=== PATIENT | male | born 1950 | race Caucasian/White ===

== ENCOUNTER → 2020-04-29 09:33 | Outpatient (CLI) | payer OTHER, SELFPAY ==
[2015-05-25 10:42] VITALS: BMI 36.4
[2020-04-29 09:56] LABS: Hematocrit 48.1 % (40-54); Hemoglobin 16.6 g/dL (13.0-16.5); Mean Corp Hgb Conc 34.5 g/dL (32-36); Mean Corpuscular Hgb 30.2 pg (27.0-32.0); Mean Corpuscular Volume 87.5 fL (80-94); Mean Platelet Vol. 10.2 fl (6.2-12.0); Platelet Count 197 K/mm3 (150-450); RBC Distribution Width CV 12.5 % (11.6-14.6); RBC Distribution Width SD 39.5 fl (35.1-43.9); White Blood Count 6.7 K/mm3 (4.4-11.0)
== END ==
DX: C85.90 Non-Hodgkin lymphoma, unspecified, unspecified site (principal)
CPT/HCPCS: 36415; 85027

== ENCOUNTER 2021-12-30 14:32 | Inpatient (IN) | payer OTHER, SELFPAY ==
[2021-12-30] VITALS (18 sets, daily range): BP systolic 106–159; BP diastolic 62–102; PULSE 81–175; RESP 14–24; TEMP 36.6–36.9; O2SAT 80–93; BMI 38.0; BMI 42.3; BMI 41.0
--- NOTE | 2021-12-30 14:37 | ED.RN ---
HR NOTED IN TRIAGE TO RANGE FROM 39-168. 4L O2 APPLIED TO REACH 93% O2
--- NOTE | 2021-12-30 14:41 | EKG12_ITS ---
Test Reason : CP/SOB Blood Pressure : / mmHG Vent. Rate : 153 BPM Atrial Rate : 086 BPM P-R Int : 000 ms QRS Dur : 154 ms QT Int : 322 ms P-R-T Axes : 000 010 184 degrees QTc Int : 514 ms Atrial fibrillation Left bundle branch block Abnormal ECG Confirmed by HERNÁN KAUFFMAN, VALERIANO ([id number]), editor school photograph LOUIS GILMAN ([id number]) on 01/01/2022 10:08:36 AM Referred By: Confirmed By:VALERIANO JIM MD
--- NOTE | 2021-12-30 14:41 | RAD_ITS ---
INDICATION: chest pain EXAMINATION/TECHNIQUE: X-RAY - XR Chest 1 View COMPARISON: None. FINDINGS: LINES/DEVICES: None. LUNGS: Prominence of the bronchovascular interstitial lung markings is visualized bilaterally with subtle scattered areas of patchy airspace opacification seen. Fluid levels visualized in bilateral lower lung kulkarni more prominent in the right lower lung field with obscuration of the hemidiaphragms consistent with bilateral pleural effusions right more than left. No consolidation, edema or effusion. No pneumothorax. MEDIASTINUM AND CARDIOVASCULAR STRUCTURES: Cardiac silhouette is moderately enlarged. BONES AND SOFT TISSUES: Degenerative bone changes unremarkable for the patient''s age. RAD/Chest 1 View (Portable) IMPRESSION: Congestive heart failure with bilateral pleural effusions right more than left. Electronically Signed: Teofilo Godinez MD at 15:30 EDT ,
--- NOTE | 2021-12-30 15:00 | EKG12_ITS ---
Test Reason : Blood Pressure : / mmHG Vent. Rate : 080 BPM Atrial Rate : 000 BPM P-R Int : 000 ms QRS Dur : 150 ms QT Int : 428 ms P-R-T Axes : 000 007 194 degrees QTc Int : 493 ms Atrial fibrillation Left bundle branch block Abnormal ECG Confirmed by DORINDA KAUFFMAN, HEIDI ([id number]), brands editor LOUIS GILMAN ([id number]) on 01/05/2022 9:05:27 AM Referred By: Forrest Confirmed By:HEIDI SETH MD
--- NOTE | 2021-12-30 15:07 | EDS_ITS ---
HPI History of Present Illness Chief Complaint: Shortness of Breath Informant: patient Narrative Narrative: Patient is a 71-year-old male with history of colon cancer, hypertension and hyperlipidemia presenting from home for chest discomfort and shortness of breat h. Patient states he started feeling some symptoms last night but became significantly worse this morning. Patient has pain in the center of his chest. Denies radiation of the pain. He has cough that is nonproductive and mild associated with his symptoms. Denies any sick contacts. Does feel associated palpitations. Denies any history of cardiac arrhythmia. Patient does not wear home oxygen. Does have some chronic swelling of his legs, right worse than left ever since he broke his ankle 2 years ago. Does not feel that this is changed or different than his baseline. Denies any sick contacts. No other complaints at this time. [facility] Medical History (Updated 12/31/21 @ 00:[address] Betty Hurtado, DO) BPH (benign prostatic hyperplasia) Colon cancer Former smoker Gout Hypertension Morbid obesity Osteoarthritis Sleep apnea Urinary incontinence Home Medications acetaminophen 325 mg tablet (Tylenol) 650 mg PO TID PRN HIP PAIN 12/30/21 [History Last Taken 12/29/21] allopurinol 100 mg tablet 100 mg PO DAILY GOUT 12/30/21 [History Last Taken 12/30/21] amlodipine 10 mg tablet 10 mg PO DAILY BP 12/30/21 [History Last Taken 12/30/21] cholecalciferol (vitamin D3) 50 mcg (2,000 unit) tablet 100 mcg PO DAILY SUPPLEMENT 12/30/21 [History Last Taken 12/30/21] finasteride 5 mg tablet 5 mg PO DAILY PROSTATE 12/30/21 [History Last Taken 12/30/21] hydrochlorothiazide 25 mg tablet 25 mg PO DAILY FLUID 12/30/21 [History Last Taken 12/30/21] lisinopril 30 mg tablet 30 mg PO BID BP 12/30/21 [History Last Taken 12/30/21] metoprolol succinate 200 mg tablet,extended release 24 hr 200 mg PO DAILY HEART 12/30/21 [History Last Taken 12/30/21] potassium chloride 20 mEq tablet,extended release(part/cryst) (Klor-Con M) 20 meq PO DAILY SUPPLEMENT 12/30/21 [History Last Taken 12/30/21] salsalate 750 mg tablet 750 mg PO BID PRN Pain 12/30/21 [History Last Taken 12/29/21] terazosin 5 mg capsule 5 mg PO QHS PROSTATE 12/30/21 [History Last Taken 12/29/21] trospium 20 mg tablet 20 mg PO QHS OAB 12/30/21 [History Last Taken 12/29/21] Allergy/AdvReac Type Severity Reaction Status Date / Time codeine Allergy Itching Verified 12/30/21 14:38 Family History (Updated 12/30/21 @ 21:[address] Susy Clayton DO) Other Diabetes Heart disease Hypertension Social History (Updated 12/30/21 @ 21:[address] Susy Clayton DO) Smoking Status: Former smoker alcohol intake: current alcohol intake frequency: a few times a month substance use type: does not use ROS ROS ED Constitutional Constitutional ED: Denies chills, fever(s) or sweats Eyes Eyes: Denies change in vision or diplopia ENT ENT ED: Denies rhinorrhea or sore throat Cardiovascular Cardiovascular: Reports chest pain, palpitations and racing heartbeat Respiratory/Chest Respiratory/Chest: Reports cough, dyspnea and dyspnea on exertion Gastrointestinal Gastrointestinal: Denies abdominal pain, melena, nausea or vomiting Genitourinary Genitourinary ED: Denies dysuria Musculoskeletal Musculoskeletal: Denies arthralgias or myalgias Integumentary Denies rash Neurologic Neurologic: Denies headache(s) or weakness Psychiatric Psychiatric: Denies anxiety Hematologic/Lymphatic Hematologic/Lymphatic: Denies easy bleeding or easy bruising EXAM Physical Exam Const Vital Signs: 12/30/21 14:33 12/30/21 14:51 12/30/21 14:54 Temperature 98.4 F Temperature Source Temporal Pulse Rate 175 H 106 H Respiratory Rate 16 20 H Respiratory Effort Respiratory Depth Respiratory Pattern Blood Pressure 159/98 H 132/95 H Blood Pressure Mean 118 107 Blood Pressure Source Blood Pressure Position Blood Pressure Location Pulse Ox 80 92 Oxygen Delivery Method Room Air Nasal Cannula Nasal Cannula Oxygen Flow Rate (L/min) 4 4 12/30/21 14:55 12/30/21 14:57 12/30/21 15:04 Temperature Temperature Source Pulse Rate Respiratory Rate Respiratory Effort Short of Breath Short of Breath Respiratory Depth Shallow Respiratory Pattern Tachypnea Blood Pressure Blood Pressure Mean Blood Pressure Source Blood Pressure Position Blood Pressure Location Pulse Ox 92 Oxygen Delivery Method Nasal Cannula Nasal Cannula Oxygen Flow Rate (L/min) 4 4 12/30/21 15:17 12/30/21 15:45 12/30/21 15:48 Temperature Temperature Source Pulse Rate 147 H 89 101 H Respiratory Rate 22 H 14 24 H Respiratory Effort Respiratory Depth Respiratory Pattern Blood Pressure 133/102 H 132/70 H 130/80 H Blood Pressure Mean 112 90 96 Blood Pressure Source Blood Pressure Position Semi-Fowlers Blood Pressure Location Left Arm Pulse Ox 92 91 93 Oxygen Delivery Method Nasal Cannula Oxygen Flow Rate (L/min) 4 4 4 12/30/21 16:57 12/30/21 16:58 Temperature Temperature Source Pulse Rate 114 H 116 H Respiratory Rate 16 22 H Respiratory Effort Respiratory Depth Respiratory Pattern Blood Pressure 138/83 H 138/83 H Blood Pressure Mean 101 101 Blood Pressure Source Monitor Blood Pressure Position Semi-Fowlers Blood Pressure Location Left Arm Pulse Ox 92 92 Oxygen Delivery Method Nasal Cannula Oxygen Flow Rate (L/min) 4 4 Positive well nourished, well developed and obese General Appearance ED: well developed Nutritional Appearance: obese HEENT Reports moist mucous membranes Negative for trauma Eyes PERRL and EOMs intact bilaterally Neck supple and no JVD Chest Wall inspection of chest normal and palpation of chest normal Resp Resp Narrative: Normal respiratory effort. Rhonchorous breath sounds, more pronounced at the right lung base. No crackles appreciated. Auscultation: Negative for wheezes Cardio Rate: tachycardic Rhythm: abnormal rhythm irregularly irregular GI non-tender and no masses GI Narrative: Protuberant abdomen Palpation: soft; Negative for tender or guarding Extremity General Extremety ED: Yes edema; Negative for tenderness General Extremity: edema Neuro oriented x3 Motor Exam: general weakness Psych mental status grossly normal Skin no rashes or lesions noted and no wounds MDM MDM MDM Narrative Medical decision making narrative: Patient arrives for over 12 hours of chest discomfort and shortness of breath. Patient is tachycardic and hypoxic upon arrival. He is placed on 4 L of oxygen to maintain his O2 saturation above 90%. Patient appears to be in atrial fibrillation which is new onset. I will start on diltiazem and evaluate for further causes of the atrial fibrillation including PE with a D-dimer and ACS. Patient has adequate rate control with diltiazem bolus and then drip. Chest x- ray shows pulmonary edema and pleural effusion on the right interpreted by myself as well as radiology. D-dimer is elevated as well as BNP. High since he troponin is normal x2. CTA shows pleural effusions as well as dependent atelectasis but no infiltrate or pulmonary emboli. I suspect the pleural effusions are causing his hypoxia. Its not clear the pleural effusions triggered the atrial fibrillation with RVR or are a result of it. Patient started on IV Lasix and started to have good urine output with it. He will be admitted on a heparin drip for further evaluation of his new atrial fibrillation, as well as further rate control patient evaluation for cute onset of heart failure. He is agreeable this plan of care. He stabilized in the e mergency room. Lab Data Labs: Laboratory Results - last 24 hr 12/30/21 12/30/21 12/30/21 14:47 14:47 14:47 WBC 7.6 RBC 4.63 Hgb 14.3 Hct 41.8 MCV 90.3 MCH 30.9 MCHC 34.2 RDW Std Deviation 43.8 RDW Coeff of Maci 13.4 Plt Count 250 MPV 10.3 Immature Gran % (Auto) 0.300 Neut % (Auto) 70.3 H Lymph % (Auto) 14.8 L [place] % (Auto) 11.8 H Eos % (Auto) 2.3 Baso % (Auto) 0.5 Absolute Neuts (auto) 5.3 Absolute Lymphs (auto) 1.12 Nucleated RBC % 0 PT 13.9 INR 1.1 APTT 27.8 D-Dimer Quant (PE/DVT) 1.70 H* Sodium 138 Potassium 4.0 Chloride 102 Carbon Dioxide 30.0 Anion Gap 6 BUN 23 H Creatinine 1.26 Estim Creat Clear Calc 54.72 Est GFR (MDRD) Af Amer 72 Est GFR (MDRD) Non-Af 60 BUN/Creatinine Ratio 18.3 Glucose 115 H Calcium 9.2 Magnesium 2.3 Troponin I High Sens 6 B-Natriuretic Peptide TSH 1.64 12/30/21 12/30/21 14:47 17:25 WBC RBC Hgb Hct MCV MCH MCHC RDW Std Deviation RDW Coeff of Maci Plt Count MPV Immature Gran % (Auto) Neut % (Auto) Lymph % (Auto) [place] % (Auto) Eos % (Auto) Baso % (Auto) Absolute Neuts (auto) Absolute Lymphs (auto) Nucleated RBC % PT INR APTT D-Dimer Quant (PE/DVT) Sodium Potassium Chloride Carbon Dioxide Anion Gap BUN Creatinine Estim Creat Clear Calc Est GFR (MDRD) Af Amer Est GFR (MDRD) Non-Af BUN/Creatinine Ratio Glucose Calcium Magnesium Troponin I High Sens 6 B-Natriuretic Peptide 719.0 H TSH Radiography Diagnostic Testing: Clinical Impression(s) from Imaging Studies Chest X-Ray 12/30/21 14:41 IMPRESSION: Congestive heart failure with bilateral pleural effusions right more than left. Electronically Signed: Teofilo Godinez MD at 15:30 EDT , Chest CTA 12/30/21 16:19 IMPRESSION: 1. No CT evidence of pulmonary embolism. 2. Large bilateral pleural effusions with bibasilar atelectasis. Electronically Signed: Castro Rosales MD at 17:26 EDT , Rhythm Strip Rhythm Strip: A-fib Rate: 153 Ectopy: None EKG Initial EKG: Attestation: I personally reviewed and interpreted this EKG as follows: Interpretation: Atrial Fibrillation Comments: Atrial fibrillation with a Florez C at a rate of 153 Normal axis Left bundle branch block QRS [address] segments changes Prior EKG tracings: available for review Prior: Changed Critical Care Time Critical Care Time: Yes Critical care time (excluding procedures): 30-74 minutes (35), Discussing w/Patient &/or Family/Physical Therapy Aide, Arranging Admission or Transfer and Performing Direct Patient Care at Bedside Discharge Plan Dx/Rx/DC Orders Clinical Impression: Atrial fibrillation with RVR, Bilateral pleural effusion, Acute heart failure, Elevated brain natriuretic peptide (BNP) level, Acute respiratory failure with hypoxia Disposition Disposition: [facility] Discharge Date/Time: 12/30/21 18:59
[2021-12-30] MEDS: Aspirin 81 MG TAB.CHEW 324 MG PO (15:16)
[2021-12-30] MEDS: dilTIAZem 25 MG/5 ML Vial IV BOLUS (15:17)
[2021-12-30] MEDS: 0.9% Normal Saline 1,000 ML 15 ML IV (15:17)
[2021-12-30 15:24] LABS: Absolute Lymphocyte Count 1.12 X10^3/uL (0.83-4.51); Absolute Neutrophil Count 5.3 X10^3/uL (2.0-7.7); Basophil# 0.04 X10^3/uL; Basophil% 0.5 % (0-1); Eosinophil# 0.17 X10^3/uL; Eosinophils% 2.3 % (0-5); Hematocrit 41.8 % (40-54); Hemoglobin 14.3 g/dL (13.0-16.5); Lymphocyte # 1.12 X10^3/ul (0.83-4.51); Lymphocyte % 14.8 % (19-41); Mean Corp Hgb Conc 34.2 g/dL (32-36); Mean Corpuscular Hgb 30.9 pg (27.0-32.0); Mean Corpuscular Volume 90.3 fL (80-94); Mean Platelet Vol. 10.3 fl (6.2-12.0); Monocyte# 0.89 X10^3/uL; Monocyte% 11.8 % (0-10); NRBC Flagged by Analyzer 0 % (0-5); Neutrophil # 5.31 X10^3/uL (2.7-7.7); Neutrophil % 70.3 % (47-70); Platelet Count 250 K/mm3 (150-450); RBC Distribution Width CV 13.4 % (11.6-14.6); RBC Distribution Width SD 43.8 fl (35.1-43.9); Red Blood Count 4.63 M/mm3 (4.6-6.2); White Blood Count 7.6 K/mm3 (4.4-11.0)
[2021-12-30 15:49] LABS: Anion Gap 6 (5-15); BUN 23 mg/dL (7-18); BUN/Creat Ratio 18.3 RATIO (10-20); Calcium,Total 9.2 mg/dL (8.5-10.1); Chloride 102 mmol/L (98-107); Creatinine, Serum 1.26 mg/dL (0.70-1.30); EST Glomerular Filtration Rate 60 mL/min (>60); Est Glom Filt Rate - Afr Amer 72 mL/min (>60); Estimated Creatinine Clearance 54.72 ml/min; Glucose 115 mg/dL (74-106); Magnesium 2.3 mg/dL (1.6-2.6); Sodium Level 138 mmol/L (136-145); Thyroid Stim Hormone (TSH) 1.64 uIU/mL (0.358-3.74); Troponin-I HS (w/2H Reflex) 6 pg/mL (3.0-78.0)
[2021-12-30 16:00] LABS: International Normalized Ratio 1.1; Prothrombin Time (Protime)PT. 13.9 SECONDS (11.7-14.9)
[2021-12-30 16:01] LABS: Partial Thromboplast Time 27.8 Seconds (24.1-36.2)
--- NOTE | 2021-12-30 16:11 | ED.RN ---
asked pharmacy services representative Justin to get [facility].
[2021-12-30] MEDS: Furosemide 40 MG/4 ML Vial IV (16:14)
--- NOTE | 2021-12-30 16:19 | CT_ITS ---
STUDY: CTA CHEST REASON FOR EXAM: Male, 71 years old. SOB, hypoxia, elevated dimer RADIATION DOSAGE (If Supplied By Facility): CTDIvol = ( 15.04 ) mGy, DLP = ( 535.9 ) mGycm TECHNIQUE: The examination was performed with the intravenous administration of IV 100mL Isovue-370. Post-processing of the angiographic images was performed, with multiplanar reformation and 3D reconstruction. Individualized dose optimization techniques were used for this CT. COMPARISON: Chest x-ray earlier today FINDINGS: Normal enhancement of the main pulmonary artery and right and left pulmonary arteries. Normal enhancement of the bilateral peripheral pulmonary arteries. There is no demonstrated pulmonary embolism. Normal thoracic aorta and visualized great vessels. There is no demonstrated aortic dissection. Normal heart and pericardium. Normal mediastinum. Normal hilar regions. Normal visualized trachea and bronchi. The lungs are well expanded. Normal pulmonary parenchyma. Large bilateral pleural effusions with bibasilar atelectasis. Normal chest wall structures. Normal osseous structures. Normal visualized upper abdomen. CT/CTA Chest W/WO Contrast IMPRESSION: 1. No CT evidence of pulmonary embolism. 2. Large bilateral pleural effusions with bibasilar atelectasis. Electronically Signed: Castro Rosales MD at 17:26 EDT ,
[2021-12-30 17:19] LABS: Reflex Troponin-HS? (from REC) Y
[2021-12-30 18:14] LABS: Troponin-I HS 6 pg/mL (3.0-78.0)
--- NOTE | 2021-12-30 18:15 | NURSING ---
PCU MICHAEL [facility] [place] AFIB, ACUTE HYPOXIA
[2021-12-30] MEDS: Heparin Injection (Vial) 5,000 UNIT/ML VIAL 10500 UNIT IV (18:48)
[2021-12-30] MEDS: HEPARIN/D5w 25,000 UNITS 25,000 UNITS/250 ML IV.SOLN. 17 UNITS CONT INF (18:49)
--- NOTE | 2021-12-30 19:19 | ECHOCS_ITS ---
Reason For Study: CHF Procedure This was a 2D Doppler, Color Flow transthoracic echocardiogram. The study was technically difficult. due to patient body habitus & lung interference. Contrast injection was performed. Exam performed portable in patient room. Left Ventricle Based upon the 2D echocardiographic and contrast enhanced images obtained there appears to be grossly normal left ventricular size, wall motion, and systolic function. The estimated ejection fraction is 55 %. Unable to assess diastolic dysfunction. Right Ventricle Normal RV size. Normal systolic function. Atria Normal left atrium. Normal right atrium. No doppler evidence for ASD. Mitral Valve There is no mitral annular calcification. Normal mitral valve. Trivial mitral valve insufficiency. Tricuspid Valve Normal tricuspid valve. Aortic Valve The aortic valve is not well visualized. Pulmonic Valve The pulmonic valve is not well visualized. Great Vessels The aortic root is not well visualized. Pericardium/Pleural No pericardial effusion. Medication Diluted definity 2ml given slow IV push to enhance endocardial definition. Doppler Measurements & Calculations MV E max colin: 71.0 cm/sec Ao V2 max: 145.8 cm/sec LV V1 max: 113.6 cm/sec Ao max P.8 mmHg LV V1 max P.2 mmHg ECHO/Echo Complete W/ Contrast Interpretation Summary The study was technically difficult. Contrast injection was performed. The study was technically difficult.Based upon the 2D echocardiographic and con trast enhanced images obtained there appears to be grossly normal left ventricular size, wall motion, and systolic function. The estimated ejection fraction is 55 %. Trivial mitral valve insufficiency. Unable to assess diastolic dysfunction. Ordering Physician: Susy Clayton Performed By: Rosaura Roy RCS
[2021-12-30] MEDS: Furosemide 500 MG in Empty Viaflex 50 mL 1 EACH CONT INF (20:07)
--- NOTE | 2021-12-30 20:34 | PCM.PN.BLA ---
Progress Note Afib with RVR; uncontrolled on cardizem drip. Digoxin IV ordered.
[2021-12-30] MEDS: Digoxin 250 MCG/ML Ampul 500 MCG IV (20:45)
[2021-12-30] MEDS: Tolterodine Tartrate 2 MG CAP.SA PO (20:49)
[2021-12-30] MEDS: Doxazosin 4 MG Tablet PO (20:49)
[2021-12-30] MEDS: Lisinopril 10 MG Tablet 30 MG PO (20:49)
[2021-12-30] MEDS: 0.9% Saline Lock 10 ML Syringe IV (20:53)
--- NOTE | 2021-12-30 21:05 | PCM.HP.STD ---
HPI - General General Date of Admission: 12/30/21 Date of Service: 12/30/21 Chief Complaint: Shortness of breath HPI Narrative STEFANY BOND, is a 71 M who presented to the emergency department [facility] on 12/30/2021 with shortness of breath. The patient states that he really noticed it started yesterday. He has had no associated cough, fever, chills, nausea, vomiting, chest pain, sputum production, tingling, numbness, or weakness. He reports chronic lower extremity edema that is not any worse than his baseline. He states he noticed today that his heart rate was a little bit faster than normal and he had few palpitations. He has no known history of any cardiac arrhythmias and does not wear oxygen at baseline. [facility] follows [facility] the [facility] for most of his medical care and does not recall if he does or has had an echocardiogram. He denies any cardiac issues previously. He does have known hyperlipidemia and hypertension. The patient did admit to baseline obstructive sleep apnea but is not compliant with his mask as he states he is unable to sleep with it on. Upon presentation emergency department he was found to have temperature of 98.4, heart rate of 147, blood pressure of 133/102, respiratory rate is 22 and his oxygen saturations were anywhere from 90 to 93% on 4 L nasal cannula. There is no documented oxygen saturation on room air. His CBC was unremarkable. Coags are normal. His D-dimer was mildly elevated at 1.7 and therefore a CTA of his chest was performed and while it did not show any PE or dissection it did show bilateral pleural effusions with compressive atelectasis. His chemistry panel was unremarkable. A TSH was obtained and found to be 1.64. His initial troponin was 6 and a repeat in the emergency department was 6 as well. His BNP was markedly elevated greater than 700 on presentation. His EKG showed atrial fibrillation with RVR. There were no signs of acute ischemia. The emergency department he was placed on a Cardizem drip which improved his heart rates from the 140s to 150s down to 100-120 and he was given 40 mg of Lasix to which he thus far has had a good response. [facility] Medical History (Updated 12/30/21 @ 21:[address] Susy Clayton DO) BPH (benign prostatic hyperplasia) Colon cancer Former smoker Gout Hypertension Morbid obesity Osteoarthritis Sleep apnea Urinary incontinence Home Medications acetaminophen 325 mg tablet (Tylenol) 650 mg PO TID PRN HIP PAIN 12/30/21 [History Last Taken 12/29/21] allopurinol 100 mg tablet 100 mg PO DAILY GOUT 12/30/21 [History Last Taken 12/30/21] amlodipine 10 mg tablet 10 mg PO DAILY BP 12/30/21 [History Last Taken 12/30/21] cholecalciferol (vitamin D3) 50 mcg (2,000 unit) tablet 100 mcg PO DAILY SUPPLEMENT 12/30/21 [History Last Taken 12/30/21] finasteride 5 mg tablet 5 mg PO DAILY PROSTATE 12/30/21 [History Last Taken 12/30/21] hydrochlorothiazide 25 mg tablet 25 mg PO DAILY FLUID 12/30/21 [History Last Taken 12/30/21] lisinopril 30 mg tablet 30 mg PO BID BP 12/30/21 [History Last Taken 12/30/21] metoprolol succinate 200 mg tablet,extended release 24 hr 200 mg PO DAILY HEART 12/30/21 [History Last Taken 12/30/21] potassium chloride 20 mEq tablet,extended release(part/cryst) (Klor-Con M) 20 meq PO DAILY SUPPLEMENT 12/30/21 [History Last Taken 12/30/21] salsalate 750 mg tablet 750 mg PO BID PRN Pain 12/30/21 [History Last Taken 12/29/21] terazosin 5 mg capsule 5 mg PO QHS PROSTATE 12/30/21 [History Last Taken 12/29/21] trospium 20 mg tablet 20 mg PO QHS OAB 12/30/21 [History Last Taken 12/29/21] Allergy/AdvReac Type Severity Reaction Status Date / Time codeine Allergy Itching Verified 12/30/21 14:38 Family History (Updated 12/30/21 @ 21:[address] Susy Clayton DO) Other Diabetes Heart disease Hypertension no surgical history Social History (Updated 12/30/21 @ 21:[address] Susy Clayton DO) Smoking Status: Former smoker alcohol intake: current alcohol intake frequency: a few times a month substance use type: does not use ROS Constitutional Constitutional: Denies anorexia, change in weight, chills, fatigue, fever(s), malaise, night sweats, weakness or other Eyes Eyes: Denies blurry vision, change in eye color, change in vision, discharge from eye(s), double vision, erythema, eye pain, loss of vision or other ENT HEENT: Denies abnormal hearing, dysphagia, ear pain, epistaxis, headache(s), hearing loss, nasal congestion, nasal discharge, post nasal drip, sinus pressure, sore throat or other Cardiovascular Cardiovascular: Reports dyspnea on exertion, palpitations and rapid heart rate; Denies chest pain, claudication, edema, lightheadedness, orthopnea, paroxysmal nocturnal dyspnea, syncope or other Respiratory/Chest Respiratory/Chest: Reports shortness of breath at rest and shortness of breath with exertion; Denies cough, dyspnea, excessive phlegm production, hemoptysis, productive cough, wheezing or other Gastrointestinal Gastrointestinal: Denies abdominal pain, coffee ground emesis, constipation, diarrhea, dyspepsia, hematemesis, hematochezia, loose stools, melena, nausea, vomiting or other Genitourinary Genitourinary: Reports difficulty urinating, nocturia, urinary frequency, urinary hesitancy and urinary incontinence; Denies burning urination, dysuria, hematuria, urinary urgency or other Musculoskeletal Musculoskeletal: Reports joint pain and joint stiffness; Denies arthralgias, back pain, joint swelling, myalgias, neck pain or other Neurologic Neurologic: Denies abnormal gait, abnormal speech, confusion, disequilibrium, dizziness, focal weakness, headache(s), numbness, paresthesias, seizure-like activity, seizures, syncope, tingling, tremor(s) or other Psychiatric Psychiatric: Denies anxiety, depression, homicidal ideation, suicidal ideation or other Endocrine Endocrinology: Denies change in body appearance, cold intolerance, excessive sweating, heat intolerance, polydipsia, polyuria or other Hematologic/Lymphatic Hematologic/Lymphatic: Denies anemia, easy bleeding, easy bruising, lymphadenopathy or other Allergic/Immunologic Allergic/Immunologic: Denies rhinitis, hives, eczemia, asthma or other Vital Signs Vital Signs Vital Signs: 12/30/21 14:33 12/30/21 14:51 12/30/21 14:54 Temperature 98.4 F Temperature Source Temporal Pulse Rate 175 H 106 H Pulse Strength Respiratory Rate 16 20 H Respiratory Effort Respiratory Depth Respiratory Pattern Blood Pressure 159/98 H 132/95 H Blood Pressure Mean 118 107 Blood Pressure Source Blood Pressure Position Blood Pressure Location Pulse Ox 80 92 Oxygen Delivery Method Room Air Nasal Cannula Nasal Cannula Oxygen Flow Rate (L/min) 4 4 12/30/21 14:55 12/30/21 14:57 12/30/21 15:04 Temperature Temperature Source Pulse Rate Pulse Strength Respiratory Rate Respiratory Effort Short of Breath Short of Breath Respiratory Depth Shallow Respiratory Pattern Tachypnea Blood Pressure Blood Pressure Mean Blood Pressure Source Blood Pressure Position Blood Pressure Location Pulse Ox 92 Oxygen Delivery Method Nasal Cannula Nasal Cannula Oxygen Flow Rate (L/min) 4 4 12/30/21 15:17 12/30/21 15:45 12/30/21 15:48 Temperature Temperature Source Pulse Rate 147 H 89 101 H Pulse Strength Respiratory Rate 22 H 14 24 H Respiratory Effort Respiratory Depth Respiratory Pattern Blood Pressure 133/102 H 132/70 H 130/80 H Blood Pressure Mean 112 90 96 Blood Pressure Source Blood Pressure Position Semi-Fowlers Blood Pressure Location Left Arm Pulse Ox 92 91 93 Oxygen Delivery Method Nasal Cannula Oxygen Flow Rate (L/min) 4 4 4 12/30/21 16:57 12/30/21 16:58 12/30/21 18:20 Temperature 98.4 F Temperature Source Temporal Pulse Rate 114 H 116 H 104 H Pulse Strength Respiratory Rate 16 22 H 24 H Respiratory Effort Respiratory Depth Respiratory Pattern Blood Pressure 138/83 H 138/83 H 106/72 Blood Pressure Mean 101 101 83 Blood Pressure Source Monitor Blood Pressure Position Semi-Fowlers Blood Pressure Location Left Arm Pulse Ox 92 92 90 Oxygen Delivery Method Nasal Cannula Nasal Cannula Oxygen Flow Rate (L/min) 4 4 4 12/30/21 19:29 12/30/21 19:46 12/30/21 19:20 Temperature Temperature Source Pulse Rate 147 H 133 H Pulse Strength Weak (1+) Respiratory Rate 24 H Respiratory Effort Respiratory Depth Respiratory Pattern Blood Pressure 120/63 Blood Pressure Mean 82 Blood Pressure Source Monitor Blood Pressure Position Semi-Fowlers Blood Pressure Location Left Arm Pulse Ox 88 Oxygen Delivery Method Nasal Cannula Oxygen Flow Rate (L/min) 4 12/30/21 19:30 12/30/21 20:18 12/30/21 20:45 Temperature Temperature Source Pulse Rate 128 H 137 H Pulse Strength Respiratory Rate 22 H Respiratory Effort Short of Breath Labored Respiratory Depth Normal Respiratory Pattern Tachypnea Blood Pressure 138/62 H Blood Pressure Mean 87 Blood Pressure Source Monitor Blood Pressure Position Semi-Fowlers Blood Pressure Location Left Arm Pulse Ox 93 Oxygen Delivery Method Nasal Cannula Nasal Cannula Oxygen Flow Rate (L/min) 5 5 Weight Weight: 129.6 kg Body Mass Index (BMI) 41.0 Results Lab / Micro Data Attestation: I reviewed the patient's lab results. Result Diagrams: 12/30/21 14:47 12/30/21 14:47 Labs: Laboratory Results - last 24 hr 12/30/21 14:47: WBC 7.6, RBC 4.63, Hgb 14.3, Hct 41.8, MCV 90.3, MCH 30.9, MCHC 34.2, RDW Std Deviation 43.8, RDW Coeff of Maci 13.4, Plt Count 250, MPV 10.3, Immature Gran % (Auto) 0.300, Neut % (Auto) 70.3 H, Lymph % (Auto) 14.8 L, [place] % (Auto) 11.8 H, Eos % (Auto) 2.3, Baso % (Auto) 0.5, Absolute Neuts (auto) 5.3, Absolute Lymphs (auto) 1.12, Nucleated RBC % 0 12/30/21 14:47: Sodium 138, Potassium 4.0, Chloride 102, Carbon Dioxide 30.0, Anion Gap 6, BUN 23 H, Creatinine 1.26, Estim Creat Clear Calc 54.72, Est GFR (MDRD) Af Amer 72, Est GFR (MDRD) Non-Af 60, BUN/Creatinine Ratio 18.3, Glucose 115 H, Calcium 9.2, Magnesium 2.3, Troponin I High Sens 6, TSH 1.64 12/30/21 14:47: PT 13.9, INR 1.1, APTT 27.8, D-Dimer Quant (PE/DVT) 1.70 H* 12/30/21 14:47: B-Natriuretic Peptide 719.0 H 12/30/21 17:25: Troponin I High Sens 6 Micro: Microbiology 12/30/21 15:06 Nasal Secretion SARS-CoV-2 Antigen (Rapid) - Final Rhythm Strip Rhythm Strip: A-fib Rate: 153 Ectopy: None Radiology Impression Chest X-Ray 12/30/21 14:41 IMPRESSION: Congestive heart failure with bilateral pleural effusions right more than left. Electronically Signed: Teofilo Godinez MD at 15:30 EDT , Chest CTA 12/30/21 16:[address]: 1[address] evidence of pulmonary embolism. 2. Large bilateral pleural effusions with bibasilar atelectasis. Electronically Signed: Castro Rosaels MD at 17:26 EDT , Assessment & Plan Assessment/Plan (1) Hyperglycemia: (2) Bilateral pleural effusion: (3) Elevated brain natriuretic peptide (BNP) level: (4) Acute heart failure: (5) Atrial fibrillation with RVR: PLAN: Plan Acute decompensated heart failure -Type unknown -May be related to atrial fibrillation or the atrial fibrillation may be related to heart failure caused by reduced ejection fraction or valvular abnormalities -Check echocardiogram -Lasix drip -Cycle cardiac enzymes -Strict I's and O's -1500 cc fluid restriction -Low-salt diet -Daily weights -No signs of acute ischemia on EKG A. fib with RVR -New onset -Continue home metoprolol -Continue Cardizem drip initiated the emergency department -Heparin drip for now in case patient needs thoracentesis -We will likely be able to transition to Eliquis prior to discharge -Check TSH -Check echocardiogram Bilateral pleural effusions -Hoping that we will able to diurese these -May need thoracentesis -Repeat chest x-ray in a.m. and monitor for need of thoracentesis -We will anticoagulate with heparin in case fluid removal via thoracentesis is necessary Hyperglycemia -Check A1c -Patient is not diagnosed with diabetes at baseline Hypertension -Continue home metoprolol -Continue home lisinopril -Hold hydrochlorothiazide while patient is on Lasix drip -Continue home amlodipine History of gout -Monitor closely with diuresis -Continue home allopurinol Urinary incontinence/BPH -Continue home trospium -Continue home terazosin -Continue home finasteride ZAHIDA -Patient is noncompliant at home -States he is unable to sleep with CPAP in place -Recommend repeat study as an outpatient and strongly encouraged compliance -We will utilize oxygen and less respiratory issues become more of a problem History of colon cancer -Currently in remission -Counts appear stable -No current issues Morbid obesity -BMI 41 -Recommend weight loss -Complicates treatment, prognosis, outcomes DVT prophylaxis -Currently on a heparin drip CODE STATUS -Full code as per discussion prior to admission emergency department Charges/Coding Visit Charges Inpatient E&M: 38676 Init Hosp L3
[2021-12-30 21:35] LABS: Troponin-I HS 8 pg/mL (3.0-78.0)
[2021-12-31] VITALS (29 sets, daily range): BP systolic 104–159; BP diastolic 61–94; PULSE 67–111; RESP 14–22; TEMP 36.1–36.6; O2SAT 89–95
[2021-12-31] MEDS: Acetaminophen 325 MG Tablet 650 MG PO (00:03)
[2021-12-31] MEDS: Heparin Injection (Vial) 5,000 UNIT/ML VIAL IV ×2 (00:59→08:48)
[2021-12-31] MEDS: 0.9% Saline Lock 10 ML Syringe IV ×3 (00:59→13:18)
[2021-12-31] MEDS: Digoxin 250 MCG/ML Ampul IV ×2 (01:27→08:51)
[2021-12-31 07:05] LABS: Absolute Lymphocyte Count 0.86 X10^3/uL (0.83-4.51); Absolute Neutrophil Count 4.2 X10^3/uL (2.0-7.7); Basophil# 0.03 X10^3/uL; Basophil% 0.5 % (0-1); Eosinophil# 0.24 X10^3/uL; Hematocrit 40.6 % (40-54); Hemoglobin 14.1 g/dL (13.0-16.5); Lymphocyte # 0.86 X10^3/ul (0.83-4.51); Lymphocyte % 14.4 % (19-41); Mean Corp Hgb Conc 34.7 g/dL (32-36); Mean Corpuscular Hgb 30.7 pg (27.0-32.0); Mean Corpuscular Volume 88.3 fL (80-94); Monocyte# 0.61 X10^3/uL; Monocyte% 10.2 % (0-10); NRBC Flagged by Analyzer 0 % (0-5); Neutrophil # 4.22 X10^3/uL (2.7-7.7); Neutrophil % 70.4 % (47-70); Platelet Count 225 K/mm3 (150-450); RBC Distribution Width CV 13.4 % (11.6-14.6); RBC Distribution Width SD 42.7 fl (35.1-43.9)
[2021-12-31 07:43] LABS: ALB/GLOB Ratio 0.7 RATIO (0.9-2.4); AST(SGOT) 13 U/L (15-37); Alanine Aminotransfer ALT/SGPT 37 U/L (16-61); Albumin, Serum 2.6 g/dL (3.2-5.0); Alkaline Phosphatase 71 U/L (45-117); Anion Gap 7 (5-15); BUN 22 mg/dL (7-18); BUN/Creat Ratio 18.6 RATIO (10-20); Calcium,Total 8.8 mg/dL (8.5-10.1); Chloride 100 mmol/L (98-107); Cholesterol 149 mg/dL (200); Creatinine, Serum 1.18 mg/dL (0.70-1.30); EST Glomerular Filtration Rate 64 mL/min (>60); Est Glom Filt Rate - Afr Amer 78 mL/min (>60); Estimated Creatinine Clearance 58.43 ml/min; Globulin 3.9 g/dL (2.2-4.2); Glucose 127 mg/dL (74-106); High Density Lipoprotein 36 mg/dL; Phosphorus 4.3 mg/dL (2.5-4.9); Potassium 3.4 mmol/L (3.5-5.1); Protein, Total 6.5 g/dL (6.4-8.2); Sodium Level 140 mmol/L (136-145); Triglycerides 124 mg/dL; Very Low Density Lipoprotein 25 mg/dL (5-40)
[2021-12-31] MEDS: Aspirin 81 MG TAB.CHEW PO (08:09)
[2021-12-31] MEDS: amLODIPine 10 MG Tablet PO (08:09)
[2021-12-31] MEDS: Allopurinol 100 MG Tablet PO (08:09)
[2021-12-31] MEDS: Lisinopril 10 MG Tablet 30 MG PO ×2 (08:09→21:24)
[2021-12-31] MEDS: Metoprolol(XL)Succ 200 MG Tablet PO (08:09)
[2021-12-31] MEDS: Potassium Chloride Oral Tablet 20 MEQ PO (08:09)
[2021-12-31] MEDS: Finasteride 5 MG Tablet PO (08:10)
[2021-12-31 08:14] LABS: Partial Thromboplast Time 42.5 Seconds (24.1-36.2)
--- NOTE | 2021-12-31 08:25 | RAD_ITS ---
INDICATION: CHF EXAMINATION/TECHNIQUE: X-RAY - XR Chest 2 Views COMPARISON: 12/30/2021.. FINDINGS: LINES/DEVICES: None. LUNGS: Prominence of the bronchovascular interstitial lung markings is visualized bilaterally with hazy opacification visualized in bilateral lower lung kulkarni. Improved aeration of the lower lung kulkarni is visualized in comparison to the prior study with decrease of the previously visualized pleural fluid, residual haziness overlying the costophrenic angles consistent with residual small bilateral pleural effusions. No evidence of pneumothorax is seen. MEDIASTINUM AND CARDIOVASCULAR STRUCTURES: Cardiac silhouette is moderately enlarged, mild tortuosity of the thoracic aorta is seen. BONES AND SOFT TISSUES: Degenerative bone changes are seen. RAD/Chest PA and Lateral IMPRESSION: Congestive heart failure however improved aeration and decreased pleural fluid is seen in comparison to the prior study. Electronically Signed: Teofilo Godinez MD at 8:48 EDT ,
[2021-12-31 08:33] LABS: Hemoglobin A1c 6.1 % (3.8-5.6)
[2021-12-31] MEDS: HEPARIN/D5w 25,000 UNITS 25,000 UNITS/250 ML IV.SOLN. 19 UNITS CONT INF (08:58)
--- NOTE | 2021-12-31 09:50 | CASEMGMT ---
ARCADIO GARCIA Face to Face with patient for initial transition planning/care coordination assessment. RN RADHA introduced self and role at [facility]. Patient lying in bed, alert and oriented. Patient willing to participate in assessment and is able to answer all questions appropriately. Care providers, pharmacy, and demographics verified. Patient wishes to discharge home, denies need for home health at this time. Patient states he has no further needs or concerns at this time. CM to follow for discharge planning needs that may arise. PCP: Dr. Rendon Jal [place] Specialists: [facility] Preferred Pharmacy: [place] [facility] [place]: [place] Prescription [place] Living Will/HPOA: none LNOK: sister Living Arrangements: Patient lives with significant other in a 2 story home with bed and bath on first floor. No steps to enter the home. Patient states he is independent at home. Transportation: self, significant other DME/HHC: Patient states he has shower chair, raised toilet, cane, walker, grab bars, cpap that he doesn't wear. Patient denies previous HHC. Patient has been to [facility] in the past. Disposition Plan: Patient to discharge home with family support and follow-up plans in place. Will monitor for home oxygen at discharge. Lacey RESENDIZ, RN, CM
--- NOTE | 2021-12-31 12:13 | PN.HOSP_ITS ---
Documented by User: Chyna Hawkins NP-C 12/31/21 14:36 Subjective Subjective Patient seen and examined. Patient lying in bed no distress noted. Patient currently on 8 L nasal cannula oxygen. Patient states that he feels improved from admission but still feels short of breath with any exertion. Objective Data Objective Data Vital Signs: Vital Signs Temp Pulse Resp BP Pulse Ox O2 Del Method O2 Flow Rate 97 F L 81 14 152/67 H 92 Nasal Cannula 8 12/31/21 08:02 12/31/21 08:51 12/31/21 08:02 12/31/21 08:51 12/31/21 08:02 12/31/21 08:05 12/31/21 08:05 Oxygen Flow Rate (L/min) 8 Oxygen Delivery Method Nasal Cannula Weight: 285 lb 11.505 oz Body Mass Index (BMI) 41.0 Intake & Output: Intake and Output for Last 24 Hours 12/29/21 12/30/21 12/31/21 23:59 23:59 23:59 Intake Total 479.00 / 479.25 489.61 / 489.61 Output Total 1300 / 1300 1500 / 1500 Balance -821.00 / -820.75 -1010.39 / -1010.39 Lab / Micro Data Result Diagrams: 12/31/21 06:43 12/31/21 06:43 Labs: Laboratory Results - last 24 hr 12/30/21 14:47: WBC 7.6, RBC 4.63, Hgb 14.3, Hct 41.8, MCV 90.3, MCH 30.9, MCHC 34.2, RDW Std Deviation 43.8, RDW Coeff of Maci 13.4, Plt Count 250, MPV 10.3, Immature Gran % (Auto) 0.300, Neut % (Auto) 70.3 H, Lymph % (Auto) 14.8 L, [place] % (Auto) 11.8 H, Eos % (Auto) 2.3, Baso % (Auto) 0.5, Absolute Neuts (auto) 5.3, Absolute Lymphs (auto) 1.12, Nucleated RBC % 0 12/30/21 14:47: Sodium 138, Potassium 4.0, Chloride 102, Carbon Dioxide 30.0, Anion Gap 6, BUN 23 H, Creatinine 1.26, Estim Creat Clear Calc 54.72, Est GFR (MDRD) Af Amer 72, Est GFR (MDRD) Non-Af 60, BUN/Creatinine Ratio 18.3, Glucose 115 H, Calcium 9.2, Magnesium 2.3, Troponin I High Sens 6, TSH 1.64 12/30/21 14:47: PT 13.9, INR 1.1, APTT 27.8, D-Dimer Quant (PE/DVT) 1.70 H* 12/30/21 14:47: B-Natriuretic Peptide 719.0 H 12/30/21 17:25: Troponin I High Sens 6 12/30/21 20:52: Troponin I High Sens 8 12/31/21 00:36: APTT 44.0 H 12/31/21 06:43: WBC 6.0, RBC 4.60, Hgb 14.1, Hct 40.6, MCV 88.3, MCH 30.7, MCHC 34.7, RDW Std Deviation 42.7, RDW Coeff of Maci 13.4, Plt Count 225, MPV 10.0, Immature Gran % (Auto) 0.500, Neut % (Auto) 70.4 H, Lymph % (Auto) 14.4 L, [place] % (Auto) 10.2 H, Eos % (Auto) 4.0, Baso % (Auto) 0.5, Absolute Neuts (auto) 4.2, Absolute Lymphs (auto) 0.86, Nucleated RBC % 0 12/31/21 06:43: Sodium 140, Potassium 3.4 L, Chloride 100, Carbon Dioxide 33.0 H , Anion Gap 7, BUN 22 H, Creatinine 1.18, Estim Creat Clear Calc 58.43, Est GFR (MDRD) Af Amer 78, Est GFR (MDRD) Non-Af 64, BUN/Creatinine Ratio 18.6, Glucose 127 H, Calcium 8.8, Phosphorus 4.3, Magnesium 2.0, Total Bilirubin 0.40, AST 13 L, ALT 37, Alkaline Phosphatase 71, Total Protein 6.5, Albumin 2.6 L, Globulin 3.9, Albumin/Globulin Ratio 0.7 L, Triglycerides 124, Cholesterol 149, LDL Cholesterol 88, VLDL Cholesterol 25, HDL Cholesterol 36 L 12/31/21 06:43: Hemoglobin A1c 6.1 H 12/31/21 06:43: APTT 42.5 H Micro: Microbiology 12/30/21 15:06 Nasal Secretion SARS-CoV-2 Antigen (Rapid) - Final Radiography Diagnostic Testing: Radiology Impression Chest X-Ray 12/30/21 14:41 IMPRESSION: Congestive heart failure with bilateral pleural effusions right more than left. Electronically Signed: Teofilo Godinez MD at 15:30 EDT , Chest CTA 12/30/21 16:19 IMPRESSION: 1. No CT evidence of pulmonary embolism. 2. Large bilateral pleural effusions with bibasilar atelectasis. Electronically Signed: Castro Rosales MD at 17:26 EDT , Chest X-Ray 12/31/21 08:25 IMPRESSION: Congestive heart failure however improved aeration and decreased pleural fluid is seen in comparison to the prior study. Electronically Signed: Teofilo Godinez MD at 8:48 EDT , Rhythm Strip Rhythm Strip: A-fib Rate: 153 Ectopy: None Physical Exam Const alert, oriented x3 and no apparent distress HEENT head/scalp atraumatic and moist oral mucous membranes Head and Scalp: normocephalic Eyes conjunctivae normal and no scleral icterus Neck supple Resp normal respiratory effort Effort and Inspection: able to speak in complete sentences and symmetric chest movement Auscultation: crackles bilateral throughout and diffuse Cardio regular rate, regular rhythm, S1 normal heart sound, S2 normal heart sound and peripheral pulses 2+ throughout GI normal to inspection, nondistended, normoactive bowel sounds, soft to palpation and non-tender Extremity normal to inspection and full ROM General Extremity: edema bilateral lower extremity Details: mild Neuro oriented x3, moves all extremities, no focal motor deficits and no sensory deficits noted Speech: speech normal Psych affect normal Assessment & Plan Assessment/Plan (1) Acute respiratory failure with hypoxia: (2) Atrial fibrillation with RVR: (3) Bilateral pleural effusion: (4) Acute heart failure: PLAN: Plan 1. Acute respiratory failure with hypoxia secondary to acute heart failure and atrial fibrillation with RVR -Echocardiogram pending -Continue Lasix drip -Continue strict I&O with 1500 mL fluid restriction -Daily weights -Cardiac enzymes negative x3 -Continue Cardizem drip, wean as tolerated -TSH normal -Chest x-ray improved from previous day, pleural effusions improved -Continue p.o. metoprolol -Consult cardiology 2. Hyperglycemia -Hgb A1c 6.1 -No history of DM 3. Hypertension -Continue home metoprolol, amlodipine and lisinopril -Hydrochlorothiazide on hold while patient on Lasix drip -Vital signs per protocol, currently stable 4. BPH -Continue trospium, terazosin, finasteride 5. ZAHIDA -Noncompliant with CPAP at home -Currently on 8 L nasal cannula oxygen 6. History of gout -Continue allopurinol DVT prophylaxis-D/c Heparin gtt, SC lovenox this patient was seen by Chyna Hawkins, JULIANA-C under the supervision of Dr. Hollis. 14 minutes spent in clinical coordination of patient's plan of care. Documented by User: Dr. Angel Hollis, 12/31/21 15:50 Objective Data Lab / Micro Data Result Diagrams: 12/31/21 06:43 12/31/21 06:43 Assessment & Plan Assessment/Plan (1) Acute respiratory failure with hypoxia: (2) Atrial fibrillation with RVR: (3) Bilateral pleural effusion: (4) Acute heart failure: Charges/Coding Addendum Addendum: Patient was seen and examined today independently of Makeda Hawkins, he was admitted for hypoxic respiratory failure secondary to congestive heart failure, he currently is on 7 L of oxygen. Patient is noted to be in atrial fibrillation at this time. According to the patient he has had no history of any cardiac issues or lung problems. He has had no history of atrial fibrillation. On examination he appeared in no distress. Vital signs as documented. Skin warm and dry and without overt rashes. Neck without JVD, neck was supple, trachea midline, thyroid was normal. Lungs clear bilaterally, normal air movement was noted. Heart exam notable for irregular rhythm, normal sounds and absence of murmurs, rubs or gallops. Abdomen unremarkable and without evidence of orga nomegaly, masses, or abdominal aortic enlargement. Patient is morbidly obese. Bowel sounds are present, abdomen is not distended. Extremities nonedematous, no cyanosis was noted, no clubbing was noted. Neuro: Cranial nerves II through XII are grossly intact, no focal motor deficits were noted, sensation to light touch and pinprick intact, motor exam 5/5 throughout. Psych: Patient is alert and oriented x3, he does not appear anxious or depressed, he does not appear agitated. Impression: #1 acute hypoxic respiratory failure secondary to new onset diastolic congestive heart failure-continue to monitor pulse ox and wean oxygen if possible #2 acute diastolic congestive heart failure-patient will remain on IV Lasix at this time, labs will be monitored #3 new onset atrial fibrillation with rapid ventricular response-cardiology saw the patient today and placed him on amiodarone, patient will remain on Cardizem and metoprolol at this time. #4 essential hypertension-blood pressure will be monitored, patient is on several medications for blood pressures #5 bilateral pleural effusion secondary to diastolic congestive heart failure- these appear to be improving on today's chest x-ray, I do not anticipate any need for thoracentesis at this time. #6 morbid obesity-complicates care, management, recovery, and prognosis. I have reviewed Makeda Hawkins's progress note including her medical assessment and plan of care and endorse it with the above additions. Total clinical time spent by myself addressing the patient's medical issues, reviewing data, and collaborating with patient's care team: 25 minutes Visit Charges Inpatient E&M: 06734 Subs Hosp L3
--- NOTE | 2021-12-31 12:57 | CON.PCM.CA_ITS ---
Assessment & Plan Assessment/Plan (1) Atrial fibrillation with RVR: PLAN: He presents with atrial fibrillation with a rapid ventricular response rate. He is already on a beta-matt and my recommendation is to continue the same and anticoagulate him. His echocardiogram which was performed today does demonstrate evidence of preserved left ventricular systolic function. Due to his markedly elevated blood pressure I would recommend at this time that we use amiodarone for rate control. (2) Acute heart failure: PLAN: He does have evidence of diastolic heart failure with an elevated natruretic peptide, bilateral pleural effusions and preserved left ventricular systolic function. I would suggest that we diurese him with intravenous Lasix (3) Hypertension: PLAN: His blood pressure is uncontrolled at this time. We will continue him on the beta-matt, calcium channel matt, alpha-matt and the LM inhibitor. We will continue to monitor his renal profile carefully. We may need to increase the ML inhibitor further. Thank you for allowing me to participate in the care of your patient. Please don't hesitate to call if any issues arise. HPI Consult Data Date of Consult: 12/31/21 HPI Narrative HPI Narrative: STEFANY BOND, is a 71 M who presents to the emergency room with shortness of breath and pedal edema and some palpitations. He was noted to be in atrial fibrillation with a rapid ventricular response rate and was admitted to the telemetry care unit and treated with intravenous diltiazem as well as heparin. He says that he is feeling better this morning. He denies any neck arm or jaw discomfort to suggest angina. He has been compliant with his medications. His EKG when he presented to the emergency room was noted to demonstrate atrial fibrillation with a left bundle branch block. Cardiology was called for further evaluation and management. [facility] Medical History (Updated 12/31/21 @ 13:[address] Miguel Zaman MD) BPH (benign prostatic hyperplasia) Colon cancer Former smoker Gout Hypertension Morbid obesity Osteoarthritis Sleep apnea Urinary incontinence Home Medications acetaminophen 325 mg tablet (Tylenol) 650 mg PO TID PRN HIP PAIN 12/30/21 [History Last Taken 12/29/21] allopurinol 100 mg tablet 100 mg PO DAILY GOUT 12/30/21 [History Last Taken 12/30/21] amlodipine 10 mg tablet 10 mg PO DAILY BP 12/30/21 [History Last Taken 12/30/21] cholecalciferol (vitamin D3) 50 mcg (2,000 unit) tablet 100 mcg PO DAILY SUPPLEMENT 12/30/21 [History Last Taken 12/30/21] finasteride 5 mg tablet 5 mg PO DAILY PROSTATE 12/30/21 [History Last Taken 12/30/21] hydrochlorothiazide 25 mg tablet 25 mg PO DAILY FLUID 12/30/21 [History Last Taken 12/30/21] lisinopril 30 mg tablet 30 mg PO BID BP 12/30/21 [History Last Taken 12/30/21] metoprolol succinate 200 mg tablet,extended release 24 hr 200 mg PO DAILY HEART 12/30/21 [History Last Taken 12/30/21] potassium chloride 20 mEq tablet,extended release(part/cryst) (Klor-Con M) 20 meq PO DAILY SUPPLEMENT 12/30/21 [History Last Taken 12/30/21] salsalate 750 mg tablet 750 mg PO BID PRN Pain 12/30/21 [History Last Taken 12/29/21] terazosin 5 mg capsule 5 mg PO QHS PROSTATE 12/30/21 [History Last Taken 12/29/21] trospium 20 mg tablet 20 mg PO QHS OAB 12/30/21 [History Last Taken 12/29/21] Allergy/AdvReac Type Severity Reaction Status Date / Time codeine Allergy Itching Verified 12/30/21 14:38 Family History (Updated 12/30/21 @ 21:[address] Susy Clayton DO) Other Diabetes Heart disease Hypertension Surgical History no surgical history Social History (Updated 12/30/21 @ 21:[address] Susy Clayton DO) Smoking Status: Former smoker alcohol intake: current alcohol intake frequency: a few times a month substance use type: does not use ROS Constitutional Constitutional: Denies anorexia, change in weight, chills, fatigue, fever(s), malaise, night sweats, weakness or other Eyes Eyes: Denies blurry vision, change in eye color, change in vision, discharge from eye(s), double vision, erythema, eye pain, loss of vision or other ENT HEENT: Denies abnormal hearing, dysphagia, ear pain, epistaxis, headache(s), hearing loss, nasal congestion, nasal discharge, post nasal drip, sinus pressure, sore throat or other Cardiovascular Cardiovascular: Reports dyspnea on exertion, palpitations and rapid heart rate; Denies chest pain, claudication, edema, lightheadedness, orthopnea, paroxysmal nocturnal dyspnea, syncope or other Respiratory/Chest Respiratory/Chest: Reports shortness of breath at rest and shortness of breath with exertion; Denies cough, dyspnea, excessive phlegm production, hemoptysis, productive cough, wheezing or other Gastrointestinal Gastrointestinal: Denies abdominal pain, coffee ground emesis, constipation, diarrhea, dyspepsia, hematemesis, hematochezia, loose stools, melena, nausea, vomiting or other Genitourinary Genitourinary: Reports difficulty urinating, nocturia, urinary frequency, urinary hesitancy and urinary incontinence; Denies burning urination, dysuria, hematuria, urinary urgency or other Musculoskeletal Musculoskeletal: Reports joint pain and joint stiffness; Denies arthralgias, back pain, joint swelling, myalgias, neck pain or other Neurologic Neurologic: Denies abnormal gait, abnormal speech, confusion, disequilibrium, dizziness, focal weakness, headache(s), numbness, paresthesias, seizure-like activity, seizures, syncope, tingling, tremor(s) or other Psychiatric Psychiatric: Denies anxiety, depression, homicidal ideation, suicidal ideation or other Endocrine Endocrinology: Denies change in body appearance, cold intolerance, excessive sweating, heat intolerance, polydipsia, polyuria or other Hematologic/Lymphatic Hematologic/Lymphatic: Denies anemia, easy bleeding, easy bruising, lymphadenopathy or other Allergic/Immunologic Allergic/Immunologic: Denies rhinitis, hives, eczemia, asthma or other Physical Exam Const alert, oriented x3 and no apparent distress General Appearance: cooperative HEENT hearing grossly normal bilaterally Head and Scalp: atraumatic Eyes EOMs intact bilaterally Neck General: normal visual inspection Chest inspection of chest normal and palpation of chest normal Resp normal respiratory effort Auscultation: clear to auscultation bilaterally Cardio S1 normal heart sound and S2 normal heart sound Cardio Narrative: irregular Jugular Venous Distention: JVD Rhythm: abnormal rhythm GI normal to inspection, nondistended, normoactive bowel sounds Extremity normal capillary refill and no pedal edema Peripheral Pulses: Yes pulses 2+ throughout and femoral pulses present Skin no rashes or lesions noted Neuro oriented x3 and CN's II-XII intact bilaterally Psych Appearance: grossly normal and appropriate Risk Stratification Risk Stratification Applicable: No Objective Data Vital Signs: Vital Signs Temp Pulse Resp BP Pulse Ox O2 Del Method O2 Flow Rate 97 F L 81 14 152/67 H 92 Nasal Cannula 8 12/31/21 08:02 12/31/21 08:51 12/31/21 08:02 12/31/21 08:51 12/31/21 08:02 12/31/21 08:05 12/31/21 08:05 Oxygen Flow Rate (L/min) 8 Oxygen Delivery Method Nasal Cannula Weight: 285 lb 11.505 oz Body Mass Index (BMI) 41.0 Intake & Output: Intake and Output for Last 24 Hours 12/29/21 12/30/21 12/31/21 23:59 23:59 23:59 Intake Total 479.00 / 479.25 489.61 / 489.61 Output Total 1300 / 1300 1500 / 1500 Balance -821.00 / -820.75 -1010.39 / -1010.39 Lab / Micro Data Result Diagrams: 12/31/21 06:43 12/31/21 06:43 Labs: Laboratory Results - last 24 hr 12/30/21 14:47: WBC 7.6, RBC 4.63, Hgb 14.3, Hct 41.8, MCV 90.3, MCH 30.9, MCHC 34.2, RDW Std Deviation 43.8, RDW Coeff of Maci 13.4, Plt Count 250, MPV 10.3, Immature Gran % (Auto) 0.300, Neut % (Auto) 70.3 H, Lymph % (Auto) 14.8 L, [place] % (Auto) 11.8 H, Eos % (Auto) 2.3, Baso % (Auto) 0.5, Absolute Neuts (auto) 5.3, Absolute Lymphs (auto) 1.12, Nucleated RBC % 0 12/30/21 14:47: Sodium 138, Potassium 4.0, Chloride 102, Carbon Dioxide 30.0, Anion Gap 6, BUN 23 H, Creatinine 1.26, Estim Creat Clear Calc 54.72, Est GFR (MDRD) Af Amer 72, Est GFR (MDRD) Non-Af 60, BUN/Creatinine Ratio 18.3, Glucose 115 H, Calcium 9.2, Magnesium 2.3, Troponin I High Sens 6, TSH 1.64 12/30/21 14:47: PT 13.9, INR 1.1, APTT 27.8, D-Dimer Quant (PE/DVT) 1.70 H* 12/30/21 14:47: B-Natriuretic Peptide 719.0 H 12/30/21 17:25: Troponin I High Sens 6 12/30/21 20:52: Troponin I High Sens 8 12/31/21 00:36: APTT 44.0 H 12/31/21 06:43: WBC 6.0, RBC 4.60, Hgb 14.1, Hct 40.6, MCV 88.3, MCH 30.7, MCHC 34.7, RDW Std Deviation 42.7, RDW Coeff of Maci 13.4, Plt Count 225, MPV 10.0, Immature Gran % (Auto) 0.500, Neut % (Auto) 70.4 H, Lymph % (Auto) 14.4 L, [place] % (Auto) 10.2 H, Eos % (Auto) 4.0, Baso % (Auto) 0.5, Absolute Neuts (auto) 4.2, Absolute Lymphs (auto) 0.86, Nucleated RBC % 0 12/31/21 06:43: Sodium 140, Potassium 3.4 L, Chloride 100, Carbon Dioxide 33.0 H , Anion Gap 7, BUN 22 H, Creatinine 1.18, Estim Creat Clear Calc 58.43, Est GFR (MDRD) Af Amer 78, Est GFR (MDRD) Non-Af 64, BUN/Creatinine Ratio 18.6, Glucose 127 H, Calcium 8.8, Phosphorus 4.3, Magnesium 2.0, Total Bilirubin 0.40, AST 13 L, ALT 37, Alkaline Phosphatase 71, Total Protein 6.5, Albumin 2.6 L, Globulin 3.9, Albumin/Globulin Ratio 0.7 L, Triglycerides 124, Cholesterol 149, LDL Cholesterol 88, VLDL Cholesterol 25, HDL Cholesterol 36 L 12/31/21 06:43: Hemoglobin A1c 6.1 H 12/31/21 06:43: APTT 42.5 H Micro: Microbiology 12/30/21 15:06 Nasal Secretion SARS-CoV-2 Antigen (Rapid) - Final Rhythm Strip Rhythm Strip: A-fib Rate: 153 Ectopy: None Cardiology Labs/Tests 12/30/21 14:47: WBC 7.6, RBC 4.63, Hgb 14.3, Hct 41.8, MCV 90.3, MCH 30.9, MCHC 34.2, Plt Count 250, MPV 10.3, Immature Gran % (Auto) 0.300, Neut % (Auto) 70.3 H, Lymph % (Auto) 14.8 L, [place] % (Auto) 11.8 H, Eos % (Auto) 2.3, Baso % (Auto) 0.5, Absolute Neuts (auto) 5.3, Nucleated RBC % 0 12/30/21 14:47: Sodium 138, Potassium 4.0, Chloride 102, Carbon Dioxide 30.0, Anion Gap 6, BUN 23 H, Creatinine 1.26, Est GFR (MDRD) Af Amer 72, Est GFR (MDRD) Non-Af 60, BUN/Creatinine Ratio 18.3, Glucose 115 H, Calcium 9.2, Magnesium 2.3 12/30/21 14:47: PT 13.9, INR 1.1, APTT 27.8, D-Dimer Quant (PE/DVT) 1.70 H* 12/30/21 14:47: B-Natriuretic Peptide 719.0 H 12/31/21 00:36: APTT 44.0 H 12/31/21 06:43: WBC 6.0, RBC 4.60, Hgb 14.1, Hct 40.6, MCV 88.3, MCH 30.7, MCHC 34.7, Plt Count 225, MPV 10.0, Immature Gran % (Auto) 0.500, Neut % (Auto) 70.4 H, Lymph % (Auto) 14.4 L, [place] % (Auto) 10.2 H, Eos % (Auto) 4.0, Baso % (Auto) 0.5, Absolute Neuts (auto) 4.2, Nucleated RBC % 0 12/31/21 06:43: Sodium 140, Potassium 3.4 L, Chloride 100, Carbon Dioxide 33.0 H , Anion Gap 7, BUN 22 H, Creatinine 1.18, Est GFR (MDRD) Af Amer 78, Est GFR (MDRD) Non-Af 64, BUN/Creatinine Ratio 18.6, Glucose 127 H, Calcium 8.8, [place] sphorus 4.3, Magnesium 2.0, Total Bilirubin 0.40, Triglycerides 124, Cholesterol 149, LDL Cholesterol 88, VLDL Cholesterol 25, HDL Cholesterol 36 L 12/31/21 06:43: Hemoglobin A1c 6.1 H 12/31/21 06:43: APTT 42.5 H Rhythm: EKG: ECHO: Stress Test: Cardiac Cath: PCI: CT Surgery: Holter monitor: EPS: PPM: CXR: Chest CT Scan: Radiography Diagnostic Testing: Radiology Impression Chest X-Ray 12/30/21 14:41 IMPRESSION: Congestive heart failure with bilateral pleural effusions right more than left. Electronically Signed: Teofilo Godinez MD at 15:30 EDT , Chest CTA 12/30/21 16:[address]: [address] evidence of pulmonary embolism. 2. Large bilateral pleural effusions with bibasilar atelectasis. Electronically Signed: Castro Rosales MD at 17:26 EDT , Echocardiogram 12/30/21 19:19 Interpretation Summary The study was technically difficult. Contrast injection was performed. The study was technically difficult.Based upon the 2D echocardiographic and contrast enhanced images obtained there appears to be grossly normal left ventricular size, wall motion, and systolic function. The estimated ejection fraction is 55 %. Trivial mitral valve insufficiency. Unable to assess diastolic dysfunction. Ordering Physician: Susy Clayton Performed By: Rosaura Roy RCS Chest X-Ray 12/31/21 08:25 IMPRESSION: Congestive heart failure however improved aeration and decreased pleural fluid is seen in comparison to the prior study. Electronically Signed: Teofilo Godinez MD at 8:48 EDT ,
[2021-12-31] MEDS: Amiodarone 200 MG Tablet PO ×2 (13:18→21:23)
[2021-12-31 15:00] LABS: Partial Thromboplast Time 27.5 Seconds (24.1-36.2)
[2021-12-31] MEDS: APIXABAN 5 MG TABLET PO (18:57)
[2021-12-31] MEDS: Doxazosin 4 MG Tablet PO (21:23)
[2021-12-31] MEDS: Tolterodine Tartrate 2 MG CAP.SA PO (21:23)
[2022-01-01] VITALS (18 sets, daily range): BP systolic 96–138; BP diastolic 54–78; PULSE 73–134; RESP 16–19; TEMP 36.1–36.7; O2SAT 85–98
[2022-01-01] MEDS: Potassium Chloride Oral Tablet 20 MEQ 40 MEQ PO (02:23)
[2022-01-01 05:37] LABS: Absolute Neutrophil Count 5.1 X10^3/uL (2.0-7.7); Basophil# 0.03 X10^3/uL; Basophil% 0.4 % (0-1); Eosinophil# 0.33 X10^3/uL; Eosinophils% 4.6 % (0-5); Hematocrit 42.3 % (40-54); Hemoglobin 14.2 g/dL (13.0-16.5); Mean Corp Hgb Conc 33.6 g/dL (32-36); Mean Corpuscular Hgb 29.8 pg (27.0-32.0); Mean Corpuscular Volume 88.7 fL (80-94); Monocyte# 0.71 X10^3/uL; Monocyte% 9.9 % (0-10); NRBC Flagged by Analyzer 0 % (0-5); Neutrophil # 5.06 X10^3/uL (2.7-7.7); Neutrophil % 70.8 % (47-70); Platelet Count 228 K/mm3 (150-450); RBC Distribution Width CV 13.2 % (11.6-14.6); RBC Distribution Width SD 42.5 fl (35.1-43.9); Red Blood Count 4.77 M/mm3 (4.6-6.2); White Blood Count 7.2 K/mm3 (4.4-11.0)
[2022-01-01] MEDS: Amiodarone 200 MG Tablet PO ×3 (05:45→21:57)
[2022-01-01 06:14] LABS: ALB/GLOB Ratio 0.7 RATIO (0.9-2.4); AST(SGOT) 11 U/L (15-37); Alanine Aminotransfer ALT/SGPT 32 U/L (16-61); Albumin, Serum 2.7 g/dL (3.2-5.0); Alkaline Phosphatase 70 U/L (45-117); Anion Gap 3 (5-15); BUN 24 mg/dL (7-18); BUN/Creat Ratio 18.3 RATIO (10-20); Chloride 99 mmol/L (98-107); Creatinine, Serum 1.31 mg/dL (0.70-1.30); EST Glomerular Filtration Rate 57 mL/min (>60); Est Glom Filt Rate - Afr Amer 69 mL/min (>60); Estimated Creatinine Clearance 52.63 ml/min; Globulin 3.8 g/dL (2.2-4.2); Glucose 117 mg/dL (74-106); Potassium 3.9 mmol/L (3.5-5.1); Protein, Total 6.5 g/dL (6.4-8.2); Sodium Level 140 mmol/L (136-145)
[2022-01-01] MEDS: Aspirin 81 MG TAB.CHEW PO (08:01)
[2022-01-01] MEDS: Potassium Chloride Oral Tablet 20 MEQ PO (08:01)
[2022-01-01] MEDS: APIXABAN 5 MG TABLET PO ×2 (08:02→21:57)
[2022-01-01] MEDS: Metoprolol(XL)Succ 200 MG Tablet PO (08:02)
[2022-01-01] MEDS: Allopurinol 100 MG Tablet PO (08:03)
[2022-01-01] MEDS: amLODIPine 10 MG Tablet PO (08:03)
[2022-01-01] MEDS: Lisinopril 10 MG Tablet 30 MG PO ×2 (08:03→21:57)
[2022-01-01] MEDS: Finasteride 5 MG Tablet PO (08:03)
--- NOTE | 2022-01-01 08:11 | NURSING ---
Patient on 8L NC, satting 97%. Weaned to 6L NC, sats remained above 92%.
--- NOTE | 2022-01-01 08:16 | NURSING ---
Heart rate elevated, a-fib RVR, all AM medications given early.
[2022-01-01] MEDS: Furosemide 500 MG in Empty Viaflex 50 mL 1 EACH CONT INF (08:42)
[2022-01-01] MEDS: Digoxin 250 MCG/ML Ampul 500 MCG IV (10:05)
[2022-01-01] MEDS: dilTIAZem 25 MG/5 ML Vial 10 MG IV BOLUS (10:07)
[2022-01-01] MEDS: 0.9% Saline Lock 10 ML Syringe IV (10:08)
--- NOTE | 2022-01-01 11:45 | CASEMGMT ---
Call from Neptali at [place] transfer center requesting update on pt. Update provided and Neptali states pt is 20% service connected and has MCR A only also. Neptali's contact info [phone] ext [phone]. CM to follow. Afsaneh ERVIN CM
[2022-01-01] MEDS: dilTIAZem CD 120 MG Capsule PO ×2 (12:09→21:57)
--- NOTE | 2022-01-01 12:09 | NURSING ---
Pt O2 level 94% on 5L, weaned to 4L NC
--- NOTE | 2022-01-01 16:27 | PN.HOSP_ITS ---
Subjective Subjective Patient was seen and examined today, he is currently on 4 L of oxygen via nasal cannula, he appears comfortable at rest. Patient's heart rate elevated this morning, I gave him IV digoxin and 1 dose of IV Cardizem. Patient was then placed on time-released Cardizem by cardiology. Objective Data Objective Data Vital Signs: Vital Signs Temp Pulse Resp BP Pulse Ox O2 Del Method O2 Flow Rate 97.0 F L 73 18 115/58 L 94 Nasal Cannula 4 01/01/22 11:00 01/01/22 15:00 01/01/22 11:00 01/01/22 11:00 01/01/22 14:30 01/01/22 14:30 01/01/22 14:30 Oxygen Flow Rate (L/min) 4 Oxygen Delivery Method Nasal Cannula Weight: 124.8 kg Body Mass Index (BMI) 41.0 Intake & Output: Intake and Output for Last 24 Hours 12/30/21 12/31/21 01/01/22 23:59 23:59 23:59 Intake Total 479.00 / 479.25 1661.19 / 1661.19 276.58 / 276.58 Output Total 1300 / 1300 3400 / 3400 2375 / 2375 Balance -821.00 / -820.75 -1738.81 / -1738.81 -2098.42 / -2098.42 Lab / Micro Data Result Diagrams: 01/01/22 05:03 01/01/22 05:03 Labs: Laboratory Results - last 24 hr 01/01/22 05:03: WBC 7.2, RBC 4.77, Hgb 14.2, Hct 42.3, MCV 88.7, MCH 29.8, MCHC 33.6, RDW Std Deviation 42.5, RDW Coeff of Maci 13.2, Plt Count 228, MPV 10.0, I mmature Gran % (Auto) 0.300, Neut % (Auto) 70.8 H, Lymph % (Auto) 14.0 L, [place] % (Auto) 9.9, Eos % (Auto) 4.6, Baso % (Auto) 0.4, Absolute Neuts (auto) 5.1, Absolute Lymphs (auto) 1.00, Nucleated RBC % 0 01/01/22 05:03: Sodium 140, Potassium 3.9, Chloride 99, Carbon Dioxide 38.0 H, Anion Gap 3 L, BUN 24 H, Creatinine 1.31 H, Estim Creat Clear Calc 52.63, Est GFR (MDRD) Af Amer 69, Est GFR (MDRD) Non-Af 57 L, BUN/Creatinine Ratio 18.3, Glucose 117 H, Calcium 9.0, Total Bilirubin 0.50, AST 11 L, ALT 32, Alkaline Phosphatase 70, Total Protein 6.5, Albumin 2.7 L, Globulin 3.8, Albumin/Globulin Ratio 0.7 L Micro: Microbiology 12/30/21 15:06 Nasal Secretion SARS-CoV-2 Antigen (Rapid) - Final Rhythm Strip Rhythm Strip: A-fib Rate: 153 Ectopy: None Physical Exam Const alert, oriented x3 and no apparent distress General Appearance: cooperative, well kempt and well developed Orientation / Consciousness: awake, oriented to person, oriented to place and oriented to time HEENT normocephalic, head/scalp atraumatic and moist oral mucous membranes Eyes PERRL, EOMs intact bilaterally and conjunctivae normal Neck supple, no JVD and thyroid normal General: trachea midline Resp normal respiratory effort, no retractions and no use of accessory muscles Resp Narrative: Decreased breath sounds were noted at the bases bilaterally Auscultation: Negative for rales, rhonchi or wheezes Cardio S1 normal heart sound, S2 normal heart sound, no murmurs, no rub and no gallops Cardio Narrative: Heart rate and rhythm is irregular GI normal to inspection, nondistended, normoactive bowel sounds, soft to palpation, non-tender and non-distended Extremity no clubbing, cyanosis or edema Skin no rashes or lesions noted General Skin Exam: no breakdown Neuro oriented x3, CN's II-XII intact bilaterally, no focal motor deficits and no sensory deficits noted Sensorium / Orientation: awake, alert, oriented to person, oriented to place and oriented to time Speech: speech normal Psych affect normal Assessment & Plan Assessment/Plan (1) Acute respiratory failure with hypoxia: PLAN: Plan #1 acute hypoxic respiratory failure secondary to new onset diastolic congestive heart failure-continue to monitor pulse ox and wean oxygen if possible #2 acute diastolic congestive heart failure-patient will remain on IV Lasix at this time, labs will be monitored #3 new onset atrial fibrillation with rapid ventricular response-cardiology is adjusting the patient's medication, he is currently on Cardizem, amiodarone, and a beta-matt. #4 essential hypertension-blood pressure will be monitored, patient is on several medications for blood pressures #5 bilateral pleural effusion secondary to diastolic congestive heart failure- chest x-ray yesterday showed improvement of the pleural effusions, we will mo nitor the patient's pulse ox and oxygen requirement, it may be necessary to repeat the patient's chest x-ray in the next few days. #6 morbid obesity-complicates care, management, recovery, and prognosis. #7 elevated creatinine-I will repeat the patient's CMP tomorrow Charges/Coding Visit Charges Inpatient E&M: 87241 Subs Hosp L2
--- NOTE | 2022-01-01 18:00 | NURSING ---
Pulse ox 94% on 3L, weaned to 2L NC.
[2022-01-01] MEDS: Doxazosin 4 MG Tablet PO (21:57)
[2022-01-01] MEDS: Tolterodine Tartrate 2 MG CAP.SA PO (21:57)
[2022-01-02] VITALS (15 sets, daily range): BP systolic 87–143; BP diastolic 47–79; PULSE 64–85; RESP 16–18; TEMP 36.3–36.7; O2SAT 92–94
[2022-01-02] MEDS: Amiodarone 200 MG Tablet PO ×3 (05:31→20:35)
[2022-01-02 06:42] LABS: Absolute Neutrophil Count 6.8 X10^3/uL (2.0-7.7); Basophil# 0.04 X10^3/uL; Basophil% 0.4 % (0-1); Eosinophil# 0.36 X10^3/uL; Eosinophils% 3.9 % (0-5); Hematocrit 45.6 % (40-54); Hemoglobin 15.3 g/dL (13.0-16.5); Lymphocyte % 10.9 % (19-41); Mean Corp Hgb Conc 33.6 g/dL (32-36); Mean Corpuscular Hgb 30.3 pg (27.0-32.0); Mean Corpuscular Volume 90.3 fL (80-94); Mean Platelet Vol. 9.7 fl (6.2-12.0); Monocyte% 9.8 % (0-10); NRBC Flagged by Analyzer 0 % (0-5); Neutrophil # 6.81 X10^3/uL (2.7-7.7); Neutrophil % 74.6 % (47-70); Platelet Count 258 K/mm3 (150-450); RBC Distribution Width CV 13.2 % (11.6-14.6); RBC Distribution Width SD 42.9 fl (35.1-43.9); Red Blood Count 5.05 M/mm3 (4.6-6.2); White Blood Count 9.2 K/mm3 (4.4-11.0)
[2022-01-02 07:20] LABS: ALB/GLOB Ratio 0.7 RATIO (0.9-2.4); AST(SGOT) 17 U/L (15-37); Alanine Aminotransfer ALT/SGPT 36 U/L (16-61); Albumin, Serum 2.9 g/dL (3.2-5.0); Alkaline Phosphatase 76 U/L (45-117); Anion Gap 5 (5-15); BUN 30 mg/dL (7-18); BUN/Creat Ratio 21.3 RATIO (10-20); Calcium,Total 9.3 mg/dL (8.5-10.1); Chloride 98 mmol/L (98-107); Creatinine, Serum 1.41 mg/dL (0.70-1.30); EST Glomerular Filtration Rate 53 mL/min (>60); Est Glom Filt Rate - Afr Amer 64 mL/min (>60); Glucose 116 mg/dL (74-106); Protein, Total 6.9 g/dL (6.4-8.2); Sodium Level 138 mmol/L (136-145)
[2022-01-02] MEDS: Metoprolol(XL)Succ 200 MG Tablet PO (08:53)
[2022-01-02] MEDS: Lisinopril 10 MG Tablet 30 MG PO (08:53)
[2022-01-02] MEDS: Finasteride 5 MG Tablet PO (08:54)
[2022-01-02] MEDS: Potassium Chloride Oral Tablet 20 MEQ PO (08:55)
[2022-01-02] MEDS: dilTIAZem CD 120 MG Capsule PO ×2 (08:55→20:35)
[2022-01-02] MEDS: APIXABAN 5 MG TABLET PO ×2 (08:55→20:34)
[2022-01-02] MEDS: Aspirin 81 MG TAB.CHEW PO (08:55)
[2022-01-02] MEDS: Allopurinol 100 MG Tablet PO (08:56)
--- NOTE | 2022-01-02 08:59 | RAD_ITS ---
STUDY: X-RAY CHEST REASON FOR EXAM: Male, 71 years old. chf TECHNIQUE: AP and lateral views of the chest. COMPARISON: Comparison is made with prior study dated 12/31/2021. FINDINGS: EKG electrodes are seen. Mild bibasilar atelectasis. Small bilateral pleural effusions. Normal size heart. Normal mediastinum and niki. Normal visualized pulmonary arteries. There is atherosclerotic tortuosity of the aortic arch and descending thoracic aorta. Normal visualized thoracic spine. Normal visualized ribs, clavicles, and shoulders. There is no demonstrated abnormality of the visualized soft tissue structures of the upper abdomen. RAD/Chest PA and Lateral IMPRESSION: Small residual bilateral pleural effusions with bibasilar atelectasis. Electronically Signed: Jerry Morrow MD at 11:11 EDT ,
--- NOTE | 2022-01-02 14:45 | PN.HOSP_ITS ---
Subjective Subjective Seen and examined today, he remains in atrial fibrillation, his rate is better controlled today. Patient's chest x-ray showed residual bilateral pleural effusions with atelectasis. Patient remains on supplemental oxygen via nasal cannula at this time. Because of his insurance coverage, the [place] will need to set up oxygen for the patient, if the patient is able to go home this weekend without oxygen he could probably be discharged. Objective Data Objective Data Vital Signs: Vital Signs Temp Pulse Resp BP Pulse Ox O2 Del Method O2 Flow Rate 97.9 F 82 18 135/66 H 92 Nasal Cannula 4 01/02/22 08:50 01/02/22 11:00 01/02/22 08:50 01/02/22 08:53 01/02/22 13:04 01/02/22 14:29 01/02/22 14:29 Oxygen Flow Rate (L/min) 4 Oxygen Delivery Method Nasal Cannula Weight: 123.4 kg Body Mass Index (BMI) 41.0 Intake & Output: Intake and Output for Last 24 Hours 12/31/21 01/01/22 01/02/22 23:59 23:59 23:59 Intake Total 1661.19 / 1661.19 541.58 / 541.58 480 / 480 Output Total 3400 / 3400 3175 / 3175 1999 / 1999 Balance -1738.81 / -1738.81 -2633.42 / -2633.42 -1520 / -1520 Lab / Micro Data Result Diagrams: 01/02/22 05:40 01/02/22 05:40 Labs: Laboratory Results - last 24 hr 01/02/22 05:40: WBC 9.2, RBC 5.05, Hgb 15.3, Hct 45.6, MCV 90.3, MCH 30.3, MCHC 33.6, RDW Std Deviation 42.9, RDW Coeff of Maci 13.2, Plt Count 258, MPV 9.7, Immature Gran % (Auto) 0.400, Neut % (Auto) 74.6 H, Lymph % (Auto) 10.9 L, [place] % (Auto) 9.8, Eos % (Auto) 3.9, Baso % (Auto) 0.4, Absolute Neuts (auto) 6.8, Absolute Lymphs (auto) 1.00, Nucleated RBC % 0 01/02/22 05:40: Sodium 138, Potassium 4.0, Chloride 98, Carbon Dioxide 35.0 H, Anion Gap 5, BUN 30 H, Creatinine 1.41 H, Estim Creat Clear Calc 48.90, Est GFR (MDRD) Af Amer 64, Est GFR (MDRD) Non-Af 53 L, BUN/Creatinine Ratio 21.3 H, Glucose 116 H, Calcium 9.3, Total Bilirubin 0.70, AST 17, ALT 36, Alkaline Phosphatase 76, Total Protein 6.9, Albumin 2.9 L, Globulin 4.0, Albumin/Globulin Ratio 0.7 L Micro: Microbiology 12/30/21 15:06 Nasal Secretion SARS-CoV-2 Antigen (Rapid) - Final Radiography Diagnostic Testing: Radiology Impression Chest X-Ray 01/02/22 08:59 IMPRESSION: Small residual bilateral pleural effusions with bibasilar atelectasis. Electronically Signed: Jerry Morrow MD at 11:11 EDT , Rhythm Strip Rhythm Strip: A-fib Rate: 153 Ectopy: None Physical Exam Narrative On examination he appeared in no distress. Vital signs as documented. Skin warm and dry and without overt rashes. Neck without JVD, neck was supple, trachea midline, thyroid was normal. Lungs clear bilaterally, decreased breath sounds were noted at the bases bilaterally. Heart exam notable for irregular rhythm, normal sounds and absence of murmurs, rubs or gallops. Abdomen unremarkable and without evidence of organomegaly, masses, or abdominal aortic enlargement.? Patient is morbidly obese.? Bowel sounds are present, abdomen is not distended.? Extremities nonedematous, no cyanosis was noted, no clubbing was noted.? Neuro: Cranial nerves II through XII are grossly intact, no focal motor deficits were noted, sensation to light touch and pinprick intact, motor exam 5/5 throughout.? Psych: Patient is alert and oriented x3, he does not appear anxious or depressed, he does not appear agitated. Assessment & Plan Assessment/Plan (1) Atrial fibrillation with RVR: PLAN: Plan #1 acute hypoxic respiratory failure secondary to new onset diastolic congestive heart failure-continue to monitor pulse ox and wean oxygen if possible, patient is currently on 4 L via nasal cannula, [facility] so if he is going to be requiring oxygen, this will have to be [facility]05[facility]22 [facility] #2 acute diastolic congestive heart failure-patient will be transitioned today over to IV Lasix rather than a Lasix drip at this time #3 new onset atrial fibrillation with rapid ventricular response-cardiology is participating in his care, he is now on a beta-matt, calcium channel matt, and amiodarone. #4 essential hypertension-blood pressure will be monitored, patient is on several medications for blood pressures #5 bilateral pleural effusion secondary to diastolic congestive heart failure- these appear to be improving on today's chest x-ray #6 morbid obesity-complicates care, management, recovery, and prognosis. Charges/Coding Visit Charges Inpatient E&M: 36000 Subs Hosp L2
[2022-01-02] MEDS: Doxazosin 4 MG Tablet PO (20:35)
[2022-01-02] MEDS: Furosemide 20 MG/2 ML VIAL IV (20:35)
[2022-01-02] MEDS: Tolterodine Tartrate 2 MG CAP.SA PO (20:35)
[2022-01-03] VITALS (8 sets, daily range): BP systolic 97–119; BP diastolic 61–84; PULSE 67–77; RESP 16–18; TEMP 36.5–36.9; O2SAT 90–98
[2022-01-03] MEDS: Furosemide 20 MG/2 ML VIAL IV (06:16)
[2022-01-03] MEDS: Amiodarone 200 MG Tablet PO (06:16)
[2022-01-03 06:34] LABS: Anion Gap 6 (5-15); BUN 39 mg/dL (7-18); BUN/Creat Ratio 27.3 RATIO (10-20); Calcium,Total 8.9 mg/dL (8.5-10.1); Chloride 98 mmol/L (98-107); Creatinine, Serum 1.43 mg/dL (0.70-1.30); EST Glomerular Filtration Rate 52 mL/min (>60); Est Glom Filt Rate - Afr Amer 62 mL/min (>60); Estimated Creatinine Clearance 48.21 ml/min; Glucose 122 mg/dL (74-106); Sodium Level 138 mmol/L (136-145)
[2022-01-03] MEDS: Finasteride 5 MG Tablet PO (10:15)
[2022-01-03] MEDS: dilTIAZem CD 120 MG Capsule PO (10:16)
[2022-01-03] MEDS: Potassium Chloride Oral Tablet 20 MEQ PO (10:16)
[2022-01-03] MEDS: Allopurinol 100 MG Tablet PO (10:16)
[2022-01-03] MEDS: APIXABAN 5 MG TABLET PO (10:17)
[2022-01-03] MEDS: Aspirin 81 MG TAB.CHEW PO (10:17)
[2022-01-03] MEDS: Metoprolol(XL)Succ 200 MG Tablet PO (10:22)
--- NOTE | 2022-01-03 12:08 | PCM.DC.SUM ---
Providers Date of Admission: 12/30/21 Date of Discharge: 01/03/22 Primary Care Physician: [facility] Consultations 12/31/21 11:19 Consult: Cardiology Routine Consulting Provider: Miguel Zaman Reason for Consult: Afib with RVR, CHF EMERGENT Consult: No MD Notified: Yes Date Notified: 12/31/21 Time Notified: 11:19 Method of Notification: Verbal Reason For Visit: ACUTE EXACERBATION OF CHF Diagnosis Discharge Diagnosis (1) Atrial fibrillation with RVR: Status: Acute Code(s): I48.91 - Unspecified atrial fibrillation Plan Acute decompensated heart failure -Type unknown -May be related to atrial fibrillation or the atrial fibrillation may be related to heart failure caused by reduced ejection fraction or valvular abnormalities -Check echocardiogram -Lasix drip -Cycle cardiac enzymes -Strict I's and O's -1500 cc fluid restriction -Low-salt diet -Daily weights -No signs of acute ischemia on EKG A. fib with RVR -New onset -Continue home metoprolol -Continue Cardizem drip initiated the emergency department -Heparin drip for now in case patient needs thoracentesis -We will likely be able to transition to Eliquis prior to discharge -Check TSH -Check echocardiogram Bilateral pleural effusions -Hoping that we will able to diurese these -May need thoracentesis -Repeat chest x-ray in a.m. and monitor for need of thoracentesis -We will anticoagulate with heparin in case fluid removal via thoracentesis is necessary Hyperglycemia -Check A1c -Patient is not diagnosed with diabetes at baseline Hypertension -Continue home metoprolol -Continue home lisinopril -Hold hydrochlorothiazide while patient is on Lasix drip -Continue home amlodipine History of gout -Monitor closely with diuresis -Continue home allopurinol Urinary incontinence/BPH -Continue home trospium -Continue home terazosin -Continue home finasteride ZAHIDA -Patient is noncompliant at home -States he is unable to sleep with CPAP in place -Recommend repeat study as an outpatient and strongly encouraged compliance -We will utilize oxygen and less respiratory issues become more of a problem History of colon cancer -Currently in remission -Counts appear stable -No current issues Morbid obesity -BMI 41 -Recommend weight loss -Complicates treatment, prognosis, outcomes DVT prophylaxis -Currently on a heparin drip CODE STATUS -Full code as per discussion prior to admission emergency department Medications at Discharge Home Medications acetaminophen 325 mg tablet (Tylenol) 650 mg PO TID PRN HIP PAIN 12/30/21 allopurinol 100 mg tablet 100 mg PO DAILY GOUT 12/30/21 cholecalciferol (vitamin D3) 50 mcg (2,000 unit) tablet 100 mcg PO DAILY SUPPLEMENT 12/30/21 finasteride 5 mg tablet 5 mg PO DAILY PROSTATE 12/30/21 lisinopril 30 mg tablet 30 mg PO BID BP 12/30/21 metoprolol succinate 200 mg tablet,extended release 24 hr 200 mg PO DAILY HEART 12/30/21 potassium chloride 20 mEq tablet,extended release(part/cryst) (Klor-Con M) 20 meq PO DAILY SUPPLEMENT 12/30/21 salsalate 750 mg tablet 750 mg PO BID PRN Pain 12/30/21 terazosin 5 mg capsule 5 mg PO QHS PROSTATE 12/30/21 trospium 20 mg tablet 20 mg PO QHS OAB 12/30/21 amiodarone 200 mg tablet 200 mg PO BID #14 tabs 01/03/22 amiodarone 200 mg tablet 200 mg PO DAILY #30 tabs 01/03/22 apixaban 5 mg tablet (Eliquis) 5 mg PO BID #60 tabs 01/03/22 aspirin 81 mg chewable tablet 81 mg PO BREAKFAST #0 tabs 01/03/22 diltiazem HCl 120 mg capsule,extended release 24 hr 120 mg PO Q12 #60 caps 01/03/22 furosemide 40 mg tablet (Lasix) 40 mg PO DAILY #30 tabs 01/03/22 Hospital Course Procedures 2-D Echocardiogram, EKG and - (CTA chest) Summary of Care Provided Minutes Spent on Discharge: 38 Hospital Course: Mr. Hogan is a 71-year-old male who presented to the emergency department at [facility] on 12/30/2021 with shortness of breath. The patient reported that it started the day previous and it had no associated cough, fever, chills, nausea, vomiting, chest pain, sputum production, tingling, numbness, or weakness. He reported chronic lower extremity edema that had not been any worse than baseline. He reported that he noticed that his heart rate was a little faster than normally and he had a few palpitations on the day of admission. He denied any previous cardiac issues but was noted to have hyperlipidemia and hypertension. He reported baseline obstructive sleep apnea for which she was not compliant with his mask as he stated he was unable to sleep with it on. Upon presentation emergency department he was found to have temperature of 98.4, heart rate of 147, blood pressure of 133/102, respiratory rate is 22 and his oxygen saturations were anywhere from 90 to 93% on 4 L nasal cannula.? There is no documented oxygen saturation on room air.? His CBC was unremarkable.? Coags are normal.? His D-dimer was mildly elevated at 1.7 and therefore a CTA of his chest was performed and while it did not show any PE or dissection it did show bilateral pleural effusions with compressive atelectasis.? His chemistry panel was unremarkable.? A TSH was obtained and found to be 1.64.? His initial troponin was 6 and a repeat in the emergency department was 6 as well.? His BNP was markedly elevated greater than 700 on presentation.? His EKG showed atrial fibrillation with RVR.? There were no signs of acute ischemia. In the emergency department he was placed on a Cardizem drip which improved his heart rates from the 140s to 150s down to 100-120 and he was given 40 mg of Lasix to which he had a good response. He was admitted to the PCU and started on a Lasix drip. An echocardiogram was obtained and showed an EF of 55% with trivial mitral valve insufficiency and diastolic function was unable to be determined secondary to atrial fibrillation. He was maintained on his baseline beta-matt as well on admission. Cardiology was consulted on 12/31/2021 and recommended continuation of his beta-matt as well as transition from his Cardizem drip to oral Cardizem and the addition of amiodarone. He was initially maintained on a heparin drip for the atrial fibrillation as there was some concern that he may need a thoracentesis however his pleural effusions resolved quite nicely with diuretic therapy. During his hospitalization he was -6.6 L and his weight decreased from a max of 129.6kg to 124.6 kg on discharge. He was also salt and fluid restricted during his hospital course. He was initially placed on 200 mg of amiodarone 3 times daily. He was maintained in atrial fibrillation however his rate was much improved and in the 60 to 70s prior to discharge. His blood pressures actually ended up on the low side with the additional medications and we were able to discontinue his amlodipine, hydrochlorothiazide and his lisinopril was held at discharge. He was continued on his metoprolol and Cardizem and amiodarone were continued upon discharge. Given that he did not need any intervention with regards to thoracentesis for his pleural effusions he was transition from heparin to apixaban 5 mg p.o. twice daily at the time of discharge. We did continue Lasix 40 mg daily and he is supposed to restart this on 01/05/2022. His renal function did bump slightly during his hospital course and was 1.43 on discharge. We are able to wean him from initially being on 4 L nasal cannula down to 2 L nasal cannula and on the day of discharge we did an ambulatory pulse ox resting oxygen saturation on room air was 94% and with ambulation was 90% and he therefore did not qualify for home oxygen. We were able to discharge him in stable condition on 01/11/2022 with the above medication changes. He is to continue amiodarone 200 mg p.o. twice daily for another 7 days and then transition to 200 mg daily following. [facility] basic [facility] profile given his slight reaction month prior to discharge to reevaluate with his medication changes and for follow-up for his heart failure as well as his atrial fibrillation. I would strongly encourage him to be reevaluated for his sleep apnea and to treat this more aggressively as this may help reduce some some of the stress on the RV and help his heart failure some. Discharge diagnoses: Acute decompensated HFpEF-resolved Hypoxia-resolved New onset atrial fibrillation with RVR-rate controlled KENYA-mild serum creatinine 1.43 on discharge Hypertension-adjustments made as above Bilateral pleural effusions-resolved New onset [id number] A1c 6.1-diet controlled History of gout Urine incontinence BPH ZAHIDA History of colon cancer Morbid obesity Physical Exam Const alert, oriented x3 and no apparent distress Constitutional Narrative: Obese white male sitting up in a chair at the bedside, appears comfortable nontoxic, currently on 2 L nasal cannula with oxygen saturations at 98%, nursing is at bedside, patient anxious to go home if possible General Appearance: cooperative, comfortable, well kempt and well developed Orientation / Consciousness: awake, oriented to person, oriented to place and oriented to time Exam Limitations: no limitations Nutritional Appearance: obese HEENT normocephalic, head/scalp atraumatic and moist oral mucous membranes HEENT Narrative: Moderate hearing loss, Mallampati 3, no thrush, dentition is fair Eyes PERRL, EOMs intact bilaterally, conjunctivae normal and no scleral icterus Neck no lymphadenopathy, supple, no JVD and thyroid normal General: trachea midline Resp normal respiratory effort, no retractions, no use of accessory muscles and clear to auscultation bilaterally Effort and Inspection: able to speak in complete sentences and symmetric chest movement Auscultation: Negative for crackles, rales, rhonchi or wheezes Cardio regular rate, S1 normal heart sound, S2 normal heart sound, no murmurs, no rub, no gallops, no clicks and peripheral pulses 2+ throughout Cardio Narrative: Irregularly irregular heart rhythm GI normal to inspection, nondistended, normoactive bowel sounds, soft to palpation, non-tender and non-distended Extremity no clubbing, cyanosis or edema Skin no rashes or lesions noted, no wounds, skin turgor normal and no jaundice General Skin Exam: no breakdown Neuro oriented x3, CN's II-XII intact bilaterally, moves all extremities, no focal motor deficits and no sensory deficits noted Sensorium / Orientation: awake, alert, oriented to person, oriented to place and oriented to time Speech: speech normal Psych affect normal Psych Narrative: Very pleasant and appropriate Weight / BMI Weight Weight: 124.6 kg Body Mass Index (BMI) 41.0 ABG / Lab / Microbiology Data Result Diagrams: 01/02/22 05:40 01/03/22 05:49 Laboratory: Laboratory Results - last 24 hr 01/03/22 05:49: Sodium 138, Potassium 4.0, Chloride 98, Carbon Dioxide 34.0 H, Anion Gap 6, BUN 39 H, Creatinine 1.43 H, Estim Creat Clear Calc 48.21, Est GFR (MDRD) Af Amer 62, Est GFR (MDRD) Non-Af 52 L, BUN/Creatinine Ratio 27.3 H, Glucose 122 H, Calcium 8.9 Microbiology: Microbiology 12/30/21 15:06 Nasal Secretion SARS-CoV-2 Antigen (Rapid) - Final D/C Instructions Discharge Diet: Low fat / Low cholesterol, 1800 Calorie Control Diet, 8 Cup Fluid Restriction and 2000 mg Sodium Diet Discharge Activity: Return to Normal Activity Meaningful Use Info Meaningful Use Diagnoses (Choose all that apply): CHF CHF LM/ARB ordered at discharge?: No Reason LM/ARB not ordered?: Worsening renal function Documented LVEF (%): 55 Discharge Plan Admission Admit Date/Time: 12/30/21 18:01 Primary Reason for Your Visit: Shortness of Breath Attending Provider: Susy Clayton [facility]: [facility] Consulting Providers: Susy Clayton ; Miguel Zaman ; Angel Hollis Instructions Additional Instructions / Restrictions: 1. Please obtain a basic metabolic profile from your primary care physician at the [facility] within the next 5 days to review renal function and potassium. Discharge Orders/Prescriptions Prescriptions: New amiodarone 200 mg Tablet 200 mg PO BID Qty: 14 0RF Eliquis 5 mg Tablet 5 mg PO BID Qty: 60 0RF aspirin 81 mg Tablet,Chewable 81 mg PO BREAKFAST Qty: 0 0RF diltiazem HCl 120 mg Capsule,Extended Release 24hr 120 mg PO Q12 Qty: 60 0RF amiodarone 200 mg tablet 200 mg PO DAILY Qty: 30 0RF Rx Instructions: start on 01/10/2022 furosemide [Lasix] 40 mg tablet 40 mg PO DAILY Qty: 30 0RF Rx Instructions: start on 01/05/2022 Continued terazosin 5 mg Capsule 5 mg PO QHS acetaminophen [Tylenol] 325 mg Tablet 650 mg PO TID PRN (Reason: HIP PAIN) metoprolol succinate 200 mg Tablet Extended Release 24 Hr 200 mg PO DAILY allopurinol 100 mg Tablet 100 mg PO DAILY potassium chloride [Klor-Con M20] 20 mEq Tablet,Er Particles/Crystals 20 meq PO DAILY salsalate 750 mg Tablet 750 mg PO BID PRN (Reason: Pain) finasteride 5 mg Tablet 5 mg PO DAILY trospium 20 mg Tablet 20 mg PO QHS Rx Instructions: administer on an empty stomach cholecalciferol (vitamin D3) 50 mcg (2,000 unit) Tablet 100 mcg PO DAILY Held lisinopril 30 mg Tablet 30 mg PO BID Hold Instructions: Resume on 01/03/22. Until BP can be re-evaluated as outpt with additional rate controlling medication Discontinued amlodipine 10 mg Tablet 10 mg PO DAILY hydrochlorothiazide 25 mg Tablet 25 mg PO DAILY Referrals / Follow [facility]: [facility] - In 1 Week (Hospital follow-up) Disposition Disposition (needs filled in before D/C Order can be placed): Home, Self Care Charges/Coding Visit Charges Inpatient E&M: 36254 Disch Hosp
== END 2022-01-03 14:41 | disposition home or self-care (01) | DRG 291 ==
LOC: ED 15:12 → PCU 18:24
PROVIDERS: Internal Medicine; Nurse Practitioner Family; Admitting Provider Internal Medicine; Emergency Provider Emergency Medicine; Visit Provider Internal Medicine
DX: I11.0 Hypertensive heart disease with heart failure (principal); J96.01 Acute respiratory failure with hypoxia; I50.21 Acute systolic (congestive) heart failure; Z68.41 Body mass index [BMI] 40.0-44.9, adult; I48.91 Unspecified atrial fibrillation; E66.01 Morbid (severe) obesity due to excess calories; M10.9 Gout, unspecified; G47.33 Obstructive sleep apnea (adult) (pediatric); E78.5 Hyperlipidemia, unspecified; R73.9 Hyperglycemia, unspecified; N40.1 Benign prostatic hyperplasia with lower urinary tract symptoms; R32 Unspecified urinary incontinence; Z20.822 Contact with and (suspected) exposure to COVID-19; Z91.19 Patient's noncompliance with other medical treatment and regimen; Z79.1 Long term (current) use of non-steroidal anti-inflammatories (NSAID); Z87.891 Personal history of nicotine dependence; Z85.038 Personal history of other malignant neoplasm of large intestine
CPT/HCPCS: 36415; 71045; 71046; 71275; 80048; 80053; 80061; 83036; 83735; 83880; 84100; 84443; 84484; 85025; 85379; 85610; 85730; 87811; 93005; 93306; 94762; 97162; 97166; 97530; 99251; 99285; J7030; Q9957; Q9967; A4216; C8929; G0463; J1940

== ENCOUNTER 2022-02-08 19:36 | Inpatient (IN) | payer OTHER, SELFPAY ==
[2022-02-08] VITALS (9 sets, daily range): BP systolic 129–156; BP diastolic 73–101; PULSE 140–144; RESP 20–25; TEMP 35.9–36.8; O2SAT 76–94; BMI 44.1; BMI 43.5
--- NOTE | 2022-02-08 19:54 | EKG12_ITS ---
Test Reason : DYSRYTHMIA Blood Pressure : / mmHG Vent. Rate : 142 BPM Atrial Rate : 144 BPM P-R Int : 096 ms QRS Dur : 150 ms QT Int : 352 ms P-R-T Axes : 000 012 189 degrees QTc Int : 541 ms Atrial flutter with 2 to 1 block with short AR Left bundle branch block Abnormal ECG Confirmed by HERNÁN KAUFFMAN, VALERIANO ([id number]), video tape editor LOUIS GILMAN ([id number]) on 02/10/2022 1:05:04 PM Referred By: JARAD Confirmed By:VALERIANO JIM MD
--- NOTE | 2022-02-08 19:55 | EDS_ITS ---
HPI History of Present Illness Chief Complaint: Shortness of Breath Narrative Narrative: Patient presents with shortness of breath this was an ongoing for the past few days, he drove from [place] and was just too short of breath to stay home tonight. He has orthopnea weight gain, he has a history of CHF. No fevers or chills, no cough or congestion. He has no back pain or tearing sensation no pleuritic component. He has lower extremity edema but this is symmetric. He was found to be quite hypoxic in the waiting room with a pulse ox of 76% on room air. He is also tachycardic and tachypneic and hypertensive [facility] Medical History (Updated 02/08/22 @ 20:[address] Christophe Gasca MD) Atrial fibrillation with RVR BPH (benign prostatic hyperplasia) Colon cancer Former smoker Gout Hyperglycemia Hypertension Morbid obesity Osteoarthritis Sleep apnea Urinary incontinence Home Medications acetaminophen 325 mg tablet (Tylenol) 650 mg PO TID PRN HIP PAIN 12/30/21 [History Last Taken 12/29/21] allopurinol 100 mg tablet 100 mg PO DAILY GOUT 12/30/21 [History Last Taken 12/30/21] cholecalciferol (vitamin D3) 50 mcg (2,000 unit) tablet 100 mcg PO DAILY SUPPLEMENT 12/30/21 [History Last Taken 12/30/21] finasteride 5 mg tablet 5 mg PO DAILY PROSTATE 12/30/21 [History Last Taken 12/30/21] lisinopril 30 mg tablet 30 mg PO BID BP 12/30/21 [History Last Taken 12/30/21] metoprolol succinate 200 mg tablet,extended release 24 hr 200 mg PO DAILY HEART 12/30/21 [History Last Taken 12/30/21] potassium chloride 20 mEq tablet,extended release(part/cryst) (Klor-Con M) 20 meq PO DAILY SUPPLEMENT 12/30/21 [History Last Taken 12/30/21] salsalate 750 mg tablet 750 mg PO BID PRN Pain 12/30/21 [History Last Taken 12/29/21] terazosin 5 mg capsule 5 mg PO QHS PROSTATE 12/30/21 [History Last Taken 12/29/21] trospium 20 mg tablet 20 mg PO QHS OAB 12/30/21 [History Last Taken 12/29/21] amiodarone 200 mg tablet 200 mg PO BID #14 tabs 01/03/22 [Rx Last Taken Unknown] amiodarone 200 mg tablet 200 mg PO DAILY #30 tabs 01/03/22 [Rx Last Taken Unknown] apixaban 5 mg tablet (Eliquis) 5 mg PO BID #60 tabs 01/03/22 [Rx Last Taken Unknown] aspirin 81 mg chewable tablet 81 mg PO BREAKFAST #0 tabs 01/03/22 [Rx Last Taken Unknown] diltiazem HCl 120 mg capsule,extended release 24 hr 120 mg PO Q12 #60 caps 01/03/22 [Rx Last Taken Unknown] furosemide 40 mg tablet (Lasix) 40 mg PO DAILY #30 tabs 01/03/22 [Rx Last Taken Unknown] Allergy/AdvReac Type Severity Reaction Status Date / Time codeine Allergy Itching Verified 02/08/22 20:11 Family History (Updated 12/30/21 @ 21:[address] Susy Clayton DO) Other Diabetes Heart disease Hypertension Social History (Updated 12/30/21 @ 21:[address] Susy Clayton DO) Smoking Status: Former smoker alcohol intake: current alcohol intake frequency: a few times a month substance use type: does not use ROS ROS ED ROS Narrative Past medical history: Reviewed, includes hypertension, hypercholesterolemia, BPH, CHF Medications: Reviewed it does include Lasix, diazepam and Eliquis. Social history: Noncontributory Review of systems: All systems negative except as indicated General: No fever Eyes: No visual changes ENT: No upper airway congestion, normal voice Neck: No neck pain Cardiovascular: No chest pain Respiratory: Shortness of breath with orthopnea Gastrointestinal: No abdominal pain, nausea vomiting or diarrhea Genitourinary: No dysuria Musculoskeletal: Lower extremity edema. Skin: No rash Neurological: No memory loss, confusion or any focal weakness Psych: No recent behavioral changes Hematologic: No easy bleeding or easy bruising EXAM Physical Exam Narrative Exam Narrative: Physical exam General: Patient appears uncomfortable. He is morbidly obese. He appears in some respiratory distress Head: Normocephalic, Atraumatic Eyes: Conjunctiva not pale ENT: Moist mucous membranes Neck: Supple, Nontender, No lymphadenopathy Cardiovascular: Mostly regular, no obvious murmur. I do not hear an S3 or S4, he cannot tolerate laying down to do a JVD. Respiratory: Coarse bilateral breath sounds, some rhonchi and rales both and diminished breath sounds. Abdomen: Soft, Nontender, Nondistended Back: Nontender, Normal Inspection. Negative for: CVA tenderness Extremities: Bilateral lower extremity edema Skin: Normal color, No rash Neurological: Alert, Normal Strength, Normal Sensation Psychological: Normal affect Const Vital Signs: 02/08/22 19:38 02/08/22 19:40 02/08/22 20:04 Temperature 96.6 F L 96.6 F L Temperature Source Temporal Temporal Pulse Rate 142 H 143 H Respiratory Rate 24 H 24 H Respiratory Effort Short of Breath Respiratory Depth Deep Respiratory Pattern Tachypnea Blood Pressure 156/101 H 156/101 H Blood Pressure Mean 119 119 Pulse Ox 76 94 Oxygen Delivery Method Room Air Nasal Cannula Nasal Cannula Oxygen Flow Rate (L/min) 6 5 MDM MDM MDM Narrative Medical decision making narrative: Patient is hypoxic, he has pleural effusion and I what I think is CHF. He was treated for this. He appears well but he is hypoxic likely will need admission. Lab Data Labs: Laboratory Results - last 24 hr 02/08/22 02/08/22 02/08/22 20:07 20:07 20:07 WBC 10.9 RBC 5.38 Hgb 16.4 Hct 51.2 MCV 95.2 H MCH 30.5 MCHC 32.0 RDW Std Deviation 52.9 H RDW Coeff of Maci 15.6 H Plt Count 444 MPV 9.6 Immature Gran % (Auto) 0.300 Neut % (Auto) 74.6 H Lymph % (Auto) 12.8 L Stanton % (Auto) 10.1 H Eos % (Auto) 1.7 Baso % (Auto) 0.5 Absolute Neuts (auto) 8.1 H Absolute Lymphs (auto) 1.40 Nucleated RBC % 0 Sodium 142 Potassium 4.8 Chloride 105 Carbon Dioxide 31.0 Anion Gap 6 BUN 25 H Creatinine 1.41 H Estim Creat Clear Calc 45.82 Est GFR (MDRD) Af Amer 64 Est GFR (MDRD) Non-Af 52 L BUN/Creatinine Ratio 17.7 Glucose 110 H Calcium 9.1 Total Bilirubin 0.40 AST 27 ALT 74 H Alkaline Phosphatase 100 Troponin I High Sens 21 B-Natriuretic Peptide 608.6 H Total Protein 7.3 Albumin 2.9 L Globulin 4.4 H Albumin/Globulin Ratio 0.7 L Radiography Diagnostic Testing: Clinical Impression(s) from Imaging Studies Chest X-Ray 02/08/22 20:06 IMPRESSION: Worsening pleural effusions and atelectasis/infiltrate Electronically Signed: Yovnay Pate DO at 20:41 EDT Reading Location ID and State: [address] [place] [address] Tel [phone], Service support , X-ray read by me shows pleural effusions bilaterally, there is also CHF and pulmonary edema I do not believe there is an infiltrate. Discharge Plan Triage Chief Complaint: Shortness of Breath ED Provider: Christophe Gasca Dx/Rx/DC Orders Clinical Impression: CHF (congestive heart failure), Pleural effusion, Hypoxia Prescriptions: No Action terazosin 5 mg Capsule 5 mg PO QHS acetaminophen [Tylenol] 325 mg Tablet 650 mg PO TID PRN (Reason: HIP PAIN) metoprolol succinate 200 mg Tablet Extended Release 24 Hr 200 mg PO DAILY allopurinol 100 mg Tablet 100 mg PO DAILY potassium chloride [Klor-Con M20] 20 mEq Tablet,Er Particles/Crystals 20 meq PO DAILY lisinopril 30 mg Tablet 30 mg PO BID Hold Instructions: Resume on 01/03/22. Until BP can be re-evaluated as outpt with additional rate controlling medication salsalate 750 mg Tablet 750 mg PO BID PRN (Reason: Pain) finasteride 5 mg Tablet 5 mg PO DAILY trospium 20 mg Tablet 20 mg PO QHS Rx Instructions: administer on an empty stomach cholecalciferol (vitamin D3) 50 mcg (2,000 unit) Tablet 100 mcg PO DAILY amiodarone 200 mg Tablet 200 mg PO BID Qty: 14 0RF Eliquis 5 mg Tablet 5 mg PO BID Qty: 60 0RF aspirin 81 mg Tablet,Chewable 81 mg PO BREAKFAST Qty: 0 0RF diltiazem HCl 120 mg Capsule,Extended Release 24hr 120 mg PO Q12 Qty: 60 0RF amiodarone 200 mg tablet 200 mg PO DAILY Qty: 30 0RF Rx Instructions: start on 01/10/2022 furosemide [Lasix] 40 mg tablet 40 mg PO DAILY Qty: 30 0RF Rx Instructions: start on 01/05/2022 Primary Care Provider: [facility]errals[facility] [[facility] Provider] - Disposition Disposition: Acute Care Hospital [facility]
--- NOTE | 2022-02-08 20:06 | RAD_ITS ---
STUDY: X-RAY CHEST REASON FOR EXAM: Male, 71 years old. Shortness of breath. History of CHF. Pulse oxygenation of 76 degrees on room air. TECHNIQUE: Single AP portable view of the chest. COMPARISON: 01/02/2022. FINDINGS: Bilateral pleural effusions with bibasilar infiltrates/atelectasis mildly increased from previous study. No new infiltrate or mass. Normal size heart. Normal mediastinum and niki. Normal visualized pulmonary arteries. Normal visualized aortic arch and descending thoracic aorta. There are diffuse degenerative changes of the visualized thoracic spine. Normal visualized ribs, clavicles, and shoulders. There is no demonstrated abnormality of the visualized soft tissue structures of the upper abdomen. RAD/Chest 1 View (Portable) IMPRESSION: Worsening pleural effusions and atelectasis/infiltrate Electronically Signed: Yovany Pate DO at 20:41 EDT ,
[2022-02-08 20:16] LABS: Absolute Neutrophil Count 8.1 X10^3/uL (2.0-7.7); Basophil# 0.05 X10^3/uL; Basophil% 0.5 % (0-1); Eosinophil# 0.19 X10^3/uL; Eosinophils% 1.7 % (0-5); Hematocrit 51.2 % (40-54); Hemoglobin 16.4 g/dL (13.0-16.5); Lymphocyte % 12.8 % (19-41); Mean Corpuscular Hgb 30.5 pg (27.0-32.0); Mean Corpuscular Volume 95.2 fL (80-94); Mean Platelet Vol. 9.6 fl (6.2-12.0); Monocyte% 10.1 % (0-10); NRBC Flagged by Analyzer 0 % (0-5); Neutrophil # 8.14 X10^3/uL (2.7-7.7); Neutrophil % 74.6 % (47-70); Platelet Count 444 K/mm3 (150-450); RBC Distribution Width CV 15.6 % (11.6-14.6); RBC Distribution Width SD 52.9 fl (35.1-43.9); Red Blood Count 5.38 M/mm3 (4.6-6.2); White Blood Count 10.9 K/mm3 (4.4-11.0)
[2022-02-08] MEDS: Furosemide 100 MG/10 ML Vial 80 MG IV (20:31)
[2022-02-08 20:34] LABS: ALB/GLOB Ratio 0.7 RATIO (0.9-2.4); AST(SGOT) 27 U/L (15-37); Alanine Aminotransfer ALT/SGPT 74 U/L (16-61); Albumin, Serum 2.9 g/dL (3.2-5.0); Alkaline Phosphatase 100 U/L (45-117); Anion Gap 6 (5-15); BUN 25 mg/dL (7-18); BUN/Creat Ratio 17.7 RATIO (10-20); Calcium,Total 9.1 mg/dL (8.5-10.1); Chloride 105 mmol/L (98-107); Creatinine, Serum 1.41 mg/dL (0.70-1.30); EST Glomerular Filtration Rate 52 mL/min (>60); Est Glom Filt Rate - Afr Amer 64 mL/min (>60); Estimated Creatinine Clearance 45.82 ml/min; Globulin 4.4 g/dL (2.2-4.2); Glucose 110 mg/dL (74-106); Potassium 4.8 mmol/L (3.5-5.1); Protein, Total 7.3 g/dL (6.4-8.2); Sodium Level 142 mmol/L (136-145); Troponin-I HS 21 pg/mL (3.0-78.0)
[2022-02-08 20:37] LABS: BNP,B-Type NATRIURETIC PEPTIDE 608.6 pg/mL (0-100)
--- NOTE | 2022-02-08 20:47 | HP.PCM.HOS_ITS ---
HPI - General General Date of Admission: 02/08/22 Date of Service: 02/08/22 Chief Complaint: Dyspnea, orthopnea. HPI Narrative The patient is a 71 y/o M w/ PMHx: CKD stage III unclear subtype, ZAHIDA noncompliant with CPAP, HTN, HLD, Hx Colon CA in remission, Former tobacco use, BPH, PAF, Morbid Obesity, recent admission 12/30/21-01/03/22 following admission for PAF with RVR with associated presumed acute decompensated diastolic heart failure with BL effusions who presents to the [facility] ED on 02/08/22 with history of recently being out of state, admitting notably poor diet high in salt and questionable medication compliance with onset over the last week dyspnea, worse with exertion with associated orthopnea, increased BL LE edema notably worse on evening of day of ED presentation prompting evaluation. He denies any recent illnesses including any upper respiratory type infections and no fevers or chills nor productive cough. He denies any associated chest pain with the current presentation. Work-up in the ED included T96.6, heart rate 142, BP 156/101, respiratory rate 24, initially 76% on room air with improvement to 94% on 6 L nasal cannula, CBC with WC 10.9, hemoglobin 16.4, platelet 444 with left shift, CMP with BUN/creat 25/1.41, glucose 110, total bilirubin 0.4, AST/ALT 27/74, alk phos 100, troponin 21, BNP 608.6, chest x-ray with worsening pleural effusions and atelectasis/infiltrate versus overload, EKG with tachycardia suspected sinus tachycardia however difficult to assess as no visible P waves. In the ED patient administered Lasix 80 mg IV x1. [facility] Medical History (Updated 02/08/22 @ 23:[address] Meme Valerio MD) BPH (benign prostatic hyperplasia) Colon cancer Former smoker Gout Hyperglycemia Hypertension Morbid obesity Osteoarthritis PAF (paroxysmal atrial fibrillation) Sleep apnea Urinary incontinence Home Medications acetaminophen 325 mg tablet (Tylenol) 650 mg PO TID PRN HIP PAIN 12/30/21 [H istory Last Taken 12/29/21] allopurinol 100 mg tablet 100 mg PO DAILY GOUT 12/30/21 [History Last Taken 12/30/21] cholecalciferol (vitamin D3) 50 mcg (2,000 unit) tablet 100 mcg PO DAILY SUPPLEMENT 12/30/21 [History Last Taken 12/30/21] finasteride 5 mg tablet 5 mg PO DAILY PROSTATE 12/30/21 [History Last Taken 12/30/21] lisinopril 30 mg tablet 30 mg PO BID BP 12/30/21 [History Last Taken 12/30/21] metoprolol succinate 200 mg tablet,extended release 24 hr 200 mg PO DAILY HEART 12/30/21 [History Last Taken 12/30/21] potassium chloride 20 mEq tablet,extended release(part/cryst) (Klor-Con M) 20 m eq PO DAILY SUPPLEMENT 12/30/21 [History Last Taken 12/30/21] salsalate 750 mg tablet 750 mg PO BID PRN Pain 12/30/21 [History Last Taken 12/29/21] terazosin 5 mg capsule 5 mg PO QHS PROSTATE 12/30/21 [History Last Taken 12/29/21] trospium 20 mg tablet 20 mg PO QHS OAB 12/30/21 [History Last Taken 12/29/21] amiodarone 200 mg tablet 200 mg PO BID #14 tabs 01/03/22 [Rx Last Taken Unknown] apixaban 5 mg tablet (Eliquis) 5 mg PO BID #60 tabs 01/03/22 [Rx Last Taken Unknown] diltiazem HCl 120 mg capsule,extended release 24 hr 120 mg PO Q12 #60 caps 01/03/22 [Rx Last Taken Unknown] furosemide 40 mg tablet (Lasix) 40 mg PO DAILY #30 tabs 01/03/22 [Rx Last Taken Unknown] Allergy/AdvReac Type Severity Reaction Status Date / Time codeine Allergy Itching Verified 02/08/22 20:11 Family History (Updated 02/08/22 @ 22:[address] Meme Valerio MD) Mother CVA (cerebral vascular accident) Diabetes Heart disease Hypertension Father CVA (cerebral vascular accident) Diabetes Heart disease Hypertension Surgical History (Updated 02/08/22 @ 22:[address] Meme Valerio MD) History of ankle surgery History of partial colectomy History of tonsillectomy and adenoidectomy Hx of appendectomy S/P ear surgery Social History (Updated 02/08/22 @ 22:[address] Meme Valerio MD) household members: significant other Smoking Status: Former smoker alcohol intake: current alcohol intake frequency: a few times a month substance use type: does not use ROS ROS Narrative Physical Examination: General: Awake, alert, oriented x 3 and cooperative, seated upright in the ED bed, fatigued, mildly increased respiratory rate but no distress. Skin: Normal color, normal turgor, no icterus, no cyanosis except occasional staged ecchymoses and bilateral lower extremity chronic venous stasis skin changes. HEENT: AT/NC, EOMI, PERRLA, MMM, no carotid bruits, difficult assess JVD given significantly thickened neck. Lungs: Significantly diminished, greater bases, mildly increased respiratory rate but no distress, mild rales bases, no significant rhonchi or wheezing. Heart: Tachycardic, regular; no gallop, rub audible. Abdomen: Soft, morbidly obese, NTTP, difficult assess distention given habitus but denies sensation, distant normal BS, no obvious evidence of HSM; however, habitus makes evaluation difficult. Extremities: No cyanosis, no clubbing, see skin, bilateral lower extremity pedal to mid bradley 1+ pitting edema. Neurological: Patient awake, alert, oriented as noted, cognitive function intact; pupils equally reactive to light and accommodation, cranial nerves II- XII grossly normal, moving all 4 extremities, no focal deficits, strength moderately to severely globally decreased secondary to acute presentation. Psychiatric: Affect appears fatigued, no acute evidence of depressive or anxiety feelings. Vital Signs Vital Signs Vital Signs: 02/08/22 19:38 02/08/22 19:40 02/08/22 20:04 Temperature 96.6 F L 96.6 F L Temperature Source Temporal Temporal Pulse Rate 142 H 143 H Respiratory Rate 24 H 24 H Respiratory Effort Short of Breath Respiratory Depth Deep Respiratory Pattern Tachypnea Blood Pressure 156/101 H 156/101 H Blood Pressure Mean 119 119 Pulse Ox 76 94 Oxygen Delivery Method Room Air Nasal Cannula Nasal Cannula Oxygen Flow Rate (L/min) 6 5 Weight Weight: 290 lb 2.053 oz Body Mass Index (BMI) 44.1 Results Lab / Micro Data Result Diagrams: 02/08/22 20:07 02/08/22 20:07 Labs: Laboratory Results - last 24 hr 02/08/22 20:07: WBC 10.9, RBC 5.38, Hgb 16.4, Hct 51.2, MCV 95.2 H, MCH 30.5, MCHC 32.0, RDW Std Deviation 52.9 H, RDW Coeff of Maci 15.6 H, Plt Count 444, MPV 9.6, Immature Gran % (Auto) 0.300, Neut % (Auto) 74.6 H, Lymph % (Auto) 12.8 L, [place] % (Auto) 10.1 H, Eos % (Auto) 1.7, Baso % (Auto) 0.5, Absolute Neuts (auto) 8.1 H, Absolute Lymphs (auto) 1.40, Nucleated RBC % 0 02/08/22 20:07: Sodium 142, Potassium 4.8, Chloride 105, Carbon Dioxide 31.0, Anion Gap 6, BUN 25 H, Creatinine 1.41 H, Estim Creat Clear Calc 45.82, Est GFR (MDRD) Af Amer 64, Est GFR (MDRD) Non-Af 52 L, BUN/Creatinine Ratio 17.7, Glucose 110 H, Calcium 9.1, Total Bilirubin 0.40, AST 27, ALT 74 H, Alkaline Phosphatase 100, Troponin I High Sens 21, Total Protein 7.3, Albumin 2.9 L, Globulin 4.4 H, Albumin/Globulin Ratio 0.7 L 02/08/22 20:07: B-Natriuretic Peptide 608.6 H Radiology Impression Chest X-Ray 02/08/22 20:06 IMPRESSION: Worsening pleural effusions and atelectasis/infiltrate Electronically Signed: Yovany Pate DO at 20:41 EDT Reading Location ID and State: [facility] / [place] Tel [phone], Service support , Assessment & Plan Assessment/Plan (1) CHF (congestive heart failure): (2) Hypoxia: (3) Pleural effusion: PLAN: Plan The patient is a 71 y/o M w/ PMHx: CKD stage III unclear subtype, ZAHIDA noncompliant with CPAP, HTN, HLD, Hx Colon CA in remission, Former tobacco use, BPH, PAF, Morbid Obesity, recent admission 12/30/21-01/03/22 following admission for PAF with RVR with associated presumed acute decompensated diastolic heart failure with BL effusions who presents to the [facility] ED on 02/08/22 with history of recently being out of state, admitting notably poor diet high in salt and questionable medication compliance with onset over the last week dyspnea, worse with exertion with associated orthopnea, increased BL LE edema notably worse on evening of day of ED presentation prompting evaluation. #1. Acute Hypoxia suspected secondary to Acute Decompensated Diastolic CHF: Patient administered IV lasix in the ED, will admit to PCU, maintain on cardiac telemetry, obtain cardiac enzyme series, obtain serial EKGs, continue IV lasix diuresis, monitor I/Os, continue medical therapy, obtain TSH and magnesium l evel. 12/30/21 ECHO w/ grossly normal LV size, wall motion and systolic function, EF 55%, trivial MVI, unable to assess diastolic dysfunction. Procalcitonin requested to be cautious but denies any recent productive cough, fever, chills, URI type symptoms and clinical history more consistent with CHF exacerbation. #2. PAF: Patient with notable tachycardia however significantly regular but unable to visualize P waves, will dose with diltiazem and Lopressor with reassessment, continue home amiodarone in addition as well as home Eliquis regimen. #3. Hypertension: Continue home regimen including amiodarone, diltiazem and metoprolol in addition to lisinopril with hold parameters or alterations as needed, IV Lasix as noted above #1, PRN hydralazine. #4. Hyperlipidemia: Not on statin therapy, no allergy listed. AM FLP. #5. History of colon cancer: Status post partial colectomy, considered in remission. #6. Former tobacco use: Encourage continued tobacco cessation. #7. Chronic Kidney Disease Stage III, unclear subtype: Admission BUN/Cr 25/1.4, baseline renal function 1.2-1.4, repeat BMP in AM. #8. Morbid Obesity: Weight loss and lifestyle changes encouraged, nutrition consulted. #9. ZAHIDA: Patient is noncompliant with CPAP, discussed importance of potentially trying BiPAP at length and he noted amenability to assist with acute presentation. #10. BPH: We will continue patient home finasteride home regimen. #11. DVT prophylaxis: SCDs, continue patient home Eliquis regimen. #12. CODE status: Patient does not have healthcare power of electrical designer nor living will in place. Discussed CODE status at length including difference between FULL code, DNR-CCA and DNR-CC status. Following discussions about the differences in these status, requested Full Code status. Discussed usage of BIPAP temporarily for acute presentation #1 and he was amenable although historically with ZAHIDA noncompliant with CPAP. Advanced Care Planning Face to Face Time: 16 minutes. Charges/Coding Visit Charges Inpatient E&M: 81042 Init Hosp L3 Procedures Hospitalists Procedures: 11877 Advncd Care Plan 30 Min
[2022-02-08 21:03] LABS: Magnesium 2.3 mg/dL (1.6-2.6)
[2022-02-08] MEDS: Metoprolol Tartrate 5 MG/5 ML Vial IV (22:24)
[2022-02-08] MEDS: dilTIAZem CD 120 MG Capsule PO (22:24)
[2022-02-08] MEDS: 0.9% Saline Lock 10 ML Syringe IV (23:35)
[2022-02-08] MEDS: dilTIAZem 25 MG/5 ML Vial 10 MG IV BOLUS (23:36)
[2022-02-08] MEDS: Doxazosin 4 MG Tablet PO (23:39)
[2022-02-08] MEDS: APIXABAN 5 MG TABLET PO (23:39)
[2022-02-08] MEDS: Tolterodine Tartrate 2 MG CAP.SA PO (23:40)
[2022-02-08] MEDS: Lisinopril 20 MG Tablet PO (23:40)
[2022-02-08 23:57] LABS: Troponin-I HS 24 pg/mL (3.0-78.0)
[2022-02-09] VITALS (44 sets, daily range): BP systolic 76–141; BP diastolic 51–90; PULSE 14–143; RESP 12–24; TEMP 35.6–37.1; O2SAT 15–98
[2022-02-09 00:02] LABS: Procalcitonin 16.37 ng/mL (0.00-0.09)
--- NOTE | 2022-02-09 00:30 | PCM.HOSP.N ---
Hospitalist Note Dosed with his home cardizem with concurrent IV lopressor x 1. No marked improvement, still unclear if ST. Will dose with his home metoprolol regimen as from discussions suspect missed these medications on day of presentation.
--- NOTE | 2022-02-09 01:04 | CT_ITS ---
EXAM: CT ANGIOGRAPHY CHEST WITHOUT AND WITH INTRAVENOUS CONTRAST CLINICAL INDICATION: suspected PE suspected PE. Shortness of breath. History of CHF. TECHNIQUE: Helically acquired angiography images were obtained of the chest without and with intravenous contrast. This CT exam was performed using one or more of the following dose reduction techniques: automated exposure control, adjustment of the mA and/or kV according to patient size, and/or use of iterative reconstruction technique. This report was created using [employer] report generation technology. MIP reconstructed images were created and reviewed. CONTRAST: IV 100mL [id number] RADIATION DOSE: CTDIvol = 15.04 mGy, DLP = 547.77 mGy-cm COMPARISON: Chest x-ray 02/08/2022. CTA chest 12/31/2019. FINDINGS: PULMONARY ARTERIES: Unremarkable. Normal in caliber. No evidence of pulmonary embolism. AORTA: There is mild atherosclerotic calcification of the thoracic aorta. Normal in caliber. No evidence of dissection. GREAT VESSELS OF AORTIC ARCH: Unremarkable. Normal in caliber. No evidence of dissection. LUNGS AND PLEURAL SPACES: There are moderately large bilateral pleural effusions with interval worsening from the December exam. There is overlying atelectasis in the posterior lungs and lung bases. Overlying lower lobe infiltration cannot be excluded. No mass. No pneumothorax. HEART: There are coronary artery calcifications. No pericardial effusion. No signs of right heart strain, ratio of right ventricle to left ventricle measures less than 1. MEDIASTINUM: There are enlarged pretracheal and subcarinal mediastinal lymph nodes with short axis diameters ranging up to 2 cm. This is not significantly different from previous exam. Esophagus is unremarkable. No hiatal hernia. THYROID: Unremarkable. No thyroid lesions. BONES/JOINTS: There are bridging osteophytes at multiple contiguous levels of the spine, consistent with DISH (diffuse idiopathic skeletal hyperostosis). No suspicious lytic or blastic abnormality. CT/CTA Chest W/WO Contrast IMPRESSION: 1. No evidence for pulmonary embolism, aortic aneurysm, or aortic dissection. 2. Moderately large bilateral pleural effusions with bilateral lower lobe atelectasis, worsened from the December study. Cannot exclude overlying pneumonia. 3. Enlarged mediastinal lymph nodes, not definitely changed from last month''s exam. Suggest 6 month follow-up to assess stability. 4. Atherosclerosis. Electronically Signed: Prem Godfrey MD at 2:51 EDT ,
[2022-02-09 02:23] LABS: Absolute Lymphocyte Count 1.22 X10^3/uL (0.83-4.51); Absolute Neutrophil Count 6.7 X10^3/uL (2.0-7.7); Basophil# 0.05 X10^3/uL; Basophil% 0.6 % (0-1); Eosinophil# 0.13 X10^3/uL; Eosinophils% 1.4 % (0-5); Hematocrit 43.7 % (40-54); Hemoglobin 13.9 g/dL (13.0-16.5); Lymphocyte # 1.22 X10^3/ul (0.83-4.51); Lymphocyte % 13.4 % (19-41); Mean Corp Hgb Conc 31.8 g/dL (32-36); Mean Corpuscular Hgb 29.6 pg (27.0-32.0); Mean Corpuscular Volume 93.2 fL (80-94); Mean Platelet Vol. 9.7 fl (6.2-12.0); Monocyte# 0.99 X10^3/uL; Monocyte% 10.9 % (0-10); NRBC Flagged by Analyzer 0 % (0-5); Neutrophil # 6.66 X10^3/uL (2.7-7.7); Neutrophil % 73.3 % (47-70); Platelet Count 307 K/mm3 (150-450); RBC Distribution Width CV 15.6 % (11.6-14.6); RBC Distribution Width SD 51.8 fl (35.1-43.9); Red Blood Count 4.69 M/mm3 (4.6-6.2); White Blood Count 9.1 K/mm3 (4.4-11.0)
[2022-02-09 02:49] LABS: Troponin-I HS 22 pg/mL (3.0-78.0)
[2022-02-09 02:59] LABS: ALB/GLOB Ratio 0.7 RATIO (0.9-2.4); AST(SGOT) 17 U/L (15-37); Alanine Aminotransfer ALT/SGPT 54 U/L (16-61); Albumin, Serum 2.4 g/dL (3.2-5.0); Alkaline Phosphatase 73 U/L (45-117); Anion Gap 6 (5-15); BUN 24 mg/dL (7-18); BUN/Creat Ratio 18.5 RATIO (10-20); Calcium,Total 8.3 mg/dL (8.5-10.1); Chloride 107 mmol/L (98-107); Cholesterol 127 mg/dL (200); EST Glomerular Filtration Rate 58 mL/min (>60); Est Glom Filt Rate - Afr Amer 70 mL/min (>60); Estimated Creatinine Clearance 49.69 ml/min; Globulin 3.4 g/dL (2.2-4.2); Glucose 121 mg/dL (74-106); High Density Lipoprotein 28 mg/dL; Potassium 4.4 mmol/L (3.5-5.1); Protein, Total 5.8 g/dL (6.4-8.2); Sodium Level 140 mmol/L (136-145); Thyroid Stim Hormone (TSH) 2.61 uIU/mL (0.358-3.74); Triglycerides 132 mg/dL; Very Low Density Lipoprotein 26 mg/dL (5-40)
--- NOTE | 2022-02-09 03:15 | PN.HOSP_ITS ---
Hospitalist Note CTPA with no evidence of pulmonary emboli, aortic aneurysm or dissection, moderately large bilateral pleural effusions with bilateral lower lobe a telectasis worsening from December study with inability to exclude overlying pneumonia, enlarged mediastinal lymph nodes with no definitive change from last imaging. Given patient recent admission will initiate to be cautious IV Zosyn as well as vancomycin with MRSA screen with de-escalation as able, obtain respiratory full viral panel as well as sputum culture and urine antigens. We will also transition off of his anticoagulant oral therapy to heparin drip at next dose due for potential future thoracentesis.
[2022-02-09] MEDS: Contrast Allergy Safety Check IV (04:59)
[2022-02-09] MEDS: 0.9% Saline Lock 10 ML Syringe IV (05:14)
--- NOTE | 2022-02-09 05:20 | NURSING ---
pt was increased to 10l nc because when he sleeps he desats to low 80's%. pt refuses to wear bipap, resp and dr allen notified
[2022-02-09 05:31] LABS: International Normalized Ratio 1.4; Partial Thromboplast Time 31.8 Seconds (24.1-36.2)
[2022-02-09] MEDS: Heparin Injection (Vial) 5,000 UNIT/ML VIAL 10500 UNIT IV (05:35)
[2022-02-09] MEDS: HEPARIN/D5w 25,000 UNITS 25,000 UNITS/250 ML IV.SOLN. 17 UNITS CONT INF (05:35)
--- NOTE | 2022-02-09 05:38 | PHA.PHARE_ITS ---
Consult Pharmacy has been consulted to manage selected antiobiotic: Vancomycin Type of Consult: New start Labs: Sodium 140 mmol/L (136-145) 02/09/22 02:13 Potassium 4.4 mmol/L (3.5-5.1) 02/09/22 02:13 Chloride 107 mmol/L (98-107) 02/09/22 02:13 Carbon Dioxide 27.0 mmol/L (21.0-32.0) 02/09/22 02:13 Anion Gap 6 (5-15) 02/09/22 02:13 BUN 24 mg/dL (7-18) H 02/09/22 02:13 Creatinine 1.30 mg/dL (0.70-1.30) 02/09/22 02:13 Est GFR (MDRD) Af Amer 70 mL/min (>60) 02/09/22 02:13 Est GFR (MDRD) Non-Af 58 mL/min (>60) L 02/09/22 02:13 BUN/Creatinine Ratio 18.5 RATIO (10-20) 02/09/22 02:13 Glucose 121 mg/dL (74-106) H 02/09/22 02:13 Goal Trough: 15-20 mcg/mL Pharmacy Plan for Drug Dosing: Pharmacy Service will continue to monitor and adjust dosing as required. Medications Vancomycin HCl 2,000 mg/ (Sodium Chloride) 540 mls @ 250 mls/hr IV X1 ONE Stop: 02/09/22 06:39 Last Admin: 02/09/22 05:26 Dose: 250 mls/hr Vancomycin HCl 1,500 mg/ (Sodium Chloride) 530 mls @ 250 mls/hr IV Q12H [facility] Follow-Up Labs: Trough Vancomycin Labs to be done on [date and time ordered]: 02/09 @ 1700
--- NOTE | 2022-02-09 06:36 | EKG12_ITS ---
Test Reason : QT EVAL Blood Pressure : / mmHG Vent. Rate : 138 BPM Atrial Rate : 131 BPM P-R Int : 000 ms QRS Dur : 152 ms QT Int : 382 ms P-R-T Axes : 000 -13 177 degrees QTc Int : 578 ms Atrial Flutter with block Left bundle branch block Abnormal ECG When compared with ECG of 08-FEB-2022 20:11, MANUAL COMPARISON REQUIRED, DATA IS UNCONFIRMED Confirmed by HERNÁN KAUFFMAN, VALERIANO ([id number]), graphics editor LOUIS GILMAN ([id number]) on 02/10/2022 1:09:45 PM Referred By: DORIE Confirmed By:VALERIANO JIM MD
--- NOTE | 2022-02-09 07:01 | EX.PCM.CONCC ---
Assessment & Plan Assessment/Plan (1) Acute respiratory failure with hypoxia: (2) Pleural effusion: (3) CHF (congestive heart failure): PLAN: Plan RECOMMENDATIONS: 1. Hold on amiodarone pending cardiology evaluation 2. Possible thoracentesis with labs needed 3. Aggressive diuresis 4. Transition to Airvo. Encourage BiPAP with sleep 5. Await cardiology recommendations IMPRESSIONS: 1. Acute hypoxic respiratory failure secondary to acute decompensated diastolic CHF with bilateral pleural effusions Patient with significantly elevated rate. Attempts at rate control have not been successful. Patient has been ordered amiodarone by the hospitalist, but concerned given prolonged QTC of over 550. Will attempt to discuss with cardiology about possible beta-matt as an option. Patient has received IV Lasix. Clinical concern patient will need a thoracentesis to control oxygenation status. Labs should be sent on 1 side, but transudate pattern is suspected. Patient does have a history of tobacco use, but does not appear to have predominant emphysematous changes on CT scan. 2. CKD stage III/morbid obesity/ZAHIDA/hyperlipidemia/history of colon cancer/hypertensive urgency Complicates care, management, recovery and prognosis. Patient is refusing positive pressure at this time, but will attempt Airvo. History of cancer does increase the Ramadan, but CT of the chest did not show any PE. Patient has a history of paroxysmal A. fib, but rate appears to be regular without P waves given left bundle branch and rapid rate. Await cardiology input. Did verify full CODE STATUS. Patient is aware that refusal of BiPAP does increase the risk that intubation will be required. Addendum 7:52 AM: Spoke with Dr. Zaman about patient's condition. Dr. Zaman was suggesting that he believes the patient is in a flutter with 2-1 block. Did clarify that the patient has been taking Eliquis twice daily without any missed doses. He has agreed to continue with amiodarone, but feels that ultimately the best course of action given hypotension would be a cardioversion. Patient has asked me to provide conscious sedation independent of my ICU component. This will be documented separately. HPI Consult Data Date of Consult: 02/09/22 HPI Narrative Reason for Consultation: Hypoxia HPI Narrative: STEFANY BOND is a 71 M, with past medical history listed below, who presents to [facility] 02/08/2022 secondary to progressive shortness of breath. Patient reports onset of symptoms approximately 4 days prior to presentation. Patient denied any chest pain or palpitations, but did have worsening lower extremity edema. Patient is a relatively poor historian. Patient does take Eliquis at baseline along with diltiazem. Patient reports he has been compliant with his medications. Patient states he does not follow with cardiology like I should but does report that he is seen Dr. Zaamn in the past. Patient did report that he recently traveled to [place] On arrival to the emergency department, patient was noted to be 76% on room air with a heart rate of 142 bpm and a blood pressure of 156/101. Laboratory work-up showed a white blood cell count of 10.9, hemoglobin of 16.4 and a platelet count of 444. Creatinine was slightly elevated at 1.4 and bicarbonate at 31. BNP was elevated at 608.6, but remaining chemistries were unremarkable. Chest x-ray showed worsening bilateral pleural effusions with atelectasis. Patient initially was sent to the PCU for further evaluation. However, overnight, patient became more hypoxic and hypotensive following Cardizem. Patient was transferred to the intensive care unit on a heparin drip. CTA of the chest showed no pulmonary embolism, but mediastinal lymphadenopathy and large bilateral pleural effusions. Since being in the intensive care unit, patient has refused BiPAP therapy. Patient has gone up to 9 L/min nasal cannula to maintain saturations marginally at 88%. Patient was subsequently transitioned to Airvo. An amiodarone drip was ordered, but repeat EKG shows a QTC over 550. Cardiology reportedly is aware of the patient. Patient overall feels subjectively slightly improved. Patient felt the BiPAP worsened his overall condition. Patient has been given Lasix with little output. Patient is currently not reporting any dyspnea at rest or palpitations. Patient does report a history of obstructive sleep apnea at baseline on CPAP. Patient states that he does not like to wear his mask and compliance is unclear. Patient is on anticoagulation at baseline secondary to history of paroxysmal A. fib. Patient does have a history of smoking, but does not carry a formal diagnosis of COPD. Review of systems otherwise negative from a constitutional, HEENT, respiratory, cardiovascular, GI, genitourinary, musculoskeletal, skin, neurologic, psychiatric and hematologic system unless stated above. [facility] Medical History (Updated 02/09/22 @ 07:[address] Migule Zaman MD) BPH (benign prostatic hyperplasia) Colon cancer Former smoker Gout Hyperglycemia Hypertension Morbid obesity Osteoarthritis PAF (paroxysmal atrial fibrillation) Sleep apnea Urinary incontinence Home Medications acetaminophen 325 mg tablet (Tylenol) 650 mg PO TID PRN HIP PAIN 12/30/21 [History Last Taken 12/29/21] allopurinol 100 mg tablet 100 mg PO DAILY GOUT 12/30/21 [History Last Taken 12/30/21] cholecalciferol (vitamin D3) 50 mcg (2,000 unit) tablet 100 mcg PO DAILY SUPPLEMENT 12/30/21 [History Last Taken 12/30/21] finasteride 5 mg tablet 5 mg PO DAILY PROSTATE 12/30/21 [History Last Taken 12/30/21] lisinopril 30 mg tablet 30 mg PO BID BP 12/30/21 [History Last Taken 12/30/21] metoprolol succinate 200 mg tablet,extended release 24 hr 200 mg PO DAILY HEART 12/30/21 [History Last Taken 12/30/21] potassium chloride 20 mEq tablet,extended release(part/cryst) (Klor-Con M) 20 meq PO DAILY SUPPLEMENT 12/30/21 [History Last Taken 12/30/21] salsalate 750 mg tablet 750 mg PO BID PRN Pain 12/30/21 [History Last Taken 12/29/21] terazosin 5 mg capsule 5 mg PO QHS PROSTATE 12/30/21 [History Last Taken 12/29/21] trospium 20 mg tablet 20 mg PO QHS OAB 12/30/21 [History Last Taken 12/29/21] amiodarone 200 mg tablet 200 mg PO BID #14 tabs 01/03/22 [Rx Last Taken Unknown] apixaban 5 mg tablet (Eliquis) 5 mg PO BID #60 tabs 01/03/22 [Rx Last Taken Unknown] diltiazem HCl 120 mg capsule,extended release 24 hr 120 mg PO Q12 #60 caps 01/03/22 [Rx Last Taken Unknown] furosemide 40 mg tablet (Lasix) 40 mg PO DAILY #30 tabs 01/03/22 [Rx Last Taken Unknown] Allergy/AdvReac Type Severity Reaction Status Date / Time codeine Allergy Itching Verified 02/08/22 20:11 Family History Mother CVA (cerebral vascular accident) Diabetes Heart disease Hypertension Father CVA (cerebral vascular accident) Diabetes Heart disease Hypertension Surgical History History of ankle surgery History of partial colectomy History of tonsillectomy and adenoidectomy Hx of appendectomy S/P ear surgery Social History household members: significant other Smoking Status: Former smoker alcohol intake: current alcohol intake frequency: a few times a month substance use type: does not use ROS ROS Narrative See HPI Physical Exam Const alert, oriented x3 and no apparent distress General Appearance: cooperative, comfortable, well kempt and well developed Orientation / Consciousness: awake Exam Limitations: no limitations Nutritional Appearance: obese morbidly obese HEENT normocephalic, head/scalp atraumatic and moist oral mucous membranes HEENT Narrative: Mallampati 3, no thrush, dentition is fair. Darden present. General Ear: hearing grossly impaired Eyes PERRL, EOMs intact bilaterally, conjunctivae normal and no scleral icterus Neck no lymphadenopathy, supple, no JVD and thyroid normal General: trachea midline Resp no retractions and no use of accessory muscles Resp Narrative: On Airvo Effort and Inspection: symmetric chest movement Auscultation: rales and diminished lung sounds; Negative for crackles, rhonchi or wheezes Percussion: dullness Lower: bilateral (Longterm up chest) Cardio regular rate, S1 normal heart sound, S2 normal heart sound, no murmurs, no rub, no gallops, no clicks and peripheral pulses 2+ throughout Cardio Narrative: Left bundle noted on EKG GI normal to inspection, nondistended, normoactive bowel sounds, soft to palpation, non-tender and non-distended Extremity General Extremity: edema bilateral Skin no rashes or lesions noted, no wounds, skin turgor normal and no jaundice General Skin Exam: no breakdown Neuro oriented x3, CN's II-XII intact bilaterally, moves all extremities, no focal motor deficits and no sensory deficits noted Sensorium / Orientation: awake, alert, oriented to person, oriented to place and oriented to time Speech: speech normal Psych affect normal Psych Narrative: Very pleasant and appropriate Medical Records Data Attestation: I reviewed the patient's medical records Lab / Micro Data Attestation: I reviewed the patient's lab results. Result Diagrams: 02/09/22 02:13 02/09/22 02:13 Labs: Laboratory Results - last 24 hr 02/08/22 20:07: WBC 10.9, RBC 5.38, Hgb 16.4, Hct 51.2, MCV 95.2 H, MCH 30.5, MCHC 32.0, RDW Std Deviation 52.9 H, RDW Coeff of Maci 15.6 H, Plt Count 444, MPV 9.6, Immature Gran % (Auto) 0.300, Neut % (Auto) 74.6 H, Lymph % (Auto) 12.8 L, [place] % (Auto) 10.1 H, Eos % (Auto) 1.7, Baso % (Auto) 0.5, Absolute Neuts (auto) 8.1 H, Absolute Lymphs (auto) 1.40, Nucleated RBC % 0 02/08/22 20:07: Sodium 142, Potassium 4.8, Chloride 105, Carbon Dioxide 31.0, Anion Gap 6, BUN 25 H, Creatinine 1.41 H, Estim Creat Clear Calc 45.82, Est GFR (MDRD) Af Amer 64, Est GFR (MDRD) Non-Af 52 L, BUN/Creatinine Ratio 17.7, Glucose 110 H, Calcium 9.1, Total Bilirubin 0.40, AST 27, ALT 74 H, Alkaline Phosphatase 100, Troponin I High Sens 21, Total Protein 7.3, Albumin 2.9 L, Globulin 4.4 H, Albumin/Globulin Ratio 0.7 L 02/08/22 20:07: B-Natriuretic Peptide 608.6 H 02/08/22 20:07: Magnesium 2.3 02/08/22 23:10: Troponin I High Sens 24 02/08/22 23:10: Procalcitonin 16.37 H 02/09/22 02:13: WBC 9.1, RBC 4.69, Hgb 13.9, Hct 43.7, MCV 93.2, MCH 29.6, MCHC 31.8 L, RDW Std Deviation 51.8 H, RDW Coeff of [place]i 15.6 H, Plt Count 307, MPV 9.7, Immature Gran % (Auto) 0.400, Neut % (Auto) 73.3 H, Lymph % (Auto) 13.4 L, [place] % (Auto) 10.9 H, Eos % (Auto) 1.4, Baso % (Auto) 0.6, Absolute Neuts (auto) 6.7, Absolute Lymphs (auto) 1.22, Nucleated RBC % 0 02/09/22 02:13: Sodium 140, Potassium 4.4, Chloride 107, Carbon Dioxide 27.0, Anion Gap 6, BUN 24 H, Creatinine 1.30, Estim Creat Clear Calc 49.69, Est GFR (MDRD) Af Amer 70, Est GFR (MDRD) Non-Af 58 L, BUN/Creatinine Ratio 18.5, Glucose 121 H, Calcium 8.3 L, Total Bilirubin 0.40, AST 17, ALT 54, Alkaline Phosphatase 73, Total Protein 5.8 L, Albumin 2.4 L, Globulin 3.4, Albumin/Globulin Ratio 0.7 L, Triglycerides 132, Cholesterol 127, LDL Cholesterol 73, VLDL Cholesterol 26, HDL Cholesterol 28 L, TSH 2.61 02/09/22 02:13: Troponin I High Sens 02/09/22 04:40: PT 17.0 H, INR 1.4, APTT 31.8 Rhythm Strip Rhythm Strip: Sinus Tach Rate: 137 Ectopy: - (Widened QRS) Radiology Impression Chest X-Ray 02/08/22 20:06 IMPRESSION: Worsening pleural effusions and atelectasis/infiltrate Electronically Signed: Yovany Pate DO at 20:41 EDT Reading Location ID and State: [facility] / [place] Tel [phone], Service support , Chest CTA 02/09/22 01:04 IMPRESSION: 1. No evidence for pulmonary embolism, aortic aneurysm, or aortic dissection. 2. Moderately large bilateral pleural effusions with bilateral lower lobe atelectasis, worsened from the December study. Cannot exclude overlying pneumonia. 3. Enlarged mediastinal lymph nodes, not definitely changed from last month''s exam. Suggest 6 month follow-up to assess stability. 4. Atherosclerosis. Electronically Signed: Prem Godfrey MD at 2:51 EDT Reading Location ID and State: [facility] / [place] , Service support , Charges/Coding Visit Charges Inpatient E&M: 53515 Init Hosp L3
--- NOTE | 2022-02-09 07:37 | PCM.CONS.C ---
Assessment & Plan Assessment/Plan (1) Paroxysmal atrial fibrillation: PLAN: He does have paroxysmal atrial fibrillation with a rapid ventricular response rate and hypotension at this time. This does not appear to be responding to intravenous antiarrhythmics. As he appears anticoagulated and he is also on heparin I would recommend at this time that we perform an urgent DC cardioversion. Depending on the response further recommendations will be made. The risk benefits alternatives have been explained to him he understands and agrees to proceed. (2) CHF (congestive heart failure): PLAN: He does have evidence of diastolic heart failure. We would need to continue with supportive management at this time. He would also need continued diuretics. After he is in sinus rhythm would consider repeating his echocardiogram to reassess his ventricular function. He may also need to have thoracentesis to help him with his breathing. (3) Hypertension: PLAN: He does have a history of hypertension which appears to be under decent control at this time. We will continue to monitor him. HPI Consult Data Date of Consult: 02/09/22 HPI Narrative HPI Narrative: STEFANY BOND, is a 71 M who presents to the emergency room with shortness of breath. He says that this has been going on for a few weeks. He was admitted to the hospital in December of this year with atrial fibrillation with a rapid ventricular response rate, left bundle branch block, diastolic dysfunction and heart failure with preserved left ventricular systolic function. He was discharged on medication including anticoagulation and he says that he has been faithful with his anticoagulation. He denies any dizziness or diaphoresis near syncope or syncope he has had pedal edema and does feel the palpitations. He was initially admitted to the progressive care unit treated with diltiazem and anticoagulation. He continued to have atrial fibrillation with a rapid ventricular response rate and was transferred to the intensive care unit. He is also been noted to have bilateral pleural effusions likely accounting for his shortness of breath. There appears to be interval worsening since his last admission. He was seen by cardiology this morning and it was felt that he was in atrial flutter with a 2-1 rhythm. He was also noted to be hypotensive. [facility] Medical History (Updated 02/09/22 @ 07:[address] Miguel Zaman MD) BPH (benign prostatic hyperplasia) Colon cancer Former smoker Gout Hyperglycemia Hypertension Morbid obesity Osteoarthritis PAF (paroxysmal atrial fibrillation) Sleep apnea Urinary incontinence Home Medications acetaminophen 325 mg tablet (Tylenol) 650 mg PO TID PRN HIP PAIN 12/30/21 [History Last Taken 12/29/21] allopurinol 100 mg tablet 100 mg PO DAILY GOUT 12/30/21 [History Last Taken 12/30/21] cholecalciferol (vitamin D3) 50 mcg (2,000 unit) tablet 100 mcg PO DAILY SUPPLEMENT 12/30/21 [History Last Taken 12/30/21] finasteride 5 mg tablet 5 mg PO DAILY PROSTATE 12/30/21 [History Last Taken 12/30/21] lisinopril 30 mg tablet 30 mg PO BID BP 12/30/21 [History Last Taken 12/30/21] metoprolol succinate 200 mg tablet,extended release 24 hr 200 mg PO DAILY HEART 12/30/21 [History Last Taken 12/30/21] potassium chloride 20 mEq tablet,extended release(part/cryst) (Klor-Con M) 20 meq PO DAILY SUPPLEMENT 12/30/21 [History Last Taken 12/30/21] salsalate 750 mg tablet 750 mg PO BID PRN Pain 12/30/21 [History Last Taken 12/29/21] terazosin 5 mg capsule 5 mg PO QHS PROSTATE 12/30/21 [History Last Taken 12/29/21] trospium 20 mg tablet 20 mg PO QHS OAB 12/30/21 [History Last Taken 12/29/21] amiodarone 200 mg tablet 200 mg PO BID #14 tabs 01/03/22 [Rx Last Taken Unknown] apixaban 5 mg tablet (Eliquis) 5 mg PO BID #60 tabs 01/03/22 [Rx Last Taken Unknown] diltiazem HCl 120 mg capsule,extended release 24 hr 120 mg PO Q12 #60 caps 01/03/22 [Rx Last Taken Unknown] furosemide 40 mg tablet (Lasix) 40 mg PO DAILY #30 tabs 01/03/22 [Rx Last Taken Unknown] Allergy/AdvReac Type Severity Reaction Status Date / Time codeine Allergy Itching Verified 02/08/22 20:11 Family History Mother CVA (cerebral vascular accident) Diabetes Heart disease Hypertension Father CVA (cerebral vascular accident) Diabetes Heart disease Hypertension Surgical History History of ankle surgery History of partial colectomy History of tonsillectomy and adenoidectomy Hx of appendectomy S/P ear surgery Social History household members: significant other Smoking Status: Former smoker alcohol intake: current alcohol intake frequency: a few times a month substance use type: does not use ROS Constitutional Constitutional: Denies fever(s) or weight loss Eyes Eyes: Reports systems reviewed and no addt'l complaints, except as documented ENT HEENT: Reports systems reviewed and no addt'l complaints, except as documented Cardiovascular Cardiovascular: Reports dyspnea at rest and dyspnea on exertion; Denies chest pain at rest, chest pain with activity, edema, palpitations or paroxysmal nocturnal dyspnea Respiratory/Chest Respiratory/Chest: Reports dyspnea on exertion, shortness of breath at rest and shortness of breath with exertion; Denies productive cough Gastrointestinal Gastrointestinal: Denies change in bowel habits, nausea, vomiting or weight changes Genitourinary Genitourinary: Denies difficulty urinating Musculoskeletal Musculoskeletal: Denies joint stiffness or muscle weakness Integumentary Integumentary: Denies lesions Neurologic Neurologic: Denies dizziness or syncope Psychiatric Psychiatric: Denies anxiety Endocrine Endocrinology: Denies excessive sweating or fatigue Hematologic/Lymphatic Hematologic/Lymphatic: Denies anemia Allergic/Immunologic Allergic/Immunologic: Denies seasonal rhinorrhea Physical Exam Const alert, oriented x3 and no apparent distress General Appearance: cooperative HEENT hearing grossly normal bilaterally Head and Scalp: atraumatic Eyes EOMs intact bilaterally Neck General: normal visual inspection Chest inspection of chest normal and palpation of chest normal Resp normal respiratory effort Auscultation: clear to auscultation bilaterally Cardio S1 normal heart sound and S2 normal heart sound Jugular Venous Distention: JVD Rhythm: abnormal rhythm regularly irregular GI normal to inspection, nondistended, normoactive bowel sounds Extremity normal capillary refill and no pedal edema General Extremity: edema bilateral Peripheral Pulses: Yes pulses 2+ throughout and femoral pulses present Skin no rashes or lesions noted Neuro oriented x3 and CN's II-XII intact bilaterally Psych Appearance: grossly normal and appropriate Risk Stratification Risk Stratification Applicable: No Objective Data Vital Signs: Vital Signs Temp Pulse Resp BP Pulse Ox O2 Del Method O2 Flow Rate 98.7 F 137 H 16 96/79 94 Airvo 40 09/26/22 04:00 02/09/22 05:30 02/09/22 05:30 02/09/22 05:30 02/09/22 06:58 02/09/22 06:58 02/09/22 06:58 FiO2 85 02/09/22 06:58 Oxygen Flow Rate (L/min) 40 Oxygen Delivery Method Airvo Weight: 288 lb 12.8 oz Body Mass Index (BMI) 43.5 Intake & Output: Intake and Output for Last 24 Hours 02/07/22 02/08/22 02/09/22 23:59 23:59 23:59 Intake Total 103 / 103 Output Total 350 / 350 Balance -247 / -247 Lab / Micro Data Result Diagrams: 02/09/22 02:13 02/09/22 02:13 Labs: Laboratory Results - last 24 hr 02/08/22 20:07: WBC 10.9, RBC 5.38, Hgb 16.4, Hct 51.2, MCV 95.2 H, MCH 30.5, MCHC 32.0, RDW Std Deviation 52.9 H, RDW Coeff of Maci 15.6 H, Plt Count 444, MPV 9.6, Immature Gran % (Auto) 0.300, Neut % (Auto) 74.6 H, Lymph % (Auto) 12.8 L, [place] % (Auto) 10.1 H, Eos % (Auto) 1.7, Baso % (Auto) 0.5, Absolute Neuts (auto) 8.1 H, Absolute Lymphs (auto) 1.40, Nucleated RBC % 0 02/08/22 20:07: Sodium 142, Potassium 4.8, Chloride 105, Carbon Dioxide 31.0, Anion Gap 6, BUN 25 H, Creatinine 1.41 H, Estim Creat Clear Calc 45.82, Est GFR (MDRD) Af Amer 64, Est GFR (MDRD) Non-Af 52 L, BUN/Creatinine Ratio 17.7, Glucose 110 H, Calcium 9.1, Total Bilirubin 0.40, AST 27, ALT 74 H, Alkaline Phosphatase 100, Troponin I High Sens 21, Total Protein 7.3, Albumin 2.9 L, Globulin 4.4 H, Albumin/Globulin Ratio 0.7 L 02/08/22 20:07: B-Natriuretic Peptide 608.6 H 02/08/22 20:07: Magnesium 2.3 02/08/22 23:10: Troponin I High Sens 24 02/08/22 23:10: Procalcitonin 16.37 H 02/09/22 02:13: WBC 9.1, RBC 4.69, Hgb 13.9, Hct 43.7, MCV 93.2, MCH 29.6, MCHC 31.8 L, RDW Std Deviation 51.8 H, RDW Coeff of Maci 15.6 H, Plt Count 307, MPV 9.7, Immature Gran % (Auto) 0.400, Neut % (Auto) 73.3 H, Lymph % (Auto) 13.4 L, [place] % (Auto) 10.9 H, Eos % (Auto) 1.4, Baso % (Auto) 0.6, Absolute Neuts (auto) 6.7, Absolute Lymphs (auto) 1.22, Nucleated RBC % 0 02/09/22 02:13: Sodium 140, Potassium 4.4, Chloride 107, Carbon Dioxide 27.0, Anion Gap 6, BUN 24 H, Creatinine 1.30, Estim Creat Clear Calc 49.69, Est GFR (MDRD) Af Amer 70, Est GFR (MDRD) Non-Af 58 L, BUN/Creatinine Ratio 18.5, Glucose 121 H, Calcium 8.3 L, Total Bilirubin 0.40, AST 17, ALT 54, Alkaline Phosphatase 73, Total Protein 5.8 L, Albumin 2.4 L, Globulin 3.4, Albumin/Globulin Ratio 0.7 L, Triglycerides 132, Cholesterol 127, LDL Cholesterol 73, VLDL Cholesterol 26, HDL Cholesterol 28 L, TSH 2.61 02/09/22 02:13: Troponin I High Sens 22 02/09/22 04:40: PT 17.0 H, INR 1.4, APTT 31.8 Rhythm Strip Rhythm Strip: Sinus Tach Rate: 137 Ectopy: - (Widened QRS) Cardiology Labs/Tests 02/08/22 20:07: WBC 10.9, RBC 5.38, Hgb 16.4, Hct 51.2, MCV 95.2 H, MCH 30.5, MCHC 32.0, Plt Count 444, MPV 9.6, Immature Gran % (Auto) 0.300, Neut % (Auto) 74.6 H, Lymph % (Auto) 12.8 L, [place] % (Auto) 10.1 H, Eos % (Auto) 1.7, Baso % (Auto) 0.5, Absolute Neuts (auto) 8.1 H, Nucleated RBC % 0 02/08/22 20:07: Sodium 142, Potassium 4.8, Chloride 105, Carbon Dioxide 31.0, Anion Gap 6, BUN 25 H, Creatinine 1.41 H, Est GFR (MDRD) Af Amer 64, Est GFR (MDRD) Non-Af 52 L, BUN/Creatinine Ratio 17.7, Glucose 110 H, Calcium 9.1, Total Bilirubin 0.40 02/08/22 20:07: B-Natriuretic Peptide 608.6 H 02/08/22 20:07: Magnesium 2.3 02/09/22 02:13: WBC 9.1, RBC 4.69, Hgb 13.9, Hct 43.7, MCV 93.2, MCH 29.6, MCHC 31.8 L, Plt Count 307, MPV 9.7, Immature Gran % (Auto) 0.400, Neut % (Auto) 73.3 H, Lymph % (Auto) 13.4 L, [place] % (Auto) 10.9 H, Eos % (Auto) 1.4, Baso % (Auto) 0.6, Absolute Neuts (auto) 6.7, Nucleated RBC % 0 02/09/22 02:13: Sodium 140, Potassium 4.4, Chloride 107, Carbon Dioxide 27.0, Anion Gap 6, BUN 24 H, Creatinine 1.30, Est GFR (MDRD) Af Amer 70, Est GFR (MDRD) Non-Af 58 L, BUN/Creatinine Ratio 18.5, Glucose 121 H, Calcium 8.3 L, Total Bilirubin 0.40, Triglycerides 132, Cholesterol 127, LDL Cholesterol 73, VLDL Cholesterol 26, HDL Cholesterol 28 L 02/09/22 04:40: PT 17.0 H, INR 1.4, APTT 31.8 Rhythm: EKG: ECHO: Stress Test: Cardiac Cath: PCI: CT Surgery: Holter monitor: EPS: PPM: CXR: Chest CT Scan: Radiography Diagnostic Testing: Radiology Impression Chest X-Ray 02/08/22 20:06 IMPRESSION: Worsening pleural effusions and atelectasis/infiltrate Electronically Signed: Yovany Pate DO at 20:41 EDT Reading Location ID and State: [facility] / [place] Tel [phone], Service support , Chest CTA 02/09/22 01:04 IMPRESSION: 1. No evidence for pulmonary embolism, aortic aneurysm, or aortic dissection. 2. Moderately large bilateral pleural effusions with bilateral lower lobe atelectasis, worsened from the December study. Cannot exclude overlying pneumonia. 3. Enlarged mediastinal lymph nodes, not definitely changed from last month''s exam. Suggest 6 month follow-up to assess stability. 4. Atherosclerosis. Electronically Signed: Prem Godfrey MD at 2:51 EDT ,
--- NOTE | 2022-02-09 07:46 | NURSING ---
Dr Zaman and Dr Cuenca at bedside to discuss patients HR and plan of care. Decided to attempt electrical cardioversion. This was discussed with the patient and consent was obtained. Patient was prepared for bedside cardioversion and ready for when Dr Zaman to returns to bedside and Dr Cuenca returns for sedation management.
[2022-02-09 07:50] LABS: Allen Test Positive; O2 Delivery Device Cannula; SITE R Radial
[2022-02-09 07:51] LABS: Blood Gas Specimen Type ART; pH 7.32 (7.35-7.45)
[2022-02-09 07:52] LABS: Base Excess 2 mmol/L (-2 to +2); Bicarbonate 28.4 mmol/L (22-26); PO2 70 mmHG (75-100); SO2 92 % (95-99); Total Carbon Dioxide 30 mmol/L; pCO2 54.9 mmHg (35-45)
--- NOTE | 2022-02-09 08:16 | OP.PCM_ITS ---
Problems Associated Problem List Diagnoses (1) Paroxysmal atrial fibrillation: Operative Report Date of Procedure: 02/09/22 Direct current cardioversion 71-year-old man with a history of paroxysmal symptomatic atrial fibrillation. Informed consent was obtained with the patient in the intensive care unit. The patient had been seen by Dr. Cuenca of the critical care division. Anterior- posterior pads were applied. 80 mg of intravenous propofol was administered and 300 J of synchronized biphasic energy were applied with reversal to sinus rhythm. Patient had intermittent atrial fibrillation but eventually settled to sinus rhythm. Patient tolerated the procedure well. Conclusion: Successful DC cardioversion from atrial fibrillation to sinus rhythm.
[2022-02-09] MEDS: Amiodarone 360 MG in Dextrose 5% Viaflo Bag 192.8 ML 33.3 MG CONT INF (08:17)
--- NOTE | 2022-02-09 08:36 | PCM.OP.PRO ---
Procedure Report Date of Procedure: 02/09/22 CONSCIOUS SEDATION REPORT BRIEF HISTORY OF PRESENT ILLNESS: The patient is a 71-year-old male who presented to [facility] secondary to hypoxic respiratory failure noted to have a flutter with 2-1 block. The patient reports no PO intake since midnight, but is currently therapeutic on anticoagulation. The patient does have a history of ZAHIDA with intermittent compliance. The patient reports a history of smoking, but denies COPD. The patient denies any recent constitutional symptoms such as fevers, chills, nausea or vomiting. The patient denies previous applicable anesthetic complications. Patient's last known ejection fraction was within normal limits PHYSICAL EXAMINATION: VITAL SIGNS: Reviewed and were acceptable. GENERAL: The patient is a male, in no apparent distress, speaking in full sentences. HEENT: Normocephalic, atraumatic. Mucous membranes are moist and pink. Good mouth opening noted. Trachea is midline. Good neck mobility. MP [IV] CHEST: S1, S2 irregularly irregular. No murmurs, rubs or gallops were noted. LUNGS: Clear to auscultation bilaterally without appreciable wheezes, rales or rhonchi. ABDOMEN: Soft, nontender, nondistended. Positive bowel sounds. EXTREMITIES: There is no clubbing, cyanosis or edema. ASA Class: II DESCRIPTION OF PROCEDURE: After confirmation of informed consent, the patient's anesthesia plan was reviewed in detail. [Propofol Etomidate] was chosen. Risks and benefits were reviewed and the patient agreed to proceed. At 8 AM, the patient was given [40 mg of propofol]. [The patient required a total of] 80[mg of][propofol etomidate] [throughout the procedure to achieve appropriate sedation.] The patient achieved an appropriate level of sedation and received 1 attempt synchronized cardioversion, at [200 J respectively] by [Dr. Austyn Perdue] at the bedside. This was [successful unsuccessful] in achieving normal sinus rhythm. The patient was monitored until 8:14 AM, at which time the patient reached their baseline mental status and function. The patient tolerated the procedure well, but did require jaw thrust secondary to hypoxia. COMPLICATIONS: Hypoxia, responsive to jaw thrust ESTIMATED BLOOD LOSS: None RECOMMENDATIONS: Okay to recover in usual fashion. Procedures Pulmonary 9xxxx: [id number] Con Sedation
[2022-02-09 08:38] LABS: M R Staph aureus DNA By PCR Negative (Negative); Probe Check PASS; Specimen Processing Control PASS
[2022-02-09 09:50] LABS: Allen Test Positive; Base Excess 2 mmol/L (-2 to +2); Bicarbonate 28.4 mmol/L (22-26); Blood Gas Specimen Type ART; O2 Delivery Device Cannula; PO2 70 mmHG (75-100); SITE R Radial; SO2 92 % (95-99); Total Carbon Dioxide 30 mmol/L; pCO2 54.9 mmHg (35-45); pH 7.32 (7.35-7.45)
[2022-02-09] MEDS: APIXABAN 5 MG TABLET PO ×2 (10:10→21:30)
[2022-02-09] MEDS: Potassium Chloride Oral Tablet 20 MEQ PO (10:20)
[2022-02-09] MEDS: Lisinopril 20 MG Tablet PO ×2 (10:20→21:30)
[2022-02-09] MEDS: dilTIAZem CD 120 MG Capsule PO ×2 (10:20→21:30)
[2022-02-09] MEDS: Finasteride 5 MG Tablet PO (10:21)
[2022-02-09] MEDS: Aspirin 81 MG TAB.CHEW PO (10:21)
[2022-02-09] MEDS: Allopurinol 100 MG Tablet PO (10:21)
[2022-02-09] MEDS: Metoprolol(XL)Succ 200 MG Tablet PO (10:21)
[2022-02-09] MEDS: Furosemide 40 MG/4 ML Vial IV ×2 (10:22→18:28)
[2022-02-09] MEDS: FLU VACC QS2022-23(6MOS UP)/PF 60 MCG/0.5 ML SYRINGE IM (10:57)
--- NOTE | 2022-02-09 13:00 | CASEMGMT ---
RN CM Face to Face with patient for initial transition planning/care coordination assessment. RN CM introduced self and role at [facility]. Patient lying in bed, alert and oriented, brothers and sisters at bedside. Patient willing to participate in assessment and is able to answer all questions appropriately. Care providers, pharmacy, and demographics verified. Patient wishes to discharge home, denies need for home health at this time, will monitor progress with therapy. Patient states he has no further needs or concerns at this time. CM to follow for discharge planning needs that may arise. PCP: Dilia Chauhan [place] Specialists: none Preferred Pharmacy: [facility] Insurance: [place] Prescription Benefit: [place] Living Will/HPOA: none LNOK: sisters and brother Living Arrangements: patient lives with a friend Kimmie in a 2 story home with bed and bath on first floor, no steps to enter the home. Patient states he is independent at home. Transportation: self, friend Kimmie DME/HHC: Patient states he has shower chair, raised toilet, cane, walker, lift bed, lift chair, grab bars, and cpap that he does not wear. Patient had been to [facility] in the past. No previous HHC. Will monitor for HHC and home oxgyen for at discharge. Disposition Plan: Patient to discharge home with family support and follow-up plans in place. Will monitor for HHC and home oxygen at discharge. Lacey RESENDIZ, RN, CM
--- NOTE | 2022-02-09 14:08 | CASEMGMT ---
ARCADIO GARCIA received call from [facility]. Roselyn from transfer center inquired about patient condition, ARCADIO GARCIA updated. Roselyn provided contact information, ext [phone]. CM will continue to follow this patient and plan for a safe discharge.
[2022-02-09] MEDS: Amiodarone 360 MG in Dextrose 5% Viaflo Bag 192.8 ML 16.7 MG CONT INF (14:44)
--- NOTE | 2022-02-09 15:25 | PN.HOSP_ITS ---
Subjective Subjective He was seen and examined today, he underwent successful cardioversion today, presently patient is in normal sinus rhythm with PACs. Patient remains on high flow oxygen at this time, he does not appear to be in any respiratory distress. I talked with his who was at the bedside this time my examination. Also talked briefly with critical care about his medical care. Objective Data Objective Data Vital Signs: Vital Signs Temp Pulse Resp BP Pulse Ox O2 Del Method O2 Flow Rate 98.0 F 61 14 106/58 L 93 Airvo 40 02/09/22 11:44 02/09/22 15:00 02/09/22 15:00 02/09/22 15:00 02/09/22 15:00 02/09/22 15:00 02/09/22 15:00 FiO2 70 02/09/22 15:00 Oxygen Flow Rate (L/min) 40 Oxygen Delivery Method Airvo Weight: 130.997 kg Body Mass Index (BMI) 43.5 Intake & Output: Intake and Output for Last 24 Hours 02/07/22 02/08/22 02/09/22 23:59 23:59 23:59 Intake Total 1195.08 / 1195.08 Output Total 1150 / 1150 Balance 45.08 / 45.08 Lab / Micro Data Result Diagrams: 02/09/22 02:13 02/09/22 02:13 Labs: Laboratory Results - last 24 hr 02/08/22 20:07: WBC 10.9, RBC 5.38, Hgb 16.4, Hct 51.2, MCV 95.2 H, MCH 30.5, MCHC 32.0, RDW Std Deviation 52.9 H, RDW Coeff of Maci 15.6 H, Plt Count 444, MPV 9.6, Immature Gran % (Auto) 0.300, Neut % (Auto) 74.6 H, Lymph % (Auto) 12.8 L, [place] % (Auto) 10.1 H, Eos % (Auto) 1.7, Baso % (Auto) 0.5, Absolute Neuts (auto) 8.1 H, Absolute Lymphs (auto) 1.40, Nucleated RBC % 0 02/08/22 20:07: Sodium 142, Potassium 4.8, Chloride 105, Carbon Dioxide 31.0, Anion Gap 6, BUN 25 H, Creatinine 1.41 H, Estim Creat Clear Calc 45.82, Est GFR (MDRD) Af Amer 64, Est GFR (MDRD) Non-Af 52 L, BUN/Creatinine Ratio 17.7, Glucose 110 H, Calcium 9.1, Total Bilirubin 0.40, AST 27, ALT 74 H, Alkaline Phosphatase 100, Troponin I High Sens 21, Total Protein 7.3, Albumin 2.9 L, Globulin 4.4 H, Albumin/Globulin Ratio 0.7 L 02/08/22 20:07: B-Natriuretic Peptide 608.6 H 02/08/22 20:07: Magnesium 2.3 02/08/22 23:10: Troponin I High Sens 24 02/08/22 23:10: Procalcitonin 16.37 H 02/09/22 02:13: WBC 9.1, RBC 4.69, Hgb 13.9, Hct 43.7, MCV 93.2, MCH 29.6, MCHC 31.8 L, RDW Std Deviation 51.8 H, RDW Coeff of Maci 15.6 H, Plt Count 307, MPV 9.7, Immature Gran % (Auto) 0.400, Neut % (Auto) 73.3 H, Lymph % (Auto) 13.[address] L, [place] % (Auto) 10.9 H, Eos % (Auto) 1.4, Baso % (Auto) 0.6, Absolute Neuts (auto) 6.7, Absolute Lymphs (auto) 1.22, Nucleated RBC % 0 02/09/22 02:13: Sodium 140, Potassium 4.4, Chloride 107, Carbon Dioxide 27.0, Anion Gap 6, BUN 24 H, Creatinine 1.30, Estim Creat Clear Calc 49.69, Est GFR (MDRD) Af Amer 70, Est GFR (MDRD) Non-Af 58 L, BUN/Creatinine Ratio 18.5, Glucose 121 H, Calcium 8.3 L, Total Bilirubin 0.40, AST 17, ALT 54, Alkaline Phosphatase 73, Total Protein 5.8 L, Albumin 2.4 L, Globulin 3.4, Albumin/Globulin Ratio 0.7 L, Triglycerides 132, Cholesterol 127, LDL Cholesterol 73, VLDL Cholesterol 26, HDL Cholesterol 28 L, TSH 2.61 02/09/22 02:13: Troponin I High Sens 02/09/22 04:40: PT 17.0 H, INR 1.4, APTT 31.8 02/09/22 04:40: MRSA (PCR) Negative Micro: Microbiology 02/09/22 04:40 Mucosa - Nose Respiratory Panel (PCR) - Final ABG Data ABG results: ABG 02/09/22 02/09/22 03:06 03:06 Specimen Type ART ART Sample Site R Radial R Radial pH 7.32 L 7.32 L Bicarbonate Actual 28.4 H 28.4 H Total CO2 30 30 Base Excess 2 2 O2 Saturation 92 L 92 L ABG pCO2 54.9 H 54.9 H ABG pO2 70 L 70 L Kyler Test Positive Positive O2 Delivery Device Cannula Cannula Liter Flow 8.0 8.0 Radiography Diagnostic Testing: Radiology Impression Chest X-Ray 02/08/22 20:06 IMPRESSION: Worsening pleural effusions and atelectasis/infiltrate Electronically Signed: Yovany Pate DO at 20:41 EDT Reading Location ID and State: [facility] / [place] Tel [phone], Service support , Chest CTA 02/09/22 01:04 IMPRESSION: 1. No evidence for pulmonary embolism, aortic aneurysm, or aortic dissection. 2. Moderately large bilateral pleural effusions with bilateral lower lobe atelectasis, worsened from the December study. Cannot exclude overlying pneumonia. 3. Enlarged mediastinal lymph nodes, not definitely changed from last month''s exam. Suggest 6 month follow-up to assess stability. 4. Atherosclerosis. Electronically Signed: Prem Godfrey MD at 2:51 EDT , Rhythm Strip Rhythm Strip: Sinus Tach Rate: 137 Ectopy: - (Widened QRS) Physical Exam Const alert, oriented x3, no apparent distress, average body habitus and healthy appearing General Appearance: cooperative, well kempt and well developed Orientation / Consciousness: awake, oriented to person, oriented to place and oriented to time HEENT normocephalic, head/scalp atraumatic and moist oral mucous membranes Eyes PERRL, EOMs intact bilaterally and conjunctivae normal Neck supple, no JVD, thyroid normal and no carotid bruits General: trachea midline Resp normal respiratory effort, no retractions and no use of accessory muscles Resp Narrative: Breath sounds are diminished bilaterally at the bases Auscultation: Negative for rales, rhonchi or wheezes Cardio regular rate, regular rhythm, S1 normal heart sound, S2 normal heart sound, no murmurs, no rub and no gallops Cardio Narrative: Occasional PACs are noted GI normal to inspection, nondistended, normoactive bowel sounds, soft to palpation, non-tender and non-distended Extremity no clubbing, cyanosis or edema Skin no rashes or lesions noted General Skin Exam: no breakdown Neuro oriented x3, CN's II-XII intact bilaterally, no focal motor deficits and no sensory deficits noted Sensorium / Orientation: awake and alert Speech: speech normal Psych affect normal Assessment & Plan Assessment/Plan (1) Acute respiratory failure with hypoxia: PLAN: Plan 1. Acute hypoxic respiratory failure secondary to acute on chronic diastolic congestive heart failure with bilateral pleural effusions-cardiology is participating in his care as is pulmonary medicine, pulse ox will be monitored, it is possible the patient may require thoracentesis #2 paroxysmal atrial fibrillation-now converted to normal sinus rhythm after cardioversion today-patient will remain on medications per cardiology-patient is currently on metoprolol, Cardizem CD, and amiodarone #3 acute on chronic diastolic congestive heart failure-patient will remain on IV Lasix at this time as well as lisinopril, other medication changes per cardiology #4 chronic use of anticoagulants-patient is on Eliquis at this time #5 essential hypertension-patient will remain on his present medications #6 morbid obesity-complicates care, management, recovery, and prognosis #7 bilateral pleural effusions-secondary to acute on chronic diastolic CHF- patient may need to undergo a thoracentesis if these do not clear with diuresis. Charges/Coding Visit Charges Inpatient E&M: 68353 Subs Hosp L2
[2022-02-09] MEDS: Tolterodine Tartrate 2 MG CAP.SA PO (21:31)
[2022-02-09] MEDS: Doxazosin 4 MG Tablet PO (21:34)
[2022-02-10] VITALS (23 sets, daily range): BP systolic 104–154; BP diastolic 57–71; PULSE 57–76; RESP 13–21; TEMP 36.2–37.4; O2SAT 91–97
[2022-02-10] MEDS: Amiodarone 360 MG in Dextrose 5% Viaflo Bag 192.8 ML 16.7 MG CONT INF (02:43)
[2022-02-10 04:37] LABS: Absolute Neutrophil Count 6.8 X10^3/uL (2.0-7.7); Basophil# 0.04 X10^3/uL; Basophil% 0.5 % (0-1); Eosinophil# 0.21 X10^3/uL; Eosinophils% 2.5 % (0-5); Hematocrit 41.8 % (40-54); Lymphocyte % 7.1 % (19-41); Mean Corp Hgb Conc 31.1 g/dL (32-36); Mean Corpuscular Volume 96.3 fL (80-94); Mean Platelet Vol. 9.7 fl (6.2-12.0); Monocyte# 0.82 X10^3/uL; Monocyte% 9.6 % (0-10); NRBC Flagged by Analyzer 0 % (0-5); Neutrophil % 79.8 % (47-70); POSITIVE DIFFERENTIAL YES; Platelet Count 245 K/mm3 (150-450); RBC Distribution Width CV 15.4 % (11.6-14.6); Red Blood Count 4.34 M/mm3 (4.6-6.2); White Blood Count 8.5 K/mm3 (4.4-11.0)
[2022-02-10 04:44] LABS: Differential Indicated SCAN CRITERIA MET
[2022-02-10 05:05] LABS: Anion Gap 4 (5-15); BUN 23 mg/dL (7-18); BUN/Creat Ratio 17.6 RATIO (10-20); Calcium,Total 8.4 mg/dL (8.5-10.1); Chloride 104 mmol/L (98-107); Creatinine, Serum 1.31 mg/dL (0.70-1.30); EST Glomerular Filtration Rate 57 mL/min (>60); Est Glom Filt Rate - Afr Amer 69 mL/min (>60); Estimated Creatinine Clearance 49.31 ml/min; Glucose 144 mg/dL (74-106); Potassium 4.3 mmol/L (3.5-5.1); Sodium Level 141 mmol/L (136-145)
[2022-02-10 05:13] LABS: Differential Comment SCANNED
--- NOTE | 2022-02-10 06:56 | PN.CC_ITS ---
Assessment & Plan Assessment/Plan (1) Acute respiratory failure with hypoxia: (2) Pleural effusion: (3) CHF (congestive heart failure): PLAN: Plan RECOMMENDATIONS: 1. Amiodarone drip per cardiology 2. Possible thoracentesis if not responsive to diuresis 3. Aggressive diuresis. Increase to 3 times daily 4. Wean oxygen as tolerated. Encourage BiPAP with sleep 5. Okay to leave the intensive care unit from my perspective IMPRESSIONS: 1. Acute hypoxic respiratory failure secondary to acute decompensated diastolic CHF secondary to a flutter with 2-1 with bilateral pleural effusions Patient significantly improved following cardioversion yesterday. Patient has remained in sinus rhythm overnight on amiodarone drip. Oxygen status has significantly improved. Will increase diuretics to every 8 hours given marginal urine output overnight. If patient starts to develop renal dysfunction, thoracentesis may be necessary to address oxygenation status. That being said, patient is hemodynamically stable and can likely leave the intensive care unit. Patient will need telemetry to monitor for recurrence of a flutter with 2-1 block. 2. CKD stage III/morbid obesity/ZAHIDA/hyperlipidemia/history of colon cancer/hypertensive urgency Complicates care, management, recovery and prognosis. Patient is refusing positive pressure at this time, but will attempt Airvo. History of cancer does increase the Ram[place], but CT of the chest did not show any PE. Did verify full CODE STATUS. Patient is aware that refusal of BiPAP does increase the risk that intubation will be required. Uncontrolled ZAHIDA likely the etiology for nocturnal worsening in oxygenation. Subjective Subjective Patient did well overnight. No acute issues were reported. Patient's oxygen demands have significantly improved from 70% Airvo to 6 L/min. Nursing did report some desaturation with sleeping. Patient reportedly has had some diu resis overnight. Patient remains on an amiodarone drip and normal sinus rhythm. Objective Data Objective Data Vital Signs: Vital Signs Temp Pulse Resp BP Pulse Ox O2 Del Method O2 Flow Rate 36.8 C 59 L 15 116/60 92 Nasal Cannula 8 02/10/22 04:00 02/10/22 06:00 02/10/22 06:00 02/10/22 06:00 02/10/22 06:00 02/10/22 06:00 02/10/22 06:00 FiO2 70 02/09/22 16:00 Oxygen Flow Rate (L/min) 8 Oxygen Delivery Method Nasal Cannula Weight: 130.816 kg Body Mass Index (BMI) 43.5 Intake & Output: Intake and Output for Last 24 Hours 02/08/22 02/09/22 02/10/22 23:59 23:59 23:59 Intake Total 1245.08 / 1245.08 250 / 250 Output Total 1150 / 2050 1050 / 1050 Balance 95.08 / -804.92 -800 / -800 Lab / Micro Data Attestation: I reviewed the patient's lab results. Result Diagrams: 02/10/22 04:20 02/10/22 04:20 Labs: Laboratory Results - last 24 hr 02/09/22 04:40: MRSA (PCR) Negative 02/10/22 04:20: WBC 8.5, RBC 4.34 L, Hgb 13.0, Hct 41.8, MCV 96.3 H, MCH 30.0, MCHC 31.1 L, RDW Std Deviation 54.0 H, RDW Coeff of Maci 15.4 H, Plt Count 245, MPV 9.7, Immature Gran % (Auto) 0.500, Neut % (Auto) 79.8 H, Lymph % (Auto) 7.1 L, [place] % (Auto) 9.6, Eos % (Auto) 2.5, Baso % (Auto) 0.5, Absolute Neuts (auto) 6.8, Absolute Lymphs (auto) 0.60 L, Nucleated RBC % 0, Differential Comment SCANNED 02/10/22 04:20: Sodium 141, Potassium 4.3, Chloride 104, Carbon Dioxide 33.0 H, Anion Gap 4 L, BUN 23 H, Creatinine 1.31 H, Estim Creat Clear Calc 49.31, Est GFR (MDRD) Af Amer 69, Est GFR (MDRD) Non-Af 57 L, BUN/Creatinine Ratio 17.6, Glucose 144 H, Calcium 8.4 L Micro: Microbiology 02/10/22 04:26 Sputum, Expectorated/Coughed Gram Stain - Preliminary 02/09/22 04:40 Mucosa - Nose Respiratory Panel (PCR) - Final ABG Data ABG results: ABG 02/09/22 02/09/22 03:06 03:06 Specimen Type ART ART Sample Site R Radial R Radial pH 7.32 L 7.32 L Bicarbonate Actual 28.4 H 28.4 H Total CO2 30 30 Base Excess 2 2 O2 Saturation 92 L 92 L ABG pCO2 54.9 H 54.9 H ABG pO2 70 L 70 L Kyler Test Positive Positive O2 Delivery Device Cannula Cannula Liter Flow 8.0 8.0 Rhythm Strip Rhythm Strip: Sinus Rhythm Rate: 61 Ectopy: - (Widened QRS) Physical Exam Const alert, oriented x3 and no apparent distress General Appearance: cooperative, comfortable, well kempt and well developed Orientation / Consciousness: awake Exam Limitations: no limitations Nutritional Appearance: obese morbidly obese HEENT normocephalic, head/scalp atraumatic and moist oral mucous membranes HEENT Narrative: Mallampati 3, no thrush, dentition is fair. Darden present. General Ear: hearing grossly impaired Eyes PERRL, EOMs intact bilaterally, conjunctivae normal and no scleral icterus Neck no lymphadenopathy, supple and thyroid normal General: trachea midline Resp no retractions and no use of accessory muscles Resp Narrative: On Airvo Effort and Inspection: symmetric chest movement Auscultation: diminished lung sounds; Negative for crackles, rales, rhonchi or wheezes Percussion: dullness Lower: bilateral ([facility]) Cardio regular rate, regular rhythm, S1 normal heart sound, S2 normal heart sound, no murmurs, no rub, no gallops, no clicks and peripheral pulses 2+ throughout Cardio Narrative: Left bundle noted on EKG with widened QRS on telemetry GI normal to inspection, nondistended, normoactive bowel sounds, soft to palpation, non-tender and non-distended Extremity General Extremity: edema bilateral Skin no rashes or lesions noted, no wounds, skin turgor normal and no jaundice General Skin Exam: no breakdown Neuro oriented x3, CN's II-XII intact bilaterally, moves all extremities, no focal motor deficits and no sensory deficits noted Sensorium / Orientation: awake, alert, oriented to person, oriented to place and oriented to time Speech: speech normal Psych affect normal Psych Narrative: Very pleasant and appropriate Charges/Coding Visit Charges Inpatient E&M: 30146 Subs Hosp L3
[2022-02-10] MEDS: Aspirin 81 MG TAB.CHEW PO (07:59)
[2022-02-10] MEDS: Furosemide 40 MG/4 ML Vial IV ×3 (07:59→22:44)
[2022-02-10] MEDS: APIXABAN 5 MG TABLET PO ×2 (08:00→22:44)
[2022-02-10] MEDS: Potassium Chloride Oral Tablet 20 MEQ PO (08:00)
[2022-02-10] MEDS: Finasteride 5 MG Tablet PO (08:00)
[2022-02-10] MEDS: Lisinopril 20 MG Tablet PO ×2 (08:01→22:44)
[2022-02-10] MEDS: dilTIAZem CD 120 MG Capsule PO ×2 (08:01→22:44)
[2022-02-10] MEDS: Allopurinol 100 MG Tablet PO (08:01)
[2022-02-10] MEDS: Metoprolol(XL)Succ 200 MG Tablet PO (10:01)
--- NOTE | 2022-02-10 11:21 | PN.CARD_ITS ---
Subjective Subjective Seen and evaluated. Appears to be doing well. Objective Data Vital Signs: Vital Signs Temp Pulse Resp BP Pulse Ox O2 Del Method O2 Flow Rate 98.2 F 63 19 H 122/62 H 94 Nasal Cannula 6 02/10/22 08:00 02/10/22 10:01 02/10/22 10:00 02/10/22 10:01 02/10/22 10:00 02/10/22 10:00 02/10/22 10:00 FiO2 70 02/09/22 16:00 Oxygen Flow Rate (L/min) 6 Oxygen Delivery Method Nasal Cannula Weight: 288 lb 6.4 oz Body Mass Index (BMI) 43.5 Intake & Output: Intake and Output for Last 24 Hours 02/08/22 02/09/22 02/10/22 23:59 23:59 23:59 Intake Total 1245.08 / 1245.08 550 / 550 Output Total 1150 / 2050 1050 / 1050 Balance 95.08 / -804.92 -500 / -500 Lab / Micro Data Result Diagrams: 02/10/22 04:20 02/10/22 04:20 Labs: Laboratory Results - last 24 hr 02/10/22 04:20: WBC 8.5, RBC 4.34 L, Hgb 13.0, Hct 41.8, MCV 96.3 H, MCH 30.0, MCHC 31.1 L, RDW Std Deviation 54.0 H, RDW Coeff of Maci 15.4 H, Plt Count 245, MPV 9.7, Immature Gran % (Auto) 0.500, Neut % (Auto) 79.8 H, Lymph % (Auto) 7.1 L, [place] % (Auto) 9.6, Eos % (Auto) 2.5, Baso % (Auto) 0.5, Absolute Neuts (auto) 6.8, Absolute Lymphs (auto) 0.60 L, Nucleated RBC % 0, Differential Comment SCANNED 02/10/22 04:20: Sodium 141, Potassium 4.3, Chloride 104, Carbon Dioxide 33.0 H, Anion Gap 4 L, BUN 23 H, Creatinine 1.31 H, Estim Creat Clear Calc 49.31, Est GFR (MDRD) Af Amer 69, Est GFR (MDRD) Non-Af 57 L, BUN/Creatinine Ratio 17.6, Glucose 144 H, Calcium 8.4 L Micro: Microbiology 02/10/22 04:26 Sputum, Expectorated/Coughed Gram Stain - Preliminary 02/09/22 04:40 Mucosa - Nose Respiratory Panel (PCR) - Final Rhythm Strip Rhythm Strip: Sinus Rhythm Rate: 61 Ectopy: - (Widened QRS) Cardiology Labs/Tests 02/10/22 04:20: WBC 8.5, RBC 4.34 L, Hgb 13.0, Hct 41.8, MCV 96.3 H, MCH 30.0, MCHC 31.1 L, Plt Count 245, MPV 9.7, Immature Gran % (Auto) 0.500, Neut % (Auto) 79.8 H, Lymph % (Auto) 7.1 L, [place] % (Auto) 9.6, Eos % (Auto) 2.5, Baso % (Auto) 0.5, Absolute Neuts (auto) 6.8, Nucleated RBC % 0 02/10/22 04:20: Sodium 141, Potassium 4.3, Chloride 104, Carbon Dioxide 33.0 H, Anion Gap 4 L, BUN 23 H, Creatinine 1.31 H, Est GFR (MDRD) Af Amer 69, Est GFR (MDRD) Non-Af 57 L, BUN/Creatinine Ratio 17.6, Glucose 144 H, Calcium 8.4 L Rhythm: EKG: ECHO: Stress Test: Cardiac Cath: PCI: CT Surgery: Holter monitor: EPS: PPM: CXR: Chest CT Scan: Physical Exam Const alert, oriented x3 and no apparent distress General Appearance: cooperative, comfortable, well kempt and well developed Orientation / Consciousness: awake Exam Limitations: no limitations Nutritional Appearance: obese morbidly obese HEENT normocephalic, head/scalp atraumatic and moist oral mucous membranes HEENT Narrative: Mallampati 3, no thrush, dentition is fair. Darden present. General Ear: hearing grossly impaired Eyes PERRL, EOMs intact bilaterally, conjunctivae normal and no scleral icterus Neck no lymphadenopathy, supple and thyroid normal General: trachea midline Resp no retractions and no use of accessory muscles Resp Narrative: On Airvo Effort and Inspection: symmetric chest movement Auscultation: diminished lung sounds; Negative for crackles, rales, rhonchi or wheezes Percussion: dullness Lower: bilateral ([facility] up chest) Cardio regular rate, regular rhythm, S1 normal heart sound, S2 normal heart sound, no murmurs, no rub, no gallops, no clicks and peripheral pulses 2+ throughout Cardio Narrative: Left bundle noted on EKG with widened QRS on telemetry GI normal to inspection, nondistended, normoactive bowel sounds, soft to palpation, non-tender and non-distended Extremity General Extremity: edema bilateral Skin no rashes or lesions noted, no wounds, skin turgor normal and no jaundice General Skin Exam: no breakdown Neuro oriented x3, CN's II-XII intact bilaterally, moves all extremities, no focal motor deficits and no sensory deficits noted Sensorium / Orientation: awake, alert, oriented to person, oriented to place and oriented to time Speech: speech normal Psych affect normal Psych Narrative: Very pleasant and appropriate Assessment & Plan Assessment/Plan (1) Paroxysmal atrial fibrillation: PLAN: He does have paroxysmal atrial fibrillation with a rapid ventricular response rate and he was hypotensive and underwent DC cardioversion. He is maintaining sinus rhythm at this time and the plan for him is to continue the anticoagulation as well as the antiarrhythmic. (2) CHF (congestive heart failure): PLAN: He does have evidence of diastolic heart failure. We would need to continue with supportive management at this time. He would also need continued diuretics. He may need at some point a repeat echocardiogram to reassess his ventricular function. He may also need to have thoracentesis to help him with his breathing. (3) Hypertension: PLAN: He does have a history of hypertension which appears to be under decent control at this time. We will continue to monitor him.
--- NOTE | 2022-02-10 15:43 | PCM.PN.HOSP ---
Subjective Subjective Patient was seen and examined today, he remains in normal sinus rhythm. Patient has completed his amiodarone IV infusion and is stable for transfer to PCU. Patient is now on nasal cannula oxygen. The oxygen will have to be obtained through his [facility] coverage if he goes home on oxygen. Objective Data Objective Data Vital Signs: Vital Signs Temp Pulse Resp BP Pulse Ox O2 Del Method O2 Flow Rate 97.7 F L 65 18 135/61 H 93 Nasal Cannula 5 02/10/22 15:02/10/22 15:02/10/22 15:27 02/10/22 15:27 02/10/22 15:02/10/22 15:02/10/22 15: FiO2 70 02/09/22 16:00 Oxygen Flow Rate (L/min) 5 Oxygen Delivery Method Nasal Cannula Weight: 130.816 kg Body Mass Index (BMI) 43.5 Intake & Output: Intake and Output for Last 24 Hours 02/08/22 02/09/22 02/10/22 23:59 23:59 23:59 Intake Total 1245.08 / 1245.08 1025 / 1025 Output Total 1150 / 2050 1750 / 1750 Balance 95.08 / -804.92 -725 / -725 Lab / Micro Data Result Diagrams: 02/10/22 04:20 02/10/22 04:20 Labs: Laboratory Results - last 24 hr 02/10/22 04:20: WBC 8.5, RBC 4.34 L, Hgb 13.0, Hct 41.8, MCV 96.3 H, MCH 30.0, MCHC 31.1 L, RDW Std Deviation 54.0 H, RDW Coeff of Maci 15.4 H, Plt Count 245, MPV 9.7, Immature Gran % (Auto) 0.500, Neut % (Auto) 79.8 H, Lymph % (Auto) 7.1 L, [place] % (Auto) 9.6, Eos % (Auto) 2.5, Baso % (Auto) 0.5, Absolute Neuts (auto) 6.8, Absolute Lymphs (auto) 0.60 L, Nucleated RBC % 0, Differential Comment SCANNED 02/10/22 04:20: Sodium 141, Potassium 4.3, Chloride 104, Carbon Dioxide 33.0 H, Anion Gap 4 L, BUN 23 H, Creatinine 1.31 H, Estim Creat Clear Calc 49.31, Est GFR (MDRD) Af Amer 69, Est GFR (MDRD) Non-Af 57 L, BUN/Creatinine Ratio 17.6, Glucose 144 H, Calcium 8.4 L Micro: Microbiology 02/10/22 04:26 Sputum, Expectorated/Coughed Gram Stain - Final 02/09/22 04:40 Mucosa - Nose Respiratory Panel (PCR) - Final Rhythm Strip Rhythm Strip: Sinus Rhythm Rate: 61 Ectopy: - (Widened QRS) Physical Exam Const alert, oriented x3 and no apparent distress Constitutional Narrative: Patient is morbidly obese General Appearance: cooperative, well kempt and well developed Orientation / Consciousness: awake, oriented to person, oriented to place and oriented to time HEENT normocephalic and moist oral mucous membranes Eyes PERRL, EOMs intact bilaterally and conjunctivae normal Neck supple, no JVD, thyroid normal and no carotid bruits General: trachea midline Resp normal respiratory effort, no retractions and no use of accessory muscles Resp Narrative: Decreased breath sounds are noted at the bases. Auscultation: Negative for rales, rhonchi or wheezes Cardio regular rate, regular rhythm, S1 normal heart sound, S2 normal heart sound, no murmurs, no rub and no gallops GI normal to inspection, nondistended, normoactive bowel sounds, soft to palpation, non-tender and non-distended Extremity no clubbing, cyanosis or edema Skin no rashes or lesions noted General Skin Exam: no breakdown Neuro oriented x3, CN's II-XII intact bilaterally, no focal motor deficits and no sensory deficits noted Sensorium / Orientation: awake and alert Speech: speech normal Psych affect normal Assessment & Plan Assessment/Plan (1) Paroxysmal atrial fibrillation: (2) Acute respiratory failure with hypoxia: PLAN: Plan 1. Acute hypoxic respiratory failure secondary to acute on chronic diastolic congestive heart failure with bilateral pleural effusions-cardiology is participating in his care as is pulmonary medicine, pulse ox will be monitored, it is possible the patient may require thoracentesis, patient's chest x-ray will be repeated tomorrow, patient is stable for transfer to PCU at this time #2 paroxysmal atrial fibrillation-now converted to normal sinus rhythm after cardioversion-patient will remain on medications per cardiology-patient is currently on metoprolol, Cardizem CD, and amiodarone #3 acute on chronic diastolic congestive heart failure-patient will remain on IV Lasix at this time as well as lisinopril, other medication changes per cardiology #4 chronic use of anticoagulants-patient is on Eliquis at this time #5 essential hypertension-patient will remain on his present medications #6 morbid obesity-complicates care, management, recovery, and prognosis #7 bilateral pleural effusions-secondary to acute on chronic diastolic CHF-patient may need to undergo a thoracentesis if these do not clear with diuresis. Again, chest x-ray will be repeated tomorrow. Charges/Coding Visit Charges Inpatient E&M: 04386 Subs Hosp L2
[2022-02-10] MEDS: Amiodarone 200 MG Tablet PO (22:44)
[2022-02-10] MEDS: Tolterodine Tartrate 2 MG CAP.SA PO (22:44)
[2022-02-10] MEDS: Doxazosin 4 MG Tablet PO (22:53)
[2022-02-11] VITALS (22 sets, daily range): BP systolic 103–137; BP diastolic 49–62; PULSE 70–107; RESP 18–20; TEMP 36.4–37.9; O2SAT 84–97
[2022-02-11] MEDS: 0.9% Saline Lock 10 ML Syringe IV ×3 (06:03→20:57)
[2022-02-11] MEDS: Furosemide 40 MG/4 ML Vial IV ×3 (06:03→20:58)
--- NOTE | 2022-02-11 07:42 | PCM.PN.CARD ---
Subjective Subjective Patient seen and evaluated and appears to be doing well. Objective Data Vital Signs: Vital Signs Temp Pulse Resp BP Pulse Ox O2 Del Method O2 Flow Rate 100.2 F H 96 18 114/50 L 93 Nasal Cannula 6 02/11/22 04:54 02/11/22 07:30 02/11/22 04:54 02/11/22 04:54 02/11/22 04:54 02/11/22 04:54 02/11/22 04:54 FiO2 70 02/09/22 16:00 Oxygen Flow Rate (L/min) 6 Oxygen Delivery Method Nasal Cannula Weight: 285 lb 11.505 oz Body Mass Index (BMI) 43.5 Intake & Output: Intake and Output for Last 24 Hours 02/09/22 02/10/22 02/11/22 23:59 23:59 23:59 Intake Total 1245.08 / 1245.08 1025 / 1025 Output Total 1150 / 2050 2400 / 2400 700 / 700 Balance 95.08 / -804.92 -1375 / -1375 -700 / -700 Lab / Micro Data Result Diagrams: 02/10/22 04:20 02/10/22 04:20 Micro: Microbiology 02/10/22 15:39 Urine, Random Legionella Antigen - Final 02/10/22 15:39 Urine, Random Streptococcus pneumoniae Antigen (M - Final 02/10/22 04:26 Sputum, Expectorated/Coughed Gram Stain - Final Rhythm Strip Rhythm Strip: Sinus Rhythm Rate: 61 Ectopy: - (Widened QRS) Cardiology Labs/Tests Rhythm: EKG: ECHO: Stress Test: Cardiac Cath: PCI: CT Surgery: Holter monitor: EPS: PPM: CXR: Chest CT Scan: Physical Exam Const alert, oriented x3 and no apparent distress Constitutional Narrative: Patient is morbidly obese General Appearance: cooperative, well kempt and well developed Orientation / Consciousness: awake, oriented to person, oriented to place and oriented to time HEENT normocephalic and moist oral mucous membranes Eyes PERRL, EOMs intact bilaterally and conjunctivae normal Neck supple, no JVD, thyroid normal and no carotid bruits General: trachea midline Resp normal respiratory effort, no retractions and no use of accessory muscles Resp Narrative: Decreased breath sounds are noted at the bases. Auscultation: Negative for rales, rhonchi or wheezes Cardio regular rate, regular rhythm, S1 normal heart sound, S2 normal heart sound, no murmurs, no rub and no gallops GI normal to inspection, nondistended, normoactive bowel sounds, soft to palpation, non-tender and non-distended Extremity no clubbing, cyanosis or edema Skin no rashes or lesions noted General Skin Exam: no breakdown Neuro oriented x3, CN's II-XII intact bilaterally, no focal motor deficits and no sensory deficits noted Sensorium / Orientation: awake and alert Speech: speech normal Psych affect normal Assessment & Plan Assessment/Plan (1) Paroxysmal atrial fibrillation: PLAN: He does have paroxysmal atrial fibrillation with a rapid ventricular response rate and he was hypotensive and underwent DC cardioversion. He is maintaining sinus rhythm at this time and the plan for him is to continue the anticoagulation as well as the antiarrhythmic. (2) CHF (congestive heart failure): PLAN: He does have evidence of diastolic heart failure. We would need to continue with supportive management at this time. He would also need continued diuretics. He may need at some point a repeat echocardiogram to reassess his ventricular function. He may also need to have thoracentesis to help him with his breathing. (3) Hypertension: PLAN: He does have a history of hypertension which appears to be under decent control at this time. We will continue to monitor him.
[2022-02-11] MEDS: Amiodarone 200 MG Tablet PO ×2 (09:31→20:58)
[2022-02-11] MEDS: dilTIAZem CD 120 MG Capsule PO ×2 (09:31→11:20)
[2022-02-11] MEDS: APIXABAN 5 MG TABLET PO ×2 (09:32→20:58)
[2022-02-11] MEDS: Potassium Chloride Oral Tablet 20 MEQ PO (09:32)
[2022-02-11] MEDS: Lisinopril 20 MG Tablet PO ×2 (09:33→20:58)
[2022-02-11] MEDS: Metoprolol(XL)Succ 200 MG Tablet PO (09:33)
[2022-02-11] MEDS: Finasteride 5 MG Tablet PO (09:33)
[2022-02-11] MEDS: Allopurinol 100 MG Tablet PO (09:33)
[2022-02-11] MEDS: Digoxin 250 MCG/ML Ampul 500 MCG IV (11:22)
--- NOTE | 2022-02-11 14:37 | NURSING ---
reviewed vital signs taken by Jessica Alonzo, nursing education consultant.
--- NOTE | 2022-02-11 18:40 | PN.HOSP_ITS ---
Subjective Subjective Patient was seen and examined today, he remains on oxygen at 6 L via nasal cannula. Patient went back into atrial fibrillation early this morning and his rate at the time of my initial examination was in the low 100 range but occasionally would bump up to 130. Patient was asymptomatic. I talked with cardiology this morning and they advised administration of IV dig and increasing of the patient's diltiazem CD. Objective Data Objective Data Vital Signs: Vital Signs Temp Pulse Resp BP Pulse Ox O2 Del Method O2 Flow Rate 97.9 F 80 18 127/56 H 95 Nasal Cannula 4 02/11/22 15:50 02/11/22 16:35 02/11/22 15:50 02/11/22 15:50 02/11/22 16:00 02/11/22 16:00 02/11/22 16:00 FiO2 70 02/11/22 15:50 Oxygen Flow Rate (L/min) 4 Oxygen Delivery Method Nasal Cannula Weight: 129.6 kg Body Mass Index (BMI) 43.5 Intake & Output: Intake and Output for Last 24 Hours 02/09/22 02/10/22 02/11/22 23:59 23:59 23:59 Intake Total 1245.08 / 1245.08 1025 / 1025 600 / 600 Output Total 1150 / 2050 2400 / 2400 1800 / 1800 Balance 95.08 / -804.92 -1375 / -1375 -1200 / -1200 Lab / Micro Data Result Diagrams: 02/10/22 04:20 02/10/22 04:20 Micro: Microbiology 02/10/22 04:26 Sputum, Expectorated/Coughed Gram Stain - Final 02/10/22 04:26 Sputum, Expectorated/Coughed Respiratory Culture - Preliminary Yeast 02/10/22 15:39 Urine, Random Legionella Antigen - Final 02/10/22 15:39 Urine, Random Streptococcus pneumoniae Antigen (M - Final 02/09/22 04:40 Mucosa - Nose Respiratory Panel (PCR) - Final Rhythm Strip Rhythm Strip: Sinus Rhythm Rate: 61 Ectopy: - (Widened QRS) Physical Exam Const alert, oriented x3 and no apparent distress Constitutional Narrative: Patient is morbidly obese General Appearance: cooperative, well kempt and well developed Orientation / Consciousness: awake, oriented to person, oriented to place and oriented to time HEENT normocephalic and moist oral mucous membranes Eyes PERRL, EOMs intact bilaterally and conjunctivae normal Neck supple, no JVD, thyroid normal and no carotid bruits General: trachea midline Resp normal respiratory effort, no retractions and no use of accessory muscles Resp Narrative: Patient's breath sounds are diminished bilaterally at the bases Auscultation: Negative for rales, rhonchi or wheezes Cardio no murmurs, no rub and no gallops Cardio Narrative: Heart rate and rhythm is irregular GI normal to inspection, nondistended, normoactive bowel sounds, soft to palpation, non-tender and non-distended Extremity no clubbing, cyanosis or edema Skin no rashes or lesions noted General Skin Exam: no breakdown Neuro oriented x3, CN's II-XII intact bilaterally, no focal motor deficits and no sensory deficits noted Sensorium / Orientation: awake and alert Speech: speech normal Psych affect normal Assessment & Plan Assessment/Plan (1) Acute respiratory failure with hypoxia: (2) Paroxysmal atrial fibrillation: PLAN: Plan 1. Acute hypoxic respiratory failure secondary to acute on chronic diastolic congestive heart failure with bilateral pleural effusions-cardiology is p articipating in his care as is pulmonary medicine, pulse ox will be monitored, it is possible the patient may require thoracentesis, patient's chest x-ray will be repeated tomorrow. #2 paroxysmal atrial fibrillation-patient is once again in atrial fibrillation, patient's rate limiting medications were adjusted #3 acute on chronic diastolic congestive heart failure-patient will remain on IV Lasix at this time as well as lisinopril, other medication changes per cardiology #4 chronic use of anticoagulants-patient is on Eliquis at this time #5 essential hypertension-patient will remain on his present medications #6 morbid obesity-complicates care, management, recovery, and prognosis #7 bilateral pleural effusions-secondary to acute on chronic diastolic CHF- patient may need to undergo a thoracentesis if these do not clear with diuresis. Again, chest x-ray will be repeated tomorrow. Charges/Coding Visit Charges Inpatient E&M: 86628 Subs Hosp L3
[2022-02-11] MEDS: Tolterodine Tartrate 2 MG CAP.SA PO (20:57)
[2022-02-11] MEDS: dilTIAZem CD 180 MG Capsule PO (20:57)
[2022-02-11] MEDS: Doxazosin 4 MG Tablet PO (20:58)
[2022-02-11] MEDS: Albuterol 2.5 MG/3 ML VIAL.NEB. INHALATION (21:27)
[2022-02-12] VITALS (19 sets, daily range): BP systolic 100–135; BP diastolic 46–84; PULSE 38–88; RESP 18–20; TEMP 36.4–37.4; O2SAT 92–96
--- NOTE | 2022-02-12 05:55 | RAD_ITS ---
EXAM: XR CHEST, 1 VIEW CLINICAL INDICATION: chf, pleural effusions TECHNIQUE: Frontal view of the chest. This report was created using [employer] report generation technology. COMPARISON: Previous chest radiographs of 02/08/2022 and 01/02/2022. FINDINGS: HEART: Heart size is upper normal with normal pulmonary vasculature. There is no pulmonary venous hypertension to indicate cardiac decompensation. MEDIASTINUM: Stable elongation of the thoracic aorta. Mediastinal structures are mildly shifted to the right due to right sided volume loss. LUNGS AND PLEURAL SPACES: A moderate to large right pleural effusion is present and has mildly increased since the prior study. In addition to this enlarging effusion, there is worsening consolidation within the right lower lung, most likely atelectasis given the developing mediastinal shift to the right. A small-moderate left pleural effusion is noted, minimally larger than on the prior study. Retrocardiac portion of the left lower lung is now densely opacified by increasing circumscribed infiltrate, most likely partial left lower lobe atelectasis. Patchy infiltrates within the left lower lung more laterally are stable to minimally worsened when allowing for the increasing left pleural effusion. No pneumothorax. BONES/JOINTS: Thoracic degenerative spurring again noted. SOFT TISSUES: Unremarkable. RAD/Chest 1 View (Portable) IMPRESSION: Enlarging pleural effusions. Increasing bibasilar pulmonary infiltrates, most likely atelectasis though superimposed pneumonia could also be present. Electronically Signed: Dontrell Godoy MD at 7:09 EDT ,
[2022-02-12] MEDS: Furosemide 40 MG/4 ML Vial IV ×3 (06:10→23:31)
[2022-02-12] MEDS: 0.9% Saline Lock 10 ML Syringe IV ×2 (06:11→15:35)
[2022-02-12 07:12] LABS: Anion Gap 5 (5-15); BUN 15 mg/dL (7-18); BUN/Creat Ratio 13.2 RATIO (10-20); Calcium,Total 8.5 mg/dL (8.5-10.1); Chloride 96 mmol/L (98-107); Creatinine, Serum 1.14 mg/dL (0.70-1.30); EST Glomerular Filtration Rate 67 mL/min (>60); Est Glom Filt Rate - Afr Amer 81 mL/min (>60); Estimated Creatinine Clearance 56.67 ml/min; Glucose 109 mg/dL (74-106); Potassium 3.8 mmol/L (3.5-5.1); Sodium Level 137 mmol/L (136-145)
[2022-02-12] MEDS: Potassium Chloride Oral Tablet 20 MEQ PO (09:45)
[2022-02-12] MEDS: Finasteride 5 MG Tablet PO (09:46)
[2022-02-12] MEDS: dilTIAZem CD 180 MG Capsule PO ×2 (09:46→21:04)
[2022-02-12] MEDS: Allopurinol 100 MG Tablet PO (09:46)
[2022-02-12] MEDS: Amiodarone 200 MG Tablet PO ×2 (09:46→21:04)
[2022-02-12] MEDS: Metoprolol(XL)Succ 200 MG Tablet PO (10:36)
[2022-02-12] MEDS: Azithromycin 250 MG Tablet 500 MG PO (15:33)
--- NOTE | 2022-02-12 17:03 | PN.HOSP_ITS ---
Subjective Subjective Patient was seen and examined today, I repeated his chest x-ray today and he has significant bilateral pleural effusions, talked with pulmonary medicine and they advised having a thoracentesis performed, patient is currently on Eliquis, this will be stopped and a thoracentesis will be performed tomorrow. Patient is currently on 7 L of oxygen via nasal cannula. He does not appear to be in respiratory distress at rest. Patient remains in atrial fibrillation, at times his heart rate dips into the upper 30s but he is asymptomatic. Objective Data Objective Data Vital Signs: Vital Signs Temp Pulse Resp BP Pulse Ox O2 Del Method O2 Flow Rate 97.6 F L 38 L 18 122/55 H 94 High Flow 7 02/12/22 15:30 02/12/22 15:34 02/12/22 15:30 02/12/22 15:30 02/12/22 15:30 02/12/22 15:41 02/12/22 15:41 FiO2 70 02/12/22 15:08 Oxygen Flow Rate (L/min) 7 Oxygen Delivery Method High Flow Weight: 128.9 kg Body Mass Index (BMI) 43.5 Intake & Output: Intake and Output for Last 24 Hours 02/10/22 02/11/22 02/12/22 23:59 23:59 23:59 Intake Total 1025 / 1025 600 / 600 240 / 240 Output Total 2400 / 2400 2200 / 2200 400 / 400 Balance -1375 / -1375 -1600 / -1600 -160 / -160 Lab / Micro Data Result Diagrams: 02/10/22 04:20 02/12/22 06:10 Labs: Laboratory Results - last 24 hr 02/12/22 06:10: Sodium 137, Potassium 3.8, Chloride 96 L, Carbon Dioxide 36.0 H, Anion Gap 5, BUN 15, Creatinine 1.14, Estim Creat Clear Calc 56.67, Est GFR (MDRD) Af Amer 81, Est GFR (MDRD) Non-Af 67, BUN/Creatinine Ratio 13.2, Glucose 109 H, Calcium 8.5 Micro: Microbiology 02/10/22 04:26 Sputum, Expectorated/Coughed Gram Stain - Final 02/10/22 04:26 Sputum, Expectorated/Coughed Respiratory Culture - Final Presumptive C albicans 02/10/22 15:39 Urine, Random Legionella Antigen - Final 02/10/22 15:39 Urine, Random Streptococcus pneumoniae Antigen (M - Final 02/09/22 04:40 Mucosa - Nose Respiratory Panel (PCR) - Final Radiography Diagnostic Testing: Radiology Impression Chest X-Ray 02/12/22 05:55 IMPRESSION: Enlarging pleural effusions. Increasing bibasilar pulmonary infiltrates, most likely atelectasis though superimposed pneumonia could also be present. Electronically Signed: Dontrell Godoy MD at 7:09 EDT , Rhythm Strip Rhythm Strip: Sinus Rhythm Rate: 61 Ectopy: - (Widened QRS) Physical Exam Const alert, oriented x3 and no apparent distress Constitutional Narrative: Patient is morbidly obese General Appearance: cooperative, well kempt and well developed Orientation / Consciousness: awake, oriented to person, oriented to place and oriented to time HEENT normocephalic, head/scalp atraumatic and moist oral mucous membranes Head and Scalp: normocephalic Eyes PERRL, EOMs intact bilaterally and conjunctivae normal Neck supple, no JVD, thyroid normal and no carotid bruits General: trachea midline Resp normal respiratory effort, no retractions and no use of accessory muscles Resp Narrative: Decreased breath sounds are noted over the lower one third lung kulkarni bilaterally Auscultation: Negative for rales, rhonchi or wheezes Cardio S1 normal heart sound, S2 normal heart sound, no murmurs, no rub and no gallops Cardio Narrative: Heart rate and rhythm is irregular GI normal to inspection, nondistended, normoactive bowel sounds, soft to palpation, non-tender and non-distended Skin no rashes or lesions noted General Skin Exam: no breakdown Neuro oriented x3, CN's II-XII intact bilaterally, no focal motor deficits and no sensory deficits noted Sensorium / Orientation: awake and alert Speech: speech normal Psych affect normal Assessment & Plan Assessment/Plan (1) Paroxysmal atrial fibrillation: (2) Acute respiratory failure with hypoxia: PLAN: Plan 1. Acute hypoxic respiratory failure secondary to acute on chronic diastolic congestive heart failure with bilateral pleural effusions-cardiology is participating in his care as is pulmonary medicine, pulse ox will be monitored, patient will undergo thoracentesis tomorrow-I assume this will be a bilateral thoracocentesis. We will check his pulse ox following the procedure and he will be set up with home O2 if possible. #2 paroxysmal atrial fibrillation-patient is once again in atrial fibrillation, patient remains on rate limiting medications #3 acute on chronic diastolic congestive heart failure-patient will remain on IV Lasix at this time , other medication changes per cardiology #4 chronic use of anticoagulants-patient is on Eliquis at this time, this will be held due to his thoracentesis tomorrow #5 essential hypertension-patient will remain on his present medications #6 morbid obesity-complicates care, management, recovery, and prognosis #7 bilateral pleural effusions-secondary to acute on chronic diastolic CHF-patie nt will undergo thoracentesis tomorrow Charges/Coding Visit Charges Inpatient E&M: 91484 Subs Hosp L2
--- NOTE | 2022-02-12 18:22 | PCM.PN.INT ---
Assessment & Plan Assessment/Plan (1) Pleural effusion: (2) Sleep apnea: PLAN: Plan 1. Massive bilateral pleural effusions in the setting of chronic congestive heart failure, PAF, untreated sleep apnea, morbid obesity -Hold Eliquis -Therapeutic thoracentesis of the right hemithorax, likely tomorrow, with ultrasound guidance in IR -Continue diuresis -Recommended CPAP therapy for the patient's untreated sleep apnea, but patient refused again. He did not recall having a sleep doctor, and is not sure who is managing his sleep apnea. -Continue supplemental oxygen and titrate to keep saturation greater than 88%, preferably 92%. -Weight loss -Management of underlying CHF EF etc. per primary team Subjective Subjective This patient continues to be chronically short of breath, due to combination of obesity, heart failure, deconditioning, massive bilateral pleural effusions right greater than left, untreated sleep apnea, paroxysmal atrial fibrillation. He stated he did not feel much better since admission. I discussed a therapeutic right thoracentesis with him. The procedure, to be done with ultrasound guidance, will be delayed due to his Eliquis, which has been held today. Risk of bleeding related to procedure is increased in his case due to his massive obesity, which increases the chance of lacerating one of the intercostal arteries, even with ultrasound guidance. He was amenable to having a therapeutic thoracentesis to help relieve his dyspnea. Objective Data Objective Data Vital Signs: Vital Signs Temp Pulse Resp BP Pulse Ox O2 Del Method O2 Flow Rate 36.4 C L 38 L 18 122/55 H 94 High Flow 7 02/12/22 15:30 02/12/22 15:34 02/12/22 15:30 02/12/22 15:30 02/12/22 15:30 02/12/22 15:41 02/12/22 15:41 FiO2 70 02/12/22 15:08 Oxygen Flow Rate (L/min) 7 Oxygen Delivery Method High Flow Weight: 128.9 kg Body Mass Index (BMI) 43.5 Note this patient refused CPAP, which would likely significantly improve his oxygenation. He has been prescribed but completely noncompliant with CPAP multiple times in the past. Intake & Output: Intake and Output for Last 24 Hours 02/10/22 02/11/22 02/12/22 23:59 23:59 23:59 Intake Total 1025 / 1025 600 / 600 600 / 600 Output Total 2400 / 2400 2200 / 2200 400 / 400 Balance -1375 / -1375 -1600 / -1600 200 / 200 Lab / Micro Data Result Diagrams: 02/10/22 04:20 02/12/22 06:10 Labs: Laboratory Results - last 24 hr 02/12/22 06:10: Sodium 137, Potassium 3.8, Chloride 96 L, Carbon Dioxide 36.0 H, Anion Gap 5, BUN 15, Creatinine 1.14, Estim Creat Clear Calc 56.67, Est GFR (MDRD) Af Amer 81, Est GFR (MDRD) Non-Af 67, BUN/Creatinine Ratio 13.2, Glucose 109 H, Calcium 8.5 Micro: Microbiology 02/10/22 04:26 Sputum, Expectorated/Coughed Gram Stain - Final 02/10/22 04:26 Sputum, Expectorated/Coughed Respiratory Culture - Final Presumptive C albicans 02/10/22 15:39 Urine, Random Legionella Antigen - Final 02/10/22 15:39 Urine, Random Streptococcus pneumoniae Antigen (M - Final 02/09/22 04:40 Mucosa - Nose Respiratory Panel (PCR) - Final Radiography Diagnostic Testing: Radiology Impression Chest X-Ray 02/12/22 05:55 IMPRESSION: Enlarging pleural effusions. Increasing bibasilar pulmonary infiltrates, most likely atelectasis though superimposed pneumonia could also be present. Electronically Signed: Dontrell Godoy MD at 7:09 EDT Reading Location ID and State: [id number] Tel , Service support , Rhythm Strip Rate: 61 Physical Exam Narrative General: Morbidly obese gentleman with a BMI of 43, in mild respiratory distress with conversation and sitting up for exam. HEENT: Normocephalic atraumatic, mucous membranes are moist, speech is articulate Chest: Is diminished bilaterally with crackles throughout both lung kulkarni and some expiratory wheezes. Heart:: Distant S1-S2, regular Abdomen: Is obese, nontender Extremities: Have 4++ pitting edema with Silver wraps. Neurologic: exam is grossly nonfocal he is alert and oriented x3, competent to make decisions, good insight. Skin: Chronic lower extremity venous stasis changes, chronic changes of poor self-care with flaking and fissuring present. I did not do a thorough posterior exam as the patient was sitting in a cardiac chair at the time of my examination.
[2022-02-12] MEDS: Tolterodine Tartrate 2 MG CAP.SA PO (21:04)
[2022-02-12] MEDS: Doxazosin 4 MG Tablet PO (21:04)
[2022-02-13] VITALS (12 sets, daily range): BP systolic 116–126; BP diastolic 57–87; PULSE 58–87; RESP 16–20; TEMP 36.4–36.9; O2SAT 92–95
[2022-02-13] MEDS: 0.9% Saline Lock 10 ML Syringe IV (06:09)
[2022-02-13] MEDS: Furosemide 40 MG/4 ML Vial IV (06:09)
[2022-02-13] MEDS: Furosemide 500 MG in Empty Viaflex 50 mL 1 EACH CONT INF (08:29)
[2022-02-13 10:47] LABS: Anion Gap 6 (5-15); BUN 18 mg/dL (7-18); BUN/Creat Ratio 15.4 RATIO (10-20); Chloride 96 mmol/L (98-107); Creatinine, Serum 1.17 mg/dL (0.70-1.30); Glucose 200 mg/dL (74-106); Potassium 3.5 mmol/L (3.5-5.1); Sodium Level 139 mmol/L (136-145)
[2022-02-13] MEDS: Azithromycin 250 MG Tablet 500 MG PO (11:10)
[2022-02-13] MEDS: Finasteride 5 MG Tablet PO (11:10)
[2022-02-13] MEDS: Metoprolol(XL)Succ 200 MG Tablet PO (11:10)
[2022-02-13] MEDS: dilTIAZem CD 180 MG Capsule PO ×2 (11:10→20:28)
[2022-02-13] MEDS: Allopurinol 100 MG Tablet PO (11:10)
[2022-02-13] MEDS: Amiodarone 200 MG Tablet PO ×2 (11:10→20:28)
[2022-02-13] MEDS: Potassium Chloride Oral Tablet 20 MEQ PO (11:10)
--- NOTE | 2022-02-13 16:01 | CASEMGMT ---
Per admission questions patient wanted more information on advance directives. SW met with patient and introduced self and role at [facility]. Patient declined information on documents and said he already took care of all of that. Desiree BEARD
--- NOTE | 2022-02-13 16:45 | PCM.PN.CARD ---
Subjective Subjective Patient was seen and evaluated. Appears to be fairly stable Objective Data Vital Signs: Vital Signs Temp Pulse Resp BP Pulse Ox O2 Del Method O2 Flow Rate 98.4 F 65 18 119/57 L 94 High Flow 7 02/13/22 16:20 02/13/22 16:20 02/13/22 16:20 02/13/22 16:20 02/13/22 16:20 02/13/22 16:20 02/13/22 16:20 FiO2 70 02/13/22 04:00 Oxygen Flow Rate (L/min) 7 Oxygen Delivery Method High Flow Weight: 285 lb 7.978 oz Body Mass Index (BMI) 43.5 Intake & Output: Intake and Output for Last 24 Hours 02/11/22 02/12/22 02/13/22 23:59 23:59 23:59 Intake Total 600 / 600 850 / 850 750 / 750 Output Total 2200 / 2200 400 / 400 825 / 825 Balance -1600 / -1600 450 / 450 -75 / -75 Lab / Micro Data Result Diagrams: 02/10/22 04:20 02/13/22 09:43 Labs: Laboratory Results - last 24 hr 02/13/22 09:43: Sodium 139, Potassium 3.5, Chloride 96 L, Carbon Dioxide 37.0 H, Anion Gap 6, BUN 18, Creatinine 1.17, BUN/Creatinine Ratio 15.4, Glucose 200 H Rhythm Strip Rhythm Strip: Sinus Rhythm Rate: 61 Ectopy: - (Widened QRS) Cardiology Labs/Tests 02/13/22 09:43: Sodium 139, Potassium 3.5, Chloride 96 L, Carbon Dioxide 37.0 H, Anion Gap 6, BUN 18, Creatinine 1.17, BUN/Creatinine Ratio 15.4, Glucose 200 H Rhythm: EKG: ECHO: Stress Test: Cardiac Cath: PCI: CT Surgery: Holter monitor: EPS: PPM: CXR: Chest CT Scan: Physical Exam Const alert, oriented x3 and no apparent distress Constitutional Narrative: Patient is morbidly obese General Appearance: cooperative, well kempt and well developed Orientation / Consciousness: awake, oriented to person, oriented to place and oriented to time HEENT normocephalic and moist oral mucous membranes Eyes PERRL, EOMs intact bilaterally and conjunctivae normal Neck supple, no JVD, thyroid normal and no carotid bruits General: trachea midline Resp normal respiratory effort, no retractions and no use of accessory muscles Resp Narrative: Decreased breath sounds are noted at the bases. Auscultation: Negative for rales, rhonchi or wheezes Cardio regular rate, regular rhythm, S1 normal heart sound, S2 normal heart sound, no murmurs, no rub and no gallops GI normal to inspection, nondistended, normoactive bowel sounds, soft to palpation, non-tender and non-distended Extremity no clubbing, cyanosis or edema Skin no rashes or lesions noted General Skin Exam: no breakdown Neuro oriented x3, CN's II-XII intact bilaterally, no focal motor deficits and no sensory deficits noted Sensorium / Orientation: awake and alert Speech: speech normal Psych affect normal Assessment & Plan Assessment/Plan (1) Paroxysmal atrial fibrillation: PLAN: He does have paroxysmal atrial fibrillation with a rapid ventricular response rate and he was hypotensive and underwent DC cardioversion. He did revert back to atrial fibrillation and the plan at this time is to maintain his heart rate and anticoagulation holding it temporarily for the thoracentesis. We will still maintain him on the amiodarone for now. Further recommendations will be made. (2) CHF (congestive heart failure): PLAN: He does have evidence of diastolic heart failure. We would need to continue with supportive management at this time. He would also need continued diuretics. He may need at some point a repeat echocardiogram to reassess his ventricular function. He may also need to have thoracentesis to help him with his breathing. The sure no problem with holding his Eliquis at this time for the above procedure to be performed. (3) Hypertension: PLAN: He does have a history of hypertension which appears to be under decent control at this time. We will continue to monitor him.
[2022-02-13] MEDS: guaiFENesin Dm 10 ML UDC PO ×2 (16:46→21:48)
--- NOTE | 2022-02-13 19:22 | PCM.PN.HOSP ---
Subjective Subjective Patient was seen and examined today, pulmonary medicine decided that the patient should not undergo a thoracentesis today and instead put the patient on IV Lasix drip. Patient remains on 7 L of oxygen at this time, he will be reevaluated over the weekend and if he needs a thoracentesis, this will not happen till Wednesday. Objective Data Objective Data Vital Signs: Vital Signs Temp Pulse Resp BP Pulse Ox O2 Del Method O2 Flow Rate 98.4 F 65 18 119/57 L 94 High Flow 7 02/13/22 16:20 02/13/22 16:20 02/13/22 16:20 02/13/22 16:20 02/13/22 16:20 02/13/22 16:20 02/13/22 16:20 FiO2 70 02/13/22 04:00 Oxygen Flow Rate (L/min) 7 Oxygen Delivery Method High Flow Weight: 129.5 kg Body Mass Index (BMI) 43.5 Intake & Output: Intake and Output for Last 24 Hours 02/11/22 02/12/22 02/13/22 23:59 23:59 23:59 Intake Total 600 / 600 850 / 850 1250 / 1250 Output Total 2200 / 2200 400 / 400 1700 / 1700 Balance -1600 / -1600 450 / 450 -450 / -450 Lab / Micro Data Result Diagrams: 02/10/22 04:20 02/14/22 10:00 Labs: Laboratory Results - last 24 hr 02/13/22 09:43: Sodium 139, Potassium 3.5, Chloride 96 L, Carbon Dioxide 37.0 H, Anion Gap 6, BUN 18, Creatinine 1.17, BUN/Creatinine Ratio 15.4, Glucose 200 H Micro: Microbiology 02/10/22 04:26 Sputum, Expectorated/Coughed Gram Stain - Final 02/10/22 04:26 Sputum, Expectorated/Coughed Respiratory Culture - Final Presumptive C albicans 02/10/22 15:39 Urine, Random Legionella Antigen - Final 02/10/22 15:39 Urine, Random Streptococcus pneumoniae Antigen (M - Final 02/09/22 04:40 Mucosa - Nose Respiratory Panel (PCR) - Final Rhythm Strip Rhythm Strip: Sinus Rhythm Rate: 61 Ectopy: - (Widened QRS) Physical Exam Narrative alert, oriented x3 and no apparent distress Constitutional Narrative: Patient is morbidly obese General Appearance: cooperative, well kempt and well developed Orientation / Consciousness: awake, oriented to person, oriented to place and oriented to time HEENT normocephalic, head/scalp atraumatic and moist oral mucous membranes Head and Scalp: normocephalic Eyes PERRL, EOMs intact bilaterally and conjunctivae normal Neck supple, no JVD, thyroid normal and no carotid bruits General: trachea midline Resp normal respiratory effort, no retractions and no use of accessory muscles Resp Narrative: Decreased breath sounds are noted over the lower one third lung kulkarni bilaterally Auscultation: Negative for rales, rhonchi or wheezes Cardio S1 normal heart sound, S2 normal heart sound, no murmurs, no rub and no gallops Cardio Narrative: Heart rate and rhythm is irregular GI normal to inspection, nondistended, normoactive bowel sounds, soft to palpation, non-tender and non-distended Skin no rashes or lesions noted General Skin Exam: no breakdown Neuro oriented x3, CN's II-XII intact bilaterally, no focal motor deficits and no sensory deficits noted Sensorium / Orientation: awake and alert Speech: speech normal Psych affect normal Assessment & Plan Assessment/Plan (1) Acute respiratory failure with hypoxia: (2) Paroxysmal atrial fibrillation: PLAN: Plan 1. Acute hypoxic respiratory failure secondary to acute on chronic diastolic congestive heart failure with bilateral pleural effusions-cardiology is participating in his care as is pulmonary medicine, pulse ox will be monitored, again pulmonary medicine is canceled his thoracentesis, patient will remain on IV continuous Lasix and reevaluated tomorrow. #2 paroxysmal atrial fibrillation-patient is once again in atrial fibrillation, patient remains on rate limiting medications #3 acute on chronic diastolic congestive heart failure-patient will remain on IV Lasix infusion at this time , other medication changes per cardiology #4 chronic use of anticoagulants-patient is on Eliquis at this time, this will be held due to his thoracentesis tomorrow #5 essential hypertension-patient will remain on his present medications #6 morbid obesity-complicates care, management, recovery, and prognosis #7 bilateral pleural effusions-secondary to acute on chronic diastolic CHF-patient may ultimately need a thoracentesis performed. Charges/Coding Visit Charges Inpatient E&M: 30979 Subs Hosp L2
[2022-02-13] MEDS: Doxazosin 4 MG Tablet PO (20:28)
[2022-02-13] MEDS: Tolterodine Tartrate 2 MG CAP.SA PO (20:29)
[2022-02-13 22:32] LABS: Anion Gap 3 (5-15); BUN 20 mg/dL (7-18); BUN/Creat Ratio 18.3 RATIO (10-20); Chloride 94 mmol/L (98-107); Creatinine, Serum 1.09 mg/dL (0.70-1.30); Glucose 114 mg/dL (74-106); Potassium 3.5 mmol/L (3.5-5.1); Sodium Level 138 mmol/L (136-145)
[2022-02-14] VITALS (15 sets, daily range): BP systolic 111–117; BP diastolic 40–97; PULSE 58–75; RESP 18–20; TEMP 36.4–36.6; O2SAT 92–96
[2022-02-14] MEDS: Furosemide 500 MG in Empty Viaflex 50 mL 1 EACH CONT INF (02:22)
[2022-02-14] MEDS: Finasteride 5 MG Tablet PO (08:41)
[2022-02-14] MEDS: Amiodarone 200 MG Tablet PO ×2 (08:41→21:28)
[2022-02-14] MEDS: dilTIAZem CD 180 MG Capsule PO ×2 (08:41→21:27)
[2022-02-14] MEDS: Metoprolol(XL)Succ 200 MG Tablet PO (08:42)
[2022-02-14] MEDS: Azithromycin 250 MG Tablet 500 MG PO (08:42)
[2022-02-14] MEDS: Potassium Chloride Oral Tablet 20 MEQ PO (08:42)
[2022-02-14] MEDS: Allopurinol 100 MG Tablet PO (08:46)
[2022-02-14 10:46] LABS: Anion Gap 5 (5-15); BUN 16 mg/dL (7-18); BUN/Creat Ratio 12.7 RATIO (10-20); Chloride 91 mmol/L (98-107); Creatinine, Serum 1.26 mg/dL (0.70-1.30); Glucose 161 mg/dL (74-106); Potassium 3.4 mmol/L (3.5-5.1); Sodium Level 137 mmol/L (136-145)
[2022-02-14] MEDS: Potassium Chloride Oral Tablet 20 MEQ 40 MEQ PO (12:06)
--- NOTE | 2022-02-14 15:50 | PN.HOSP_ITS ---
Subjective Subjective Patient was seen and examined today, patient remains on oxygen at 7 L/min. He does not complain of any shortness of breath at rest or chest pain, fevers, or chills. Objective Data Objective Data Vital Signs: Vital Signs Temp Pulse Resp BP Pulse Ox O2 Del Method O2 Flow Rate 97.6 F L 59 L 18 113/40 L 94 High Flow 7 02/14/22 14:25 02/14/22 15:00 02/14/22 14:25 02/14/22 14:25 02/14/22 14:25 02/14/22 15:10 02/14/22 15:10 FiO2 70 02/14/22 14:00 Oxygen Flow Rate (L/min) 7 Oxygen Delivery Method High Flow Weight: 126.6 kg Body Mass Index (BMI) 43.5 Intake & Output: Intake and Output for Last 24 Hours 02/12/22 02/13/22 02/14/22 23:59 23:59 23:59 Intake Total 850 / 850 1450 / 1450 275.77 / 275.77 Output Total 400 / 400 2200 / 2200 1150 / 1150 Balance 450 / 450 -750 / -750 -874.23 / -874.23 Lab / Micro Data Result Diagrams: 02/10/22 04:20 02/14/22 10:00 Labs: Laboratory Results - last 24 hr 02/13/22 22:00: Sodium 138, Potassium 3.5, Chloride 94 L, Carbon Dioxide 41.0 H, Anion Gap 3 L, BUN 20 H, Creatinine 1.09, BUN/Creatinine Ratio 18.3, Glucose 114 H 02/14/22 10:00: Sodium 137, Potassium 3.4 L, Chloride 91 L, Carbon Dioxide 41.0 H, Anion Gap 5, BUN 16, Creatinine 1.26, BUN/Creatinine Ratio 12.7, Glucose 161 H Micro: Microbiology 02/10/22 04:26 Sputum, Expectorated/Coughed Gram Stain - Final 02/10/22 04:26 Sputum, Expectorated/Coughed Respiratory Culture - Final Presumptive C albicans 02/10/22 15:39 Urine, Random Legionella Antigen - Final 02/10/22 15:39 Urine, Random Streptococcus pneumoniae Antigen (M - Final 02/09/22 04:40 Mucosa - Nose Respiratory Panel (PCR) - Final Rhythm Strip Rhythm Strip: Sinus Rhythm Rate: 61 Ectopy: - (Widened QRS) Physical Exam Narrative alert, oriented x3 and no apparent distress Constitutional Narrative: Patient is morbidly obese General Appearance: cooperative, well kempt and well developed Orientation / Consciousness: awake, oriented to person, oriented to place and oriented to time HEENT normocephalic, head/scalp atraumatic and moist oral mucous membranes Head and Scalp: normocephalic Eyes PERRL, EOMs intact bilaterally and conjunctivae normal Neck supple, no JVD, thyroid normal and no carotid bruits General: trachea midline Resp normal respiratory effort, no retractions and no use of accessory muscles Resp Narrative: Decreased breath sounds are noted over the lower one third lung kulkarni bilaterally Auscultation: Negative for rales, rhonchi or wheezes Cardio S1 normal heart sound, S2 normal heart sound, no murmurs, no rub and no gallops Cardio Narrative: Heart rate and rhythm is irregular GI normal to inspection, nondistended, normoactive bowel sounds, soft to palpation, non-tender and non-distended Skin no rashes or lesions noted General Skin Exam: no breakdown Neuro oriented x3, CN's II-XII intact bilaterally, no focal motor deficits and no sensory deficits noted Sensorium / Orientation: awake and alert Speech: speech normal Psych affect normal Assessment & Plan Assessment/Plan (1) Hypertension: (2) Acute respiratory failure with hypoxia: (3) Paroxysmal atrial fibrillation: PLAN: Plan 1. Acute hypoxic respiratory failure secondary to acute on chronic diastolic congestive heart failure with bilateral pleural effusions-cardiology is participating in his care as is pulmonary medicine, pulse ox will be monitored, again pulmonary medicine is canceled his thoracentesis, patient will remain on IV continuous Lasix and reevaluated tomorrow. I have decided to obtain a PA and lateral chest x-ray tomorrow to assess his pleural effusions. Based on this I will decide whether or not to go ahead with a thoracentesis on Wednesday. #2 paroxysmal atrial fibrillation-patient is once again in atrial fibrillation, patient remains on rate limiting medications #3 acute on chronic diastolic congestive heart failure-patient will remain on IV Lasix infusion at this time , other medication changes per cardiology #4 chronic use of anticoagulants-patient is on Eliquis at this time, this will be held due to his thoracentesis tomorrow #5 essential hypertension-patient will remain on his present medications #6 morbid obesity-complicates care, management, recovery, and prognosis #7 bilateral pleural effusions-secondary to acute on chronic diastolic CHF- patient may ultimately need a thoracentesis performed. #8 hypokalemia-patient will be given oral potassium today Charges/Coding Visit Charges Inpatient E&M: 75498 Subs Hosp L2
[2022-02-14] MEDS: guaiFENesin Dm 10 ML UDC PO (21:28)
[2022-02-14] MEDS: Tolterodine Tartrate 2 MG CAP.SA PO (21:28)
[2022-02-14] MEDS: Doxazosin 4 MG Tablet PO (21:28)
[2022-02-14 22:20] LABS: Anion Gap 6 (5-15); BUN 16 mg/dL (7-18); BUN/Creat Ratio 15.7 RATIO (10-20); Chloride 93 mmol/L (98-107); Creatinine, Serum 1.02 mg/dL (0.70-1.30); Glucose 123 mg/dL (74-106); Potassium 3.4 mmol/L (3.5-5.1); Sodium Level 139 mmol/L (136-145)
[2022-02-15] VITALS (13 sets, daily range): BP systolic 111–127; BP diastolic 64–77; PULSE 56–76; RESP 16–20; TEMP 36.2–36.9; O2SAT 92–96
[2022-02-15] MEDS: Furosemide 500 MG in Empty Viaflex 50 mL 1 EACH CONT INF ×2 (03:17→16:44)
[2022-02-15 06:02] LABS: Anion Gap 6 (5-15); BUN 15 mg/dL (7-18); BUN/Creat Ratio 14.4 RATIO (10-20); Chloride 93 mmol/L (98-107); Creatinine, Serum 1.04 mg/dL (0.70-1.30); EST Glomerular Filtration Rate 75 mL/min (>60); Est Glom Filt Rate - Afr Amer 90 mL/min (>60); Estimated Creatinine Clearance 62.12 ml/min; Glucose 116 mg/dL (74-106); Potassium 3.4 mmol/L (3.5-5.1); Sodium Level 139 mmol/L (136-145)
--- NOTE | 2022-02-15 06:10 | RAD_ITS ---
STUDY: X-RAY CHEST REASON FOR EXAM: Male, 71 years old. CHF, pleural effusions TECHNIQUE: PA and lateral views of the chest. COMPARISON: 02/12/2022 RAD/Chest PA and Lateral IMPRESSION: Decreased right and unchanged left pleural effusions. Bilateral lower lung infiltrate/atelectasis. Electronically Signed: Christophe Rasmussen MD at 6:55 EDT ,
[2022-02-15] MEDS: dilTIAZem CD 180 MG Capsule PO ×2 (09:10→21:18)
[2022-02-15] MEDS: Allopurinol 100 MG Tablet PO (09:11)
[2022-02-15] MEDS: Metoprolol(XL)Succ 200 MG Tablet PO (09:11)
[2022-02-15] MEDS: Potassium Chloride Oral Tablet 20 MEQ PO (09:11)
[2022-02-15] MEDS: Finasteride 5 MG Tablet PO (09:11)
[2022-02-15] MEDS: Amiodarone 200 MG Tablet PO ×2 (09:11→21:19)
[2022-02-15] MEDS: Azithromycin 250 MG Tablet 500 MG PO (09:12)
[2022-02-15 10:52] LABS: Anion Gap 6 (5-15); BUN 16 mg/dL (7-18); BUN/Creat Ratio 13.8 RATIO (10-20); Chloride 93 mmol/L (98-107); Creatinine, Serum 1.16 mg/dL (0.70-1.30); Glucose 180 mg/dL (74-106); Potassium 3.3 mmol/L (3.5-5.1); Sodium Level 141 mmol/L (136-145)
--- NOTE | 2022-02-15 12:18 | PN.CARD_ITS ---
Subjective Subjective Sitting up in chair. Denies any complaints. Feels better. Objective Data Vital Signs: Vital Signs Temp Pulse Resp BP Pulse Ox O2 Del Method O2 Flow Rate 98 F 74 16 119/64 95 Nasal Cannula 7 02/15/22 09:00 02/15/22 09:11 02/15/22 09:00 02/15/22 09:11 02/15/22 09:00 02/15/22 09:26 02/15/22 09:26 FiO2 70 02/15/22 09:00 Oxygen Flow Rate (L/min) 7 Oxygen Delivery Method Nasal Cannula Weight: 277 lb 5.464 oz Body Mass Index (BMI) 43.5 Intake & Output: Intake and Output for Last 24 Hours 02/13/22 02/14/22 02/15/22 23:59 23:59 23:59 Intake Total 1450 / 1450 615.77 / 615.77 108.50 / 108.50 Output Total 2200 / 2200 3150 / 3150 350 / 350 Balance -750 / -750 -2534.23 / -2534.23 -241.50 / -241.50 Lab / Micro Data Result Diagrams: 02/10/22 04:20 02/15/22 10:00 Labs: Laboratory Results - last 24 hr 02/13/22 09:43: Ionized Calcium 5.1 02/14/22 21:50: Sodium 139, Potassium 3.4 L, Chloride 93 L, Carbon Dioxide 40.0 H, Anion Gap 6, BUN 16, Creatinine 1.02, BUN/Creatinine Ratio 15.7, Glucose 123 H 02/15/22 05:25: Sodium 139, Potassium 3.4 L, Chloride 93 L, Carbon Dioxide 40.0 H, Anion Gap 6, BUN 15, Creatinine 1.04, Estim Creat Clear Calc 62.12, Est GFR (MDRD) Af Amer 90, Est GFR (MDRD) Non-Af 75, BUN/Creatinine Ratio 14.4, Glucose 116 H, Calcium 9.0 02/15/22 10:00: Sodium 141, Potassium 3.3 L, Chloride 93 L, Carbon Dioxide 42.0 H, Anion Gap 6, BUN 16, Creatinine 1.16, BUN/Creatinine Ratio 13.8, Glucose 180 H Rhythm Strip Rhythm Strip: Sinus Rhythm Rate: 61 Ectopy: - (Widened QRS) Cardiology Labs/Tests 02/13/22 09:43: Ionized Calcium 5.1 02/14/22 21:50: Sodium 139, Potassium 3.4 L, Chloride 93 L, Carbon Dioxide 40.0 H, Anion Gap 6, BUN 16, Creatinine 1.02, BUN/Creatinine Ratio 15.7, Glucose 123 H 02/15/22 05:25: Sodium 139, Potassium 3.4 L, Chloride 93 L, Carbon Dioxide 40.0 H, Anion Gap 6, BUN 15, Creatinine 1.04, Est GFR (MDRD) Af Amer 90, Est GFR (M DRD) Non-Af 75, BUN/Creatinine Ratio 14.4, Glucose 116 H, Calcium 9.0 02/15/22 10:00: Sodium 141, Potassium 3.3 L, Chloride 93 L, Carbon Dioxide 42.0 H, Anion Gap 6, BUN 16, Creatinine 1.16, BUN/Creatinine Ratio 13.8, Glucose 180 H Rhythm: EKG: ECHO: Stress Test: Cardiac Cath: PCI: CT Surgery: Holter monitor: EPS: PPM: CXR: Chest CT Scan: Radiography Diagnostic Testing: Radiology Impression Chest X-Ray 02/15/22 06:10 IMPRESSION: Decreased right and unchanged left pleural effusions. Bilateral lower lung infiltrate/atelectasis. Electronically Signed: Christophe Rasmussen MD at 6:55 EDT , Physical Exam Narrative Heart sounds 1 and 2 are normal. Decreased breath sounds at bilateral lung bases. Both lower extremities wrapped in compression bandages. Const alert, oriented x3 and no apparent distress Assessment & Plan Assessment/Plan (1) CHF (congestive heart failure): PLAN: Remains on furosemide infusion. Diuresing well. Continue to monitor. Possible thoracentesis in the morning. (2) Paroxysmal atrial fibrillation: PLAN: Ventricular rate controlled. (3) Hypertension: PLAN: Controlled.
--- NOTE | 2022-02-15 15:33 | US_ITS ---
PROCEDURE: ULTRASOUND GUIDED THORACENTESIS. DATE: 02/16/2022. INDICATION: Male, 71 years old. Right pleural effusion. PHYSICIAN: Jerry Morrow M.D. PROCEDURE: The risks, benefits, and alternatives to the procedure were explained to the patient. The specific risks of bleeding, infection, and pneumothorax requiring chest tube insertion were discussed and accepted. Written informed consent was obtained. Ultrasonographic evaluation of the right lower pleural space was carried out. An adequate pocket was identified. The patient was placed in the sitting, upright position. The overlying skin was prepped and draped in sterile fashion. 1% lidocaine was administered subcutaneously for local anesthesia. Under ultrasound guidance, a 5French thoracentesis needle/catheter system was advanced into the right posterior lower pleural fluid collection. Approximately 520 mL of dark-colored tyson fluid was drained. The catheter was removed, and a sterile dressing was applied. A specimen was collected and sent to the laboratory for analysis, as requested by the referring clinician. The patient tolerated the procedure well. A chest x-ray was ordered. US/Thoracentesis W US IMPRESSION: Ultrasound-guided right thoracentesis. Electronically Signed: Jerry Morrow MD at 14:35 EDT ,
--- NOTE | 2022-02-15 16:05 | PN.HOSP_ITS ---
Subjective Subjective Patient was seen and examined today, his chest x-ray today showed bilateral pleural effusions, this was somewhat improved on the right. I think the patient would benefit from going through therapeutic thoracentesis and I have ordered the procedure for tomorrow. Patient still remains on 7 L of oxygen via nasal cannula. Patient's Lasix was stopped due to a time to order this morning, I just discovered this afternoon and I have restarted the patient's Lasix drip. Objective Data Objective Data Vital Signs: Vital Signs Temp Pulse Resp BP Pulse Ox O2 Del Method O2 Flow Rate 98 F 64 16 119/64 95 Nasal Cannula 7 02/15/22 09:00 02/15/22 15:00 02/15/22 09:00 02/15/22 09:11 02/15/22 09:00 02/15/22 09:26 02/15/22 09:26 FiO2 70 02/15/22 09:00 Oxygen Flow Rate (L/min) 7 Oxygen Delivery Method Nasal Cannula Weight: 125.8 kg Body Mass Index (BMI) 43.5 Intake & Output: Intake and Output for Last 24 Hours 02/13/22 02/14/22 02/15/22 23:59 23:59 23:59 Intake Total 1450 / 1450 615.77 / 615.77 108.50 / 108.50 Output Total 2200 / 2200 3150 / 3150 350 / 350 Balance -750 / -750 -2534.23 / -2534.23 -241.50 / -241.50 Lab / Micro Data Result Diagrams: 02/10/22 04:20 02/15/22 10:00 Labs: Laboratory Results - last 24 hr 02/13/22 09:43: Ionized Calcium 5.1 02/14/22 21:50: Sodium 139, Potassium 3.4 L, Chloride 93 L, Carbon Dioxide 40.0 H, Anion Gap 6, BUN 16, Creatinine 1.02, BUN/Creatinine Ratio 15.7, Glucose 123 H 02/15/22 05:25: Sodium 139, Potassium 3.4 L, Chloride 93 L, Carbon Dioxide 40.0 H, Anion Gap 6, BUN 15, Creatinine 1.04, Estim Creat Clear Calc 62.12, Est GFR (MDRD) Af Amer 90, Est GFR (MDRD) Non-Af 75, BUN/Creatinine Ratio 14.4, Glucose 116 H, Calcium 9.0 02/15/22 10:00: Sodium 141, Potassium 3.3 L, Chloride 93 L, Carbon Dioxide 42.0 H, Anion Gap 6, BUN 16, Creatinine 1.16, BUN/Creatinine Ratio 13.8, Glucose 180 H Micro: Microbiology 02/10/22 04:26 Sputum, Expectorated/Coughed Gram Stain - Final 02/10/22 04:26 Sputum, Expectorated/Coughed Respiratory Culture - Final Presumptive C albicans 02/10/22 15:39 Urine, Random Legionella Antigen - Final 02/10/22 15:39 Urine, Random Streptococcus pneumoniae Antigen (M - Final 02/09/22 04:40 Mucosa - Nose Respiratory Panel (PCR) - Final Radiography Diagnostic Testing: Radiology Impression Chest X-Ray 02/15/22 06:10 IMPRESSION: Decreased right and unchanged left pleural effusions. Bilateral lower lung infiltrate/atelectasis. Electronically Signed: Christophe Rasmussen MD at 6:55 EDT , Rhythm Strip Rhythm Strip: Sinus Rhythm Rate: 61 Ectopy: - (Widened QRS) Physical Exam Narrative alert, oriented x3 and no apparent distress Constitutional Narrative: Patient is morbidly obese General Appearance: cooperative, well kempt and well developed Orientation / Consciousness: awake, oriented to person, oriented to place and oriented to time HEENT normocephalic, head/scalp atraumatic and moist oral mucous membranes Head and Scalp: normocephalic Eyes PERRL, EOMs intact bilaterally and conjunctivae normal Neck supple, no JVD, thyroid normal and no carotid bruits General: trachea midline Resp normal respiratory effort, no retractions and no use of accessory muscles Resp Narrative: Decreased breath sounds are noted over the lower one third lung kulkarni bilaterally Auscultation: Negative for rales, rhonchi or wheezes Cardio S1 normal heart sound, S2 normal heart sound, no murmurs, no rub and no gallops Cardio Narrative: Heart rate and rhythm is irregular GI normal to inspection, nondistended, normoactive bowel sounds, soft to palpation, non-tender and non-distended Skin no rashes or lesions noted General Skin Exam: no breakdown Neuro oriented x3, CN's II-XII intact bilaterally, no focal motor deficits and no sensory deficits noted Sensorium / Orientation: awake and alert Speech: speech normal Psych affect normal Assessment & Plan Assessment/Plan (1) Acute respiratory failure with hypoxia: (2) Hypertension: (3) Paroxysmal atrial fibrillation: PLAN: Plan 1. Acute hypoxic respiratory failure secondary to acute on chronic diastolic congestive heart failure with bilateral pleural effusions-cardiology is participating in his care as is pulmonary medicine, pulse ox will be monitored, patient will undergo thoracentesis tomorrow, I have restarted his Lasix drip #2 paroxysmal atrial fibrillation-patient is once again in atrial fibrillation, patient remains on rate limiting medications #3 acute on chronic diastolic congestive heart failure-patient will remain on IV Lasix infusion at this time , other medication changes per cardiology #4 chronic use of anticoagulants-is on hold right now due to upcoming thoracentesis. #5 essential hypertension-patient will remain on his present medications #6 morbid obesity-complicates care, management, recovery, and prognosis #7 bilateral pleural effusions-secondary to acute on chronic diastolic CHF- patient will need a thoracentesis tomorrow #8 hypokalemia-patient will be given oral potassium today, BMP will be rechecked tomorrow Charges/Coding Visit Charges Inpatient E&M: 66975 [facility] Hosp L2
[2022-02-15] MEDS: Potassium Chloride Oral Tablet 20 MEQ 40 MEQ PO (16:44)
--- NOTE | 2022-02-15 17:56 | NURSING ---
Charting reviewed with Pankaj Johnson RN
[2022-02-15] MEDS: Doxazosin 4 MG Tablet PO (21:18)
[2022-02-15] MEDS: Tolterodine Tartrate 2 MG CAP.SA PO (21:19)
[2022-02-15] MEDS: guaiFENesin Dm 10 ML UDC PO (21:20)
[2022-02-15 22:54] LABS: Anion Gap 6 (5-15); BUN 17 mg/dL (7-18); Chloride 93 mmol/L (98-107); Creatinine, Serum 1.21 mg/dL (0.70-1.30); Glucose 121 mg/dL (74-106); Potassium 3.6 mmol/L (3.5-5.1); Sodium Level 140 mmol/L (136-145)
[2022-02-16] VITALS (20 sets, daily range): BP systolic 104–137; BP diastolic 48–77; PULSE 40–82; RESP 16–20; TEMP 36.4–36.6; O2SAT 93–98
[2022-02-16 07:00] LABS: International Normalized Ratio 1.2; Prothrombin Time (Protime)PT. 14.4 SECONDS (11.7-14.9)
[2022-02-16 07:01] LABS: Partial Thromboplast Time 26.1 Seconds (24.1-36.2)
[2022-02-16 07:17] LABS: ALB/GLOB Ratio 0.7 RATIO (0.9-2.4); Anion Gap 4 (5-15); BUN 15 mg/dL (7-18); BUN/Creat Ratio 13.9 RATIO (10-20); Calcium,Total 9.1 mg/dL (8.5-10.1); Chloride 95 mmol/L (98-107); Creatinine, Serum 1.08 mg/dL (0.70-1.30); EST Glomerular Filtration Rate 71 mL/min (>60); Est Glom Filt Rate - Afr Amer 86 mL/min (>60); Estimated Creatinine Clearance 59.81 ml/min; Globulin 3.8 g/dL (2.2-4.2); Glucose 108 mg/dL (74-106); LDH 177 U/L (87-241); Potassium 3.6 mmol/L (3.5-5.1); Protein, Total 6.4 g/dL (6.4-8.2); Sodium Level 140 mmol/L (136-145)
[2022-02-16] MEDS: dilTIAZem CD 180 MG Capsule PO ×2 (08:06→21:22)
[2022-02-16] MEDS: Metoprolol(XL)Succ 200 MG Tablet PO (08:06)
[2022-02-16] MEDS: Potassium Chloride Oral Tablet 20 MEQ PO (08:06)
[2022-02-16] MEDS: Allopurinol 100 MG Tablet PO (08:06)
[2022-02-16] MEDS: Finasteride 5 MG Tablet PO (08:07)
[2022-02-16] MEDS: Amiodarone 200 MG Tablet PO ×2 (08:07→21:21)
--- NOTE | 2022-02-16 08:16 | PCM.PN.CARD ---
Subjective Subjective The patient was seen and evaluated. Appears to be stable at this time. Breathing better. Heart rate better controlled. Objective Data Vital Signs: Vital Signs Temp Pulse Resp BP Pulse Ox O2 Del Method O2 Flow Rate 97.7 F L 76 18 132/56 H 95 High Flow 6 02/16/22 08:13 02/16/22 08:13 02/16/22 08:13 02/16/22 08:13 02/16/22 08:13 02/16/22 08:13 02/16/22 08:13 FiO2 70 02/16/22 08:13 Oxygen Flow Rate (L/min) 6 Oxygen Delivery Method High Flow Weight: 279 lb 12.266 oz Body Mass Index (BMI) 43.5 Intake & Output: Intake and Output for Last 24 Hours 02/14/22 02/15/22 02/16/22 23:59 23:59 23:59 Intake Total 615.77 / 615.77 1180.50 / 1180.50 125 / 125 Output Total 3150 / 3150 1475 / 1475 950 / 950 Balance -2534.23 / -2534.23 -294.50 / -294.50 -825 / -825 Lab / Micro Data Result Diagrams: 02/10/22 04:20 02/16/22 05:50 Labs: Laboratory Results - last 24 hr 02/13/22 09:43: Ionized Calcium 5.1 02/15/22 10:00: Sodium 141, Potassium 3.3 L, Chloride 93 L, Carbon Dioxide 42.0 H, Anion Gap 6, BUN 16, Creatinine 1.16, BUN/Creatinine Ratio 13.8, Glucose 180 H 02/15/22 21:52: Sodium 140, Potassium 3.6, Chloride 93 L, Carbon Dioxide 41.0 H, Anion Gap 6, BUN 17, Creatinine 1.21, BUN/Creatinine Ratio 14.0, Glucose 121 H 02/16/22 05:50: Sodium 140, Potassium 3.6, Chloride 95 L, Carbon Dioxide 41.0 H, Anion Gap 4 L, BUN 15, Creatinine 1.08, Estim Creat Clear Calc 59.81, Est GFR (MDRD) Af Amer 86, Est GFR (MDRD) Non-Af 71, BUN/Creatinine Ratio 13.9, Glucose 108 H, Calcium 9.1, Lactate Dehydrogenase 177, Total Protein 6.4, Globulin 3.8, Albumin/Globulin Ratio 0.7 L 02/16/22 05:50: PT 14.4, INR 1.2, APTT 26.1 Rhythm Strip Rhythm Strip: Sinus Rhythm Rate: 61 Ectopy: - (Widened QRS) Cardiology Labs/Tests 02/13/22 09:43: Ionized Calcium 5.1 02/15/22 10:00: Sodium 141, Potassium 3.3 L, Chloride 93 L, Carbon Dioxide 42.0 H, Anion Gap 6, BUN 16, Creatinine 1.16, BUN/Creatinine Ratio 13.8, Glucose 180 H 02/15/22 21:52: Sodium 140, Potassium 3.6, Chloride 93 L, Carbon Dioxide 41.0 H, Anion Gap 6, BUN 17, Creatinine 1.21, BUN/Creatinine Ratio 14.0, Glucose 121 H 02/16/22 05:50: Sodium 140, Potassium 3.6, Chloride 95 L, Carbon Dioxide 41.0 H, Anion Gap 4 L, BUN 15, Creatinine 1.08, Est GFR (MDRD) Af Amer 86, Est GFR (MDRD) Non-Af 71, BUN/Creatinine Ratio 13.9, Glucose 108 H, Calcium 9.1 02/16/22 05:50: PT 14.4, INR 1.2, APTT 26.1 Rhythm: EKG: ECHO: Stress Test: Cardiac Cath: PCI: CT Surgery: Holter monitor: EPS: PPM: CXR: Chest CT Scan: Physical Exam Const alert, oriented x3 and no apparent distress Constitutional Narrative: Patient is morbidly obese General Appearance: cooperative, well kempt and well developed Orientation / Consciousness: awake, oriented to person, oriented to place and oriented to time HEENT normocephalic and moist oral mucous membranes Eyes PERRL, EOMs intact bilaterally and conjunctivae normal Neck supple, no JVD, thyroid normal and no carotid bruits General: trachea midline Resp normal respiratory effort, no retractions and no use of accessory muscles Resp Narrative: Decreased breath sounds are noted at the bases. Auscultation: Negative for rales, rhonchi or wheezes Cardio regular rate, S1 normal heart sound, S2 normal heart sound, no murmurs, no rub and no gallops Rhythm: abnormal rhythm GI normal to inspection, nondistended, normoactive bowel sounds, soft to palpation, non-tender and non-distended Extremity no clubbing, cyanosis or edema Skin no rashes or lesions noted General Skin Exam: no breakdown Neuro oriented x3, CN's II-XII intact bilaterally, no focal motor deficits and no sensory deficits noted Sensorium / Orientation: awake and alert Speech: speech normal Psych affect normal Assessment & Plan Assessment/Plan (1) Paroxysmal atrial fibrillation: PLAN: He does have paroxysmal atrial fibrillation with a rapid ventricular response rate and he was hypotensive and underwent DC cardioversion. He did revert back to atrial fibrillation and the plan at this time is to maintain his heart rate and anticoagulation holding it temporarily for the thoracentesis. We will still maintain him on the oral amiodarone for now. Further recommendations will be made. (2) CHF (congestive heart failure): PLAN: He does have evidence of diastolic heart failure. We would need to continue with supportive management at this time. He would also need continued diuretics. He may need at some point a repeat echocardiogram to reassess his ventricular function. He may also need to have thoracentesis to help him with his breathing. The sure no problem with holding his Eliquis at this time for the above procedure to be performed. (3) Hypertension: PLAN: He does have a history of hypertension which appears to be under decent control at this time. We will continue to monitor him.
--- NOTE | 2022-02-16 08:42 | PCM.PN.HOSP ---
Subjective Subjective Patient is a 71-year-old man admitted with progressive shortness of breath diagnosed with acute hypoxic respiratory failure secondary to acute on chronic diastolic heart failure with bilateral pleural effusion Objective Data Objective Data Vital Signs: Vital Signs Temp Pulse Resp BP Pulse Ox O2 Del Method O2 Flow Rate 97.7 F L 76 18 132/56 H 95 High Flow 6 02/16/22 08:13 02/16/22 08:13 02/16/22 08:13 02/16/22 08:13 02/16/22 08:13 02/16/22 08:13 02/16/22 08:13 FiO2 70 02/16/22 08:13 Oxygen Flow Rate (L/min) 6 Oxygen Delivery Method High Flow Weight: 126.9 kg Body Mass Index (BMI) 43.5 Intake & Output: Intake and Output for Last 24 Hours 02/14/22 02/15/22 02/16/22 23:59 23:59 23:59 Intake Total 615.77 / 615.77 1180.50 / 1180.50 125 / 125 Output Total 3150 / 3150 1475 / 1475 950 / 950 Balance -2534.23 / -2534.23 -294.50 / -294.50 -825 / -825 Lab / Micro Data Result Diagrams: 02/10/22 04:20 02/16/22 05:50 Labs: Laboratory Results - last 24 hr 02/13/22 09:43: Ionized Calcium 5.1 02/15/22 10:00: Sodium 141, Potassium 3.3 L, Chloride 93 L, Carbon Dioxide 42.0 H, Anion Gap 6, BUN 16, Creatinine 1.16, BUN/Creatinine Ratio 13.8, Glucose 180 H 02/15/22 21:52: Sodium 140, Potassium 3.6, Chloride 93 L, Carbon Dioxide 41.0 H, Anion Gap 6, BUN 17, Creatinine 1.21, BUN/Creatinine Ratio 14.0, Glucose 121 H 02/16/22 05:50: Sodium 140, Potassium 3.6, Chloride 95 L, Carbon Dioxide 41.0 H, Anion Gap 4 L, BUN 15, Creatinine 1.08, Estim Creat Clear Calc 59.81, Est GFR (MDRD) Af Amer 86, Est GFR (MDRD) Non-Af 71, BUN/Creatinine Ratio 13.9, Glucose 108 H, Calcium 9.1, Lactate Dehydrogenase 177, Total Protein 6.4, Globulin 3.8, Albumin/Globulin Ratio 0.7 L 02/16/22 05:50: PT 14.4, INR 1.2, APTT 26.1 Micro: Microbiology 02/10/22 04:26 Sputum, Expectorated/Coughed Gram Stain - Final 02/10/22 04:26 Sputum, Expectorated/Coughed Respiratory Culture - Final Presumptive C albicans 02/10/22 15:39 Urine, Random Legionella Antigen - Final 02/10/22 15:39 Urine, Random Streptococcus pneumoniae Antigen (M - Final 02/09/22 04:40 Mucosa - Nose Respiratory Panel (PCR) - Final Rhythm Strip Rhythm Strip: Sinus Rhythm Rate: 61 Ectopy: - (Widened QRS) Physical Exam Narrative GENERAL: cooperative HEENT: Atraumatic; normocephalic EYES; Anicteric, Normal Conjunctiva NECK; supple, normal thyroid, RESPIRATORY: Diminished to auscultation CARDIOVASCULAR: Regular S1 S2, GI: soft, normoactive bowel sounds, : No Renal angle tenderness; EXTREMITIES: Trace bipedal edema, no clubbing, MUSCULOSKELETAL: no muscle wasting NEURO: Awake; no lateralizing signs. SKIN: No Rash PSYCH; Flat affect Assessment & Plan Assessment/Plan (1) Acute respiratory failure with hypoxia: (2) Hypertension: (3) Paroxysmal atrial fibrillation: PLAN: Plan Patient is a 71-year-old man admitted with progressive shortness of breath diagnosed with acute hypoxic respiratory failure secondary to acute on chronic diastolic heart failure with bilateral pleural effusion 1. Acute hypoxic respiratory failure ? Secondary to acute congestive heart failure managed with treatment of underlying condition as well as supplemental oxygen titrated to keep oxygen saturation greater than 90 3. Acute on chronic diastolic heart failure ? Managed with diuretics seen in consultation by cardiology 3. Bilateral pleural effusion ? Patient to undergo ultrasound-guided thoracocentesis 4. Paroxysmal A. fib ? Rate controlled with amiodarone. Patient is on apixaban currently being held in anticipation of his thoracocentesis 5. Hypertension - Blood pressure controlled, home medications continued with dose adjustment as needed 6. Hypokalemia ? Secondary to diuretics corrected per protocol with serial monitoring of electrolytes ordered 7. BPH ? Patient is on finasteride did continue 8. Class III obesity with BMI of 42.5 ? Weight loss advised 9. Obstructive sleep apnea ? CPAP at night 10. DVT prophylaxis ? Patient is on apixaban Charges/Coding Visit Charges Inpatient E&M: 09829 Subs Hosp L3
[2022-02-16] MEDS: guaiFENesin Dm 10 ML UDC PO (13:00)
--- NOTE | 2022-02-16 13:45 | RAD_ITS ---
STUDY: X-RAY CHEST REASON FOR EXAM: Male, 71 years old. Post thora TECHNIQUE: AP inspiration and expiration views. COMPARISON: Comparison is made with prior study 02/15/2022. FINDINGS: EKG electrodes are seen. The patient is status post right thoracentesis. There is no evidence of pneumothorax. Residual infiltrate and/or atelectasis persist at the right lung base. Stable small left pleural effusion with the basilar atelectasis. RAD/Chest Insp/Exp 2 View IMPRESSION: No evidence of pneumothorax on the post right thoracentesis examination. Electronically Signed: Jerry Morrow MD at 14:58 EDT ,
[2022-02-16 13:49] LABS: Phosphorus 2.9 mg/dL (2.5-4.9)
[2022-02-16] MEDS: Lidocaine 2% (10 ml mdv) 10 ML Vial INFILT (13:49)
--- NOTE | 2022-02-16 13:50 | FLU_PTH ---
PATIENT: STEFANY BOND LOC: [facility] U#:[id number] AGE/SX: 71/M ROOM: [facility] RE02/08/[address]: Dr. Duncan Anderson MD : 1950 BED: 1 DIS: 02/18/2022 SPEC #: [id number] RECD: 02/16/22 14:00 STATUS: JUANITA REQ #: [id number] JAMES: 02/16/22 13:[address]: Duncan Anderson DEPT: CYTOLOGY RECD BY: Blayne Cid ENTERED: 02/17/22 08:33 SP TYPE: Fluid OTHR DR: MD Dr. Cong Scott MD Dr. Cyril Ofori, MD Dr. Mark Tereletsky, [facility] Tissues: THORACIC FLUID Procedures: Special Stain Group II Surgery Specimen Level IV Cytospin Fluid HEADER OPERATION: Ultrasound-guided right thoracentesis PRE-OP DIAGNOSIS: Right pleural effusion TISSUE SUBMITTED: Thoracentesis fluid for cytology DIAGNOSIS CYTOLOGY Thoracentesis fluid for cytology (cytospin and cell block): Negative for malignant cells. See comment. VASQUEZ:michael 02/18/2022 COMMENT Clinical correlation and appropriate follow up are necessary. CYTOLOGY STUDY Slides are reviewed. CYTOLOGY GROSS Received is 45 ml of yellow cloudy fluid labeled with the patient's name and and designated per the requisition as thoracentesis. Submitted for cytology preparation including cell block. / michael 02/17/2022 TC:5 CPT: 50182, 13053
[2022-02-16 14:25] LABS: Body Fluid Mononuclear WBC % 93.3 %; Body Fluid Polynuclear WBC # 0.074 10^3/uL; Body Fluid Polynuclear WBC % 6.7 %; Body Fluid Total Cells Counted 1.574 10^3/ul; White Blood Count/Body Fluid 1.094 10^3/uL
[2022-02-16 14:37] LABS: Appearance/Body Fluid CLOUDY; Auto B Fluid Analyzer BKGD Ct COUNTS W/IN LIMITS (W/IN LIMITS); Color/Body Fluid YELLOW; Source- Body Fluid THORACENTESIS
[2022-02-16 14:40] LABS: Red Cell Count/Body Fluid 1560 /mm3
[2022-02-16 15:10] LABS: Lymphocytes 32 %; Macrophages 65 %; Neutrophil (Segs) 3 %
[2022-02-16 15:12] LABS: Body Fluid QC Type(s) BF1Q,BF2Q
[2022-02-16 15:20] LABS: Glucose, Body Fluid 137 mg/dL (40-70); LDH,Body Fluid 121 Units/l (Not Establ.); Protein, Body Fluid 3.5 g/dL (Not Establ.)
[2022-02-16 16:26] LABS: Magnesium 2.3 mg/dL (1.6-2.6)
[2022-02-16] MEDS: Furosemide 500 MG in Empty Viaflex 50 mL 1 EACH CONT INF (16:36)
[2022-02-16] MEDS: Tolterodine Tartrate 2 MG CAP.SA PO (21:22)
[2022-02-16] MEDS: Doxazosin 4 MG Tablet PO (21:22)
[2022-02-17] VITALS (15 sets, daily range): BP systolic 114–138; BP diastolic 49–71; PULSE 62–86; RESP 16–20; TEMP 36.4–37; O2SAT 88–94
[2022-02-17 06:23] LABS: Absolute Lymphocyte Count 1.15 X10^3/uL (0.83-4.51); Absolute Neutrophil Count 5.3 X10^3/uL (2.0-7.7); Basophil# 0.04 X10^3/uL; Basophil% 0.5 % (0-1); Eosinophil# 0.25 X10^3/uL; Eosinophils% 3.4 % (0-5); Hematocrit 42.6 % (40-54); Hemoglobin 13.5 g/dL (13.0-16.5); Lymphocyte # 1.15 X10^3/ul (0.83-4.51); Lymphocyte % 15.4 % (19-41); Mean Corp Hgb Conc 31.7 g/dL (32-36); Mean Corpuscular Hgb 28.9 pg (27.0-32.0); Mean Corpuscular Volume 91.2 fL (80-94); Mean Platelet Vol. 10.2 fl (6.2-12.0); Monocyte# 0.67 X10^3/uL; NRBC Flagged by Analyzer 0 % (0-5); Neutrophil # 5.31 X10^3/uL (2.7-7.7); Neutrophil % 71.3 % (47-70); Platelet Count 219 K/mm3 (150-450); RBC Distribution Width CV 14.2 % (11.6-14.6); RBC Distribution Width SD 47.8 fl (35.1-43.9); Red Blood Count 4.67 M/mm3 (4.6-6.2); White Blood Count 7.5 K/mm3 (4.4-11.0)
[2022-02-17 06:47] LABS: Anion Gap 4 (5-15); BUN 15 mg/dL (7-18); BUN/Creat Ratio 13.6 RATIO (10-20); Calcium,Total 9.1 mg/dL (8.5-10.1); Chloride 95 mmol/L (98-107); EST Glomerular Filtration Rate 70 mL/min (>60); Est Glom Filt Rate - Afr Amer 85 mL/min (>60); Estimated Creatinine Clearance 58.73 ml/min; Glucose 103 mg/dL (74-106); Magnesium 2.4 mg/dL (1.6-2.6); Potassium 3.5 mmol/L (3.5-5.1); Sodium Level 139 mmol/L (136-145)
--- NOTE | 2022-02-17 08:12 | PN.HOSP_ITS ---
Subjective Subjective Patient seen had an uneventful night. Guardianship pending Objective Data Objective Data Vital Signs: Vital Signs Temp Pulse Resp BP Pulse Ox O2 Del Method O2 Flow Rate 97.5 F L 63 20 H 127/71 H 92 Nasal Cannula 2 02/17/22 03:23 02/17/22 03:23 02/17/22 03:23 02/17/22 03:23 02/17/22 03:23 02/17/22 03:23 02/17/22 03:23 FiO2 70 02/17/22 03:23 Oxygen Flow Rate (L/min) [5] 7 Oxygen Flow Rate (L/min) [4] 7 Oxygen Flow Rate (L/min) [3] 7 Oxygen Flow Rate (L/min) [2] 7 Oxygen Flow Rate (L/min) [1 ( 7 Initial Baseline)] Oxygen Flow Rate (L/min) 2 Oxygen Delivery Method [5] Nasal Cannula Oxygen Delivery Method [4] Nasal Cannula Oxygen Delivery Method [3] Nasal Cannula Oxygen Delivery Method [2] Nasal Cannula Oxygen Delivery Method [1 ( Nasal Cannula Initial Baseline)] Oxygen Delivery Method Nasal Cannula Weight: 123.4 kg Body Mass Index (BMI) 43.5 Intake & Output: Intake and Output for Last 24 Hours 02/15/22 02/16/22 02/17/22 23:59 23:59 23:59 Intake Total 1180.50 / 1180.50 970.57 / 970.57 50 / 50 Output Total 1475 / 1475 3120 / 3120 850 / 850 Balance -294.50 / -294.50 -2149.43 / -2149.43 -800 / -800 Lab / Micro Data Result Diagrams: 02/17/22 05:26 02/17/22 05:26 Labs: Laboratory Results - last 24 hr 02/16/22 05:50: Phosphorus 2.9 02/16/22 05:50: Magnesium 2.3 02/16/22 13:50: Fluid Glucose 137 H, Fluid Total Protein 3.5, Fluid LDH 121 02/16/22 14:02: Fluid Color Cancelled, Fluid Appearance Cancelled, Fluid WBC Cancelled 02/16/22 14:03: Fluid Source THORACENTESIS, Fluid Color YELLOW, Fluid Appearance CLOUDY, Fluid WBC 1.094, Fluid RBC 1560, Fluid Tot Cell Count 1.574, Fld Polynuclear WBCs # 0.074, Fld Polynuclear WBCs % 6.7, Fluid Mononuclear WBCs 1.020, Fld Mononuclear WBCs % 93.3, Fluid Neutrophils 3, Fluid Lymphocytes 32, Fluid Macrophages 65, Fl Pathologist Comment May follow, Fluid Comment 2 SEE COMMENT 02/17/22 05:26: WBC 7.5, RBC 4.67, Hgb 13.5, Hct 42.6, MCV 91.2, MCH 28.9, MCHC 31.7 L, RDW Std Deviation 47.8 H, RDW Coeff of Maci 14.2, Plt Count 219, MPV 10.2, Immature Gran % (Auto) 0.400, Neut % (Auto) 71.3 H, Lymph % (Auto) 15.4 L, Ralls % (Auto) 9.0, Eos % (Auto) 3.4, Baso % (Auto) 0.5, Absolute Neuts (auto) 5.3, Absolute Lymphs (auto) 1.15, Nucleated RBC % 0 02/17/22 05:26: Sodium 139, Potassium 3.5, Chloride 95 L, Carbon Dioxide 40.0 H, Anion Gap 4 L, BUN 15, Creatinine 1.10, Estim Creat Clear Calc 58.73, Est GFR (MDRD) Af Amer 85, Est GFR (MDRD) Non-Af 70, BUN/Creatinine Ratio 13.6, Glucose 103, Calcium 9.1, Magnesium 2.4 Micro: Microbiology 02/16/22 14:03 Fluid - Thoracentesis Fluid Gram Stain - Final 02/10/22 04:26 Sputum, Expectorated/Coughed Gram Stain - Final 02/10/22 04:26 Sputum, Expectorated/Coughed Respiratory Culture - Final Presumptive C albicans 02/10/22 15:39 Urine, Random Legionella Antigen - Final 02/10/22 15:39 Urine, Random Streptococcus pneumoniae Antigen (M - Final 02/09/22 04:40 Mucosa - Nose Respiratory Panel (PCR) - Final Radiography Diagnostic Testing: Radiology Impression Thoracentesis Ultrasound 02/15/22 15:33 IMPRESSION: Ultrasound-guided right thoracentesis. Electronically Signed: Jerry Morrow MD at 14:35 EDT , Chest X-Ray 02/16/22 13:45 IMPRESSION: No evidence of pneumothorax on the post right thoracentesis examination. Electronically Signed: Jerry Morrow MD at 14:58 EDT Reading Location ID and State: [address] [place] [address] , Service support , Rhythm Strip Rhythm Strip: Sinus Rhythm Rate: 61 Ectopy: - (Widened QRS) Physical Exam Narrative GENERAL: cooperative HEENT: Atraumatic; normocephalic EYES; Anicteric, Normal Conjunctiva NECK; supple, normal thyroid, RESPIRATORY: Diminished to auscultation CARDIOVASCULAR: Regular S1 S2, GI: soft, normoactive bowel sounds, : No Renal angle tenderness; EXTREMITIES: Trace bipedal edema, no clubbing, MUSCULOSKELETAL: no muscle wasting NEURO: Awake; no lateralizing signs. SKIN: No Rash PSYCH; Flat affect Assessment & Plan Assessment/Plan (1) Acute respiratory failure with hypoxia: (2) Hypertension: (3) Paroxysmal atrial fibrillation: PLAN: Plan Patient is a 71-year-old man admitted with progressive shortness of breath diagn osed with acute hypoxic respiratory failure secondary to acute on chronic diastolic heart failure with bilateral pleural effusion 1. Acute hypoxic respiratory failure ? Secondary to acute congestive heart failure managed with treatment of underlying condition as well as supplemental oxygen titrated to keep oxygen saturation greater than 90 3. Acute on chronic diastolic heart failure ? Managed with diuretics seen in consultation by cardiology 3. Bilateral pleural effusion ? Patient to undergo ultrasound-guided thoracocentesis 4. Paroxysmal A. fib ? Rate controlled with amiodarone. Patient is on apixaban currently being held in anticipation of his thoracocentesis 5. Hypertension - Blood pressure controlled, home medications continued with dose adjustment as needed 6. Hypokalemia ? Secondary to diuretics corrected per protocol with serial monitoring of electrolytes ordered 7. BPH ? Patient is on finasteride did continue 8. Class III obesity with BMI of 42.5 ? Weight loss advised 9. Obstructive sleep apnea ? CPAP at night 10. DVT prophylaxis ? Patient is on apixaban 11. Physical deconditioning - Requested for PT OT eval and social services technician to assist with discharge planning Charges/Coding Visit Charges Inpatient E&M: 37535 Subs Hosp L2
[2022-02-17] MEDS: Metoprolol(XL)Succ 200 MG Tablet PO (09:06)
[2022-02-17] MEDS: Allopurinol 100 MG Tablet PO (09:06)
[2022-02-17] MEDS: Finasteride 5 MG Tablet PO (09:06)
[2022-02-17] MEDS: Potassium Chloride Oral Tablet 20 MEQ PO (09:07)
[2022-02-17] MEDS: dilTIAZem CD 180 MG Capsule PO (09:07)
[2022-02-17] MEDS: Amiodarone 200 MG Tablet PO ×2 (09:07→21:32)
[2022-02-17] MEDS: guaiFENesin Dm 10 ML UDC PO ×2 (09:14→17:07)
--- NOTE | 2022-02-17 09:31 | PCM.PN.HOSP ---
Subjective Subjective Patient underwent ultrasound-guided thoracocentesis on 02/16/2022 with 520 mL of pleural fluid taken off. Repeat checks x-ray ordered for further evaluation. Patient had some pauses on the monitor the day prior. Objective Data Objective Data Vital Signs: Vital Signs Temp Pulse Resp BP Pulse Ox O2 Del Method O2 Flow Rate 97.8 F 86 18 138/69 H 88 Nasal Cannula 0 02/17/22 09:03 02/17/22 09:06 02/17/22 09:03 02/17/22 09:06 02/17/22 09:30 02/17/22 09:03 02/17/22 09:30 FiO2 70 02/17/22 03:23 Oxygen Flow Rate (L/min) [5] 7 Oxygen Flow Rate (L/min) [4] 7 Oxygen Flow Rate (L/min) [3] 7 Oxygen Flow Rate (L/min) [2] 7 Oxygen Flow Rate (L/min) [1 ( 7 Initial Baseline)] Oxygen Flow Rate (L/min) [ 2 AMBULATING with Oxygen #1] Oxygen Flow Rate (L/min) [At 2 REST with Oxygen] Oxygen Flow Rate (L/min) [At 0 REST on Room Air] Oxygen Flow Rate (L/min) 2 Oxygen Delivery Method [5] Nasal Cannula Oxygen Delivery Method [4] Nasal Cannula Oxygen Delivery Method [3] Nasal Cannula Oxygen Delivery Method [2] Nasal Cannula Oxygen Delivery Method [1 ( Nasal Cannula Initial Baseline)] Oxygen Delivery Method Nasal Cannula Weight: 123.4 kg Body Mass Index (BMI) 43.5 Intake & Output: Intake and Output for Last 24 Hours 02/15/22 02/16/22 02/17/22 23:59 23:59 23:59 Intake Total 1180.50 / 1180.50 970.57 / 970.57 50 / 50 Output Total 1475 / 1475 3120 / 3120 850 / 850 Balance -294.50 / -294.50 -2149.43 / -2149.43 -800 / -800 Lab / Micro Data Result Diagrams: 02/17/22 05:26 02/17/22 05:26 Labs: Laboratory Results - last 24 hr 02/16/22 05:50: Phosphorus 2.9 02/16/22 05:50: Magnesium 2.3 02/16/22 13:50: Fluid Glucose 137 H, Fluid Total Protein 3.5, Fluid LDH 121 02/16/22 14:02: Fluid Color Cancelled, Fluid Appearance Cancelled, Fluid WBC Cancelled 02/16/22 14:03: Fluid Source THORACENTESIS, Fluid Color YELLOW, Fluid Appearance CLOUDY, Fluid WBC 1.094, Fluid RBC 1560, Fluid Tot Cell Count 1.574, Fld Polynuclear WBCs # 0.074, Fld Polynuclear WBCs % 6.7, Fluid Mononuclear WBCs 1.020, Fld Mononuclear WBCs % 93.3, Fluid Neutrophils 3, Fluid Lymphocytes 32, Fluid Macrophages 65, Fl Pathologist Comment May follow, Fluid Comment 2 SEE COMMENT 02/17/22 05:26: WBC 7.5, RBC 4.67, Hgb 13.5, Hct 42.6, MCV 91.2, MCH 28.9, MCHC 31.7 L, RDW Std Deviation 47.8 H, RDW Coeff of Maci 14.2, Plt Count 219, MPV 10.2, Immature Gran % (Auto) 0.400, Neut % (Auto) 71.3 H, Lymph % (Auto) 15.4 L, Gibson % (Auto) 9.0, Eos % (Auto) 3.4, Baso % (Auto) 0.5, Absolute Neuts (auto) 5.3, Absolute Lymphs (auto) 1.15, Nucleated RBC % 0 02/17/22 05:26: Sodium 139, Potassium 3.5, Chloride 95 L, Carbon Dioxide 40.0 H, Anion Gap 4 L, BUN 15, Creatinine 1.10, Estim Creat Clear Calc 58.73, Est GFR (MDRD) Af Amer 85, Est GFR (MDRD) Non-Af 70, BUN/Creatinine Ratio 13.6, Glucose 103, Calcium 9.1, Magnesium 2.4 Micro: Microbiology 02/16/22 14:03 Fluid - Thoracentesis Fluid Gram Stain - Final 02/16/22 14:03 Fluid - Thoracentesis Fluid Body Fluid Culture - Preliminary No growth-Final to follow 02/10/22 04:26 Sputum, Expectorated/Coughed Gram Stain - Final 02/10/22 04:26 Sputum, Expectorated/Coughed Respiratory Culture - Final Presumptive C albicans 02/10/22 15:39 Urine, Random Legionella Antigen - Final 02/10/22 15:39 Urine, Random Streptococcus pneumoniae Antigen (M - Final 02/09/22 04:40 Mucosa - Nose Respiratory Panel (PCR) - Final Radiography Diagnostic Testing: Radiology Impression Thoracentesis Ultrasound 02/15/22 15:33 IMPRESSION: Ultrasound-guided right thoracentesis. Electronically Signed: Jerry Morrow MD at 14:35 EDT , Chest X-Ray 02/16/22 13:45 IMPRESSION: No evidence of pneumothorax on the post right thoracentesis examination. Electronically Signed: Jerry Morrow MD at 14:58 EDT , Rhythm Strip Rhythm Strip: Sinus Rhythm Rate: 61 Ectopy: - (Widened QRS) Physical Exam Narrative GENERAL: cooperative HEENT: Atraumatic; normocephalic EYES; Anicteric, Normal Conjunctiva NECK; supple, normal thyroid, RESPIRATORY: Diminished to auscultation CARDIOVASCULAR: Regular S1 S2, GI: soft, normoactive bowel sounds, : No Renal angle tenderness; EXTREMITIES: Trace bipedal edema, no clubbing, MUSCULOSKELETAL: no muscle wasting NEURO: Awake; no lateralizing signs. SKIN: No Rash PSYCH; Flat affect Assessment & Plan Assessment/Plan (1) Acute respiratory failure with hypoxia: (2) Hypertension: (3) Paroxysmal atrial fibrillation: PLAN: Plan Patient is a 71-year-old man admitted with progressive shortness of breath diagnosed with acute hypoxic respiratory failure secondary to acute on chronic diastolic heart failure with bilateral pleural effusion 1. Acute hypoxic respiratory failure ? Secondary to acute congestive heart failure managed with treatment of underlying condition as well as supplemental oxygen titrated to keep oxygen saturation greater than 90 -02/17/2022atient underwent ultrasound-guided thoracocentesis on 02/16/2022 with 520 mL of pleural fluid taken off. Repeat checks x-ray ordered for further evaluation. Patient had some pauses on the monitor the day prior. 3. Acute on chronic diastolic heart failure ? Managed with diuretics seen in consultation by cardiology 3. Bilateral pleural effusion ? Patient to undergo ultrasound-guided thoracocentesis 4. Paroxysmal A. fib ? Rate controlled with amiodarone. Patient is on apixaban currently being held in anticipation of his thoracocentesis 5. Hypertension - Blood pressure controlled, home medications continued with dose adjustment as needed 6. Hypokalemia ? Secondary to diuretics corrected per protocol with serial monitoring of electrolytes ordered 7. BPH ? Patient is on finasteride did continue 8. Class III obesity with BMI of 42.5 ? Weight loss advised 9. Obstructive sleep apnea ? CPAP at night 10. DVT prophylaxis ? Patient is on apixaban 11. Physical deconditioning - Requested for PT OT eval and web content & social media manager to assist with discharge planning Charges/Coding Visit Charges Inpatient E&M: 85025 Subs Hosp L2
--- NOTE | 2022-02-17 09:40 | RAD_ITS ---
STUDY: X-RAY CHEST REASON FOR EXAM: Male, 71 years old. Pleural effusion. TECHNIQUE: PA and lateral views of the chest. COMPARISON: Comparison is made with prior study 02/16/2022. FINDINGS: EKG electrodes are seen. Since prior study, there has been improved aeration at the left lung base. Mild residual bilateral pleural parenchymal changes slightly worse on the left side. Normal size heart. Normal mediastinum and niki. Normal visualized pulmonary arteries. There is atherosclerotic calcification of the aortic arch with tortuosity. There are diffuse degenerative changes of the visualized thoracic spine. Normal visualized ribs, clavicles, and shoulders. There is no demonstrated abnormality of the visualized soft tissue structures of the upper abdomen. RAD/Chest PA and Lateral IMPRESSION: Improved aeration at the lung bases with residual pleural parenchymal changes at the left lung base. Electronically Signed: Jerry Morrow MD at 14:49 EDT ,
--- NOTE | 2022-02-17 11:12 | CASEMGMT ---
Pt qualifies for 2L continuous home oxygen at discharge and only has [facility] coverage. Script and paperwork completed and faxed to [facility]. Call to Faiza at [facility] to notify of order and plan for pt d/c today, voices understanding. Faiza aware pt will need tank for discharge. Pt voices no further questions/concerns/needs for discharge. Pt has been independent in room. Afsaneh ERVIN CM
--- NOTE | 2022-02-17 14:56 | PN.CARD_ITS ---
Subjective Subjective Patient seen and evaluated. Appears to be doing much better today status postthoracentesis. Objective Data Vital Signs: Vital Signs Temp Pulse Resp BP Pulse Ox O2 Del Method O2 Flow Rate 97.9 F 62 16 125/55 H 94 Nasal Cannula 2 02/17/22 14:51 02/17/22 14:51 02/17/22 14:51 02/17/22 14:51 02/17/22 14:51 02/17/22 14:51 02/17/22 14:51 FiO2 70 02/17/22 09:35 Oxygen Flow Rate (L/min) [5] 7 Oxygen Flow Rate (L/min) [4] 7 Oxygen Flow Rate (L/min) [3] 7 Oxygen Flow Rate (L/min) [2] 7 Oxygen Flow Rate (L/min) [1 ( 7 Initial Baseline)] Oxygen Flow Rate (L/min) [ 2 AMBULATING with Oxygen #1] Oxygen Flow Rate (L/min) [At 2 REST with Oxygen] Oxygen Flow Rate (L/min) [At 0 REST on Room Air] Oxygen Flow Rate (L/min) 2 Oxygen Delivery Method [5] Nasal Cannula Oxygen Delivery Method [4] Nasal Cannula Oxygen Delivery Method [3] Nasal Cannula Oxygen Delivery Method [2] Nasal Cannula Oxygen Delivery Method [1 ( Nasal Cannula Initial Baseline)] Oxygen Delivery Method Nasal Cannula Weight: 272 lb 0.807 oz Body Mass Index (BMI) 43.5 Intake & Output: Intake and Output for Last 24 Hours 02/15/22 02/16/22 02/17/22 23:59 23:59 23:59 Intake Total 1180.50 / 1180.50 970.57 / 970.57 83.9 / 83.9 Output Total 1475 / 1475 3120 / 3120 850 / 850 Balance -294.50 / -294.50 -2149.43 / -2149.43 -766.1 / -766.1 Lab / Micro Data Result Diagrams: 02/17/22 05:26 02/17/22 05:26 Labs: Laboratory Results - last 24 hr 02/13/22 22:00: Ionized Calcium 5.3 02/14/22 10:00: Ionized Calcium 5.1 02/16/22 05:50: Magnesium 2.3 02/16/22 13:50: Fluid Glucose 137 H, Fluid Total Protein 3.5, Fluid LDH 121 02/16/22 14:03: Fluid Neutrophils 3, Fluid Lymphocytes 32, Fluid Macrophages 65 02/17/22 05:26: WBC 7.5, RBC 4.67, Hgb 13.5, Hct 42.6, MCV 91.2, MCH 28.9, MCHC 31.7 L, RDW Std Deviation 47.8 H, RDW Coeff of Maci 14.2, Plt Count 219, MPV 10.2, Immature Gran % (Auto) 0.400, Neut % (Auto) 71.3 H, Lymph % (Auto) 15.4 L, [place] % (Auto) 9.0, Eos % (Auto) 3.4, Baso % (Auto) 0.5, Absolute Neuts (auto) 5.3, Absolute Lymphs (auto) 1.15, Nucleated RBC % 0 02/17/22 05:26: Sodium 139, Potassium 3.5, Chloride 95 L, Carbon Dioxide 40.0 H, Anion Gap 4 L, BUN 15, Creatinine 1.10, Estim Creat Clear Calc 58.73, Est GFR (MDRD) Af Amer 85, Est GFR (MDRD) Non-Af 70, BUN/Creatinine Ratio 13.6, Glucose 103, Calcium 9.1, Magnesium 2.4 Micro: Microbiology 02/16/22 14:03 Fluid - Thoracentesis Fluid Gram Stain - Final 02/16/22 14:03 Fluid - Thoracentesis Fluid Body Fluid Culture - Preliminary No growth-Final to follow Rhythm Strip Rhythm Strip: Sinus Rhythm Rate: 61 Ectopy: - (Widened QRS) Cardiology Labs/Tests 02/13/22 22:00: Ionized Calcium 5.3 02/14/22 10:00: Ionized Calcium 5.1 02/16/22 05:50: Magnesium 2.3 02/17/22 05:26: WBC 7.5, RBC 4.67, Hgb 13.5, Hct 42.6, MCV 91.2, MCH 28.9, MCHC 31.7 L, Plt Count 219, MPV 10.2, Immature Gran % (Auto) 0.400, Neut % (Auto) 71.3 H, Lymph % (Auto) 15.4 L, [place] % (Auto) 9.0, Eos % (Auto) 3.4, Baso % (Auto) 0.5, Absolute Neuts (auto) 5.3, Nucleated RBC % 0 02/17/22 05:26: Sodium 139, Potassium 3.5, Chloride 95 L, Carbon Dioxide 40.0 H, Anion Gap 4 L, BUN 15, Creatinine 1.10, Est GFR (MDRD) Af Amer 85, Est GFR (MDRD) Non-Af 70, BUN/Creatinine Ratio 13.6, Glucose 103, Calcium 9.1, Magnesium 2.4 Rhythm: EKG: ECHO: Stress Test: Cardiac Cath: PCI: CT Surgery: Holter monitor: EPS: PPM: CXR: Chest CT Scan: Radiography Diagnostic Testing: Radiology Impression Chest X-Ray 02/16/22 13:45 IMPRESSION: No evidence of pneumothorax on the post right thoracentesis examination. Electronically Signed: Jerry Morrow MD at 14:58 EDT , Chest X-Ray 02/17/22 09:40 IMPRESSION: Improved aeration at the lung bases with residual pleural parenchymal changes at the left lung base. Electronically Signed: Jerry Morrow MD at 14:49 EDT , Physical Exam Const alert, oriented x3 and no apparent distress Constitutional Narrative: Patient is morbidly obese General Appearance: cooperative, well kempt and well developed Orientation / Consciousness: awake, oriented to person, oriented to place and oriented to time HEENT normocephalic and moist oral mucous membranes Eyes PERRL, EOMs intact bilaterally and conjunctivae normal Neck supple, no JVD, thyroid normal and no carotid bruits General: trachea midline Resp normal respiratory effort, no retractions and no use of accessory muscles Resp Narrative: Decreased breath sounds are noted at the bases. Auscultation: Negative for rales, rhonchi or wheezes Cardio regular rate, S1 normal heart sound, S2 normal heart sound, no murmurs, no rub and no gallops Rhythm: abnormal rhythm GI normal to inspection, nondistended, normoactive bowel sounds, soft to palpation, non-tender and non-distended Extremity no clubbing, cyanosis or edema Skin no rashes or lesions noted General Skin Exam: no breakdown Neuro oriented x3, CN's II-XII intact bilaterally, no focal motor deficits and no sensory deficits noted Sensorium / Orientation: awake and alert Speech: speech normal Psych affect normal Assessment & Plan Assessment/Plan (1) Paroxysmal atrial fibrillation: PLAN: He does have paroxysmal atrial fibrillation with a rapid ventricular respo nse rate and he was hypotensive and underwent DC cardioversion. He did revert back to atrial fibrillation and the plan at this time is to maintain his heart rate and anticoagulation holding it temporarily for the thoracentesis. We will still maintain him on the oral amiodarone for now. Further recommendations will be made. (2) CHF (congestive heart failure): PLAN: He does have evidence of diastolic heart failure. We would need to continue with supportive management at this time. He would also need continued diuretics. He may need at some point a repeat echocardiogram to reassess his ventricular function. (3) Hypertension: PLAN: He does have a history of hypertension which appears to be under decent control at this time. We will continue to monitor him.
[2022-02-17] MEDS: Furosemide 20 MG Tablet 60 MG PO (17:07)
[2022-02-17] MEDS: Tolterodine Tartrate 2 MG CAP.SA PO (21:32)
[2022-02-17] MEDS: Doxazosin 4 MG Tablet PO (21:32)
[2022-02-18] VITALS (11 sets, daily range): BP systolic 116–126; BP diastolic 60–63; PULSE 62–72; RESP 18–20; TEMP 36–36.2; O2SAT 87–96
[2022-02-18 05:44] LABS: Absolute Lymphocyte Count 1.11 X10^3/uL (0.83-4.51); Absolute Neutrophil Count 4.3 X10^3/uL (2.0-7.7); Basophil# 0.04 X10^3/uL; Basophil% 0.6 % (0-1); Eosinophil# 0.24 X10^3/uL; Eosinophils% 3.8 % (0-5); Hematocrit 42.8 % (40-54); Hemoglobin 13.9 g/dL (13.0-16.5); Lymphocyte # 1.11 X10^3/ul (0.83-4.51); Lymphocyte % 17.6 % (19-41); Mean Corp Hgb Conc 32.5 g/dL (32-36); Mean Corpuscular Hgb 29.8 pg (27.0-32.0); Mean Corpuscular Volume 91.8 fL (80-94); Monocyte# 0.59 X10^3/uL; Monocyte% 9.3 % (0-10); NRBC Flagged by Analyzer 0 % (0-5); Neutrophil # 4.31 X10^3/uL (2.7-7.7); Neutrophil % 68.2 % (47-70); Platelet Count 194 K/mm3 (150-450); RBC Distribution Width SD 47.5 fl (35.1-43.9); Red Blood Count 4.66 M/mm3 (4.6-6.2); White Blood Count 6.3 K/mm3 (4.4-11.0)
[2022-02-18 06:32] LABS: Anion Gap 5 (5-15); BUN 17 mg/dL (7-18); Calcium,Total 9.1 mg/dL (8.5-10.1); Chloride 95 mmol/L (98-107); Creatinine, Serum 1.13 mg/dL (0.70-1.30); EST Glomerular Filtration Rate 68 mL/min (>60); Est Glom Filt Rate - Afr Amer 82 mL/min (>60); Estimated Creatinine Clearance 57.17 ml/min; Glucose 110 mg/dL (74-106); Potassium 3.4 mmol/L (3.5-5.1); Sodium Level 138 mmol/L (136-145)
--- NOTE | 2022-02-18 07:44 | PN.HOSP_ITS ---
Subjective Subjective Patient seen breathing continues to improve. Patient will be assessed for discharge. He did qualify for home oxygen. Objective Data Objective Data Vital Signs: Vital Signs Temp Pulse Resp BP Pulse Ox O2 Del Method O2 Flow Rate 96.8 F L 72 20 H 116/62 96 Room Air 3 02/18/22 03:22 02/18/22 03:22 02/18/22 03:22 02/18/22 03:22 02/18/22 03:22 02/18/22 03:23 02/18/22 03:22 FiO2 70 02/18/22 03:22 Oxygen Flow Rate (L/min) [5] 7 Oxygen Flow Rate (L/min) [4] 7 Oxygen Flow Rate (L/min) [3] 7 Oxygen Flow Rate (L/min) [2] 7 Oxygen Flow Rate (L/min) [1 ( 7 Initial Baseline)] Oxygen Flow Rate (L/min) [ 2 AMBULATING with Oxygen #1] Oxygen Flow Rate (L/min) [At 2 REST with Oxygen] Oxygen Flow Rate (L/min) [At 0 REST on Room Air] Oxygen Flow Rate (L/min) 3 Oxygen Delivery Method [5] Nasal Cannula Oxygen Delivery Method [4] Nasal Cannula Oxygen Delivery Method [3] Nasal Cannula Oxygen Delivery Method [2] Nasal Cannula Oxygen Delivery Method [1 ( Nasal Cannula Initial Baseline)] Oxygen Delivery Method Room Air Weight: 120.9 kg Body Mass Index (BMI) 43.5 Intake & Output: Intake and Output for Last 24 Hours 02/16/22 02/17/22 02/18/22 23:59 23:59 23:59 Intake Total 970.57 / 970.57 1043.23 / 1043.23 150 / 150 Output Total 3120 / 3120 2275 / 2275 250 / 250 Balance -2149.43 / -2149.43 -1231.77 / -1231.77 -100 / -100 Lab / Micro Data Result Diagrams: 02/18/22 05:36 02/18/22 05:36 Labs: Laboratory Results - last 24 hr 02/13/22 22:00: Ionized Calcium 5.3 02/14/22 10:00: Ionized Calcium 5.1 02/18/22 05:36: WBC 6.3, RBC 4.66, Hgb 13.9, Hct 42.8, MCV 91.8, MCH 29.8, MCHC 32.5, RDW Std Deviation 47.5 H, RDW Coeff of Maci 14.0, Plt Count 194, MPV 10.0, Immature Gran % (Auto) 0.500, Neut % (Auto) 68.2, Lymph % (Auto) 17.6 L, [place] % (Auto) 9.3, Eos % (Auto) 3.8, Baso % (Auto) 0.6, Absolute Neuts (auto) 4.3, Absolute Lymphs (auto) 1.11, Nucleated RBC % 0 02/18/22 05:36: Sodium 138, Potassium 3.4 L, Chloride 95 L, Carbon Dioxide 38.0 H, Anion Gap 5, BUN 17, Creatinine 1.13, Estim Creat Clear Calc 57.17, Est GFR (MDRD) Af Amer 82, Est GFR (MDRD) Non-Af 68, BUN/Creatinine Ratio 15.0, Glucose 110 H, Calcium 9.1 Micro: Microbiology 02/16/22 14:03 Fluid - Thoracentesis Fluid Gram Stain - Final 02/16/22 14:03 Fluid - Thoracentesis Fluid Body Fluid Culture - Preliminary No growth-Final to follow 02/10/22 04:26 Sputum, Expectorated/Coughed Gram Stain - Final 02/10/22 04:26 Sputum, Expectorated/Coughed Respiratory Culture - Final Presumptive C albicans 02/10/22 15:39 Urine, Random Legionella Antigen - Final 02/10/22 15:39 Urine, Random Streptococcus pneumoniae Antigen (M - Final 02/09/22 04:40 Mucosa - Nose Respiratory Panel (PCR) - Final Radiography Diagnostic Testing: Radiology Impression Chest X-Ray 02/17/22 09:40 IMPRESSION: Improved aeration at the lung bases with residual pleural parenchymal changes at the left lung base. Electronically Signed: Jerry Morrow MD at 14:49 EDT , Rhythm Strip Rhythm Strip: Sinus Rhythm Rate: 61 Ectopy: - (Widened QRS) Physical Exam Narrative GENERAL: cooperative HEENT: Atraumatic; normocephalic EYES; Anicteric, Normal Conjunctiva NECK; supple, normal thyroid, RESPIRATORY: Diminished to auscultation CARDIOVASCULAR: Regular S1 S2, GI: soft, normoactive bowel sounds, : No Renal angle tenderness; EXTREMITIES: Trace bipedal edema, no clubbing, MUSCULOSKELETAL: no muscle wasting NEURO: Awake; no lateralizing signs. SKIN: No Rash PSYCH; Flat affect Assessment & Plan Assessment/Plan (1) Acute respiratory failure with hypoxia: (2) Hypertension: (3) Paroxysmal atrial fibrillation: PLAN: Plan Patient is a 71-year-old man admitted with progressive shortness of breath diagnosed with acute hypoxic respiratory failure secondary to acute on chronic diastolic heart failure with bilateral pleural effusion 1. Acute hypoxic respiratory failure ? Secondary to acute congestive heart failure managed with treatment of underlying condition as well as supplemental oxygen titrated to keep oxygen saturation greater than 90 ? 01/19/2022 patient did qualify for home oxygen he will need portability since he is active both in the community as well as at home 3. Acute on chronic diastolic heart failure ? Managed with diuretics seen in consultation by cardiology 3. Bilateral pleural effusion ? Patient to undergo ultrasound-guided thoracocentesis ? 01/18/2022 patient underwent thoracocentesis on 01/17/2022 4. Paroxysmal A. fib ? Rate controlled with amiodarone. Patient is on apixaban currently being held in anticipation of his thoracocentesis 5. Hypertension - Blood pressure controlled, home medications continued with dose adjustment as needed 6. Hypokalemia ? Secondary to diuretics corrected per protocol with serial monitoring of electrolytes ordered 7. BPH ? Patient is on finasteride did continue 8. Class III obesity with BMI of 42.5 ? Weight loss advised 9. Obstructive sleep apnea ? CPAP at night 10. DVT prophylaxis ? Patient is on apixaban 11. Physical deconditioning - Requested for PT OT eval and social work instructor to assist with discharge planning Charges/Coding Visit Charges Inpatient E&M: 11254 Subs Hosp L2
[2022-02-18] MEDS: Amiodarone 200 MG Tablet PO (09:08)
[2022-02-18] MEDS: dilTIAZem CD 180 MG Capsule PO (09:08)
[2022-02-18] MEDS: Potassium Chloride Oral Tablet 20 MEQ PO (09:09)
[2022-02-18] MEDS: Furosemide 20 MG Tablet 60 MG PO (09:09)
[2022-02-18] MEDS: Finasteride 5 MG Tablet PO (09:10)
[2022-02-18] MEDS: Metoprolol(XL)Succ 200 MG Tablet PO (09:10)
[2022-02-18] MEDS: Allopurinol 100 MG Tablet PO (09:11)
--- NOTE | 2022-02-18 09:14 | PCM.PN.CARD ---
Subjective Subjective Patient seen and evaluated Objective Data Vital Signs: Vital Signs Temp Pulse Resp BP Pulse Ox O2 Del Method O2 Flow Rate 97.2 F L 63 18 125/60 H 94 Nasal Cannula 2 02/18/22 09:05 02/18/22 09:10 02/18/22 09:05 02/18/22 09:10 02/18/22 09:05 02/18/22 09:05 02/18/22 09:05 FiO2 70 02/18/22 07:53 Oxygen Flow Rate (L/min) [5] 7 Oxygen Flow Rate (L/min) [4] 7 Oxygen Flow Rate (L/min) [3] 7 Oxygen Flow Rate (L/min) [2] 7 Oxygen Flow Rate (L/min) [1 ( 7 Initial Baseline)] Oxygen Flow Rate (L/min) [ 2 AMBULATING with Oxygen #1] Oxygen Flow Rate (L/min) [At 2 REST with Oxygen] Oxygen Flow Rate (L/min) [At 0 REST on Room Air] Oxygen Flow Rate (L/min) 2 Oxygen Delivery Method [5] Nasal Cannula Oxygen Delivery Method [4] Nasal Cannula Oxygen Delivery Method [3] Nasal Cannula Oxygen Delivery Method [2] Nasal Cannula Oxygen Delivery Method [1 ( Nasal Cannula Initial Baseline)] Oxygen Delivery Method Nasal Cannula Weight: 266 lb 8.622 oz Body Mass Index (BMI) 43.5 Intake & Output: Intake and Output for Last 24 Hours 02/16/22 02/17/22 02/18/22 23:59 23:59 23:59 Intake Total 970.57 / 970.57 1043.23 / 1043.23 150 / 150 Output Total 3120 / 3120 2275 / 2275 250 / 250 Balance -2149.43 / -2149.43 -1231.77 / -1231.77 -100 / -100 Lab / Micro Data Result Diagrams: 02/18/22 05:36 02/18/22 05:36 Labs: Laboratory Results - last 24 hr 02/13/22 22:00: Ionized Calcium 5.3 02/14/22 10:00: Ionized Calcium 5.1 02/18/22 05:36: WBC 6.3, RBC 4.66, Hgb 13.9, Hct 42.8, MCV 91.8, MCH 29.8, MCHC 32.5, RDW Std Deviation 47.5 H, RDW Coeff of Maci 14.0, Plt Count 194, MPV 10.0, Immature Gran % (Auto) 0.500, Neut % (Auto) 68.2, Lymph % (Auto) 17.6 L, [place] % (Auto) 9.3, Eos % (Auto) 3.8, Baso % (Auto) 0.6, Absolute Neuts (auto) 4.3, Absolute Lymphs (auto) 1.11, Nucleated RBC % 0 02/18/22 05:36: Sodium 138, Potassium 3.4 L, Chloride 95 L, Carbon Dioxide 38.0 H, Anion Gap 5, BUN 17, Creatinine 1.13, Estim Creat Clear Calc 57.17, Est GFR (MDRD) Af Amer 82, Est GFR (MDRD) Non-Af 68, BUN/Creatinine Ratio 15.0, Glucose 110 H, Calcium 9.1 Micro: Microbiology 02/16/22 14:03 Fluid - Thoracentesis Fluid Gram Stain - Final 02/16/22 14:03 Fluid - Thoracentesis Fluid Body Fluid Culture - Preliminary No growth-Final to follow Rhythm Strip Rhythm Strip: Sinus Rhythm Rate: 61 Ectopy: - (Widened QRS) Cardiology Labs/Tests 02/13/22 22:00: Ionized Calcium 5.3 02/14/22 10:00: Ionized Calcium 5.1 02/18/22 05:36: WBC 6.3, RBC 4.66, Hgb 13.9, Hct 42.8, MCV 91.8, MCH 29.8, MCHC 32.5, Plt Count 194, MPV 10.0, Immature Gran % (Auto) 0.500, Neut % (Auto) 68.2, Lymph % (Auto) 17.6 L, [place] % (Auto) 9.3, Eos % (Auto) 3.8, Baso % (Auto) 0.6, Absolute Neuts (auto) 4.3, Nucleated RBC % 0 02/18/22 05:36: Sodium 138, Potassium 3.4 L, Chloride 95 L, Carbon Dioxide 38.0 H, Anion Gap 5, BUN 17, Creatinine 1.13, Est GFR (MDRD) Af Amer 82, Est GFR (MDRD) Non-Af 68, BUN/Creatinine Ratio 15.0, Glucose 110 H, Calcium 9.1 Rhythm: EKG: ECHO: Stress Test: Cardiac Cath: PCI: CT Surgery: Holter monitor: EPS: PPM: CXR: Chest CT Scan: Radiography Diagnostic Testing: Radiology Impression Chest X-Ray 02/17/22 09:40 IMPRESSION: Improved aeration at the lung bases with residual pleural parenchymal changes at the left lung base. Electronically Signed: Jerry Morrow MD at 14:49 EDT , Physical Exam Const alert, oriented x3 and no apparent distress Constitutional Narrative: Patient is morbidly obese General Appearance: cooperative, well kempt and well developed Orientation / Consciousness: awake, oriented to person, oriented to place and oriented to time HEENT normocephalic and moist oral mucous membranes Eyes PERRL, EOMs intact bilaterally and conjunctivae normal Neck supple, no JVD, thyroid normal and no carotid bruits General: trachea midline Resp normal respiratory effort, no retractions and no use of accessory muscles Resp Narrative: Decreased breath sounds are noted at the bases. Auscultation: Negative for rales, rhonchi or wheezes Cardio regular rate, S1 normal heart sound, S2 normal heart sound, no murmurs, no rub and no gallops Rhythm: abnormal rhythm GI normal to inspection, nondistended, normoactive bowel sounds, soft to palpation, non-tender and non-distended Extremity no clubbing, cyanosis or edema Skin no rashes or lesions noted General Skin Exam: no breakdown Neuro oriented x3, CN's II-XII intact bilaterally, no focal motor deficits and no sensory deficits noted Sensorium / Orientation: awake and alert Speech: speech normal Psych affect normal Assessment & Plan Assessment/Plan (1) Paroxysmal atrial fibrillation: PLAN: He does have paroxysmal atrial fibrillation with a rapid ventricular response rate and he was hypotensive and underwent DC cardioversion. He did revert back to atrial fibrillation and the plan at this time is to maintain his heart rate.. We will still maintain him on the oral amiodarone for now. (2) CHF (congestive heart failure): PLAN: He does have evidence of diastolic heart failure. We would need to continue with supportive management at this time. He would also need continued diuretics. He may need at some point a repeat echocardiogram to reassess his ventricular function. (3) Hypertension: PLAN: He does have a history of hypertension which appears to be under decent control at this time. We will continue to monitor him.
--- NOTE | 2022-02-18 09:18 | PCM.DC.SUM ---
Providers Date of Admission: 02/08/22 Date of Discharge: 02/18/22 Primary Care Physician: Consultations 02/09/22 03:42 Consult: Program Proposals Coordinator / Pulmonary Medicine Routine Consulting Provider: Cong Cuenca Reason for Consult: Worsening hypoxia, Suspected CHF Exac, persistent tachycardia. EMERGENT Consult: No Notified: Yes Date Notified: 02/09/22 Time Notified: 02:10 Method of Notification: Text 02/09/22 06:34 Consult: Cardiology Routine Consulting Provider: Miguel Zaman Reason for Consult: CHF Exacerbation, Respiratory Failure, Wide complex tachycardia EMERGENT Consult: No MD Notified: Yes Date Notified: 02/09/22 Time Notified: 06:34 Method of Notification: call attempt/text Reason For Visit: ACUTE CHF EXACERBATION, HYPOXIA Diagnosis Discharge Diagnosis (1) Acute respiratory failure with hypoxia: Status: Acute Code(s): J96.01 - Acute respiratory failure with hypoxia (2) Hypertension: Status: Chronic Code(s): I10 - Essential (primary) hypertension (3) Paroxysmal atrial fibrillation: Status: Acute Code(s): I48.0 - Paroxysmal atrial fibrillation Plan Patient is a 71-year-old man admitted with progressive shortness of breath diagnosed with acute hypoxic respiratory failure secondary to acute on chronic diastolic heart failure with bilateral pleural effusion 1. Acute hypoxic respiratory failure ? Secondary to acute congestive heart failure managed with treatment of underlying condition as well as supplemental oxygen titrated to keep oxygen saturation greater than 90 ? 01/19/2022 patient did qualify for home oxygen he will need portability since he is active both in the community as well as at home 3. Acute on chronic diastolic heart failure ? Managed with diuretics seen in consultation by cardiology 3. Bilateral pleural effusion ? Patient to undergo ultrasound-guided thoracocentesis ? 01/18/2022 patient underwent thoracocentesis on 01/17/2022 4. Paroxysmal A. fib ? Rate controlled with amiodarone. Patient is on apixaban currently being held in anticipation of his thoracocentesis 5. Hypertension - Blood pressure controlled, home medications continued with dose adjustment as needed 6. Hypokalemia ? Secondary to diuretics corrected per protocol with serial monitoring of electrolytes ordered 7. BPH ? Patient is on finasteride did continue 8. Class III obesity with BMI of 42.5 ? Weight loss advised 9. Obstructive sleep apnea ? CPAP at night 10. DVT prophylaxis ? Patient is on apixaban 11. Physical deconditioning - Requested for PT OT eval and social worker school to assist with discharge planning Medications at Discharge Home Medications acetaminophen 325 mg tablet (Tylenol) 650 mg PO TID PRN HIP PAIN 12/30/21 allopurinol 100 mg tablet 100 mg PO DAILY GOUT 12/30/21 cholecalciferol (vitamin D3) 50 mcg (2,000 unit) tablet 100 mcg PO DAILY SUPPLEMENT 12/30/21 finasteride 5 mg tablet 5 mg PO DAILY PROSTATE 12/30/21 lisinopril 30 mg tablet 30 mg PO BID BP 12/30/21 metoprolol succinate 200 mg tablet,extended release 24 hr 200 mg PO DAILY HEART 12/30/21 salsalate 750 mg tablet 750 mg PO BID PRN Pain 12/30/21 terazosin 5 mg capsule 5 mg PO QHS PROSTATE 12/30/21 trospium 20 mg tablet 20 mg PO QHS OAB 12/30/21 amiodarone 200 mg tablet 200 mg PO BID #14 tabs 01/03/22 apixaban 5 mg tablet (Eliquis) 5 mg PO BID #60 tabs 01/03/22 diltiazem HCl 120 mg capsule,extended release 24 hr 120 mg PO Q12 #60 caps 01/03/22 furosemide 20 mg tablet 60 mg PO BIDLX 60 days #360 tabs 02/18/22 potassium chloride 20 mEq tablet,extended release(part/cryst) (Klor-Con M) 20 meq PO BIDCM SUPPLEMENT #120 tabs 02/18/22 Physical Exam Narrative GENERAL: cooperative HEENT: Atraumatic; normocephalic EYES; Anicteric, Normal Conjunctiva NECK; supple, normal thyroid, RESPIRATORY: Diminished to auscultation CARDIOVASCULAR: Regular S1 S2, GI: soft, normoactive bowel sounds, : No Renal angle tenderness; EXTREMITIES: Trace bipedal edema, no clubbing, MUSCULOSKELETAL: no muscle wasting NEURO: Awake; no lateralizing signs. SKIN: No Rash PSYCH; Flat affect Weight / BMI Weight Weight: 120.9 kg Body Mass Index (BMI) 43.5 ABG / Lab / Microbiology Data Result Diagrams: 02/18/22 05:36 02/18/22 05:36 Laboratory: Laboratory Results - last 24 hr 02/13/22 22:00: Ionized Calcium 5.3 02/14/22 10:00: Ionized Calcium 5.1 02/18/22 05:36: WBC 6.3, RBC 4.66, Hgb 13.9, Hct 42.8, MCV 91.8, MCH 29.8, MCHC 32.5, RDW Std Deviation 47.5 H, RDW Coeff of Maci 14.0, Plt Count 194, MPV 10.0, Immature Gran % (Auto) 0.500, Neut % (Auto) 68.2, Lymph % (Auto) 17.6 L, [place] % (Auto) 9.3, Eos % (Auto) 3.8, Baso % (Auto) 0.6, Absolute Neuts (auto) 4.3, Absolute Lymphs (auto) 1.11, Nucleated RBC % 0 02/18/22 05:36: Sodium 138, Potassium 3.4 L, Chloride 95 L, Carbon Dioxide 38.0 H, Anion Gap 5, BUN 17, Creatinine 1.13, Estim Creat Clear Calc 57.17, Est GFR (MDRD) Af Amer 82, Est GFR (MDRD) Non-Af 68, BUN/Creatinine Ratio 15.0, Glucose 110 H, Calcium 9.1 Microbiology: Microbiology 02/16/22 14:03 Fluid - Thoracentesis Fluid Gram Stain - Final 02/16/22 14:03 Fluid - Thoracentesis Fluid Body Fluid Culture - Preliminary No growth-Final to follow 02/10/22 04:26 Sputum, Expectorated/Coughed Gram Stain - Final 02/10/22 04:26 Sputum, Expectorated/Coughed Respiratory Culture - Final Presumptive C albicans 02/10/22 15:39 Urine, Random Legionella Antigen - Final 02/10/22 15:39 Urine, Random Streptococcus pneumoniae Antigen (M - Final 02/09/22 04:40 Mucosa - Nose Respiratory Panel (PCR) - Final Radiography Diagnostic Testing: Radiology Impression Chest X-Ray 02/17/22 09:40 IMPRESSION: Improved aeration at the lung bases with residual pleural parenchymal changes at the left lung base. Electronically Signed: Jerry Morrow MD at 14:49 EDT , D/C Instructions Discharge Diet: 8 Cup Fluid Restriction and 2000 mg Sodium Diet Discharge Activity: Return to Normal Activity Call your doctor if you observe: Fever of 101 or Higher, Shortness of breath, Fainting spells and Chest pain Meaningful Use Info Meaningful Use Diagnoses (Choose all that apply): CHF CHF LM/ARB ordered at discharge?: Yes Documented LVEF (%): 55 Discharge Plan Admission Admit Date/Time: 02/08/22 21:33 Attending Provider: Duncan Anderson Primary Care Provider: [facility],[place] Consulting Providers: Meme Valerio ; Miguel Zaman ; Cong Cuenca ; Angel Hollis Instructions Patient Instructions: RAD RN Thoracentesis Dc Discharge Orders/Prescriptions Prescriptions: New furosemide 20 mg Tablet 60 mg PO BIDLX 60 Days Qty: 360 0RF Continued terazosin 5 mg Capsule 5 mg PO QHS acetaminophen [Tylenol] 325 mg Tablet 650 mg PO TID PRN (Reason: HIP PAIN) metoprolol succinate 200 mg Tablet Extended Release 24 Hr 200 mg PO DAILY allopurinol 100 mg Tablet 100 mg PO DAILY lisinopril 30 mg Tablet 30 mg PO BID Hold Instructions: Resume on 01/03/22. Until BP can be re-evaluated as outpt with additional rate controlling medication salsalate 750 mg Tablet 750 mg PO BID PRN (Reason: Pain) finasteride 5 mg Tablet 5 mg PO DAILY trospium 20 mg Tablet 20 mg PO QHS Rx Instructions: administer on an empty stomach cholecalciferol (vitamin D3) 50 mcg (2,000 unit) Tablet 100 mcg PO DAILY amiodarone 200 mg Tablet 200 mg PO BID Qty: 14 0RF Eliquis 5 mg Tablet 5 mg PO BID Qty: 60 0RF diltiazem HCl 120 mg Capsule,Extended Release 24hr 120 mg PO Q12 Qty: 60 0RF Changed potassium chloride [Klor-Con M20] 20 mEq Tablet,Er Particles/Crystals 20 meq PO BIDCM Qty: 120 0RF Discontinued furosemide [Lasix] 40 mg tablet 40 mg PO DAILY Qty: 30 0RF Rx Instructions: start on 01/05/2022 Referrals / [facility] [[facility] - Within 2 Weeks Disposition Disposition (needs filled in before D/C Order can be placed): Home, Self Care
--- NOTE | 2022-02-18 09:30 | CASEMGMT ---
Pt referred to [facility] pt link program for d/c. Afsaneh ERVIN CM
[2022-02-18 09:39] LABS: Pathologist Comment/Body Fluid Reviewed
--- NOTE | 2022-02-18 09:49 | PHA.DC.MR ---
Pharmacy Service has performed discharge medication reconciliation for this patient. The patient's discharge medication list was reviewed for discrepancies and discrepancies were resolved. Home Medications acetaminophen 325 mg tablet (Tylenol) 650 mg PO TID PRN HIP PAIN 12/30/21 allopurinol 100 mg tablet 100 mg PO DAILY GOUT 12/30/21 cholecalciferol (vitamin D3) 50 mcg (2,000 unit) tablet 100 mcg PO DAILY SUPPLEMENT 12/30/21 finasteride 5 mg tablet 5 mg PO DAILY PROSTATE 12/30/21 lisinopril 30 mg tablet 30 mg PO BID BP 12/30/21 metoprolol succinate 200 mg tablet,extended release 24 hr 200 mg PO DAILY HEART 12/30/21 salsalate 750 mg tablet 750 mg PO BID PRN Pain 12/30/21 terazosin 5 mg capsule 5 mg PO QHS PROSTATE 12/30/21 trospium 20 mg tablet 20 mg PO QHS OAB 12/30/21 amiodarone 200 mg tablet 200 mg PO BID #14 tabs 01/03/22 apixaban 5 mg tablet (Eliquis) 5 mg PO BID #60 tabs 01/03/22 diltiazem HCl 120 mg capsule,extended release 24 hr 120 mg PO Q12 #60 caps 01/03/22 furosemide 20 mg tablet 60 mg PO BIDLX 60 days #360 tabs 02/18/22 potassium chloride 20 mEq tablet,extended release(part/cryst) (Klor-Con M) 20 meq PO BIDCM SUPPLEMENT #120 tabs 02/18/22
[2022-02-18] MEDS: Potassium Chloride Oral Tablet 20 MEQ 40 MEQ PO (10:09)
[2022-02-18] MEDS: Potassium Chloride 10mEq/100mL 10 MEQ/100 ML IV.SOLN. 100 MEQ IV BOLUS (10:17)
[2022-02-18] MEDS: 0.9% Saline Lock 10 ML Syringe IV (11:18)
[2022-02-21 10:29] LABS: pH, Body Fluid 11254 7.4 (Not Estab.)
== END 2022-02-18 15:06 | disposition home or self-care (01) | DRG 291 ==
LOC: ED 20:44 → PCU 21:34 → ICU 02-09 02:53 → PCU 02-10 15:59
PROVIDERS: Internal Medicine; Internal Medicine Critical Care Medicine; Admitting Provider Family Medicine; Emergency Provider Emergency Medicine; Visit Provider Internal Medicine
DX: I13.0 Hypertensive heart and chronic kidney disease with heart failure and stage 1 through stage 4 chronic kidney disease, or unspecified chronic kidney disease (principal); I50.33 Acute on chronic diastolic (congestive) heart failure; J96.01 Acute respiratory failure with hypoxia; Z68.41 Body mass index [BMI] 40.0-44.9, adult; J91.8 Pleural effusion in other conditions classified elsewhere; I48.0 Paroxysmal atrial fibrillation; E66.01 Morbid (severe) obesity due to excess calories; N18.30 Chronic kidney disease, stage 3 unspecified; E78.00 Pure hypercholesterolemia, unspecified; G47.33 Obstructive sleep apnea (adult) (pediatric); M10.9 Gout, unspecified; E87.6 Hypokalemia; Z79.01 Long term (current) use of anticoagulants; Z87.891 Personal history of nicotine dependence; Z23 Encounter for immunization; Z79.899 Other long term (current) drug therapy; Z79.82 Long term (current) use of aspirin; N40.0 Benign prostatic hyperplasia without lower urinary tract symptoms; Z91.199 Patient's noncompliance with other medical treatment and regimen due to unspecified reason
CPT/HCPCS: 32555; 36415; 36600; 71045; 71046; 71275; 80047; 80048; 80053; 80061; 82803; 82945; 83615; 83735; 83880; 83986; 84100; 84145; 84156; 84157; 84443; 84484; 85025; 85610; 85730; 87070; 87075; 87205; 87449; 87633; 87641; 88108; 88305; 88313; 89050; 93005; 94002; 94640; 94762; 97162; 97166; 97530; 97802; 97803; 99285; J7040; J7050; Q9967; 90686; A4216; J1940

== ENCOUNTER 2022-04-08 17:21 | Inpatient (IN) | payer OTHER, SELFPAY ==
[2022-04-08] VITALS (20 sets, daily range): BP systolic 136–193; BP diastolic 78–174; PULSE 99–147; RESP 19–25; TEMP 36.4–36.9; O2SAT 90–95; BMI 43.3; BMI 41.6
--- NOTE | 2022-04-08 17:27 | EKG12_ITS ---
Test Reason : CP Blood Pressure : / mmHG Vent. Rate : 114 BPM Atrial Rate : 101 BPM P-R Int : 000 ms QRS Dur : 154 ms QT Int : 322 ms P-R-T Axes : 000 008 186 degrees QTc Int : 443 ms Atrial fibrillation Left bundle branch block Abnormal ECG Confirmed by HERNÁN KAUFFMAN, VALERIANO ([id number]), assistant production editor LOUIS GILMAN ([id number]) on 04/13/2022 11:47:45 AM Referred By: Confirmed By:VALERIANO JIM MD
[2022-04-08 17:58] LABS: Absolute Lymphocyte Count 1.17 X10^3/uL (0.83-4.51); Absolute Neutrophil Count 6.6 X10^3/uL (2.0-7.7); Basophil# 0.06 X10^3/uL; Basophil% 0.7 % (0-1); Eosinophil# 0.11 X10^3/uL; Eosinophils% 1.2 % (0-5); Hematocrit 47.8 % (40-54); Hemoglobin 15.2 g/dL (13.0-16.5); Lymphocyte # 1.17 X10^3/ul (0.83-4.51); Lymphocyte % 13.1 % (19-41); Mean Corp Hgb Conc 31.8 g/dL (32-36); Mean Corpuscular Hgb 29.1 pg (27.0-32.0); Mean Corpuscular Volume 91.4 fL (80-94); Mean Platelet Vol. 10.5 fl (6.2-12.0); Monocyte# 0.93 X10^3/uL; Monocyte% 10.4 % (0-10); NRBC Flagged by Analyzer 0 % (0-5); Neutrophil # 6.64 X10^3/uL (2.7-7.7); Neutrophil % 74.3 % (47-70); Platelet Count 307 K/mm3 (150-450); RBC Distribution Width CV 14.4 % (11.6-14.6); RBC Distribution Width SD 48.5 fl (35.1-43.9); Red Blood Count 5.23 M/mm3 (4.6-6.2); White Blood Count 8.9 K/mm3 (4.4-11.0)
[2022-04-08 18:08] LABS: Anion Gap 4 (5-15); BUN 13 mg/dL (7-18); Calcium,Total 9.3 mg/dL (8.5-10.1); Chloride 98 mmol/L (98-107); Creatinine, Serum 1.18 mg/dL (0.70-1.30); EST Glomerular Filtration Rate 64 mL/min (>60); Est Glom Filt Rate - Afr Amer 78 mL/min (>60); Estimated Creatinine Clearance 54.75 ml/min; Glucose 131 mg/dL (74-106); Potassium 3.6 mmol/L (3.5-5.1); Sodium Level 139 mmol/L (136-145)
[2022-04-08] MEDS: dilTIAZem 25 MG/5 ML Vial 10 MG IV BOLUS (18:08)
--- NOTE | 2022-04-08 18:15 | RAD_ITS ---
EXAM: XR CHEST, 2 VIEWS CLINICAL INDICATION: Bibasilar rales, pedal edema, dyspnea TECHNIQUE: Frontal and lateral views of the chest. This report was created using [employer] report generation technology. COMPARISON: 02/17/2022 FINDINGS: LUNGS AND PLEURAL SPACES: There are bilateral pleural effusions larger on the left than on the right. There is bibasilar airspace disease represent atelectasis or pneumonia. No pneumothorax. HEART: Unremarkable. Cardiac silhouette not enlarged. MEDIASTINUM: Central airways and mediastinal contour are unremarkable. BONES/JOINTS: Unremarkable. SOFT TISSUES: Unremarkable. RAD/Chest PA and Lateral IMPRESSION: Bilateral pleural effusions with bilateral lower lobe air space disease greater on the left than on the right may represent atelectasis or pneumonia. Electronically Signed: Brian Mathews MD at 18:30 EST ,
--- NOTE | 2022-04-08 18:19 | ED.VIS.DYS ---
HPI History of Present Illness Chief Complaint: Shortness of Breath Detail of Chief Complaint: Shortness of breath that started last Informant: patient and spouse/S.O. Onset/Context/Timing Onset: Days Context: gradual Timing: Continuous and Waxes and wanes Quality: Positive for Dyspnea on exertion and Orthopnea; Negative for PND or Wheezing Current Severity: Mild Maximum Severity: Moderate Worsened by: Exertion and Lying flat Relieved by: Nothing Associated Symptoms cough; Negative for rhinorrhea, post nasal drip, ear pain, fever, sore throat, subjective, chills, sweats, clear sputum, white sputum, yellow sputum or green sputum Chest Pain: Positive for None Narrative Narrative: Patient is a 71-year-old male with history of chronic A. fib on regulant who had an outpatient CAT scan at the [place] this past . The CAT scan was obtained because of chronic dyspnea and orthopnea. The CT revealed bilateral pleural effusions. He denies chest tightness or heaviness. He denies exertional chest discomfort. He does report increased shortness of breath with activity. This has been a chronic issue. Slightly worse the past week. Has had increased swelling of his lower extremities. He has not slept in a bed for several months because of shortness of breath when he is flat. He denies fever, chills night sweats. He denies upper respiratory infectious symptoms. He denies GI symptoms. He is on diltiazem for his chronic A. fib for rate control and is on furosemide 20 mg as well. He states he has been compliant with his medication. PE Risk Factors: Negative for Cancer, OCP + Smoking + > 35, Prior DVT or PE, Recent immobilization, Recent surgery or Recent travel Prior similar symptoms: Yes (Congestive heart failure) Recent Illness/[facility]ospital[facility]: [facility] Medical History BPH (benign prostatic hyperplasia) Colon cancer Former smoker Gout Hyperglycemia Hypertension Morbid obesity Osteoarthritis PAF (paroxysmal atrial fibrillation) Sleep apnea Urinary incontinence Home Medications acetaminophen 325 mg tablet (Tylenol) 650 mg PO TID PRN HIP PAIN 12/30/21 [History Last Taken 12/29/21] allopurinol 100 mg tablet 100 mg PO DAILY GOUT 12/30/21 [History Last Taken 12/30/21] cholecalciferol (vitamin D3) 50 mcg (2,000 unit) tablet 100 mcg PO DAILY SUPPLEMENT 12/30/21 [History Last Taken 12/30/21] finasteride 5 mg tablet 5 mg PO DAILY PROSTATE 12/30/21 [History Last Taken 12/30/21] lisinopril 30 mg tablet 30 mg PO BID BP 12/30/21 [History Last Taken 12/30/21] metoprolol succinate 200 mg tablet,extended release 24 hr 200 mg PO DAILY HEART 12/30/21 [History Last Taken 12/30/21] salsalate 750 mg tablet 750 mg PO BID PRN Pain 12/30/21 [History Last Taken 12/29/21] terazosin 5 mg capsule 5 mg PO QHS PROSTATE 12/30/21 [History Last Taken 12/29/21] trospium 20 mg tablet 20 mg PO QHS OAB 12/30/21 [History Last Taken 12/29/21] amiodarone 200 mg tablet 200 mg PO BID #14 tabs 01/03/22 [Rx Last Taken Unknown] apixaban 5 mg tablet (Eliquis) 5 mg PO BID #60 tabs 01/03/22 [Rx Last Taken Unknown] diltiazem HCl 120 mg capsule,extended release 24 hr 120 mg PO Q12 #60 caps 01/03/22 [Rx Last Taken Unknown] potassium chloride 20 mEq tablet,extended release(part/cryst) (Klor-Con M) 20 meq PO BIDCM SUPPLEMENT #120 tabs 02/18/22 [Rx Last Taken Unknown] furosemide 20 mg tablet 20 mg PO BID 04/08/22 [History Last Taken Unknown] Allergy/AdvReac Type Severity Reaction Status Date / Time codeine Allergy Itching Verified 04/08/22 17:21 Family History Mother CVA (cerebral vascular accident) Diabetes Heart disease Hypertension Father CVA (cerebral vascular accident) Diabetes Heart disease Hypertension Surgical History History of ankle surgery History of partial colectomy History of tonsillectomy and adenoidectomy Hx of appendectomy S/P ear surgery Social History household members: significant other Smoking Status: Former smoker alcohol intake: current alcohol intake frequency: a few times a month substance use type: does not use ROS ROS ED Constitutional Constitutional ED: Denies chills, fever(s), sweats or weight loss Eyes Eyes: Denies blurry vision, change in vision or diplopia ENT ENT ED: Denies ear pain, rhinorrhea or sore throat Cardiovascular Cardiovascular: Reports orthopnea, palpitations and racing heartbeat; Denies chest pain or paroxysmal nocturnal dyspnea Respiratory/Chest Respiratory/Chest: Reports dyspnea, dyspnea on exertion and orthopnea; Denies cough or paroxysmal nocturnal dyspnea Gastrointestinal Gastrointestinal: Denies abdominal pain, constipation, diarrhea, melena, nausea or vomiting Genitourinary Genitourinary ED: Denies dysuria, hematuria or urinary frequency Musculoskeletal Musculoskeletal: Denies arthralgias, back pain, myalgias or neck pain Integumentary Denies abscess, Abrasions or rash Neurologic Neurologic: Denies headache(s), paresthesias or weakness Endocrine Endocrinology: Denies cold intolerance or heat intolerance Hematologic/Lymphatic Hematologic/Lymphatic: Denies easy bleeding or easy bruising EXAM Physical Exam Const Vital Signs: 04/08/22 17:22 04/08/22 17:46 04/08/22 17:46 Temperature 97.5 F L Temperature Source Temporal Pulse Rate 102 H Respiratory Rate 24 H Respiratory Effort Respiratory Depth Respiratory Pattern Blood Pressure 153/98 H Blood Pressure Mean 116 Pulse Ox 91 92 Oxygen Delivery Method Nasal Cannula Nasal Cannula Oxygen Flow Rate (L/min) 2 2 04/08/22 17:49 04/08/22 18:09 04/08/22 18:38 Temperature Temperature Source Pulse Rate 125 H 105 H Respiratory Rate 22 H 23 H Respiratory Effort Short of Breath Respiratory Depth Normal Respiratory Pattern Normal Blood Pressure 143/98 H Blood Pressure Mean 113 Pulse Ox 94 92 Oxygen Delivery Method Nasal Cannula Nasal Cannula Nasal Cannula Oxygen Flow Rate (L/min) 2 2 2 04/08/22 18:57 04/08/22 19:00 Temperature Temperature Source Pulse Rate 115 H 111 H Respiratory Rate 23 H Respiratory Effort Respiratory Depth Respiratory Pattern Blood Pressure 156/78 H Blood Pressure Mean 104 Pulse Ox 91 Oxygen Delivery Method Nasal Cannula Oxygen Flow Rate (L/min) 2 Positive well nourished, well developed and obese; Negative for cachectic or contractures Constitutional Narrative: Patient is on chronic oxygen 2 L. He does not have central cyanosis. Scapula refill slightly delayed. General Appearance ED: well developed; Negative for cachectic, contractures, NAD or pallor Nutritional Appearance: obese; Negative for cachectic HEENT Reports moist mucous membranes HEENT Narrative: Head is atraumatic and normocephalic. Ears normal. Nares patent. Uvula midline. No deviation with protrusion. atraumatic Eyes PERRL and EOMs intact bilaterally Neck no lymphadenopathy, supple, no meningeal signs and no JVD Resp normal respiratory effort and No clear to auscultation bilaterally Auscultation: rales bilateral base Cardio no murmurs Rate: tachycardic Rhythm: abnormal rhythm irregularly irregular GI non-tender, non-distended and no masses GI Narrative: Large surgical scar due to bowel resection. The incision is well-healed. Back/Spine no CVA tenderness and normal to inspection Extremity Negative for normal to inspection General Extremety ED: Yes edema; Negative for tenderness General Extremity: edema Neuro oriented x3, CN's II-XII intact bilaterally and no sensory deficits noted Hebert Coma Scale: document GCS findings Spontaneous Obeys Commands Oriented 15 Sensorium / Orientation: alert Motor Exam: strength 5/5 throughout Psych mental status grossly normal Skin no wounds and skin turgor normal General Skin Exam: Negative for jaundice or pallor Lesions: no lesions Rashes: no rashes MDM MDM MDM Narrative Medical decision making narrative: Patient has symptoms of congestive heart failure suspect due to A. fib with RVR. EKG was obtained to rule out cardiac ischemia. Chest x-ray to confirm suspicion for congestive heart failure. BMP to assess renal function, electrolytes and specifically potassium since he is on loop diuretic. CBC to rule out anemia as cause of his dyspnea and to evaluate for white count. Troponin and BNP was ordered as well. This was obtained to confirm suspicion for heart failure and rule out recent ischemia as etiology since it has gotten worse over the past 6 days. Patient received 40 mg of Lasix. His heart rate has improved. Will discuss case with hospitalist for admission Lab Data Attestation: I reviewed the patient's lab results. Lab results narrative: CBC is unremarkable. Base Emperatriz panel reveals elevated CO2. Anion was normal. Labs: Laboratory Results - last 24 hr 04/08/22 04/08/22 04/08/22 17:45 17:45 17:45 WBC 8.9 RBC 5.23 Hgb 15.2 Hct 47.8 MCV 91.4 MCH 29.1 MCHC 31.8 L RDW Std Deviation 48.5 H RDW Coeff of Maci 14.4 Plt Count 307 MPV 10.5 Immature Gran % (Auto) 0.300 Neut % (Auto) 74.3 H Lymph % (Auto) 13.1 L Hall % (Auto) 10.4 H Eos % (Auto) 1.2 Baso % (Auto) 0.7 Absolute Neuts (auto) 6.6 Absolute Lymphs (auto) 1.17 Nucleated RBC % 0 Sodium 139 Potassium 3.6 Chloride 98 Carbon Dioxide 37.0 H Anion Gap 4 L BUN 13 Creatinine 1.18 Estim Creat Clear Calc 54.75 Est GFR (MDRD) Af Amer 78 Est GFR (MDRD) Non-Af 64 BUN/Creatinine Ratio 11.0 Glucose 131 H Calcium 9.3 Troponin I High Sens 12 B-Natriuretic Peptide 04/08/22 17:45 WBC RBC Hgb Hct MCV MCH MCHC RDW Std Deviation RDW Coeff of Maci Plt Count MPV Immature Gran % (Auto) Neut % (Auto) Lymph % (Auto) Hall % (Auto) Eos % (Auto) Baso % (Auto) Absolute Neuts (auto) Absolute Lymphs (auto) Nucleated RBC % Sodium Potassium Chloride Carbon Dioxide Anion Gap BUN Creatinine Estim Creat Clear Calc Est GFR (MDRD) Af Amer Est GFR (MDRD) Non-Af BUN/Creatinine Ratio Glucose Calcium Troponin I High Sens B-Natriuretic Peptide 831.6 H Radiography Chest X-Ray - ED: 2 View, Read by ED Physician, Heart, Mediastinum, Right Effusion and Left Effusion (Left effusion is greater than right. There is very hilar congestion. Limited inspiratory volume noted.) Diagnostic Testing: Clinical Impression(s) from Imaging Studies Chest X-Ray 04/08/22 18:15 IMPRESSION: Bilateral pleural effusions with bilateral lower lobe air space disease greater on the left than on the right may represent atelectasis or pneumonia. Electronically Signed: Brian Mathews MD at 18:30 EST , EKG Initial EKG: Interpretation: Atrial Fibrillation (Ventricular rate is 114. There is evidence of left bundle branch block. QRS duration is 154 ms. QT duration 222 ms. [place] is normal.) Discharge Plan Triage Chief Complaint: Shortness of Breath ED Provider: Som Carlos Dx/Rx/DC Orders Clinical Impression: Atrial fibrillation with rapid ventricular response, Acute exacerbation of CHF (congestive heart failure), Bilateral pleural effusion, Hypertension, Sleep apnea Prescriptions: No Action terazosin 5 mg Capsule 5 mg PO QHS acetaminophen [Tylenol] 325 mg Tablet 650 mg PO TID PRN (Reason: HIP PAIN) metoprolol succinate 200 mg Tablet Extended Release 24 Hr 200 mg PO DAILY allopurinol 100 mg Tablet 100 mg PO DAILY lisinopril 30 mg Tablet 30 mg PO BID Hold Instructions: Resume on 01/03/22. Until BP can be re-evaluated as outpt with additional rate controlling medication salsalate 750 mg Tablet 750 mg PO BID PRN (Reason: Pain) finasteride 5 mg Tablet 5 mg PO DAILY trospium 20 mg Tablet 20 mg PO QHS Rx Instructions: administer on an empty stomach cholecalciferol (vitamin D3) 50 mcg (2,000 unit) Tablet 100 mcg PO DAILY amiodarone 200 mg Tablet 200 mg PO BID Qty: 14 0RF Eliquis 5 mg Tablet 5 mg PO BID Qty: 60 0RF diltiazem HCl 120 mg Capsule,Extended Release 24hr 120 mg PO Q12 Qty: 60 0RF potassium chloride [Klor-Con M20] 20 mEq Tablet,Er Particles/Crystals 20 meq PO BIDCM Qty: 120 0RF furosemide 20 mg tablet 20 mg PO BID [facility] [[facility] Provider] - Disposition Disposition: Acute Care Hospital [facility]
[2022-04-08 18:33] LABS: BNP,B-Type NATRIURETIC PEPTIDE 831.6 pg/mL (0-100)
[2022-04-08 18:34] LABS: Troponin-I HS 12 pg/mL (3.0-78.0)
[2022-04-08] MEDS: Furosemide 40 MG/4 ML Vial IV (19:29)
--- NOTE | 2022-04-08 19:42 | PCM.HP.STD ---
[facility] - General General Date of Admission: 04/08/22 Date of Service: 04/08/22 Chief Complaint: shortness of breath HPI Narrative STEFANY BOND, is a 71 M with a significant history of heart failure with preserved ejection fraction; chronic 2 L nasal cannula oxygen use and atrial fibrillation who presents to the emergency department with 6-day history of progressively worsening shortness of breath above his baseline. Associated with symptom is orthopnea requiring him to sleep in recliner. Also he reports paroxysmal nocturnal dyspnea and increasing swelling of his bilateral legs. [facility] Medical History BPH (benign prostatic hyperplasia) Colon cancer Former smoker Gout Hyperglycemia Hypertension Morbid obesity Osteoarthritis PAF (paroxysmal atrial fibrillation) Sleep apnea Urinary incontinence Home Medications acetaminophen 325 mg tablet (Tylenol) 650 mg PO TID PRN HIP PAIN 12/30/21 [History Last Taken 12/29/21] allopurinol 100 mg tablet 100 mg PO DAILY GOUT 12/30/21 [History Last Taken 04/08/22] cholecalciferol (vitamin D3) 50 mcg (2,000 unit) tablet 50 mcg PO BID SUPPLEMENT 12/30/21 [History Last Taken 04/08/22] finasteride 5 mg tablet 5 mg PO DAILY PROSTATE 12/30/21 [History Last Taken 04/08/22] lisinopril 30 mg tablet 30 mg PO BID blood pressure 12/30/21 [History Last Taken 04/08/22] metoprolol succinate 200 mg tablet,extended release 24 hr 200 mg PO DAILY blood pressure 12/30/21 [History Last Taken 04/08/22] salsalate 750 mg tablet 750 mg PO BID PRN Pain 12/30/21 [History Last Taken 04/08/22] terazosin 5 mg capsule 5 mg PO QHS 12/30/21 [History Last Taken 04/07/22] trospium 20 mg tablet 20 mg PO QHS BLADDER 12/30/21 [History Last Taken 1 Week Ago ~04/01/22] amiodarone 200 mg tablet 200 mg PO BID #14 tabs 01/03/22 [Rx Last Taken 04/08/22] potassium chloride 20 mEq tablet,extended release(part/cryst) (Klor-Con M) 20 meq PO BIDCM SUPPLEMENT #120 tabs 02/18/22 [Rx Last Taken 04/08/22] apixaban 5 mg tablet (Eliquis) 5 mg PO BID blood thinner 04/08/22 [History Last Taken 04/08/22] diltiazem HCl 120 mg capsule,extended release 24 hr 120 mg PO Q12 BLOOD PRESSURE 04/08/22 [History Last Taken 04/08/22] furosemide 20 mg tablet 60 mg PO BID FLUID 04/08/22 [History Last Taken 04/08/22] Allergy/AdvReac Type Severity Reaction Status Date / Time codeine Allergy Itching Verified 04/08/22 17:21 Family History Mother CVA (cerebral vascular accident) Diabetes Heart disease Hypertension Father CVA (cerebral vascular accident) Diabetes Heart disease Hypertension Surgical History History of ankle surgery History of partial colectomy History of tonsillectomy and adenoidectomy Hx of appendectomy S/P ear surgery Social History household members: significant other Smoking Status: Former smoker alcohol intake: current alcohol intake frequency: a few times a month substance use type: does not use ROS ROS Narrative Pertinent positives and pertinent negatives as noted in HPI. All other systems were reviewed and are negative Vital Signs Vital Signs Vital Signs: 04/08/22 17:22 04/08/22 17:46 04/08/22 17:46 Temperature 97.5 F L Temperature Source Temporal Pulse Rate 102 H Respiratory Rate 24 H Respiratory Effort Respiratory Depth Respiratory Pattern Blood Pressure 153/98 H Blood Pressure Mean 116 Pulse Ox 91 92 Oxygen Delivery Method Nasal Cannula Nasal Cannula Oxygen Flow Rate (L/min) 2 2 04/08/22 17:49 04/08/22 18:09 04/08/22 18:38 Temperature Temperature Source Pulse Rate 125 H 105 H Respiratory Rate 22 H 23 H Respiratory Effort Short of Breath Respiratory Depth Normal Respiratory Pattern Normal Blood Pressure 143/98 H Blood Pressure Mean 113 Pulse Ox 94 92 Oxygen Delivery Method Nasal Cannula Nasal Cannula Nasal Cannula Oxygen Flow Rate (L/min) 2 2 2 04/08/22 18:57 04/08/22 19:00 04/08/22 19:35 Temperature Temperature Source Pulse Rate 115 H 111 H 112 H Respiratory Rate 23 H 22 H Respiratory Effort Respiratory Depth Respiratory Pattern Blood Pressure 156/78 H 156/80 H Blood Pressure Mean 104 105 Pulse Ox 91 92 Oxygen Delivery Method Nasal Cannula Nasal Cannula Oxygen Flow Rate (L/min) 2 2 Weight Weight: 129.274 kg Body Mass Index (BMI) 43.3 Physical Exam Narrative Physical exam: General: Well-nourished, well-developed. Head: Normocephalic, atraumatic, no tenderness Eyes: Vision is grossly intact. EOMI ENT, no trauma, moist mucous membranes, no rhinorrhea Neck: Nontender, full range of motion, no spinal tenderness, deformities, step-off CVS: Irregularly irregular rate and rhythm. S1-S2 present. No murmur, gallop or rub. Respiratory : Diminished bilateral bases. Chest wall nontender, no wheezing Abdomen: Soft, nontender, nondistended, normal bowel sounds, no masses : Deferred Back: Nontender, no CVA tenderness, no midline spinal tenderness, deformities, step-offs Extremities: Positive lower legs edema. Full range of motion. Skin: Normal color, no trauma, abrasions Neuro: Alert, oriented, cranial nerves II through XII grossly intact. Psychiatry: Normal mood. Normal affect. Not depressed. Not anxious. Results Lab / Micro Data Result Diagrams: 04/08/22 17:45 04/08/22 17:45 Labs: Laboratory Results - last 24 hr 04/08/22 17:45: WBC 8.9, RBC 5.23, Hgb 15.2, Hct 47.8, MCV 91.4, MCH 29.1, MCHC 31.8 L, RDW Std Deviation 48.5 H, RDW Coeff of Maci 14.4, Plt Count 307, MPV 10.5, Immature Gran % (Auto) 0.300, Neut % (Auto) 74.3 H, Lymph % (Auto) 13.1 L, [place] % (Auto) 10.4 H, Eos % (Auto) 1.2, Baso % (Auto) 0.7, Absolute Neuts (auto) 6.6, Absolute Lymphs (auto) 1.17, Nucleated RBC % 0 04/08/22 17:45: Sodium 139, Potassium 3.6, Chloride 98, Carbon Dioxide 37.0 H, Anion Gap 4 L, BUN 13, Creatinine 1.18, Estim Creat Clear Calc 54.75, Est GFR (MDRD) Af Amer 78, Est GFR (MDRD) Non-Af 64, BUN/Creatinine Ratio 11.0, Glucose 131 H, Calcium 9.3 04/08/22 17:45: Troponin I High Sens 12 04/08/22 17:45: B-Natriuretic Peptide 831.6 H Micro: Microbiology 04/08/22 17:43 Nasal Secretion SARS-CoV-2 Antigen (Rapid) - Final Radiology Impression Chest X-Ray 04/08/22 18:15 IMPRESSION: Bilateral pleural effusions with bilateral lower lobe air space disease greater on the left than on the right may represent atelectasis or pneumonia. Electronically Signed: Brian Mathews MD at 18:30 EST , Assessment & Plan Assessment/Plan (1) Acute exacerbation of CHF (congestive heart failure): (2) Bilateral pleural effusion: (3) Atrial fibrillation with rapid ventricular response: (4) Morbid obesity due to excess calories: PLAN: Plan Acute Exacerbation of heart failure with preserved ejection fraction/hypoxia Place on monitored bed at the PCU Weight on admission to the floor; and then daily Strict I&O's Impression of chest x-ray by radiologist: Bilateral pleural effusions with bilateral lower lobe air space disease greater on the left than on the right may represent atelectasis or pneumonia. CXR was independently interpreted and I agree with radiologist interpretation BNP of 831.6 Home p.o. Lasix held. IV Lasix given at the emergency department and continued. Silver wrap to bilateral lower extremities. Fluid restriction of 1500 mls daily Cardiac diet ordered On home CPAP the patient is not compliant with. BiPAP ordered. Bilateral pleural effusion Per discharge summary on 02/18/2022 patient underwent thoracentesis on 01/17/2022. IV diuresis as above. We will hold home Eliquis and restart patient on heparin drip in preparation for possible thoracentesis if patient's continues to have respiratory distress. Afib with RVR/V. tach. Telemetry strip showed A. fib with RVR/V. tach. Cardizem bolus given at the emergency department. Cardizem drip started. Amiodarone drip ordered. Amiodarone p.o. held. Potassium was 3.6. Home potassium dose escalated. Magnesium level ordered. TSH level ordered. Morbid Obesity BMI: 41.7 kg/m?. Complicates care. Lifestyle modification recommended. DVT prophylaxis: Not indicated since patient has been started on heparin drip. Charges/Coding Visit Charges Inpatient E&M: 08478 Init Hosp L3
[2022-04-08 20:03] LABS: Magnesium 2.2 mg/dL (1.6-2.6)
--- NOTE | 2022-04-08 22:19 | EKG12_ITS ---
Test Reason : ADMMIT Blood Pressure : / mmHG Vent. Rate : 111 BPM Atrial Rate : 111 BPM P-R Int : 198 ms QRS Dur : 160 ms QT Int : 356 ms P-R-T Axes : 000 007 206 degrees QTc Int : 484 ms Atrial fibrillation Left bundle branch block Abnormal ECG Confirmed by DORINDA KAUFFMAN, HEIDI ([id number]), scientific publications editor LOUIS GILMAN ([id number]) on 04/14/2022 11:06:17 AM Referred By: SAVANNAH Confirmed By:HEIDI SETH MD
[2022-04-08] MEDS: Lisinopril 10 MG Tablet 30 MG PO (22:37)
[2022-04-08 22:43] LABS: Partial Thromboplast Time 28.6 Seconds (24.1-36.2)
[2022-04-08 22:53] LABS: Troponin-I HS 12 pg/mL (3.0-78.0)
[2022-04-08] MEDS: Amiodarone 360 MG in Dextrose 5% Viaflo Bag 192.8 ML 33.3 MG CONT INF (23:13)
[2022-04-09] VITALS (37 sets, daily range): BP systolic 128–166; BP diastolic 64–94; PULSE 69–102; RESP 12–23; TEMP 36.2–36.7; O2SAT 89–96
[2022-04-09 00:34] LABS: Troponin-I HS 13 pg/mL (3.0-78.0)
[2022-04-09] MEDS: Cholecalciferol (VIT D3) 25 MCG TABLET (1,000 UNITS) 50 MCG PO ×3 (00:43→22:08)
[2022-04-09] MEDS: Heparin Injection (Vial) 5,000 UNIT/ML VIAL 9500 UNIT IV (00:45)
[2022-04-09] MEDS: HEPARIN/D5w 25,000 UNITS 25,000 UNITS/250 ML IV.SOLN. 0.2 UNITS CONT INF (00:50)
[2022-04-09] MEDS: Amiodarone 360 MG in Dextrose 5% Viaflo Bag 192.8 ML 16.7 MG CONT INF ×2 (05:32→18:52)
[2022-04-09 07:05] LABS: Absolute Lymphocyte Count 0.94 X10^3/uL (0.83-4.51); Absolute Neutrophil Count 8.2 X10^3/uL (2.0-7.7); Basophil# 0.05 X10^3/uL; Basophil% 0.5 % (0-1); Eosinophil# 0.16 X10^3/uL; Eosinophils% 1.5 % (0-5); Hemoglobin 14.5 g/dL (13.0-16.5); Lymphocyte # 0.94 X10^3/ul (0.83-4.51); Mean Corp Hgb Conc 31.5 g/dL (32-36); Mean Corpuscular Hgb 28.9 pg (27.0-32.0); Mean Corpuscular Volume 91.8 fL (80-94); Mean Platelet Vol. 10.2 fl (6.2-12.0); Monocyte% 9.6 % (0-10); NRBC Flagged by Analyzer 0 % (0-5); Neutrophil # 8.22 X10^3/uL (2.7-7.7); Neutrophil % 78.9 % (47-70); Platelet Count 208 K/mm3 (150-450); RBC Distribution Width CV 14.6 % (11.6-14.6); RBC Distribution Width SD 48.6 fl (35.1-43.9); Red Blood Count 5.01 M/mm3 (4.6-6.2); White Blood Count 10.4 K/mm3 (4.4-11.0)
[2022-04-09 07:27] LABS: Anion Gap 3 (5-15); BUN 11 mg/dL (7-18); BUN/Creat Ratio 10.1 RATIO (10-20); Chloride 98 mmol/L (98-107); Creatinine, Serum 1.09 mg/dL (0.70-1.30); EST Glomerular Filtration Rate 71 mL/min (>60); Est Glom Filt Rate - Afr Amer 85 mL/min (>60); Estimated Creatinine Clearance 59.27 ml/min; Glucose 139 mg/dL (74-106); Potassium 3.4 mmol/L (3.5-5.1); Sodium Level 140 mmol/L (136-145); Thyroid Stim Hormone (TSH) 2.51 uIU/mL (0.358-3.74)
--- NOTE | 2022-04-09 08:04 | PN.HOSP_ITS ---
Subjective Subjective Feeling better but still short of breath. No palpitations. Objective Data Objective Data Vital Signs: Vital Signs Temp Pulse Resp BP Pulse Ox O2 Del Method O2 Flow Rate 36.7 C 87 18 140/79 H 92 Bi-pap 6 04/09/22 00:12 04/09/22 08:01 04/09/22 08:01 04/09/22 08:01 04/09/22 08:01 04/09/22 08:01 04/09/22 04:15 FiO2 55 04/09/22 07:46 Oxygen Flow Rate (L/min) 6 Oxygen Delivery Method Bi-pap Weight: 124.4 kg Body Mass Index (BMI) 41.6 Intake & Output: Intake and Output for Last 24 Hours 04/07/22 04/08/22 04/09/22 23:59 23:59 23:59 Intake Total 135.76 / 255.76 519.66 / 519.66 Output Total 1450 / 1450 Balance 135.76 / -819.24 -930.34 / -930.34 Lab / Micro Data Result Diagrams: 04/09/22 06:50 04/09/22 06:50 Labs: Laboratory Results - last 24 hr 04/08/22 17:45: WBC 8.9, RBC 5.23, Hgb 15.2, Hct 47.8, MCV 91.4, MCH 29.1, MCHC 31.8 L, RDW Std Deviation 48.5 H, RDW Coeff of Maci 14.4, Plt Count 307, MPV 10 .5, Immature Gran % (Auto) 0.300, Neut % (Auto) 74.3 H, Lymph % (Auto) 13.1 L, [place] % (Auto) 10.4 H, Eos % (Auto) 1.2, Baso % (Auto) 0.7, Absolute Neuts (auto) 6.6, Absolute Lymphs (auto) 1.17, Nucleated RBC % 0 04/08/22 17:45: Sodium 139, Potassium 3.6, Chloride 98, Carbon Dioxide 37.0 H, Anion Gap 4 L, BUN 13, Creatinine 1.18, Estim Creat Clear Calc 54.75, Est GFR (MDRD) Af Amer 78, Est GFR (MDRD) Non-Af 64, BUN/Creatinine Ratio 11.0, Glucose 131 H, Calcium 9.3 04/08/22 17:45: Troponin I High Sens 12 04/08/22 17:45: B-Natriuretic Peptide 831.6 H 04/08/22 17:45: Magnesium 2.2 04/08/22 22:10: APTT 28.6 04/08/22 22:10: Troponin I High Sens 12 04/08/22 23:55: Troponin I High Sens 13 04/09/22 06:50: WBC 10.4, RBC 5.01, Hgb 14.5, Hct 46.0, MCV 91.8, MCH 28.9, MCHC 31.5 L, RDW Std Deviation 48.6 H, RDW Coeff of Maci 14.6, Plt Count 208, MPV 10.2, Immature Gran % (Auto) 0.500, Neut % (Auto) 78.9 H, Lymph % (Auto) 9.0 L, [place] % (Auto) 9.6, Eos % (Auto) 1.5, Baso % (Auto) 0.5, Absolute Neuts (auto) 8.2 H, Absolute Lymphs (auto) 0.94, Nucleated RBC % 0 04/09/22 06:50: Sodium 140, Potassium 3.4 L, Chloride 98, Carbon Dioxide 39.0 H, Anion Gap 3 L, BUN 11, Creatinine 1.09, Estim Creat Clear Calc 59.27, Est GFR (MDRD) Af Amer 85, Est GFR (MDRD) Non-Af 71, BUN/Creatinine Ratio 10.1, Glucose 139 H, Calcium 9.0, TSH 2.51 Micro: Microbiology 04/08/22 17:43 Nasal Secretion SARS-CoV-2 Antigen (Rapid) - Final Radiography Diagnostic Testing: Radiology Impression Chest X-Ray 04/08/22 18:15 IMPRESSION: Bilateral pleural effusions with bilateral lower lobe air space disease greater on the left than on the right may represent atelectasis or pneumonia. Electronically Signed: Brian Mathews MD at 18:30 EST , Physical Exam Const alert and no apparent distress Resp normal respiratory effort and no retractions Resp Narrative: Bibasilar crackles Cardio regular rate and regular rhythm GI normal to inspection, nondistended, normoactive bowel sounds Assessment & Plan Assessment/Plan (1) Acute exacerbation of CHF (congestive heart failure): PLAN: Acute Exacerbation of heart failure with preserved ejection fraction/hypox ia Weight on admission to the floor; and then daily BNP of 831.6 Plan: * strict I&O's * Home p.o. Lasix held. IV Lasix given at the emergency department and continued. * Silver wrap to bilateral lower extremities. * Fluid restriction of 1500 mls daily, Cardiac diet ordered * On home CPAP the patient is not compliant with. BiPAP ordered. (2) Bilateral pleural effusion: PLAN: Not as prominent as it was back in the early part of February. Patient had a thoracentesis at that time but only removing 500 cc. I do not feel that the pleural effusions are large enough to warrant a t horacentesis at this time as the risks may outweigh the benefits. Continue with diuresis, no thoracentesis at this time. (3) Atrial fibrillation with rapid ventricular response: PLAN: Patient has a known left bundle branch block and has a Florez C. I do not feel that this is V. tach as appears similar to prior EKGs. patient has been started on amiodarone and a diltiazem drip. Cardiology consultation Anticoagulation with apixaban (4) Hypokalemia: PLAN: Secondary to diuresis replace Check magnesium PLAN: Plan Morbid Obesity BMI: 41.7 kg/m?. Complicates care. Lifestyle modification recommended. DVT prophylaxis: Not indicated already anticoagulated Charges/Coding Visit Charges Inpatient E&M: 24631 [facility] Hosp L2
[2022-04-09 08:10] LABS: Partial Thromboplast Time 69.2 Seconds (24.1-36.2)
[2022-04-09 08:14] LABS: International Normalized Ratio 1.1; Prothrombin Time (Protime)PT. 14.3 SECONDS (11.7-14.9)
[2022-04-09] MEDS: Potassium Chloride Oral Tablet 20 MEQ 40 MEQ PO ×2 (09:30→18:51)
[2022-04-09] MEDS: Finasteride 5 MG Tablet PO (09:31)
[2022-04-09] MEDS: Lisinopril 10 MG Tablet 30 MG PO ×2 (09:32→22:09)
[2022-04-09] MEDS: Metoprolol(XL)Succ 200 MG Tablet PO (09:32)
[2022-04-09] MEDS: Acetaminophen 325 MG Tablet 650 MG PO (09:33)
[2022-04-09] MEDS: Furosemide 40 MG/4 ML Vial IV ×2 (09:33→18:50)
[2022-04-09 12:11] LABS: Partial Thromboplast Time 63.3 Seconds (24.1-36.2)
--- NOTE | 2022-04-09 13:38 | NURSING ---
at shift change heparin gtt running at 1600units/hr 16ml/hr. In computer documentation states 16units/hr and 0.2ml/hr - corrected in computer at 0705
[2022-04-09] MEDS: HEPARIN/D5w 25,000 UNITS 25,000 UNITS/250 ML IV.SOLN. 16 UNITS CONT INF (16:05)
[2022-04-09 18:38] LABS: Partial Thromboplast Time 58.2 Seconds (24.1-36.2)
[2022-04-09] MEDS: 0.9% Saline Lock 10 ML Syringe IV (18:50)
[2022-04-09] MEDS: Amiodarone 200 MG Tablet PO (22:08)
[2022-04-09] MEDS: dilTIAZem CD 120 MG Capsule PO (22:08)
[2022-04-10] VITALS (17 sets, daily range): BP systolic 135–155; BP diastolic 75–106; PULSE 77–95; RESP 14–23; TEMP 36.2–37.1; O2SAT 90–97
[2022-04-10] MEDS: APIXABAN 5 MG TABLET PO ×3 (00:37→21:34)
[2022-04-10 01:19] LABS: Partial Thromboplast Time 43.3 Seconds (24.1-36.2)
[2022-04-10 06:23] LABS: Anion Gap 5 (5-15); BUN 11 mg/dL (7-18); BUN/Creat Ratio 11.6 RATIO (10-20); Calcium,Total 8.6 mg/dL (8.5-10.1); Chloride 99 mmol/L (98-107); Creatinine, Serum 0.94 mg/dL (0.70-1.30); EST Glomerular Filtration Rate 83 mL/min (>60); Est Glom Filt Rate - Afr Amer 101 mL/min (>60); Estimated Creatinine Clearance 68.72 ml/min; Glucose 124 mg/dL (74-106); Magnesium 2.2 mg/dL (1.6-2.6); Potassium 3.9 mmol/L (3.5-5.1); Sodium Level 137 mmol/L (136-145)
--- NOTE | 2022-04-10 08:11 | PN.HOSP_ITS ---
Subjective Subjective No SOB. No chest pain. Objective Data Objective Data Vital Signs: Vital Signs Temp Pulse Resp BP Pulse Ox O2 Del Method O2 Flow Rate 36.4 C L 92 19 H 155/106 H 94 Nasal Cannula 4 04/10/22 05:26 04/10/22 07:38 04/10/22 05:26 04/10/22 05:26 04/10/22 05:26 04/10/22 05:26 04/10/22 05:26 FiO2 45 04/10/22 00:36 Oxygen Flow Rate (L/min) 4 Oxygen Delivery Method Nasal Cannula Weight: 124.1 kg Body Mass Index (BMI) 41.6 Intake & Output: Intake and Output for Last 24 Hours 04/08/22 04/09/22 04/10/22 23:59 23:59 23:59 Intake Total 135.76 / 255.76 2025.05 / 2425.05 654.93 / 654.93 Output Total 2675 / 3025 550 / 550 Balance 135.76 / -819.24 -649.95 / -599.95 104.93 / 104.93 Lab / Micro Data Result Diagrams: 04/09/22 06:50 04/10/22 05:32 Labs: Laboratory Results - last 24 hr 04/09/22 06:50: APTT 69.2 H 04/09/22 06:50: PT 14.3, INR 1.1 04/09/22 11:55: APTT 63.3 H 04/09/22 18:00: APTT 58.2 H 04/10/22 01:03: APTT 43.3 H 04/10/22 05:32: Sodium 137, Potassium 3.9, Chloride 99, Carbon Dioxide 33.0 H, Anion Gap 5, BUN 11, Creatinine 0.94, Estim Creat Clear Calc 68.72, Est GFR (MDRD) Af Amer 101, Est GFR (MDRD) Non-Af 83, BUN/Creatinine Ratio 11.6, Glucose 124 H, Calcium 8.6, Magnesium 2.2 Micro: Microbiology 04/08/22 17:43 Nasal Secretion SARS-CoV-2 Antigen (Rapid) - Final Physical Exam Const alert and no apparent distress Resp Resp Narrative: bibasilar crackles. Cardio regular rate and regular rhythm GI normal to inspection, nondistended, normoactive bowel sounds, soft to palpation, non-tender and non-distended Assessment & Plan Assessment/Plan (1) Acute exacerbation of CHF (congestive heart failure): PLAN: Acute Exacerbation of heart failure with preserved ejection fraction/ hypoxia Weight on admission to the floor; and then daily BNP of 831.6 Plan: * strict I&O's * Home p.o. Lasix held. IV Lasix given at the emergency department and continued. * Fluid restriction of 1500 mls daily, Cardiac diet ordered * On home CPAP the patient is not compliant with. BiPAP ordered. (2) Bilateral pleural effusion: PLAN: Not as prominent as it was back in the early part of February. Patient had a thoracentesis at that time but only removing 500 cc. I do not feel that the pleural effusions are large enough to warrant a thoracentesis at this time as the risks may outweigh the benefits. Continue with diuresis, no thoracentesis at this time. (3) Atrial fibrillation with rapid ventricular response: PLAN: Patient has a known left bundle branch block. I do not feel that this is V. tach as appears similar to prior EKGs. Amiodarone 200 twice daily, diltiazem 120 milligrams twice daily, metoprolol succinate 200 mg daily. Cardiology following. May consider cardioversion. That she will need EP eval. Anticoagulation with apixaban (4) Hypokalemia: PLAN: Secondary to diuresis Resolved PLAN: Plan Morbid Obesity BMI: 41.7 kg/m?. Complicates care. Lifestyle modification recommended. DVT prophylaxis: Not indicated already anticoagulated Charges/Coding Visit Charges Inpatient E&M: 44453 Subs Hosp L2
[2022-04-10] MEDS: Acetaminophen 325 MG Tablet 650 MG PO (08:23)
--- NOTE | 2022-04-10 09:19 | CON.PCM.CA_ITS ---
Assessment & Plan Assessment/Plan (1) Atrial fibrillation with rapid ventricular response: PLAN: Patient has a history of atrial fibrillation with rapid ventricular response rate and a left bundle branch block. He is currently on high-dose beta-matt and has had calcium channel matt added. He would also continue on the anticoagulation. At this time his ventricular response rate appears to be fairly well-preserved and I will recommend continuing the above regimen. * We could consider 1 more attempt at DC cardioversion. (2) Acute exacerbation of CHF (congestive heart failure): PLAN: He does have evidence of diastolic heart failure. He will remain on the diuretics as well as the beta-matt. His ejection fraction is preserved. I suspect that there is an element of sleep apnea involved here as well. (3) Hypertension: PLAN: He does have a history of hypertension. The above appears to be stable and I would not recommend making any changes. HPI Consult Data Date of Consult: 04/10/22 HPI Narrative HPI Narrative: STEFANY BOND, is a 71 M who presents with shortness of breath as well as palpitations. Patient has a known history of atrial fibrillation with preserved ejection fraction who had undergone DC cardioversion within the last 6 weeks which was unsuccessful in maintaining sinus rhythm. The patient was placed on diltiazem and beta-matt as well as anticoagulation and says that he has been compliant. Amiodarone was added to the regimen. He presented again in atrial fibrillation with a left bundle branch block was started on intravenous diltiazem and amiodarone and transition to oral. He also has a history of sleep apnea. His previous echocardiogram demonstrated an ejection fraction of 55% with no wall motion abnormalities present. At this particular time he appears to be fairly stable. [facility] Medical History BPH (benign prostatic hyperplasia) Colon cancer Former smoker Gout Hyperglycemia Hypertension Morbid obesity Osteoarthritis PAF (paroxysmal atrial fibrillation) Sleep apnea Urinary incontinence Home Medications acetaminophen 325 mg tablet (Tylenol) 650 mg PO TID PRN HIP PAIN 12/30/21 [History Last Taken 12/29/21] allopurinol 100 mg tablet 100 mg PO DAILY GOUT 12/30/21 [History Last Taken 04/08/22] cholecalciferol (vitamin D3) 50 mcg (2,000 unit) tablet 50 mcg PO BID SUPPLEMENT 12/30/21 [History Last Taken 04/08/22] finasteride 5 mg tablet 5 mg PO DAILY PROSTATE 12/30/21 [History Last Taken 04/08/22] lisinopril 30 mg tablet 30 mg PO BID blood pressure 12/30/21 [History Last Taken 04/08/22] metoprolol succinate 200 mg tablet,extended release 24 hr 200 mg PO DAILY blood pressure 12/30/21 [History Last Taken 04/08/22] salsalate 750 mg tablet 750 mg PO BID PRN Pain 12/30/21 [History Last Taken 04/08/22] terazosin 5 mg capsule 5 mg PO QHS 12/30/21 [History Last Taken 04/07/22] trospium 20 mg tablet 20 mg PO QHS BLADDER 12/30/21 [History Last Taken 1 Week Ago ~04/01/22] amiodarone 200 mg tablet 200 mg PO BID #14 tabs 01/03/22 [Rx Last Taken 04/08/22] potassium chloride 20 mEq tablet,extended release(part/cryst) (Klor-Con M) 20 meq PO BIDCM SUPPLEMENT #120 tabs 02/18/22 [Rx Last Taken 04/08/22] apixaban 5 mg tablet (Eliquis) 5 mg PO BID blood thinner 04/08/22 [History Last Taken 04/08/22] diltiazem HCl 120 mg capsule,extended release 24 hr 120 mg PO Q12 BLOOD PRESSURE 04/08/22 [History Last Taken 04/08/22] furosemide 20 mg tablet 60 mg PO BID FLUID 04/08/22 [History Last Taken 04/08/22] Allergy/AdvReac Type Severity Reaction Status Date / Time codeine Allergy Itching Verified 04/08/22 17:21 Family History Mother CVA (cerebral vascular accident) Diabetes Heart disease Hypertension Father CVA (cerebral vascular accident) Diabetes Heart disease Hypertension Surgical History History of ankle surgery History of partial colectomy History of tonsillectomy and adenoidectomy Hx of appendectomy S/P ear surgery Social History household members: significant other Smoking Status: Former smoker alcohol intake: current alcohol intake frequency: a few times a month substance use type: does not use ROS Constitutional Constitutional: Denies fever(s) or weight loss Eyes Eyes: Reports systems reviewed and no addt'l complaints, except as documented ENT HEENT: Reports systems reviewed and no addt'l complaints, except as documented Cardiovascular Cardiovascular: Denies chest pain at rest, chest pain with activity, dyspnea at rest, dyspnea on exertion, edema, palpitations or paroxysmal nocturnal dyspnea Respiratory/Chest Respiratory/Chest: Denies dyspnea on exertion, productive cough, shortness of breath at rest or shortness of breath with exertion Gastrointestinal Gastrointestinal: Denies change in bowel habits, nausea, vomiting or weight changes Genitourinary Genitourinary: Denies difficulty urinating Musculoskeletal Musculoskeletal: Denies joint stiffness or muscle weakness Integumentary Integumentary: Denies lesions Neurologic Neurologic: Denies dizziness or syncope Psychiatric Psychiatric: Denies anxiety Endocrine Endocrinology: Denies excessive sweating or fatigue Hematologic/Lymphatic Hematologic/Lymphatic: Denies anemia Allergic/Immunologic Allergic/Immunologic: Denies seasonal rhinorrhea Physical Exam Const alert, oriented x3 and no apparent distress General Appearance: cooperative HEENT hearing grossly normal bilaterally Head and Scalp: atraumatic Eyes EOMs intact bilaterally Neck General: normal visual inspection Chest inspection of chest normal and palpation of chest normal Resp normal respiratory effort Auscultation: clear to auscultation bilaterally Cardio S1 normal heart sound and S2 normal heart sound Jugular Venous Distention: JVD Rhythm: abnormal rhythm GI normal to inspection, nondistended, normoactive bowel sounds Extremity normal capillary refill and no pedal edema Peripheral Pulses: Yes pulses 2+ throughout and femoral pulses present Skin no rashes or lesions noted Neuro oriented x3 and CN's II-XII intact bilaterally Psych Appearance: grossly normal and appropriate Risk Stratification Risk Stratification Applicable: No Objective Data Vital Signs: Vital Signs Temp Pulse Resp BP Pulse Ox O2 Del Method O2 Flow Rate 97.6 F L 92 19 H 155/106 H 94 Nasal Cannula 4 04/10/22 05:26 04/10/22 07:38 04/10/22 05:26 04/10/22 05:26 04/10/22 05:26 04/10/22 08:18 04/10/22 08:18 FiO2 45 04/10/22 00:36 Oxygen Flow Rate (L/min) 4 Oxygen Delivery Method Nasal Cannula Weight: 273 lb 9.498 oz Body Mass Index (BMI) 41.6 Intake & Output: Intake and Output for Last 24 Hours 04/08/22 04/09/22 04/10/22 23:59 23:59 23:59 Intake Total 135.76 / 255.76 2025.05 / 2425.05 654.93 / 654.93 Output Total 2675 / 3025 550 / 550 Balance 135.76 / -819.24 -649.95 / -599.95 104.93 / 104.93 Lab / Micro Data Result Diagrams: 04/09/22 06:50 04/10/22 05:32 Labs: Laboratory Results - last 24 hr 04/09/22 11:55: APTT 63.3 H 04/09/22 18:00: APTT 58.2 H 04/10/22 01:03: APTT 43.3 H 04/10/22 05:32: Sodium 137, Potassium 3.9, Chloride 99, Carbon Dioxide 33.0 H, Anion Gap 5, BUN 11, Creatinine 0.94, Estim Creat Clear Calc 68.72, Est GFR (MDRD) Af Amer 101, Est GFR (MDRD) Non-Af 83, BUN/Creatinine Ratio 11.6, Glucose 124 H, Calcium 8.6, Magnesium 2.2 Cardiology Labs/Tests 04/09/22 11:55: APTT 63.3 H 04/09/22 18:00: APTT 58.2 H 04/10/22 01:03: APTT 43.3 H 04/10/22 05:32: Sodium 137, Potassium 3.9, Chloride 99, Carbon Dioxide 33.0 H, Anion Gap 5, BUN 11, Creatinine 0.94, Est GFR (MDRD) Af Amer 101, Est GFR (MDRD) Non-Af 83, BUN/Creatinine Ratio 11.6, Glucose 124 H, Calcium 8.6, Magnesium 2.2 Rhythm: EKG: ECHO: Stress Test: Cardiac Cath: PCI: CT Surgery: Holter monitor: EPS: PPM: CXR: Chest CT Scan:
[2022-04-10] MEDS: Amiodarone 200 MG Tablet PO ×2 (09:35→18:17)
[2022-04-10] MEDS: Potassium Chloride Oral Tablet 20 MEQ 40 MEQ PO ×2 (09:35→18:17)
[2022-04-10] MEDS: dilTIAZem CD 120 MG Capsule PO ×2 (09:36→21:34)
[2022-04-10] MEDS: Allopurinol 100 MG Tablet PO (09:36)
[2022-04-10] MEDS: Furosemide 40 MG/4 ML Vial IV ×2 (09:37→18:17)
[2022-04-10] MEDS: Metoprolol(XL)Succ 200 MG Tablet PO (09:37)
[2022-04-10] MEDS: Cholecalciferol (VIT D3) 25 MCG TABLET (1,000 UNITS) 50 MCG PO ×2 (09:38→21:35)
[2022-04-10] MEDS: 0.9% Saline Lock 10 ML Syringe IV ×2 (09:39→18:17)
[2022-04-10] MEDS: Lisinopril 10 MG Tablet 30 MG PO ×2 (09:39→21:35)
[2022-04-10] MEDS: Finasteride 5 MG Tablet PO (09:40)
--- NOTE | 2022-04-10 11:05 | CASEMGMT ---
ARCADIO GARCIA ENGINEHOUSE BRAKEMAN RADHA to room to meet with patient for initial transition planning/care coordination assessment. ARCADIO GARCIA introduced self and role at [facility]. Pt voices understanding and consents to assessment at this time. Pt resting in bed in no distress at this time. Pt is A/O at this time and answers all questions appropriately. Care providers, pharmacy, and demographics verified/updated at this time. PCP: Dr Chauhan, [facility]. Specialists: Pt states he has an appt on Apr 21 @ [place] for cardiology appt. Pt made aware, Kerline, Resp therapist @ [place] states he has an appt @ [place] on Apr 21 for oxygen therapy. Pt states he was not aware of the oxygen therapy appt and that he had received a letter stating it was a cardiology appt. ARCADIO GARCIA [facility]. He states he will do so. Preferred Pharmacy: [facility] [place] Insurance: [place] Prescription Benefit: [place] only Living Will/HPOA: none. Pt states would like to complete. Danuta PLUNKETT, made aware. Pt made aware, if SW unable to meet w/him prior to discharge, that AD can be completed as an OP. Pt has [employer] card w/contact info. He voices understanding. LNOK: daughter, Marleny. Son, Justo. Sig other, Kimmie Living Arrangements: patient lives with girlfriend, Kimmie, in a 2 story home with bed and bath on first floor, no steps to enter the home. Patient states he is independent at home and manages his own medications. Pt and sig other share home mgmt tasks. Transportation: self. Kimmie will take him home @ d/c. DME: Patient states he has shower chair, raised toilet, cane, walker, lift bed, lift chair, hospital bed, grab bars, and cpap that he does not wear, pulse ox, and O2 @ 2l/m [facility]. Pt has concentrator and portable O2 tanks. Kimmie can bring in portable O2 tank for pt to go home on @ d/c. SNF/HHC: Patient had been to [facility] in the past. No previous HHC. Pt declines need for HHC or OP therapy. Pt meets criteria for Palliative referral per [facility] screening tool. ARCADIO GARCIA discussed Palliative care w/pt. Pt does not have insurance other than [facility] benefits and made aware to [facility] to [facility] care with them. Pt wishes to return home and states has no concerns with going home at time of discharge. CM to follow for any increase in home oxygen needs and any further discharge planning/needs. Pt voices no further concerns/needs at this time. Advised pt to ask for CM if any further questions/concerns/needs arise. Voices understanding. PLAN: Home. Follow for any increase in home oxygen needs. Will need amb home oxygen testing done prior to discharge. Rudi SINCLAIRN RN CM
--- NOTE | 2022-04-10 13:52 | CASEMGMT ---
ARCADIO GARCIA note: Call placed to Kerline, Resp therapist @ [place]. Per Kerline, current O2 orders are 2 l/m @ rest and 2-3 l/m w/exertion. Pt will need updated O2 [facility] if he qualifies for more than his baseline O2. Green sheet placed on chart. Rudi RESENDIZ RN CM
[2022-04-11] VITALS (8 sets, daily range): BP systolic 148; BP diastolic 85–91; PULSE 71–86; RESP 18; TEMP 36.6–36.9; O2SAT 84–95
--- NOTE | 2022-04-11 06:47 | PN.HOSP_ITS ---
Subjective Subjective Feeling well. No events overnight. Anxious to go home Objective Data Objective Data Vital Signs: Vital Signs Temp Pulse Resp BP Pulse Ox O2 Del Method O2 Flow Rate 36.6 C 78 18 148/85 H 92 Nasal Cannula 2 04/11/22 03:19 04/11/22 03:19 04/11/22 03:19 04/11/22 03:19 04/11/22 03:19 04/11/22 03:19 04/11/22 03:19 FiO2 45 04/11/22 03:19 Oxygen Flow Rate (L/min) 2 Oxygen Delivery Method Nasal Cannula Weight: 122.6 kg Body Mass Index (BMI) 41.6 Intake & Output: Intake and Output for Last 24 Hours 04/09/22 04/10/22 04/11/22 23:59 23:59 23:59 Intake Total 2025.05 / 2425.05 1134.93 / 1134.93 Output Total 2675 / 3025 1425 / 1425 500 / 500 Balance -649.95 / -599.95 -290.07 / -290.07 -500 / -500 Lab / Micro Data Result Diagrams: 04/09/22 06:50 04/11/22 06:46 Micro: Microbiology 04/08/22 17:43 Nasal Secretion SARS-CoV-2 Antigen (Rapid) - Final Physical Exam Const alert and no apparent distress Resp normal respiratory effort Resp Narrative: Bibasilar crackles Cardio regular rate GI normal to inspection, nondistended, normoactive bowel sounds Extremity Extremity Narrative: Trace lower extremity edema Assessment & Plan Assessment/Plan (1) Acute exacerbation of CHF (congestive heart failure): PLAN: Acute Exacerbation of heart failure with preserved ejection fraction/hypoxia Weight on admission to the floor; and then daily BNP of 831.6 Plan: * strict I&O's * Fluid restriction of 1500 mls daily, Cardiac diet ordered * Continue with lisinopril and metoprolol succinate * Discharged with furosemide 40 mg twice daily * Advised patient to check his weight daily and to get a scale and to keep a record. He states that he will have his getone. . (2) Bilateral pleural effusion: PLAN: Not as prominent as it was back in the early part of February. Patient had a thoracentesis at that time but only removing 500 cc. I do not feel that the pleural effusions are large enough to warrant a thoracentesis at this time as the risks may outweigh the benefits. Continue with diuresis, no thoracentesis at this time. (3) Atrial fibrillation with rapid ventricular response: PLAN: Patient has a known left bundle branch block. I do not feel that this is V. tach as appears similar to prior EKGs. Amiodarone 200 twice daily, diltiazem 120 milligrams twice daily, metoprolol succinate 200 mg daily. Cardiology following. May consider cardioversion. That she will need EP eval. Anticoagulation with apixaban Patient will be following up with electrophysiology at the [place] next month (4) Hypokalemia: PLAN: Secondary to diuresis Resolved PLAN: Plan Morbid Obesity BMI: 41.7 kg/m?. Complicates care. Lifestyle modification recommended. DVT prophylaxis: Not indicated already anticoagulated
[2022-04-11 08:12] LABS: Anion Gap 3 (5-15); BUN 11 mg/dL (7-18); BUN/Creat Ratio 12.2 RATIO (10-20); Calcium,Total 8.9 mg/dL (8.5-10.1); Chloride 100 mmol/L (98-107); EST Glomerular Filtration Rate 88 mL/min (>60); Est Glom Filt Rate - Afr Amer 107 mL/min (>60); Estimated Creatinine Clearance 71.78 ml/min; Glucose 120 mg/dL (74-106); Potassium 4.1 mmol/L (3.5-5.1); Sodium Level 137 mmol/L (136-145)
--- NOTE | 2022-04-11 08:24 | PCM.DC ---
Discharge Instructions Diet Discharge Diet: Low fat / Low cholesterol and 8 Cup Fluid Restriction Activity Discharge Activity: Return to Normal Activity Dressing / Incision Call your doctor if you observe: Shortness of breath, Swelling in the ankles and - Follow Up Care Test Results: Test results from this visit will be discussed in further detail at your follow-up appointment, if applicable. Discharge Plan Admission Admit Date/Time: 04/08/22 19:31 Primary Reason for Your Visit: Patient fibrillation with RVR. CHF. Attending Provider: Johnny Carrasco Primary Care Provider: [facility],[place] Consulting Providers: Venancio Mendoza ; Miguel Zaman Instructions Patient Instructions: Heart Failure Make Changes Diet, Heart Failure Assessment, Heart Failure Dc, Heart Failure and Physical Activity Discharge Orders/Prescriptions Prescriptions: New furosemide 20 mg tablet 40 mg PO BID Qty: 120 0RF Continued terazosin 5 mg Capsule 5 mg PO QHS acetaminophen [Tylenol] 325 mg Tablet 650 mg PO TID PRN (Reason: HIP PAIN) metoprolol succinate 200 mg Tablet Extended Release 24 Hr 200 mg PO DAILY allopurinol 100 mg Tablet 100 mg PO DAILY lisinopril 30 mg Tablet 30 mg PO BID Hold Instructions: Resume on 01/03/22. Until BP can be re-evaluated as outpt with additional rate controlling medication salsalate 750 mg Tablet 750 mg PO BID PRN (Reason: Pain) finasteride 5 mg Tablet 5 mg PO DAILY trospium 20 mg Tablet 20 mg PO QHS cholecalciferol (vitamin D3) 50 mcg (2,000 unit) Tablet 50 mcg PO BID amiodarone 200 mg Tablet 200 mg PO BID Qty: 14 0RF potassium chloride [Klor-Con M20] 20 mEq Tablet,Er Particles/Crystals 20 meq PO BIDCM Qty: 120 0RF diltiazem HCl 120 mg capsule,extended release 24hr 120 mg PO Q12 Eliquis 5 mg tablet 5 mg PO BID Discontinued furosemide 20 mg tablet 60 mg PO BID Referrals / Follow Up: [facility],[place] [Primary Care Provider] - Within 2 Weeks Disposition Disposition (needs filled in before D/C Order can be placed): Home, Self Care
--- NOTE | 2022-04-11 08:29 | DS.PCM_ITS ---
Providers Date of Admission: 04/08/22 Primary Care Physician: [place] [facility] Consultations 04/09/22 10:38 Consult: Cardiology Routine Consulting Provider: Miguel Zaman Reason for Consult: afieb EMERGENT Consult: No MD Notified: Yes Date Notified: 04/09/22 Time Notified: 10:38 Method of Notification: Verbal Reason For Visit: ACUTE EXACERBTION OF HEART FAILURE WITH PRESERVED Diagnosis Discharge Diagnosis (1) Acute exacerbation of CHF (congestive heart failure): Status: Chronic Code(s): I50.9 - Heart failure, unspecified Plan: Acute Exacerbation of heart failure with preserved ejection fraction/hypoxia Weight on admission to the floor; and then daily BNP of 831.6 Plan: * strict I&O's * Fluid restriction of 1500 mls daily, Cardiac diet ordered * Continue with lisinopril and metoprolol succinate * Discharged with furosemide 40 mg twice daily. On his JUL, it was written as 60 twice daily but patient was not actually doing that but taking 40 in the morning and then 20 at night. * Advised patient to check his weight daily and to get a scale and to keep a record. He states that he will have his getone. . (2) Bilateral pleural effusion: Status: Acute Code(s): J90 - Pleural effusion, not elsewhere classified Plan: Not as prominent as it was back in the early part of February. Patient had a thoracentesis at that time but only removing 500 cc. I do not feel that the pleural effusions are large enough to warrant a thoracentesis at this time as the risks may outweigh the benefits. Continue with diuresis, no thoracentesis at this time. (3) Atrial fibrillation with rapid ventricular response: Status: Acute Code(s): I48.91 - Unspecified atrial fibrillation Plan: Patient has a known left bundle branch block. I do not feel that this is V. tach as appears similar to prior EKGs. Amiodarone 200 twice daily, diltiazem 120 milligrams twice daily, metoprolol succinate 200 mg daily. Cardiology following. May consider cardioversion. That she will need EP eval. Anticoagulation with apixaban Patient will be following up with electrophysiology at the [place] next month (4) Hypokalemia: Status: Acute Code(s): E87.6 - Hypokalemia Plan: Secondary to diuresis Resolved Plan Morbid Obesity BMI: 41.7 kg/m?. Complicates care. Lifestyle modification recommended. DVT prophylaxis: Not indicated already anticoagulated Medications at Discharge Home Medications acetaminophen 325 mg tablet (Tylenol) 650 mg PO TID PRN HIP PAIN 12/30/21 allopurinol 100 mg tablet 100 mg PO DAILY GOUT 12/30/21 cholecalciferol (vitamin D3) 50 mcg (2,000 unit) tablet 50 mcg PO BID SUPPLEMENT 12/30/21 finasteride 5 mg tablet 5 mg PO DAILY PROSTATE 12/30/21 lisinopril 30 mg tablet 30 mg PO BID blood pressure 12/30/21 metoprolol succinate 200 mg tablet,extended release 24 hr 200 mg PO DAILY blood pressure 12/30/21 salsalate 750 mg tablet 750 mg PO BID PRN Pain 12/30/21 terazosin 5 mg capsule 5 mg PO QHS 12/30/21 trospium 20 mg tablet 20 mg PO QHS BLADDER 12/30/21 amiodarone 200 mg tablet 200 mg PO BID #14 tabs 01/03/22 potassium chloride 20 mEq tablet,extended release(part/cryst) (Klor-Con M) 20 meq PO BIDCM SUPPLEMENT #120 tabs 02/18/22 apixaban 5 mg tablet (Eliquis) 5 mg PO BID blood thinner 04/08/22 diltiazem HCl 120 mg capsule,extended release 24 hr 120 mg PO Q12 BLOOD PRESSURE 04/08/22 furosemide 20 mg tablet 40 mg PO BID #120 tabs 04/11/22 Hospital Course Operations None Procedures None Summary of Care Provided Minutes Spent on Discharge: 32 Weight / BMI Weight Weight: 122.6 kg Body Mass Index (BMI) 41.6 ABG / Lab / Microbiology Data Result Diagrams: 04/09/22 06:50 04/11/22 06:46 Laboratory: Laboratory Results - last 24 hr 04/11/22 06:46: Sodium 137, Potassium 4.1, Chloride 100, Carbon Dioxide 34.0 H, Anion Gap 3 L, BUN 11, Creatinine 0.90, Estim Creat Clear Calc 71.78, Est GFR (MDRD) Af Amer 107, Est GFR (MDRD) Non-Af 88, BUN/Creatinine Ratio 12.2, Glucose 120 H, Calcium 8.9 Microbiology: Microbiology 04/08/22 17:43 Nasal Secretion SARS-CoV-2 Antigen (Rapid) - Final D/C Instructions Discharge Diet: Low fat / Low cholesterol and 8 Cup Fluid Restriction Call your doctor if you observe: Shortness of breath, Swelling in the ankles and - Meaningful Use Info Meaningful Use Diagnoses (Choose all that apply): CHF CHF LM/ARB ordered at discharge?: Yes Documented LVEF (%): 55 Discharge Plan Admission Admit Date/Time: 04/08/22 19:31 Primary Reason for Your Visit: Patient fibrillation with RVR. CHF. Attending Provider: Johnny Carrasco Primary Care Provider: [facility] Consulting Providers: Venancio Mendoza ; Miguel Zaman Instructions Patient Instructions: Heart Failure Make Changes Diet, Heart Failure Assessment, Heart Failure Dc, Heart Failure and Physical Activity Discharge Orders/Prescriptions Prescriptions: New furosemide 20 mg tablet 40 mg PO BID Qty: 120 0RF Continued terazosin 5 mg Capsule 5 mg PO QHS acetaminophen [Tylenol] 325 mg Tablet 650 mg PO TID PRN (Reason: HIP PAIN) metoprolol succinate 200 mg Tablet Extended Release 24 Hr 200 mg PO DAILY allopurinol 100 mg Tablet 100 mg PO DAILY lisinopril 30 mg Tablet 30 mg PO BID Hold Instructions: Resume on 01/03/22. Until BP can be re-evaluated as outpt with additional rate controlling medication salsalate 750 mg Tablet 750 mg PO BID PRN (Reason: Pain) finasteride 5 mg Tablet 5 mg PO DAILY trospium 20 mg Tablet 20 mg PO QHS cholecalciferol (vitamin D3) 50 mcg (2,000 unit) Tablet 50 mcg PO BID amiodarone 200 mg Tablet 200 mg PO BID Qty: 14 0RF potassium chloride [Klor-Con M20] 20 mEq Tablet,Er Particles/Crystals 20 meq PO BIDCM Qty: 120 0RF diltiazem HCl 120 mg capsule,extended release 24hr 120 mg PO Q12 Eliquis 5 mg tablet 5 mg PO BID Discontinued furosemide 20 mg tablet 60 mg PO BID Referrals / Follow Up: [facility] [Primary Care Provider] - Within 2 Weeks Disposition Disposition (needs filled in before D/C Order can be placed): Home, Self Care Charges/Coding Visit Charges Inpatient E&M: 19600 Disch Hosp
[2022-04-11] MEDS: Cholecalciferol (VIT D3) 25 MCG TABLET (1,000 UNITS) 50 MCG PO (09:03)
[2022-04-11] MEDS: Metoprolol(XL)Succ 200 MG Tablet PO (09:04)
[2022-04-11] MEDS: APIXABAN 5 MG TABLET PO (09:04)
[2022-04-11] MEDS: Lisinopril 10 MG Tablet 30 MG PO (09:04)
[2022-04-11] MEDS: Amiodarone 200 MG Tablet PO (09:05)
[2022-04-11] MEDS: Allopurinol 100 MG Tablet PO (09:05)
[2022-04-11] MEDS: dilTIAZem CD 120 MG Capsule PO (09:05)
[2022-04-11] MEDS: Potassium Chloride Oral Tablet 20 MEQ 40 MEQ PO (09:05)
[2022-04-11] MEDS: Furosemide 40 MG/4 ML Vial IV (09:05)
[2022-04-11] MEDS: Finasteride 5 MG Tablet PO (09:05)
--- NOTE | 2022-04-11 09:15 | PN.CARD_ITS ---
Subjective Subjective Patient seen and evaluated. Appears to be doing well. Objective Data Vital Signs: Vital Signs Temp Pulse Resp BP Pulse Ox O2 Del Method O2 Flow Rate 98.5 F 86 18 148/91 H 93 Nasal Cannula 2 04/11/22 08:53 04/11/22 09:04 04/11/22 08:53 04/11/22 09:04 04/11/22 08:53 04/11/22 08:53 04/11/22 08:53 FiO2 45 04/11/22 03:19 Oxygen Flow Rate (L/min) 2 Oxygen Delivery Method Nasal Cannula Weight: 270 lb 4.587 oz Body Mass Index (BMI) 41.6 Intake & Output: Intake and Output for Last 24 Hours 04/09/22 04/10/22 04/11/22 23:59 23:59 23:59 Intake Total 2025.05 / 2425.05 1134.93 / 1134.93 Output Total 2675 / 3025 1425 / 1425 500 / 500 Balance -649.95 / -599.95 -290.07 / -290.07 -500 / -500 Lab / Micro Data Result Diagrams: 04/09/22 06:50 04/11/22 06:46 Labs: Laboratory Results - last 24 hr 04/11/22 06:46: Sodium 137, Potassium 4.1, Chloride 100, Carbon Dioxide 34.0 H, Anion Gap 3 L, BUN 11, Creatinine 0.90, Estim Creat Clear Calc 71.78, Est GFR (M DRD) Af Amer 107, Est GFR (MDRD) Non-Af 88, BUN/Creatinine Ratio 12.2, Glucose 120 H, Calcium 8.9 Cardiology Labs/Tests 04/11/22 06:46: Sodium 137, Potassium 4.1, Chloride 100, Carbon Dioxide 34.0 H, Anion Gap 3 L, BUN 11, Creatinine 0.90, Est GFR (MDRD) Af Amer 107, Est GFR (MDRD) Non-Af 88, BUN/Creatinine Ratio 12.2, Glucose 120 H, Calcium 8.9 Rhythm: EKG: ECHO: Stress Test: Cardiac Cath: PCI: CT Surgery: Holter monitor: EPS: PPM: CXR: Chest CT Scan: Physical Exam Const alert, oriented x3 and no apparent distress General Appearance: cooperative HEENT hearing grossly normal bilaterally Head and Scalp: atraumatic Eyes EOMs intact bilaterally Neck General: normal visual inspection Chest inspection of chest normal and palpation of chest normal Resp normal respiratory effort Auscultation: clear to auscultation bilaterally Cardio S1 normal heart sound and S2 normal heart sound Jugular Venous Distention: JVD Rhythm: abnormal rhythm GI normal to inspection, nondistended, normoactive bowel sounds Extremity normal capillary refill and no pedal edema Peripheral Pulses: Yes pulses 2+ throughout and femoral pulses present Skin no rashes or lesions noted Neuro oriented x3 and CN's II-XII intact bilaterally Psych Appearance: grossly normal and appropriate Assessment & Plan Assessment/Plan (1) Atrial fibrillation with rapid ventricular response: PLAN: Patient has a history of atrial fibrillation with rapid ventricular response rate and a left bundle branch block. He is currently on high-dose beta-matt and has had calcium channel matt added. He would also continue on the anticoagulation. At this time his ventricular response rate appears to be fairly well-preserved and I will recommend continuing the above regimen. * We could consider 1 more attempt at DC cardioversion as an outpatient. (2) Acute exacerbation of CHF (congestive heart failure): PLAN: He does have evidence of diastolic heart failure. He will remain on the diuretics as well as the beta-matt. His ejection fraction is preserved. I suspect that there is an element of sleep apnea involved here as well. (3) Hypertension: PLAN: He does have a history of hypertension. The above appears to be stable and I would not recommend making any changes.
[2022-04-11] MEDS: 0.9% Saline Lock 10 ML Syringe IV (09:24)
--- NOTE | 2022-04-11 13:26 | CASEMGMT ---
DIMITRIOS note SW went to patient's room to assist in completion of the advanced directives. Patient said that he was ready to go and was going to leave. Patient reports he has the advanced directive booklet. No other issues or concerns voiced. Plan: SW offered to complete Advanced Directives with patient. He declined. Letty GIMENEZ
== END 2022-04-11 11:52 | disposition home or self-care (01) | DRG 291 ==
LOC: ED 19:29 → PCU 20:12
PROVIDERS: Admitting Provider Hospitalist; Emergency Provider Emergency Medicine
DX: I11.0 Hypertensive heart disease with heart failure (principal); I50.31 Acute diastolic (congestive) heart failure; I47.20 Ventricular tachycardia, unspecified; J90 Pleural effusion, not elsewhere classified; Z68.41 Body mass index [BMI] 40.0-44.9, adult; E66.01 Morbid (severe) obesity due to excess calories; I48.91 Unspecified atrial fibrillation; E87.6 Hypokalemia; G47.30 Sleep apnea, unspecified; M10.9 Gout, unspecified; I44.7 Left bundle-branch block, unspecified; N40.0 Benign prostatic hyperplasia without lower urinary tract symptoms; Z87.891 Personal history of nicotine dependence; R09.02 Hypoxemia; Z82.3 Family history of stroke
CPT/HCPCS: 36415; 71046; 80048; 83735; 83880; 84443; 84484; 85025; 85610; 85730; 87811; 93005; 94002; 94660; 94760; 94762; 99285; A4216; J1940

== ENCOUNTER 2023-06-08 13:43 | Emergency (ER) | payer OTHER, SELFPAY ==
[2023-06-08] VITALS (9 sets, daily range): BP systolic 159–225; BP diastolic 58–91; PULSE 46–53; RESP 10–17; TEMP 36.6–36.8; O2SAT 88–100; BMI 42.0
--- NOTE | 2023-06-08 13:56 | RAD_ITS ---
STUDY: X-RAY - RIGHT ANKLE REASON FOR EXAM: Male, 72 years old. Pain following injury. TECHNIQUE: 3 view(s) of the ankle. COMPARISON: None. FINDINGS: Comminuted oblique fracture of the distal tibial shaft. Comminuted transverse fracture of the distal fibular shaft. Prior screw fixation of the medial malleolus. Normal visualized talus and calcaneus. The visualized subtalar, talonavicular, calcaneocuboid and tarsal articulations are normal. Soft tissue swelling. RAD/Ankle min 3 Views IMPRESSION: Comminuted oblique fracture of the distal tibial shaft as well as comminuted transverse fracture of the distal fibular shaft. Soft tissue swelling. Electronically Signed: Jerry Morrow MD at 15:16 EST ,
--- NOTE | 2023-06-08 13:56 | RAD_ITS ---
STUDY: X-RAY - RIGHT TIBIA AND FIBULA REASON FOR EXAM: Male, 72 years old. Fracture TECHNIQUE: 4 view(s) of the tibia and fibula were obtained. COMPARISON: None. FINDINGS: Comminuted oblique fracture of the distal tibial shaft. Comminuted transverse fracture of the distal fibular shaft. Prior screw fixation of the medial malleolus. Soft tissue swelling. RAD/Tibia & Fibula 2 Views IMPRESSION: Comminuted oblique fracture of the distal tibial shaft and comminuted transverse fracture of the distal fibular shaft with soft tissue swelling. Electronically Signed: Jerry Morrow MD at 15:17 EST ,
[2023-06-08] MEDS: HYDROmorphone 1 MG/ML Syringe IV ×3 (14:02→18:11)
[2023-06-08 14:13] LABS: Absolute Neutrophil Count 4.6 X10^3/uL (2.0-7.7); Basophil# 0.03 X10^3/uL; Basophil% 0.5 % (0-1); Eosinophil# 0.14 X10^3/uL; Eosinophils% 2.1 % (0-5); Hemoglobin 14.7 g/dL (13.0-16.5); Lymphocyte % 15.3 % (19-41); Mean Corp Hgb Conc 34.2 g/dL (32-36); Mean Corpuscular Hgb 29.4 pg (27.0-32.0); Mean Platelet Vol. 10.9 fl (6.2-12.0); Monocyte# 0.74 X10^3/uL; Monocyte% 11.3 % (0-10); NRBC Flagged by Analyzer 0 % (0-5); Neutrophil # 4.63 X10^3/uL (2.7-7.7); Neutrophil % 70.6 % (47-70); Platelet Count 226 K/mm3 (150-450); RBC Distribution Width CV 13.4 % (11.6-14.6); RBC Distribution Width SD 41.5 fl (35.1-43.9); White Blood Count 6.6 K/mm3 (4.4-11.0)
--- NOTE | 2023-06-08 14:16 | ED.RN ---
STATES HE HAS A FUNKY HEART BEAT .
[2023-06-08] MEDS: Etomidate 20 MG/10 ML Vial IV (14:35)
--- OUTSIDE RECORDS SUMMARY | 2023-06-08 14:37 | XMS RPT_ITS | CCD ---
Author Name Unknown Address [address] [place] [address] Organization [facility] Care Team Providers Care Trimming Caser Name Role Phone MICAELA MORENO Admitting Unavailable MICAELA MORENO Attending Unavailable MICAELA MORENO Primary Care Unavailable REX LEWIS Consulting Unavailable PROVIDER, UNKNOWN Consulting Unavailable PROVIDER, UNKNOWN Consulting Unavailable PROVIDER, UNKNOWN Consulting Unavailable Loree Srinivasan Primary Care Provider SVETLANA AGUAYO Admitting Unavaila LOREE Amaro Primary Care Unavailable MIKAYLA GATES Consulting Unavailable CARLOS EBNITEZ Attending Unavailable Allergies Allergy Classification Reported Allergen(s) Allergy Type Date of Onset Reaction(s) Facility (3 sources) Codeine; Translations: [CODEINE] Drug Allergy 04-29-2011 Unknown [facility] Medications Current Medications Medication Drug Class(es) Dates Sig (Normalized) Sig (Original) furosemide 40 mg oral tablet (2 sources) Loop Diuretic Start: 05-04-2022 End: 06-03-2022 take 1 tablet by mouth once daily furosemide (LASIX) 40 mg tablet Take 1 tablet by mouth once daily. 30 tablet 1 05/04/2022 06/03/2022 Active Completed/Discontinued Medications Medication Drug Class(es) Dates Sig (Normalized) Sig (Original) amLODIPine 10 mg oral tablet (2 sources) Dihydropyridine Calcium Channel Caitlin take 1 tablet by mouth once daily amLODIPine 10 mg ORAL tablet Take 10 mg by mouth once daily. 0 Active Problems Problem Classification Problem Date Documented Da te Episodic/Chronic Cardiac dysrhythmias (3 sources) Atrial fibrillation with rapid ventricular response; Translations: [Unspecified atrial fibrillation] Onset: 05-01-2022 05-01-2022 Chronic Congestive heart failure; nonhypertensive (3 sources) Acute diastolic heart failure; Translations: [Acute diastolic (congestive) heart failure] Onset: 05-01-2022 05-01-2022 Chronic Other lower respiratory disease (1 source) Hypoxemia; Translations: [Hypoxia] Onset: 05-01-2022 Episodic Other screening for suspected conditions (not mental disorders or infectious disease) (2 sources) Hormone level - finding; Translations: [Other specified abnormal findings of blood chemistry] Onset: 05-01-2022 05-01-2022 Episodic Pleurisy; pneumothorax; pulmonary collapse (3 sources) Pleural effusion; Translations: [Pleural effusion, not elsewhere classified] Onset: 05-01-2022 05-01-2022 Episodic Respiratory failure; insufficiency; arrest (adult) (2 sources) Acute respiratory failure; Translations: [Acute respiratory failure with hypoxia] Onset: 05-01-2022 05-01-2022 Episodic Results Test Name Value Interpretation Reference Range Facil ity Encounters Encounter Date Encounter Type Care Provider Facility Start: 05-08-2022 Telephone encounter Loree aldana Work Phone: NOC Procedures Date Procedure Procedure Detail Performing Clinician Start: 04-29-2011 Colonoscopy Arlene forbes APRN.CNP Work Phone: Plan of Treatment Date Care Activity Detail Author Start: 05-02-2025 DIABETES SCREEN DIABETES SCREEN [facility] Start: 05-17-2021 ADVANCE DIRECTIVE DISCUSSION ADVANCE DIRECTIVE DISCUSSION [facility] Start: 05-17-2021 DEPRESSION ASSESSMENT DEPRESSION ASS ESSMENT [facility] Start: 08-16-2020 COVID-19 VACCINE (3 - Booster for Pfizer series) COVID-19 VACCINE (3 - Booster for Pfizer series) [facility] Start: 04-29-2012 Colonoscopy COLONOSCOPY [facility] Start: 04-29-2012 COLORECTAL CANCER SCREENING COLORECTAL CANCER SCREENING [facility] Start: 08-04-1999 SHINGRIX VACCINE (1 of 2) SHINGRIX V ACCINE (1 of 2) [facility] Start: 1994 COLOGUARD (FIT-DNA) COLOGUARD (FIT-D NA) [facility] Start: [address] COLONOGRAPHY [facility] Start: 1994 FECAL OCCULT BLOOD FECAL OCCULT BLOO D [facility] Start: 1994 SIGMOIDOSCOPY SIGMOIDOSCOPY [facility] Start: 1984 LIPID SCREEN LIPID SCREEN [facility] Start: 1968 Urine microalbumin profile DTAP,TDAP ,TD (1 - Tdap) [facility] Start: 08-04-1967 ANNUAL PCP TEAM REGISTERED PUBLIC SURVEYOR THIERNO DISEASE VISIT ANNUAL PCP TEAM CHRONIC DISEASE VISIT [facility] Start: 08-04-1967 HEPATITIS C SCREENING HEPATITIS C SC POLY [facility] Start: 08-04-1955 PNEUMOCOCCAL: 65+ (1 - PCV) PNEUMOCOCCAL: 65+ (1 - PCV) [facility] Start: 1949 ABDOMINAL AORTIC ANE URYSM SCREENING ABDOMINAL AORTIC ANEURYSM SCREENING [facility] Social History Date Type Detail Facility Start: 05-01-2022 Tobacco smoking stat us DEIS Ex-smoker [facility] Work Phone: End: 05-17-1979 History of tobacco use Current smoker [facility] Work Phone: End: 05-17-1979 History of tobacco use Cigarette Smoker [facility] Work Phone: Start: 05-01-2022 Tobacco use and exposure User of smokeless tobacco [facility] Work Phone: History of tobacco use [facility]ws [facility] Work Phone: Start: 05-01-2022 Alcohol intake Ex-drinker (finding) [facility] Start: 1950 Sex Assigned At Not on file C [facility] Note 05-08-2022 Telephone Encounter - Amelia Lovett - 05/08/2022 9:10 AM EST Note Date & Type Note Facility 05-08-2022 Miscellaneous Notes Formattin g of this note might be different from the original. PATIENT INFORMATION Record ID: [id number] Patient Name: [facility]: [facility] Lissie: [facility] Attending: Carlos Benitez Center: Hospital Medicine INSTRUCTIONS All Clear SN to remind patient of next upcoming appointment date, time, location All Clear All Clear All Clear SURVEY INFORMATION Medical/Nurse Textile Worker: Amelia Cox 1. Your discharge instructions are important in guiding you through the recovery process. Is there anything I could help you clarify on your discharge instructions? (Standard Question) No 2. Do you have your follow up appointment related to your hospital stay scheduled within the next 30 days? (Standard Question) Yes MA/SN Notes: Month away Appt 3. Do you have all the necessary equipment and supplies at home? (Standard Question) Yes 4. Many patients have concerns about their medications once they are home. Do you have any questions about getting or taking your medications? (Standard Question) No 5. Do you have any new or different symptoms? (Standard Question) No documented in this encounter [facility] Note 05-05-2022 Telephone Encounter - Adriane Weaver - 05/05/2022 3:08 PM EST Note Date & Type Note Facility 05-05-2022 Miscellaneous Notes Formattin g of this note might be different from the original. The patient was discharged from [facility] 05-04-22 with an order to schedule with the [facility]. The Clinic reached out to the patient. 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 Therefore, this is considered a deferral of the Clinic's services at this time. Adriane Weaver documented in this encounter [facility] Progress note 05-04-2022 Note Date & Type Note Facility 05-04-2022 Note HNO ID: [id number] Author: Calros Benitez MD Service: Hospital Medicine Author Type: Physician Type: Progress Notes Filed: 05/04/2022 12:40 PM Note Text: DEPARTMENT OF HOSPITAL MEDICINE PROGRESS NOTE SERVICE DATE: 05/04/2022 SERVICE TIME: 12:38 PM Hospital Medicine/Primary Attending: Carlos Benitez MD NIGHT AND WEEKEND COVERAGE: After 7pm please page [phone] SUBJECTIVE: Follow up for CHF. No updates. No new issues. No CP SOB NVD. OBJECTIVE: PHYSICAL EXAM: BP 148/77 Pulse 70 Temp (Src) 97.9 (Oral) Resp 18 Ht 5' 9 (1.75m) Wt 268 lb 8.3 oz (121.8kg) SpO2 96% BMI 39.64 kg/(m2). O2 Therapy: Nasal Cannula, Liters: 2 General - AANDOx3, NAD, Calm Skin- No new lesions CV - RRR S1 S2, No M/R/G RESP - CTA B/L No wheezes, ronchi, rales ABD - soft, NT, ND +BS ENT- no icterus Neuro- No dysarthria MEDICATIONS: Current Facility-Administered Medications Medication Dose Route Frequency lisinopril 20 mg tab(s) (ZESTRIL, PRINIVIL) 20 mg ORAL BID potassium chloride ER 20 mEq tab(s) (K-DUR, KLOR-CON) 20 mEq ORAL DAILY NaCl 0.9% iv flush bag 20 mL INTRAVENOUS PRN ondansetron 4 mg tab(s) (ZOFRAN) 4 mg ORAL q 6 H PRN Or ondansetron (PF) 4 mg injection (ZOFRAN) 4 mg INTRAVENOUS q 6 H PRN acetaminophen 650 mg tab(s) (TYLENOL) 650 mg ORAL q 6 H PRN apixaban 5 mg tab(s) (ELIQUIS) 5 mg ORAL BID perflutren lipid microspheres 1.1 mg/mL 1.3 mL injection (DEFINITY) 1.3 mL INTRAVENOUS DIRECTED PRN atorvastatin 20 mg tab(s) (LIPITOR) 20 mg ORAL AT BEDTIME metoprolol tartrate (short acting) 50 mg tab(s) (LOPRESSOR) 50 mg ORAL q 8 H docusate sodium 100 mg cap(s) (COLACE) 100 mg ORAL BID PRN furosemide 40 mg tab(s) (LASIX) 40 mg ORAL BID 9a/5p DATA: Diagnostic tests reviewed for today's visit: CBC: No results for input(s): WBC, RBC, HB, HCT, PLT, MCV, MCH, MPV, RDW in the last 24 hours. Coags: No results for input(s): PT, INR, APTT in the last 24 hours. BMP: No results for input(s): NA, K, CHLOR, CO2, BUN, CREAT, GLUC in the last 24 hours. CMP: No results for input(s): NA, K, CHLOR, CO2, BUN, CREAT, GLUC, TPROT, CA, MG, ALBUMIN, TBILI, ALKPHOS, ALT, AST, ANION in the last 24 hours. Cardiac Enzymes: No results for input(s): CK, MB, CKMB, TROPT in the last 24 hours. Liver Function, Amylase, Lipase: No results for input(s): TPROT, ALB, ALT, AST, ALKPHOS, TBILI, AMYLASE, LIPASE, LACTATE in the last 24 hours. MG/PHOS: No results for input(s): MG, P in the last 24 hours. Renal Panel: No results for input(s): ALBUMIN, CREAT, BUN, GLUC, CA, P, CHLOR, K, CO2, NA in the last 24 hours. Heme: No results for input(s): RETICP, ABSRETIC, LD, NEAL, FE, TIBC, TRANSFERSAT in the last 24 hours. No results found for: UALBCR Active Hospital Problems Diagnosis Date Noted POA Acute respiratory failure with hypoxia ([facility]) 05/01/2022 Unknown Atrial fibrillation with RVR ([facility]) 05/01/2022 Unknown Acute diastolic CHF (congestive heart failure) ([facility]) 05/01/2022 Unknown Elevated brain natriuretic peptide (BNP) level 05/01/2022 Unknown Pleural effusion 05/01/2022 Unknown Resolved Hospital Problems No resolved problems to display. Assessment/Plan # Acute diastolic CHF- recurrent. It seems patient was previously seen at [facility] recently for similar complaints. - s/p Lasix 80mg IV in ED - Continue Lasix 40mg IV BID - Daily weight, I/O, CHF ADA diet - Cardiology consult - Can not find old echo # Atrial fibrillation with RVR - rate is better controlled HR 100-110 - Need to confirm home medications as there seems to be some discrepancy - Metoprolol 50mg - Continue Eliquis - Consider LAUREN cardioversion. Patient does not desire any more inpatient workup. Wishes to be discharged. We will reach out to cardiology again. VTE Prophylaxis: As per primary team Disposition: To be determined Plan of care discussed with: Provider, RN, Patient SIGNATURE: Carlos Benitez MD PATIENT NAME: Stefany Hogan DATE: May 04, 2022 TIME: 12:38 PM PAGER/CONTACT #: My Pager. Page [phone] after 7PM, as my pager is off. [facility] Progress note 05-03-2022 Note Date & Type Note Facility 05-03-2022 Note HNO ID: [id number] Author: Carlos Benitez MD Service: Hospital Medicine Author Type: Physician Type: Progress Notes Filed: 05/03/2022 2:50 PM Note Text: DEPARTMENT OF HOSPITAL MEDICINE PROGRESS NOTE SERVICE DATE: 05/03/2022 SERVICE TIME: 2:37 PM Hospital Medicine/Primary Attending: Carlos Benitez MD NIGHT AND WEEKEND COVERAGE: After 7pm please page [phone] SUBJECTIVE: Follow up for CHF. No CP SOB NVD. OBJECTIVE: PHYSICAL EXAM: BP 125/57 Pulse 79 Temp (Src) 97.9 (Oral) Resp 18 Ht 5' 9 (1.75m) Wt 267 lb 13.7 oz (121.5kg) SpO2 93% BMI 39.54 kg/(m2). O2 Therapy: Nasal Cannula, Liters: 2 General - AANDOx3, NAD, Calm Skin- No new lesions CV - RRR S1 S2, No M/R/G RESP - CTA B/L No wheezes, ronchi, rales ABD - soft, NT, ND +BS ENT- no icterus Neuro- No dysarthria MEDICATIONS: Current Facility-Administered Medications Medication Dose Route Frequency lisinopril 20 mg tab(s) (ZESTRIL, PRINIVIL) 20 mg ORAL BID potassium chloride ER 20 mEq tab(s) (K-DUR, KLOR-CON) 20 mEq ORAL DAILY NaCl 0.9% iv flush bag 20 mL INTRAVENOUS PRN ondansetron 4 mg tab(s) (ZOFRAN) 4 mg ORAL q 6 H PRN Or ondansetron (PF) 4 mg injection (ZOFRAN) 4 mg INTRAVENOUS q 6 H PRN acetaminophen 650 mg tab(s) (TYLENOL) 650 mg ORAL q 6 H PRN furosemide 40 mg injection (LASIX) 40 mg INTRAVENOUS q 12 H 6a/6p apixaban 5 mg tab(s) (ELIQUIS) 5 mg ORAL BID sodium chloride 0.9 % (flush) 2-10 mL (BD POSIFLUSH) 2-10 mL INTRAVENOUS DIRECTED PRN And perflutren lipid microspheres 1.1 mg/mL 1.3 mL injection (DEFINITY) 1.3 mL INTRAVENOUS DIRECTED PRN atorvastatin 20 mg tab(s) (LIPITOR) 20 mg ORAL AT BEDTIME metoprolol tartrate (short acting) 50 mg tab(s) (LOPRESSOR) 50 mg ORAL q 8 H docusate sodium 100 mg cap(s) (COLACE) 100 mg ORAL BID PRN digoxin 250 mcg injection (LANOXIN) 250 mcg INTRAVENOUS ONCE digoxin 250 mcg injection (LANOXIN) 250 mcg INTRAVENOUS ONCE DATA: Diagnostic tests reviewed for today's visit: CBC: No results for input(s): WBC, RBC, HB, HCT, PLT, MCV, MCH, MPV, RDW in the last 24 hours. Coags: No results for input(s): PT, INR, APTT in the last 24 hours. BMP: No results for input(s): NA, K, CHLOR, CO2, BUN, CREAT, GLUC in the last 24 hours. CMP: No results for input(s): NA, K, CHLOR, CO2, BUN, CREAT, GLUC, TPROT, CA, MG, ALBUMIN, TBILI, ALKPHOS, ALT, AST, ANION in the last 24 hours. Cardiac Enzymes: No results for input(s): CK, MB, CKMB, TROPT in the last 24 hours. Liver Function, Amylase, Lipase: No results for input(s): TPROT, ALB, ALT, AST, ALKPHOS, TBILI, AMYLASE, LIPASE, LACTATE in the last 24 hours. MG/PHOS: No results for input(s): MG, P in the last 24 hours. Renal Panel: No results for input(s): ALBUMIN, CREAT, BUN, GLUC, CA, P, CHLOR, K, CO2, NA in the last 24 hours. Heme: No results for input(s): RETICP, ABSRETIC, LD, NEAL, FE, TIBC, TRANSFERSAT in the last 24 hours. No results found for: UALBCR Active Hospital Problems Diagnosis Date Noted POA Acute respiratory failure with hypoxia ([facility]) 05/01/2022 Unknown Atrial fibrillation with RVR ([facility]) 05/01/2022 Unknown Acute diastolic CHF (congestive heart failure) ([facility]) 05/01/2022 Unknown Elevated brain natriuretic peptide (BNP) level 05/01/2022 Unknown Pleural effusion 05/01/2022 Unknown Resolved Hospital Problems No resolved problems to display. Assessment/Plan # Acute diastolic CHF- recurrent. It seems patient was previously seen at [facility] recently for similar complaints. - s/p Lasix 80mg IV in ED - Continue Lasix 40mg IV BID - Daily weight, I/O, CHF ADA diet - Cardiology consult - Can not find old echo # Atrial fibrillation with RVR - rate is better controlled HR 100-110 - Need to confirm home medications as there seems to be some discrepancy - Start metoprolol 50mg BID - Continue Eliquis - Consider LAUREN cardioversion. Patient does not desire any more inpatient workup. Wishes to be discharged. We will reach out to cardiology again. VTE Prophylaxis: As per primary team Disposition: To be determined Plan of care discussed with: Provider, RN, Patient SIGNATURE: Carlos Benitez MD PATIENT NAME: Stefany Hogan DATE: May 03, 2022 TIME: 2:37 PM PAGER/CONTACT #: My Pager. Page [phone] after 7PM, as my pager is off. [facility] Progress note 05-02-2022 Note Date & Type Note Facility 05-02-2022 Note HNO ID: [id number] Author: Carlos Benitez MD Service: Hospital Medicine Author Type: Physician Type: Progress Notes Filed: 05/02/2022 2:53 PM Note Text: DEPARTMENT OF HOSPITAL MEDICINE PROGRESS NOTE SERVICE DATE: 05/02/2022 SERVICE TIME: 2:47 PM Hospital Medicine/Primary Attending: Carlos Benitez MD NIGHT AND WEEKEND COVERAGE: After 7pm please page [phone] SUBJECTIVE: Follow up for CHF. No new issues. Feels much better. OBJECTIVE: PHYSICAL EXAM: BP 136/74 Pulse 78 Temp (Src) 97.5 (Oral) Resp 20 Ht 5' 9 (1.75m) Wt 267 lb 6.7 oz (121.3kg) SpO2 96% BMI 39.47 kg/(m2). O2 Therapy: Nasal Cannula, Liters: 3 General - AANDOx3, NAD, Calm Skin- No new lesions Legs- +2 edema CV - RRR S1 S2, No M/R/G RESP - CTA B/L No wheezes, ronchi, rales ABD - soft, NT, ND +BS ENT- no icterus Neuro- No dysarthria MEDICATIONS: Current Facility-Administered Medications Medication Dose Route Frequency lisinopril 20 mg tab(s) (ZESTRIL, PRINIVIL) 20 mg ORAL BID potassium chloride ER 20 mEq tab(s) (K-DUR, KLOR-CON) 20 mEq ORAL DAILY NaCl 0.9% iv flush bag 20 mL INTRAVENOUS PRN ondansetron 4 mg tab(s) (ZOFRAN) 4 mg ORAL q 6 H PRN Or ondansetron (PF) 4 mg injection (ZOFRAN) 4 mg INTRAVENOUS q 6 H PRN acetaminophen 650 mg tab(s) (TYLENOL) 650 mg ORAL q 6 H PRN furosemide 40 mg injection (LASIX) 40 mg INTRAVENOUS q 12 H 6a/6p apixaban 5 mg tab(s) (ELIQUIS) 5 mg ORAL BID sodium chloride 0.9 % (flush) 2-10 mL (BD POSIFLUSH) 2-10 mL INTRAVENOUS DIRECTED PRN And perflutren lipid microspheres 1.1 mg/mL 1.3 mL injection (DEFINITY) 1.3 mL INTRAVENOUS DIRECTED PRN atorvastatin 20 mg tab(s) (LIPITOR) 20 mg ORAL AT BEDTIME metoprolol tartrate (short acting) 50 mg tab(s) (LOPRESSOR) 50 mg ORAL q 8 H DATA: Diagnostic tests reviewed for today's visit: CBC: Recent Labs 05/02/22253 WBC 9.42 RBC 4.98 HB 14.0 HCT 45.0 PLT 310 MCV 90.4 MCH 28.1 MPV 10.4 Coags: No results for input(s): PT, INR, APTT in the last 24 hours. BMP: Recent Labs 05/02/22253 NA 142 K 3.8 CHLOR 96* CO2 40* BUN 10 CREAT 0.94 GLUC 128* CMP: Recent Labs 05/02/22253 NA 142 K 3.8 CHLOR 96* CO2 40* BUN 10 CREAT 0.94 GLUC 128* CA 9.4 MG 2.1 ANION 6* Cardiac Enzymes: No results for input(s): CK, MB, CKMB, TROPT in the last 24 hours. Liver Function, Amylase, Lipase: No results for input(s): TPROT, ALB, ALT, AST, ALKPHOS, TBILI, AMYLASE, LIPASE, LACTATE in the last 24 hours. MG/PHOS: Recent Labs 05/02/22253 MG 2.1 Renal Panel: Recent Labs 05/02/22253 CREAT 0.94 BUN 10 GLUC 128* CA 9.4 CHLOR 96* K 3.8 CO2 40* NA 142 Heme: No results for input(s): RETICP, ABSRETIC, LD, NEAL, FE, TIBC, TRANSFERSAT in the last 24 hours. No results found for: UALBCR Active Hospital Problems Diagnosis Date Noted POA Acute respiratory failure with hypoxia (HCC) 05/01/2022 Unknown Atrial fibrillation with RVR (HCC) 05/01/2022 Unknown Acute diastolic CHF (congestive heart failure) ([facility]) 05/01/2022 Unknown Elevated brain natriuretic peptide (BNP) level 05/01/2022 Unknown Pleural effusion 05/01/2022 Unknown Resolved Hospital Problems No resolved problems to display. Assessment/Plan # Acute diastolic CHF- recurrent. It seems patient was previously seen at [facility] recently for similar complaints. - s/p Lasix 80mg IV in ED - Continue Lasix 40mg IV BID - Daily weight, I/O, CHF ADA diet - Cardiology consult - Check 2d echo and may need LAUREN # Atrial fibrillation with RVR - rate is better controlled HR 100-110 - Need to confirm home medications as there seems to be some discrepancy - Start metoprolol 50mg BID - Continue Eliquis - Consider LAUREN cardioversion. VTE Prophylaxis: As per primary team Disposition: To be determined Plan of care discussed with: Patient SIGNATURE: Carlos Benitez MD PATIENT NAME: Stefany Hogan DATE: May 02, 2022 TIME: 2:47 PM PAGER/CONTACT #: My Pager. Page [phone] after 7PM, as my pager is off. [facility] Summary Purpose Family History No Family History Records FoundNo Family History Records FoundNo Family History Records Found Advance Directives No Advanced Directives Records FoundLatest Code Status on File Code Status Date Activated Date Inactivated Comments Full Code 05/01/2022 1:59 PM 05/04/2022 10:38 PM Full Code Order Discussed With: Patient Additional Source Comments (unrecognized sect ion and content) No Status Records FoundNo Status Records FoundNo Status Records Found INFORMATION SOURCE (unrecogn ized section and content) DATE CREATED AUTHOR AUTHOR'S ORGANIZ ATION 05/10/2022 [facility] DATE CREATED AUTHOR AUTHOR'S ORGANIZ ATION 02/26/2023 [facility] Source Comments (unrecognize d section and content) In the event this informatio n is protected by the Federal Confidentiality of Alcohol and Drug Abuse Patient Records regulations: The Federal rules restrict any use of the information to criminally investigate or prosecute any alcohol or drug abuse patient.[facility] the event this information is protected by the Federal Confidentiality of Alcohol and Drug Abuse Patient Records regulations: The Federal rules restrict any use of the information to criminally investigate or prosecute any alcohol or drug abuse patient.[facility] Reason for Visit (unrecogniz ed section and content) Reason Comments Follow Up All Clear Care Teams (unrecognized sec tion and content) FOR RECORDS PERTAINING TO PATIENTS WHO ARE OR HAVE BEEN ENROLLED IN A CHEMICAL DEPENDENCY/SUBSTANCEABUSE PROGRAM, SOME INFORMATION MAY BE OMITTED. This clinical summary was aggregated from multiple sources. Caution should be exercised in using it in the provision of clinical care. This summary normalizes information from multiple sources, and as a consequence, information in this document may materially change the coding, format and clinical context of patient data. In addition, data may be omitted in some cases. CLINICAL DECISIONS SHOULD BE BASED ON THE PRIMARY CLINICAL RECORDS. [employer] [facility]. provides no warranty or guarantee of the accuracy or completeness of information in this document.
[2023-06-08 15:17] LABS: International Normalized Ratio 1.1; Prothrombin Time (Protime)PT. 14.4 SECONDS (11.7-14.9)
[2023-06-08 15:20] LABS: Anion Gap 2 (5-15); BUN 13 mg/dL (7-18); BUN/Creat Ratio 10.7 RATIO (10-20); Calcium,Total 8.7 mg/dL (8.5-10.1); Chloride 107 mmol/L (98-107); Creatinine, Serum 1.22 mg/dL (0.70-1.30); EST Glomerular Filtration Rate 62 mL/min (>60); Est Glom Filt Rate - Afr Amer 75 mL/min (>60); Estimated Creatinine Clearance 74.03 ml/min; Glucose 119 mg/dL (74-106); Sodium Level 139 mmol/L (136-145)
[2023-06-08 15:21] LABS: Partial Thromboplast Time 31.2 Seconds (24.1-36.2)
--- NOTE | 2023-06-08 15:41 | ED.VIS.LOWEX ---
HPI History of Present Illness Chief Complaint: Lower Extremity Injury Informant: patient, family and EMS Onset/Context/Timing Onset: Today Narrative Narrative: 72-year-old male slipped and fell in the mud today causing deformity to the right lower leg. He is on Eliquis for atrial fibrillation. He states [facility] and still has [address] He denies any other injuries. He has a known left bundle branch block. He received fentanyl and splinting by EMS. [facility] Medical History BPH (benign prostatic hyperplasia) CHF (congestive heart failure) Colon cancer Former smoker Gout Hyperglycemia Hypertension Morbid obesity Morbid obesity due to excess calories Osteoarthritis PAF (paroxysmal atrial fibrillation) Paroxysmal atrial fibrillation Sleep apnea Urinary incontinence Home Medications acetaminophen 325 mg tablet (Tylenol) 650 mg PO TID PRN HIP PAIN 12/30/21 [History Last Taken 12/29/21] allopurinol 100 mg tablet 100 mg PO DAILY GOUT 12/30/21 [History Last Taken 04/08/22] cholecalciferol (vitamin D3) 50 mcg (2,000 unit) tablet 50 mcg PO BID SUPPLEMENT 12/30/21 [History Last Taken 04/08/22] finasteride 5 mg tablet 5 mg PO DAILY PROSTATE 12/30/21 [History Last Taken 04/08/22] lisinopril 30 mg tablet 30 mg PO BID blood pressure 12/30/21 [History Last Taken 04/08/22] metoprolol succinate 200 mg tablet,extended release 24 hr 200 mg PO DAILY blood pressure 12/30/21 [History Last Taken 04/08/22] salsalate 750 mg tablet 750 mg PO BID PRN Pain 12/30/21 [History Last Taken 04/08/22] terazosin 5 mg capsule 5 mg PO QHS 12/30/21 [History Last Taken 04/07/22] trospium 20 mg tablet 20 mg PO QHS BLADDER 12/30/21 [History Last Taken 1 Week Ago ~04/01/22] amiodarone 200 mg tablet 200 mg PO BID #14 tabs 01/03/22 [Rx Last Taken 04/08/22] potassium chloride 20 mEq tablet,extended release(part/cryst) (Klor-Con M) 20 meq PO BIDCM SUPPLEMENT #120 tabs 02/18/22 [Rx Last Taken 04/08/22] apixaban 5 mg tablet (Eliquis) 5 mg PO BID blood thinner 04/08/22 [History Last Taken 04/08/22] diltiazem HCl 120 mg capsule,extended release 24 hr 120 mg PO Q12 BLOOD PRESSURE 04/08/22 [History Last Taken 04/08/22] furosemide 20 mg tablet 40 mg (2 x 20 mg) PO BID #120 tabs 04/11/22 [Rx Last Taken Unknown] Allergy/AdvReac Type Severity Reaction Status Date / Time codeine Allergy Itching Verified 06/08/23 13:45 Family History Mother CVA (cerebral vascular accident) Diabetes Heart disease Hypertension Father CVA (cerebral vascular accident) Diabetes Heart disease Hypertension Surgical History History of ankle surgery History of partial colectomy History of tonsillectomy and adenoidectomy Hx of appendectomy S/P ear surgery Social History household members: significant other Smoking Status: Former smoker alcohol intake: current alcohol intake frequency: a few times a month substance use type: does not use ROS ROS ED Constitutional Constitutional ED: Denies chills, fever(s) or weight loss Eyes Eyes: Denies change in vision or diplopia ENT ENT ED: Denies ear pain, rhinorrhea or sore throat Cardiovascular Cardiovascular: Denies chest pain, orthopnea, palpitations or racing heartbeat Respiratory/Chest Respiratory/Chest: Denies cough, dyspnea or orthopnea Gastrointestinal Gastrointestinal: Denies abdominal pain, diarrhea, nausea or vomiting Genitourinary Genitourinary ED: Denies dysuria, hematuria or urinary frequency Musculoskeletal Musculoskeletal: Reports other Details: Right leg pain ; Denies arthralgias or myalgias Integumentary Denies abscess or rash Neurologic Neurologic: Denies headache(s) or weakness Psychiatric Psychiatric: Denies anxiety, depression, suicidal ideation or suicidal thoughts Endocrine Endocrinology: Denies polydipsia, polyphagia or polyuria Allergic/Immunologic Allergic/Immunologic ED: Denies mouth swelling, tongue swelling or urticaria EXAM Physical Exam Const Vital Signs: 06/08/23 13:45 06/08/23 14:08 06/08/23 14:38 Temperature 98.2 F 98 F Temperature Source Temporal Pulse Rate 52 L 48 L Pulse Rate [1 (Initial Baseline)] 47 L Pulse Rate [2] 47 L Pulse Rate [4] 53 L Pulse Rate [6] 47 L Respiratory Rate 16 10 L Respiratory Rate [1 (Initial Baseline)] 17 Respiratory Rate [2] 13 Respiratory Rate [4] 15 Respiratory Rate [6] 12 Blood Pressure 159/58 H 171/74 H Blood Pressure [1 (Initial Baseline)] 169/74 H Blood Pressure [4] 225/87 H Blood Pressure [6] 208/91 H Blood Pressure Mean 91 Pulse Ox 95 99 Oxygen Delivery Method Room Air Room Air Oxygen Delivery Method [1 (Initial Baseline)] Nasal Cannula Oxygen Delivery Method [2] Nasal Cannula Oxygen Delivery Method [3] Nasal Cannula Oxygen Delivery Method [4] Nasal Cannula Oxygen Delivery Method [6] Nasal Cannula Oxygen Flow Rate (L/min) Oxygen Flow Rate (L/min) [1 (Initial Baseline)] 2 Oxygen Flow Rate (L/min) [3] 2 Oxygen Flow Rate (L/min) [4] 4 Oxygen Flow Rate (L/min) [6] 4 06/08/23 14:53 06/08/23 14:58 06/08/23 15:03 Temperature Temperature Source Pulse Rate Pulse Rate [1 (Initial Baseline)] Pulse Rate [2] Pulse Rate [4] Pulse Rate [6] Respiratory Rate Respiratory Rate [1 (Initial Baseline)] Respiratory Rate [2] Respiratory Rate [4] Respiratory Rate [6] Blood Pressure Blood Pressure [1 (Initial Baseline)] Blood Pressure [4] Blood Pressure [6] Blood Pressure Mean Pulse Ox Oxygen Delivery Method Nasal Cannula Room Air Room Air Oxygen Delivery Method [1 (Initial Baseline)] Oxygen Delivery Method [2] Oxygen Delivery Method [3] Oxygen Delivery Method [4] Oxygen Delivery Method [6] Oxygen Flow Rate (L/min) 2 Oxygen Flow Rate (L/min) [1 (Initial Baseline)] Oxygen Flow Rate (L/min) [3] Oxygen Flow Rate (L/min) [4] Oxygen Flow Rate (L/min) [6] Positive well nourished and well developed General Appearance ED: well developed HEENT Reports normocephalic, head/scalp atraumatic and moist mucous membranes Eyes PERRL and EOMs intact bilaterally Neck no lymphadenopathy, supple and no JVD Resp normal respiratory effort and clear to auscultation bilaterally Cardio regular rate and no murmurs Rate: bradycardia GI normal to inspection, nondistended, normoactive bowel sounds and non-tender Palpation: soft Back/Spine no CVA tenderness and normal ROM Extremity Extremity Narrative: There is obvious deformity to the tibial shaft of the right leg. The toes are rotated approximately 110 degrees lateral from their normal lie. I am able to palpate a dorsalis pedis pulse. He is able to wiggle his toes and sensation is preserved. I do not see any open areas to be concerned about an open fracture. General Extremety ED: Negative for edema General Extremity: Negative for edema Neuro oriented x3 and CN's II-XII intact bilaterally Sensorium / Orientation: alert Motor Exam: strength 5/5 throughout Psych mental status grossly normal Mood & Affect: Negative for depressed or tearful Skin no rashes or lesions noted and no wounds MDM MDM MDM Narrative Medical decision making narrative: Patient provided informed written consent for the use of etomidate for procedural sedation to allow reduction and splinting of the injury. Patient received a total of 20 mg of etomidate. Once adequate sedation was achieved the fracture was reduced and he was placed in a Ortho-Glass posterior stirrup splint. Neurovascular intact post application. He was allowed to recover. He did have evidence of hypoventilation. And again he does have a history of sleep apnea. Patient was allowed to recover and he had redosing of his Dilaudid. I spoke with local orthopedist Dr. Gatica who recommends transfer to trauma center. I spoke with the patient and they like me to try either of the [facility] in [facility]. I reached out to [facility]. They have accepted the patient in transfer. We are currently awaiting bed assignment. History & Record Review Discussion w/independent historian: EMS personnel, Patient and Family Lab Data Attestation: I reviewed the patient's lab results. Labs: Laboratory Results - last 24 hr 06/08/23 06/08/23 13:00 15:00 WBC 6.6 RBC 5.00 Hgb 14.7 Hct 43.0 MCV 86.0 MCH 29.4 MCHC 34.2 RDW Std Deviation 41.5 RDW Coeff of Maci 13.4 Plt Count 226 MPV 10.9 Immature Gran % (Auto) 0.200 Neut % (Auto) 70.6 H Lymph % (Auto) 15.3 L Austin % (Auto) 11.3 H Eos % (Auto) 2.1 Baso % (Auto) 0.5 Absolute Neuts (auto) 4.6 Absolute Lymphs (auto) 1.00 Nucleated RBC % 0 PT Cancelled 14.4 INR Cancelled 1.1 APTT Cancelled 31.2 Sodium Cancelled 139 Potassium Cancelled 4.0 Chloride Cancelled 107 Carbon Dioxide Cancelled 30.0 Anion Gap Cancelled 2 L BUN Cancelled 13 Creatinine Cancelled 1.22 Estim Creat Clear Calc Cancelled 74.03 Est GFR (MDRD) Af Amer Cancelled 75 Est GFR (MDRD) Non-Af Cancelled 62 BUN/Creatinine Ratio Cancelled 10.7 Glucose Cancelled 119 H Calcium Cancelled 8.7 Radiography Diagnostic Testing: Clinical Impression(s) from Imaging Studies Ankle X-Ray 06/08/23 13:56 IMPRESSION: Comminuted oblique fracture of the distal tibial shaft as well as comminuted transverse fracture of the distal fibular shaft. Soft tissue swelling. Electronically Signed: Jerry Mrorow MD at 15:16 EST , Tibia/Fibula X-Ray 06/08/23 13:56 IMPRESSION: Comminuted oblique fracture of the distal tibial shaft and comminuted transverse fracture of the distal fibular shaft with soft tissue swelling. Electronically Signed: Jerry Morrow MD at 15:17 EST , EKG Initial EKG: Attestation: I personally reviewed and interpreted this EKG as follows: Comments: Sinus bradycardia with a left bundle branch block and a ventricular rate of 46 bpm Discharge Plan Triage Chief Complaint: Lower Extremity Injury ED Provider: Carlos Quinones Dx/Rx/DC Orders Clinical Impression: Anticoagulated, Bradycardia, Fall, Closed fracture of right fibula and tibia Prescriptions: No Action terazosin 5 mg Capsule 5 mg PO QHS acetaminophen [Tylenol] 325 mg Tablet 650 mg PO TID PRN (Reason: HIP PAIN) metoprolol succinate 200 mg Tablet Extended Release 24 Hr 200 mg PO DAILY allopurinol 100 mg Tablet 100 mg PO DAILY lisinopril 30 mg Tablet 30 mg PO BID Hold Instructions: Resume on 01/03/22. Until BP can be re-evaluated as outpt with additional rate controlling medication salsalate 750 mg Tablet 750 mg PO BID PRN (Reason: Pain) finasteride 5 mg Tablet 5 mg PO DAILY trospium 20 mg Tablet 20 mg PO QHS cholecalciferol (vitamin D3) 50 mcg (2,000 unit) Tablet 50 mcg PO BID amiodarone 200 mg Tablet 200 mg PO BID Qty: 14 0RF potassium chloride [Klor-Con M20] 20 mEq Tablet,Er Particles/Crystals 20 meq PO BIDCM Qty: 120 0RF diltiazem HCl 120 mg capsule,extended release 24hr 120 mg PO Q12 Eliquis 5 mg tablet 5 mg PO BID furosemide 20 mg tablet 40 mg PO BID Qty: 120 0RF [facility] [Primary [facility] Provider] - Disposition Disposition: Acute Care Hospital Discharge Location: [facility]
--- NOTE | 2023-06-08 16:19 | NURSING ---
[facility]
--- NOTE | 2023-06-08 16:59 | NURSING ---
CALLED [facility], ETA IS 60 MIN
--- NOTE | 2023-06-08 17:09 | NURSING ---
CALLED [facility]. TALKED TO [facility]. SHE TOOK INFO AND WILL LET RN KNOW
== END 2023-06-08 18:15 | disposition short-term general hospital (02) ==
PROVIDERS: Emergency Provider Emergency Medicine; Visit Provider Emergency Medicine
DX: S82.231A Displaced oblique fracture of shaft of right tibia, initial encounter for closed fracture (principal); S82.421A Displaced transverse fracture of shaft of right fibula, initial encounter for closed fracture; W01.0XXA Fall on same level from slipping, tripping and stumbling without subsequent striking against object, initial encounter; R00.1 Bradycardia, unspecified; R06.89 Other abnormalities of breathing; I11.0 Hypertensive heart disease with heart failure; I50.9 Heart failure, unspecified; I48.0 Paroxysmal atrial fibrillation; G47.30 Sleep apnea, unspecified; Z79.01 Long term (current) use of anticoagulants; Z79.899 Other long term (current) drug therapy; Z87.891 Personal history of nicotine dependence
CPT/HCPCS: 27752; 73590; 73610; 80048; 85025; 85610; 85730; 93005; 96374; 96375; 99156; 99285; J7030; A4216